=== PATIENT | male | born 1980 | race Caucasian/White ===

== ENCOUNTER → 2016-04-25 | Outpatient (CLI) | payer MEDICARE, OTHER ==
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
== END | disposition home or self-care (01) ==
LOC: RADCTMAIN 07:45
PROVIDERS: ATTEND Family Medicine
DX: M99.71 Connective tissue and disc stenosis of intervertebral foramina of cervical region (principal)
CPT/HCPCS: 72125

== ENCOUNTER 2016-06-08 19:07 | Observation (INO) | payer MEDICARE, OTHER ==
[2016-06-08] MEDS ORDERED: NITROGLYCERIN OINT 1 INCH/GM PACKET TOPICAL STA (19:38)
[2016-06-08] MEDS ORDERED: ASPIRIN 81 MG CHEW PO STA (19:38)
[2016-06-08] MEDS ORDERED: NITROGLYCERIN SL TABS 0.4 MG TAB SUBLINGUAL STA (19:38)
--- NOTE | 2016-06-08 19:40 | ED ---
General Adult HPI - General Chief complaint: Chest Pain Stated complaint: chest pain Time Seen by Provider: 06/08/16 19:35 Source: patient, RN notes reviewed Mode of arrival: EMS Limitations: no limitations - History of Present Illness Initial comments: Patient is a pleasant 35-year-old male presenting to the emergency department complaining of chest pain. Onset of symptoms was yesterday. Symptoms were intermittent however are more persistent today. Patient has associated dyspnea and diaphoresis. No nausea. No leg pain or swelling. No cough or fever. Discomfort is sharp as does radiate to the left arm. Patient had similar symptoms previously with heart problems. Discomfort is currently 8/10. Discomfort did improve with nitro and morphine by EMS. - Related Data Home Medications Medication Instructions Recorded Confirmed Aspirin EC [Ecotrin Low Dose] 81 mg PO HS 10/27/15 06/08/16 Atorvastatin [Lipitor] 20 mg PO HS 10/27/15 06/08/16 Benztropine Mesylate [Cogentin] 1 mg PO BID 10/27/15 06/08/16 Carvedilol [Coreg] 12.5 mg PO BID 10/27/15 06/08/16 DULoxetine HCL [Cymbalta] 60 mg PO DAILY 10/27/15 06/08/16 Fenofibrate,Micronized 67 mg PO HS 10/27/15 06/08/16 [Fenofibrate] Furosemide [Lasix] 20 mg PO DAILY PRN 10/27/15 06/08/16 Gemfibrozil [Lopid] 600 mg PO BID 10/27/15 06/08/16 Pantoprazole Sodium [Protonix] 40 mg PO DAILY 10/27/15 06/08/16 Ranolazine [Ranexa] 1,000 mg PO BID 10/27/15 06/08/16 Tamsulosin HCl [Flomax] 0.4 mg PO BID 10/27/15 06/08/16 Lisinopril [Prinivil] 20 mg PO DAILY 11/28/15 06/08/16 Albuterol Inhaler [Ventolin Hfa 1 puff INHALATION RT-Q6H PRN 02/22/16 06/08/16 Inhaler] Clopidogrel [Plavix] 75 mg PO DAILY 02/22/16 06/08/16 Dicyclomine [Bentyl] 10 mg PO BID 02/22/16 06/08/16 Diltiazem HCl [Diltiazem 24Hr ER] 120 mg PO DAILY 02/22/16 06/08/16 Sertraline [Zoloft] 50 mg PO DAILY 02/22/16 06/08/16 risperiDONE MICROSPHERES 12.5 mg IM Q14D 02/22/16 06/08/16 [RisperDAL CONSTA] risperiDONE MICROSPHERES 50 mg IM Q14D 02/22/16 06/08/16 [RisperDAL CONSTA] Isosorbide Mononitrate ER [Imdur] 60 mg PO QAM 06/08/16 06/08/16 carBAMazepine [Carbatrol] 300 mg PO Q12HR 06/08/16 06/08/16 Allergies Allergy/AdvReac Type Severity Reaction Status Date / Time codeine Allergy Itching Verified 06/08/16 20:19 hydrocodone bitartrate Allergy Itching Verified 06/08/16 20:19 [From Vicodin] latex Allergy Rash/Hives Verified 06/08/16 20:19 morphine Allergy Itching Verified 06/08/16 20:19 quetiapine fumarate AdvReac AGITATION Verified 06/08/16 20:19 [From Seroquel] Review of Systems ROS Statement: Those systems with pertinent positive or pertinent negative responses have been documented in the HPI. ROS Other: All systems not noted in ROS Statement are negative. Constitutional: Denies: fever Eyes: Denies: eye pain ENT: Denies: ear pain Respiratory: Reports: dyspnea. Denies: cough Cardiovascular: Reports: chest pain, palpitations Endocrine: Denies: fatigue Gastrointestinal: Denies: abdominal pain Genitourinary: Denies: dysuria Musculoskeletal: Denies: back pain Skin: Denies: rash Neurological: Denies: weakness Past Medical History Past Medical History: Heart Failure Additional Past Medical History / Comment(s): Cardiomyopathy History of Any Multi-Drug Resistant Organisms: None Reported Past Surgical History: Heart Catheterization With Stent, Pacemaker Past Anesthesia/Blood Transfusion Reactions: No Reported Reaction Date of Last Stent Placement:: Type of Cardiac Device: Permanent Pacemaker Device Placement Date:: 2011 Past Psychological History: Schizophrenia Smoking Status: Current every day smoker Past Alcohol Use History: None Reported Past Drug Use History: None Reported - Past Family History Father Family Medical History: Congestive Heart Failure (CHF) Additional Family Medical History / Comment(s): Heart Transplant Mother Additional Family Medical History / Comment(s): Triple bypass General Exam Limitations: no limitations General appearance: alert, in no apparent distress Head exam: Present: atraumatic Eye exam: Present: normal appearance, PERRL ENT exam: Present: normal oropharynx Neck exam: Present: normal inspection Respiratory exam: Present: normal lung sounds bilaterally Cardiovascular Exam: Present: regular rate, normal rhythm Expanded Peripheral pulses: 2+: Radial (R), Radial (L), Posterior Tibialis (R), Posterior Tibialis (L) GI/Abdominal exam: Present: soft. Absent: tenderness Extremities exam: Present: normal inspection. Absent: pedal edema, calf tenderness Neurological exam: Present: alert Psychiatric exam: Present: normal affect, normal mood Skin exam: Absent: rash Course Vital Signs 06/08/16 06/08/16 19:13 19:27 Temperature 97.2 F L Pulse Rate 96 Pulse Rate [ 74 Senior Research Fellow ] Respiratory 20 Rate Blood Pressure 125/68 O2 Sat by Pulse 97 Oximetry EKG Findings - EKG Comments: EKG Findings:: Normal sinus rhythm at 71. Normal intervals. Normal axis. Normal QRS. Normal ST-T. Medical Decision Making - Medical Decision Making Patient reevaluated and resting comfortably in bed. Patient and family updated on results and plan. Case was discussed in detail with Dr. Hilliard, who will admit for Dr. keller. Admission orders written. Consult placed for cardiology. IV heparin started. - Lab Data Result diagrams: 06/08/16 19:20 06/08/16 19:20 Lab Results 06/08/16 06/08/16 06/08/16 Range/Units 19:20 19:20 19:20 WBC 7.8 (3.8-10.6) k/uL RBC 4.44 (4.30-5.90) m/uL Hgb 13.8 (13.0-17.5) gm/dL Hct 40.7 (39.0-53.0) % MCV 91.7 (80.0-100.0) fL MCH 31.2 (25.0-35.0) pg MCHC 34.0 (31.0-37.0) g/dL RDW 12.7 (11.5-15.5) % Plt Count 180 (150-450) k/uL Neutrophils % 62 % Lymphocytes % 27 % Monocytes % 8 % Eosinophils % 1 % Basophils % 0 % Neutrophils # 4.8 (1.3-7.7) k/uL Lymphocytes # 2.1 (1.0-4.8) k/uL Monocytes # 0.6 (0-1.0) k/uL Eosinophils # 0.1 (0-0.7) k/uL Basophils # 0.0 (0-0.2) k/uL PT (9.0-12.0) sec INR (<1.1) APTT (22.0-30.0) sec D-Dimer (<0.60) mg/L FEU Sodium 138 (137-145) mmol/L Potassium 4.1 (3.5-5.1) mmol/L Chloride 103 (98-107) mmol/L Carbon Dioxide 24 (22-30) mmol/L Anion Gap 11 mmol/L BUN 9 (9-20) mg/dL Creatinine 0.98 (0.66-1.25) mg/dL Est GFR (MDRD) Af Amer >60 (>60 ml/min/1.73 sqM) Est GFR (MDRD) Non-Af >60 (>60 ml/min/1.73 sqM) Glucose 81 (74-99) mg/dL Calcium 8.7 (8.4-10.2) mg/dL Magnesium 1.8 (1.6-2.3) mg/dL Total Bilirubin 0.5 (0.2-1.3) mg/dL AST 62 H (17-59) U/L ALT 72 (21-72) U/L Alkaline Phosphatase 57 (38-126) U/L Total Creatine Kinase 225 H (55-170) U/L CK-MB (CK-2) 1.6 (0.0-2.4) ng/mL CK-MB (CK-2) Rel Index 0.7 Troponin I <0.012 (0.000-0.034) ng/mL NT-Pro-B Natriuret Pep pg/mL Total Protein 6.3 (6.3-8.2) g/dL Albumin 3.8 (3.5-5.0) g/dL 06/08/16 06/08/16 Range/Units 19:20 19:20 WBC (3.8-10.6) k/uL RBC (4.30-5.90) m/uL Hgb (13.0-17.5) gm/dL Hct (39.0-53.0) % MCV (80.0-100.0) fL MCH (25.0-35.0) pg MCHC (31.0-37.0) g/dL RDW (11.5-15.5) % Plt Count (150-450) k/uL Neutrophils % % Lymphocytes % % Monocytes % % Eosinophils % % Basophils % % Neutrophils # (1.3-7.7) k/uL Lymphocytes # (1.0-4.8) k/uL Monocytes # (0-1.0) k/uL Eosinophils # (0-0.7) k/uL Basophils # (0-0.2) k/uL PT 10.6 (9.0-12.0) sec INR 1.0 (<1.1) APTT 24.7 (22.0-30.0) sec D-Dimer 0.22 (<0.60) mg/L FEU Sodium (137-145) mmol/L Potassium (3.5-5.1) mmol/L Chloride (98-107) mmol/L Carbon Dioxide (22-30) mmol/L Anion Gap mmol/L BUN (9-20) mg/dL Creatinine (0.66-1.25) mg/dL Est GFR (MDRD) Af Amer (>60 ml/min/1.73 sqM) Est GFR (MDRD) Non-Af (>60 ml/min/1.73 sqM) Glucose (74-99) mg/dL Calcium (8.4-10.2) mg/dL Magnesium (1.6-2.3) mg/dL Total Bilirubin (0.2-1.3) mg/dL AST (17-59) U/L ALT (21-72) U/L Alkaline Phosphatase (38-126) U/L Total Creatine Kinase (55-170) U/L CK-MB (CK-2) (0.0-2.4) ng/mL CK-MB (CK-2) Rel Index Troponin I (0.000-0.034) ng/mL NT-Pro-B Natriuret Pep 117 pg/mL Total Protein (6.3-8.2) g/dL Albumin (3.5-5.0) g/dL - Radiology Data Radiology results: image reviewed (Chest x-ray shows no acute process) Critical Care Time Critical Care Time: Yes Total Critical Care Time: 32 Disposition Clinical Impression: Unstable angina pectoris Disposition: ADMITTED IP TO THIS HOSP Referrals: Sweta Bhardwaj MD [Primary Care Provider] - 1-2 days
[2016-06-08 19:55] LABS: Basophils % (A) 0 %; CH 32.6; CHCM 35.7; Eosinophils # (A) 0.1 k/uL (0-0.7); Eosinophils % (A) 1 %; HCT 40.7 % (39.0-53.0); HDW 2.47; HGB 13.8 gm/dL (13.0-17.5); Luc # (Auto) 0.18; Luc % (Auto) 2; Lymphocytes # (A) 2.1 k/uL (1.0-4.8); Lymphocytes % (A) 27 %; MCH 31.2 pg (25.0-35.0); MCV 91.7 fL (80.0-100.0); Monocytes # (A) 0.6 k/uL (0-1.0); Monocytes % (A) 8 %; Neutrophils # (A) 4.8 k/uL (1.3-7.7); Neutrophils % (A) 62 %; RBC 4.44 m/uL (4.30-5.90); RDW 12.7 % (11.5-15.5); WBC 7.8 k/uL (3.8-10.6); WBC (Perox) 7.63
[2016-06-08 20:08] LABS: ALT 72 U/L (21-72); AST 62 U/L (17-59); Alkaline Phosphatase 57 U/L (38-126); Anion Gap 11 mmol/L; Blood Urea Nitrogen 9 mg/dL (9-20); Calcium 8.7 mg/dL (8.4-10.2); Carbon Dioxide 24 mmol/L (22-30); Chloride 103 mmol/L (98-107); Glucose 81 mg/dL (74-99); Magnesium 1.8 mg/dL (1.6-2.3); Non-African American GFR(MDRD) >60 (>60 ml/min/1.73 sqM); Potassium 4.1 mmol/L (3.5-5.1); Sodium 138 mmol/L (137-145); Total Bilirubin 0.5 mg/dL (0.2-1.3); Total Protein 6.3 g/dL (6.3-8.2)
[2016-06-08 20:19] LABS: Partial Thromboplastin Time 24.7 sec (22.0-30.0); Prothrombin Time 10.6 sec (9.0-12.0)
[2016-06-08 20:21] LABS: Creatine Kinase 225 U/L (55-170)
[2016-06-08] MEDS ORDERED: HYDROmorphone 1 MG/ML 1 ML SYRINGE IVP STA (20:24)
[2016-06-08 20:33] LABS: Creatine Kinase MB 1.6 ng/mL (0.0-2.4); Troponin I <0.012 ng/mL (0.000-0.034)
--- NOTE | 2016-06-08 20:33 | XR ---
EXAMINATION TYPE: XR chest 2V DATE OF EXAM: 06/08/2016 7:57 PM COMPARISON: February 22, 2016 HISTORY: Sharp left-sided pain TECHNIQUE: Frontal and lateral views of the chest are obtained. FINDINGS: Cardiac pacemaker noted. Cardiac silhouette size is normal. There is no focal air space op acity, pleural effusion, or pneumothorax seen. The mediastinal silhouette is within normal limits. The osseous structures are intact. IMPRESSION: No acute cardiopulmonary process.
[2016-06-08] MEDS ORDERED: NITROGLYCERIN SL TABS 0.4 MG TAB SUBLINGUAL PRN (22:16)
[2016-06-08] MEDS ORDERED: HEPARIN SODIUM,PORCINE 5,000 UNIT/ML 1 ML VIAL IV ONE (22:16)
[2016-06-08] MEDS ORDERED: HEPARIN SODIUM,PORCINE 5,000 UNIT/ML 1 ML VIAL IV PRN (22:16)
[2016-06-08] MEDS ORDERED: HEPARIN SODIUM,PORCINE/D5W PMX 25,000 UNIT in DEXTROSE/WATER 1 500ML.BAG IV SCH (22:30)
[2016-06-08] MEDS ORDERED: FAMOTIDINE 20 MG/2 ML VIAL IV STA (23:09)
[2016-06-09] MEDS ORDERED: FUROSEMIDE 20 MG TAB PO PRN (00:07)
[2016-06-09] MEDS ORDERED: ALBUTEROL NEBULIZED 2.5 MG/3 ML INHALATION PRN (00:07)
[2016-06-09] MEDS: CARVEDILOL 12.5 MG TAB PO SCH ×2 (01:00→13:24)
[2016-06-09] MEDS: RANOLAZINE 500 MG TAB.ER.12H PO SCH ×2 (01:00→13:23)
[2016-06-09] MEDS: NITROGLYCERIN OINT 1 INCH/GM PACKET TOPICAL SCH ×2 (01:00→06:33)
[2016-06-09] MEDS: MORPHINE SULFATE 2 MG/ML SYRINGE IVP PRN ×3 (01:01→09:58)
[2016-06-09] MEDS: carBAMazepine 300 MG CPMP.12HR PO SCH ×2 (01:03→13:24)
[2016-06-09 02:14] LABS: Creatine Kinase 189 U/L (55-170)
[2016-06-09 02:15] VITALS: BMI 33.8
[2016-06-09 02:27] LABS: Creatine Kinase MB 1.5 ng/mL (0.0-2.4); Troponin I <0.012 ng/mL (0.000-0.034)
[2016-06-09 05:09] VITALS: PULSE 82
[2016-06-09 06:55] LABS: Cholesterol 183 mg/dL (<200); HDL Cholesterol 26 mg/dL (40-60); Triglycerides 281 mg/dL (<150)
[2016-06-09 07:12] LABS: Creatine Kinase 159 U/L (55-170)
[2016-06-09 07:24] LABS: Creatine Kinase MB 1.4 ng/mL (0.0-2.4); Troponin I <0.012 ng/mL (0.000-0.034)
[2016-06-09 07:49] VITALS: RESP 16
[2016-06-09] MEDS ORDERED: AMINOPHYLLINE 500 MG/20 ML VIAL IV PRN (08:03)
[2016-06-09] MEDS ORDERED: REGADENOSON 0.4 MG/5 ML SYRINGE IV ONE (08:15)
--- NOTE | 2016-06-09 08:38 | CONS ---
DATE OF CONSULTATION: CHIEF COMPLAINT: Chest pain. Jabari is a 35-year-old gentleman with history of coronary artery disease, status post angioplasty, status post permanent pacemaker, cardiomyopathy, schizophrenia who comes to the hospital complaining of chest pain. It is sharp precordial intermittent without definite radiation to neck, arm or back, unassociated with diaphoresis and unrelated to exertion. At the time of my evaluation, he is pain free and hemodynamically stable. He has had 2 sets of cardiac enzymes that are negative. EKG shows sinus rhythm without acute ST-T wave changes. Given the unexplained chest pain. I am going to schedule him for a stress test this morning. Past medical history is significant for CAD, status post angioplasty, hypertension, dyslipidemia, dsg-lyizsos-eaiuizris diabetes, sick sinus syndrome, status post permanent pacemaker placement. The patient is on: 1. Imdur. 2. Risperdal. 3. Cardizem. 4. Bentyl. 5. Plavix. 6. Albuterol. 7. Lisinopril. 8. Flomax. 9. Xanax. 10. Lopid. 11. Protonix. 12. Aspirin. 13. Lipitor. 14. Coreg. 15. Cymbalta. 16. Fenofibrate. 17. Lasix. PATIENT HAS MULTIPLE ALLERGIES INCLUDING CODEINE, VICODIN, LATEX, MORPHINE AND SEROQUEL. FAMILY HISTORY: Significant for congestive heart failure. SOCIAL HISTORY: Significant for smoking. There is no history of ETOH abuse, or drug abuse. REVIEW OF SYSTEMS: HEENT: Unremarkable. CARDIAC: As described above. RESPIRATORY: Negative. GI: Negative. GENITOURINARY: Negative. Allergy/immunology: Negative. MUSCULOSKELETAL: Negative. CONSTITUTIONAL: Negative. Oncological: Negative. The rest of the system review is not relevant. On exam, comfortable at rest. Vital signs are stable. There is no jugular venous distention. Carotid upstroke is normal. There is no bruit. Chest exam reveals good air entry bilaterally. Heart exam reveals first and second heart sounds. No gallop. Exam of the extremities did not reveal edema. Peripheral pulses are felt. ASSESSMENT: 1. Precordial chest pain, atypical. 2. History of permanent pacemaker placement with a history of stent. 3. History of coronary artery disease, status post angioplasty. PLAN: I am going to schedule him for a stress test to evaluate for ischemia and if this is abnormal he may need a cardiac cath if not we will discharge him home.
[2016-06-09] MEDS ORDERED: BENZTROPINE MESYLATE 1 MG TAB PO SCH (09:00)
[2016-06-09] MEDS ORDERED: SERTRALINE 50 MG TAB PO SCH (09:00)
[2016-06-09] MEDS ORDERED: DICYCLOMINE 10 MG CAP PO SCH (09:00)
[2016-06-09] MEDS ORDERED: GEMFIBROZIL 600 MG TAB PO SCH (09:00)
[2016-06-09] MEDS ORDERED: PANTOPRAZOLE 40 MG TABLET PO SCH (09:00)
[2016-06-09] MEDS ORDERED: ASPIRIN 325 MG TAB PO SCH (09:00)
[2016-06-09] MEDS ORDERED: DULoxetine HCL 60 MG CAPSULE.DR PO SCH (09:00)
[2016-06-09] MEDS ORDERED: CLOPIDOGREL 75 MG TAB PO SCH (09:00)
[2016-06-09] MEDS ORDERED: TAMSULOSIN 0.4 MG CAP.ER.24H PO SCH (09:00)
[2016-06-09] MEDS ORDERED: LISINOPRIL 20 MG TAB PO SCH (09:00)
[2016-06-09] MEDS ORDERED: ISOSORBIDE MONONITRATE ER 60 MG TAB.ER.24H PO SCH (09:00)
[2016-06-09] MEDS ORDERED: DILTIAZEM CD 120 MG CAP.ER.24H PO SCH (09:00)
--- NOTE | 2016-06-09 11:42 | ECHOF ---
Referral Reason:chest pain MEASUREMENTS -------- HEIGHT: 172.7 cm WEIGHT: 100.7 kg BP: 86/47 RVIDd: 3.5 cm (< 3.3) IVSd: 1.0 cm (0.6 - 1.1) LVIDd: 5.0 cm (3.9 - 5.3) LVPWd: 0.8 cm (0.6 - 1.1) IVSs: 1.3 cm LVIDs: 3.7 cm LVPWs: 1.1 cm LA Diam: 3.3 cm (2.7 - 3.8) Ao Diam: 2.6 cm (2.0 - 3.7) AV Cusp: 2.0 cm (1.5 - 2.6) LA Diam: 2.8 cm (2.7 - 3.8) MV EXCURSION: 12.842 mm (> 18.000) MV EF SLOPE: 102 mm/s (70 - 150) EPSS: 0.6 cm MV E Blayne: 0.98 m/s MV DecT: 163 ms MV A Blayne: 0.54 m/s MV E/A Ratio: 1.82 RAP: 5.00 mmHg RVSP: 30.49 mmHg FINDINGS -------- Paced rhythm. Pacerwire seen in RV and RA. This was a technically good study. Left ventricular wall thickness is normal. Overall left ventricular systolic function is normal with, an EF between 55 - 60 %. The right ventricle is mildly enlarged. The left atrial size is normal. The right atrium is normal in size. Aortic valve is trileaflet and is mildly thickened. The mitral valve leaflets are mildly thickened. Mild mitral annular calcification present. Mild mitral regurgitation is present. Mild tricuspid regurgitation present. Right ventricular systolic pressure is normal at < 35 mmHg. Trace/mild (physiologic) pulmonic regurgitation. The aortic root size is normal. Normal inferior vena cava with normal inspiratory collapse consistent with estimated right atrial pressure of 5 mmHg. There is a trivial pericardial effusion present. CONCLUSIONS -------- 1. Paced rhythm. 2. The mitral valve leaflets are mildly thickened. 3. Mild mitral annular calcification present. 4. Mild mitral regurgitation is present. 5. Mild tricuspid regurgitation present. 6. Right ventricular systolic pressure is normal at < 35 mmHg. 7. Trace/mild (physiologic) pulmonic regurgitation. 8. The aortic root size is normal. 9. There is a trivial pericardial effusion present. 10. Pacerwire seen in RV and RA. 11. This was a technically good study. 12. Left ventricular wall thickness is normal. 13. Overall left ventricular systolic function is normal with, an EF between 55 - 60 %. 14. The right ventricle is mildly enlarged. 15. The left atrial size is normal. 16. The right atrium is normal in size. 17. Aortic valve is trileaflet and is mildly thickened. OPTICIAN: Trell Giraldo RDCS
--- NOTE | 2016-06-09 12:17 | P.HPIM ---
History of Present Illness H&P Date: 06/09/16 Chief Complaint: Chest pain This is a 35-year-old male with a known history of congestive heart failure, coronary artery disease with cardiac stent, cardiomyopathy, hypertension, hyperlipidemia and nicotine dependence. Patient presents to the emergency room with complaints of chest pain. Patient reports that chest pain started yesterday. He was having pain in the center of his chest radiating into the left arm and up to his neck. Also was having shortness of breath nausea and diaphoresis. He is concerned about possible heart attack and presented to the emergency room for further evaluation and treatment. He was started on IV heparin. Cardiology was consulted. Troponins are negative 3 sets. EKG shows a normal sinus rhythm. Patient slurred last heart catheterization was February 2016 patient reported as being normal and no intervention required at that time. Patient was evaluated by cardiology and is scheduled him for a stress test today. Patient is still having episodes of chest pain requiring IV morphine. He did have a blood pressure of 86/47 this morning likely related to the morphine. Review of Systems Please refer to HPI otherwise unremarkable Past Medical History Past Medical History: Asthma, Heart Failure Additional Past Medical History / Comment(s): Cardiomyopathy History of Any Multi-Drug Resistant Organisms: None Reported Past Surgical History: Heart Catheterization With Stent, Pacemaker Additional Past Surgical History / Comment(s): surgery on elbow Past Anesthesia/Blood Transfusion Reactions: No Reported Reaction Date of Last Stent Placement:: Type of Cardiac Device: Permanent Pacemaker Device Placement Date:: 2011 Past Psychological History: Schizophrenia Smoking Status: Current every day smoker Past Alcohol Use History: None Reported Past Drug Use History: None Reported - Past Family History Father Family Medical History: Congestive Heart Failure (CHF) Additional Family Medical History / Comment(s): Father required Heart Transplant in his 40s. Mother in her 50s he required CABG Mother Additional Family Medical History / Comment(s): Triple bypass Medications and Allergies Home Medications Medication Instructions Recorded Confirmed Type Aspirin EC [Ecotrin Low Dose] 81 mg PO HS 10/27/15 06/08/16 History Atorvastatin [Lipitor] 20 mg PO HS 10/27/15 06/08/16 History Benztropine Mesylate [Cogentin] 1 mg PO BID 10/27/15 06/08/16 History Carvedilol [Coreg] 12.5 mg PO BID 10/27/15 06/08/16 History DULoxetine HCL [Cymbalta] 60 mg PO DAILY 10/27/15 06/08/16 History Fenofibrate,Micronized 67 mg PO HS 10/27/15 06/08/16 History [Fenofibrate] Furosemide [Lasix] 20 mg PO DAILY PRN 10/27/15 06/08/16 History Gemfibrozil [Lopid] 600 mg PO BID 10/27/15 06/08/16 History Pantoprazole Sodium [Protonix] 40 mg PO DAILY 10/27/15 06/08/16 History Ranolazine [Ranexa] 1,000 mg PO BID 10/27/15 06/08/16 History Tamsulosin HCl [Flomax] 0.4 mg PO BID 10/27/15 06/08/16 History Lisinopril [Prinivil] 20 mg PO DAILY 11/28/15 06/08/16 History Albuterol Inhaler [Ventolin Hfa 1 puff INHALATION RT-Q6H PRN 02/22/16 06/08/16 History Inhaler] Clopidogrel [Plavix] 75 mg PO DAILY 02/22/16 06/08/16 History Dicyclomine [Bentyl] 10 mg PO BID 02/22/16 06/08/16 History Diltiazem HCl [Diltiazem 24Hr ER] 120 mg PO DAILY 02/22/16 06/08/16 History Sertraline [Zoloft] 50 mg PO DAILY 02/22/16 06/08/16 History risperiDONE MICROSPHERES 12.5 mg IM Q14D 02/22/16 06/08/16 History [RisperDAL CONSTA] risperiDONE MICROSPHERES 50 mg IM Q14D 02/22/16 06/08/16 History [RisperDAL CONSTA] Isosorbide Mononitrate ER [Imdur] 60 mg PO QAM 06/08/16 06/08/16 History carBAMazepine [Carbatrol] 300 mg PO Q12HR 06/08/16 06/08/16 History Allergies Allergy/AdvReac Type Severity Reaction Status Date / Time codeine Allergy Itching Verified 06/08/16 20:19 hydrocodone bitartrate Allergy Itching Verified 06/08/16 20:19 [From Vicodin] latex Allergy Rash/Hives Verified 06/08/16 20:19 morphine Allergy Itching Verified 06/08/16 20:19 quetiapine fumarate AdvReac AGITATION Verified 06/08/16 20:19 [From Seroquel] Physical Exam Vitals: Vital Signs Temp Pulse Pulse Resp BP BP Pulse Ox 06/09/16 07:44 97.7 F 68 16 86/47 96 06/09/16 04:00 82 14 108/66 97 06/09/16 00:00 97.3 F L 72 14 127/71 96 06/08/16 23:07 76 18 129/88 96 06/08/16 23:06 97.8 F 82 16 128/78 96 Intake and Output 06/08/16 06/09/16 06/09/16 22:59 06:59 14:59 Intake Total 164.667 Output Total 1500 500 Balance -1500 -335.333 Intake: Intake, IV Titration 164.667 Amount Heparin Sodium,Porcine/ 164.667 D5w Pmx 25,000 unit In Dextrose/Water 1 500ml. bag @ 10.022 UNITS/KG/HR 20 mls/hr IV .Q24H TIFFANIE Rx #:[id number] Output: Urine 1500 500 Other: # Voids 2 Weight 100.9 kg Results CBC & Chem 7: 06/09/16 05:51 06/08/16 19:20 Labs: Abnormal Lab Results - Last 24 Hours (Table) 06/09/16 06/09/16 06/09/16 Range/Units 01:23 05:51 05:51 APTT 34.6 H (22.0-30.0) sec Total Creatine Kinase 189 H (55-170) U/L Triglycerides 281 H (<150) mg/dL LDL Cholesterol, Calc 101 H (0-99) mg/dL HDL Cholesterol 26 L (40-60) mg/dL Thrombosis Risk Factor Assmnt - Choose All That Apply Any of the Below Risk Factors Present?: Yes Each Factor Represents 1 point: Obesity (BMI >25) Thrombosis Risk Factor Assessment Total Risk Factor Score: 1 Thrombosis Risk Factor Assessment Level: Low Risk Assessment and Plan Plan: 1. Chest pain: Cardiac workup in progress. Troponins are negative 3 sets. EKG showing normal sinus rhythm. Chest x-rays negative. Echo shows an EF of 55 -60%. With mild mitral regurgitation and mild tricuspid regurgitation. Patient scheduled for stress test today. He's been followed by cardiology. Currently on IV heparin. 2. Coronary artery disease with previous cardiac stenting 3. History of permanent pacemaker 4. Essential hypertension: Blood pressure on the lower side this morning due to IV pain medication. Continue to monitor. 5. Hyperlipidemia and hypertriglyceridemia: Continue Lipitor and Lopid 6. History of schizophrenia 7. Nicotine dependence: Add nicotine patch. Discussed with patient smoking cessation for greater than 3 minutes GI prophylaxis Protonix and DVT prophylaxis IV heparin Time with Patient: Greater than 30 (Greater than 50% of the total time spent in counseling and coordination of care.I performed an examination of the patient and discussed their management with the physician Machine Greaser. I have reviewed the Physician Machine Greaser's notes and agree with the documented findings and plan of care)
[2016-06-09] MEDS ORDERED: NICOTINE 21MG/24HR PATCH TRANSDERM SCH (13:00)
--- NOTE | 2016-06-09 13:35 | NM ---
EXAMINATION TYPE: NM stress lexiscan cardiolite DATE OF EXAM: 06/09/2016 1:17 PM COMPARISON: Chest x-ray 08 June 2016 HISTORY: Chest pain TECHNIQUE: After the intravenous administration of 11 mCi Tc 99m Sestamibi - Cardiolite resting SPEC T images acquired 70 minutes post injection. The patient received 0.4mg Lexiscan, 27.5 mCi Tc 99m Sestamibi - Stress images obtained [address] injection FINDINGS: Review of stress and rest SPECT images demonstrates no distinct perfusion abnormality. Gated analysi s shows normal wall motion with an estimated left ventricular ejection fraction of 49 %. IMPRESSION: No scintigraphic evidence for reversible ischemia.
[2016-06-09 13:50] VITALS: BP 141/83; TEMP 97.6
--- NOTE | 2016-06-09 14:17 | EST ---
DATE OF SERVICE: 06/09/2016 AGE: 35Y SEX: M HT: 68" WT: 222 lbs. Protocol Genaro: Other: Lexiscan Cardiolite Stage: Dur. of Exercise: *Heart Rate Blood Pressure *Rest: 69 Rest: 126/77 * *Max. Achieved: 104 Maximum BP: 143/78 85% PMHR: 100% PMHR: *METS: INDICATION OF THE STUDY: Chest pain. MEDICATIONS: STRESS DATA: Heart rate is 69, pressure is 126/77 mmHg. A 0.4 mg of Lexiscan was given to the patient over 15 seconds per protocol. The max heart rate was 104 beats per minute and maximum pressure was 143/78 mmHg. Clinically, the patient did not have any symptoms and the EKG did not show any significant ST or T wave abnormalities consistent with ischemia. CONCLUSION: 1. Nondiagnostic electrocardiogram stress testing in response to Lexiscan. 2. Please follow up on the Cardiolite portion in a separate report from the radiology department.
--- NOTE | 2016-06-09 14:56 | P.DS ---
Providers Date of admission: 06/08/16 22:16 Expected date of discharge: 06/09/16 Attending physician: Clifford Moy Consults: Dr. Romero Primary care physician: Sweta Bhardwaj Hospital Course: Discharge diagnosis 1. Chest pain: GA ruled out. Cardiac workup in progress. Troponins are negative 3 sets. EKG showing normal sinus rhythm. Chest x-rays negative. Echo shows an EF of 55-60%. With mild mitral regurgitation and mild tricuspid regurgitation. Stress test results shows no evidence of reversible ischemia 2. Coronary artery disease with previous cardiac stenting 3. History of permanent pacemaker 4. Essential hypertension: Blood pressure on the lower side this morning due to IV pain medication. Blood pressures are improved. Repeat blood pressure 141 /83 5. Hyperlipidemia and hypertriglyceridemia: Continue Lipitor and Lopid 6. History of schizophrenia 7. Nicotine dependence: Discussed with patient smoking cessation for greater than 3 minutes Hospital course This is a 35-year-old male with a known history of congestive heart failure, coronary artery disease with cardiac stent, cardiomyopathy, hypertension, hyperlipidemia and nicotine dependence. Patient presents to the emergency room with complaints of chest pain. Patient reports that chest pain started yesterday. He was having pain in the center of his chest radiating into the left arm and up to his neck. Also was having shortness of breath nausea and diaphoresis. He is concerned about possible heart attack and presented to the emergency room for further evaluation and treatment. He was started on IV heparin. Cardiology was consulted. Troponins are negative 3 sets. EKG shows a normal sinus rhythm. Patient last heart catheterization was February 2016 patient reported as being normal and no intervention required at that time. Patient was evaluated by cardiology and is scheduled him for a stress test. Stress test results shows no evidence of reversible ischemia. Cardiology has cleared him for discharge. Patient's chest pain has shown improvement, but still has some mild discomfort. He is eager for discharge home. He will continue with his home medications. Patient is medically stable for discharge. We'll have him follow up with his PCP in 1 week Patient Condition at Discharge: Stable Plan - Discharge Summary Discharge Medication List Aspirin EC [Ecotrin Low Dose] 81 mg PO HS 10/27/15 [History] Atorvastatin [Lipitor] 20 mg PO HS 10/27/15 [History] Benztropine Mesylate [Cogentin] 1 mg PO BID 10/27/15 [History] Carvedilol [Coreg] 12.5 mg PO BID 10/27/15 [History] DULoxetine HCL [Cymbalta] 60 mg PO DAILY 10/27/15 [History] Fenofibrate,Micronized [Fenofibrate] 67 mg PO HS 10/27/15 [History] Furosemide [Lasix] 20 mg PO DAILY PRN 10/27/15 [History] Gemfibrozil [Lopid] 600 mg PO BID 10/27/15 [History] Pantoprazole Sodium [Protonix] 40 mg PO DAILY 10/27/15 [History] Ranolazine [Ranexa] 1,000 mg PO BID 10/27/15 [History] Tamsulosin HCl [Flomax] 0.4 mg PO BID 10/27/15 [History] Lisinopril [Prinivil] 20 mg PO DAILY 11/28/15 [History] Albuterol Inhaler [Ventolin Hfa Inhaler] 1 puff INHALATION RT-Q6H PRN 02/22/16 [ History] Clopidogrel [Plavix] 75 mg PO DAILY 02/22/16 [History] Dicyclomine [Bentyl] 10 mg PO BID 02/22/16 [History] Diltiazem HCl [Diltiazem 24Hr ER] 120 mg PO DAILY 02/22/16 [History] Sertraline [Zoloft] 50 mg PO DAILY 02/22/16 [History] risperiDONE MICROSPHERES [RisperDAL CONSTA] 12.5 mg IM Q14D 02/22/16 [History] risperiDONE MICROSPHERES [RisperDAL CONSTA] 50 mg IM Q14D 02/22/16 [History] Isosorbide Mononitrate ER [Imdur] 60 mg PO QAM 06/08/16 [History] carBAMazepine [Carbatrol] 300 mg PO Q12HR 06/08/16 [History] Follow up Appointment(s)/Referral(s): Sweta Bhardwaj MD [Primary Care Provider] - 1 Week Activity/Diet/Wound Care/Special Instructions: Diet: cardiac Activity: as tolerated Discharge Disposition: HOME SELF-CARE
[2016-06-09] MEDS ORDERED: FENOFIBRATE 54 MG TAB PO SCH (21:00)
[2016-06-09] MEDS ORDERED: ASPIRIN 81 MG CHEW PO SCH (21:00)
[2016-06-09] MEDS ORDERED: ATORVASTATIN 20 MG TAB PO SCH (21:00)
== END 2016-06-09 17:06 | disposition home or self-care (01) ==
LOC: EC 19:07 → 6SEL 22:16
PROVIDERS: ADMIT Internal Medicine; ATTEND Internal Medicine
DX: R07.2 Precordial pain (principal); R07.89 Other chest pain; I25.10 Atherosclerotic heart disease of native coronary artery without angina pectoris; E78.1 Pure hyperglyceridemia; E78.5 Hyperlipidemia, unspecified; F17.200 Nicotine dependence, unspecified, uncomplicated; F20.9 Schizophrenia, unspecified; I08.1 Rheumatic disorders of both mitral and tricuspid valves; I11.0 Hypertensive heart disease with heart failure; I50.9 Heart failure, unspecified; I42.9 Cardiomyopathy, unspecified; J45.909 Unspecified asthma, uncomplicated; Z88.5 Allergy status to narcotic agent; Z95.0 Presence of cardiac pacemaker; Z95.5 Presence of coronary angioplasty implant and graft; Z88.8 Allergy status to other drugs, medicaments and biological substances; Z79.02 Long term (current) use of antithrombotics/antiplatelets; Z79.82 Long term (current) use of aspirin; Z79.899 Other long term (current) drug therapy; R61 Generalized hyperhidrosis
CPT/HCPCS: 36415; 93017; 93306; 85379; 83880; 80061; 93005; 80053; 82550 ×2; 82553 ×2; 83735; 84484 ×2; 85025; 85049; 85610; 85730 ×2; 71020; 78452; 99291; 96365; 96375 ×2; 96376; G0378 ×2; A9500; J1644 ×3; J2270; J1170; J2785

== ENCOUNTER 2016-10-16 13:06 | Observation (INO) | payer MEDICARE, OTHER ==
[2016-10-16] MEDS ORDERED: HEPARIN SODIUM,PORCINE 5,000 UNIT/ML 1 ML VIAL IV ONE (13:29)
[2016-10-16] MEDS ORDERED: NITROGLYCERIN SL TABS 0.4 MG TAB SUBLINGUAL PRN (13:29)
[2016-10-16] MEDS ORDERED: ASPIRIN 81 MG CHEW PO STA (13:29)
[2016-10-16] MEDS ORDERED: HEPARIN SODIUM,PORCINE 5,000 UNIT/ML 1 ML VIAL IV PRN (13:29)
[2016-10-16] MEDS ORDERED: HEPARIN SODIUM,PORCINE/D5W PMX 25,000 UNIT in DEXTROSE/WATER 1 500ML.BAG IV SCH (13:30)
--- NOTE | 2016-10-16 13:31 | ED ---
General Adult HPI - General Chief complaint: Chest Pain Stated complaint: Chest Pain Time Seen by Provider: 10/16/16 13:29 Source: patient, RN notes reviewed, old records reviewed Mode of arrival: wheelchair Limitations: no limitations - History of Present Illness Initial comments: This is a 28-year-old [id number] history of heart disease, patient coming with history of stents, coronary chest pain. The chest pain woke him from sleep. Patient does take nitro for vasospasm no help with his pain at this time. Patient denies fever cough or congestion, no significant shortness of breath. Again the pain woke him from sleep has continued throughout emergency department stay. Patient still chest pain at this time. Hemiazygous chest is likely a prior stent placement - Related Data Home Medications Medication Instructions Recorded Confirmed Aspirin EC [Ecotrin Low Dose] 81 mg PO HS 10/27/15 10/16/16 Atorvastatin [Lipitor] 20 mg PO HS 10/27/15 10/16/16 Benztropine Mesylate [Cogentin] 1 mg PO BID 10/27/15 10/16/16 Carvedilol [Coreg] 12.5 mg PO BID 10/27/15 10/16/16 DULoxetine HCL [Cymbalta] 60 mg PO DAILY 10/27/15 10/16/16 Fenofibrate,Micronized 67 mg PO HS 10/27/15 10/16/16 [Fenofibrate] Furosemide [Lasix] 20 mg PO DAILY PRN 10/27/15 10/16/16 Gemfibrozil [Lopid] 600 mg PO BID 10/27/15 10/16/16 Pantoprazole Sodium [Protonix] 40 mg PO DAILY 10/27/15 10/16/16 Ranolazine [Ranexa] 1,000 mg PO BID 10/27/15 10/16/16 Tamsulosin HCl [Flomax] 0.4 mg PO BID 10/27/15 10/16/16 Lisinopril [Prinivil] 20 mg PO DAILY 11/28/15 10/16/16 Albuterol Inhaler [Ventolin Hfa 1 puff INHALATION RT-Q6H PRN 02/22/16 10/16/16 Inhaler] Clopidogrel [Plavix] 75 mg PO DAILY 02/22/16 10/16/16 Dicyclomine [Bentyl] 10 mg PO BID 02/22/16 10/16/16 Diltiazem HCl [Diltiazem 24Hr ER] 120 mg PO DAILY 02/22/16 10/16/16 Sertraline [Zoloft] 50 mg PO HS 02/22/16 10/16/16 risperiDONE MICROSPHERES 50 mg IM Q14D 02/22/16 10/16/16 [RisperDAL CONSTA] Isosorbide Mononitrate ER [Imdur] 60 mg PO QAM 06/08/16 10/16/16 carBAMazepine [Carbatrol] 300 mg PO Q12HR 06/08/16 10/16/16 Chantix Starter Pack 0.5 - 1 mg PO BID 10/16/16 10/16/16 Allergies Allergy/AdvReac Type Severity Reaction Status Date / Time codeine Allergy Itching Verified 10/16/16 14:28 hydrocodone bitartrate Allergy Itching Verified 10/16/16 14:28 [From Vicodin] latex Allergy Rash/Hives Verified 10/16/16 14:28 morphine Allergy Itching Verified 10/16/16 14:28 quetiapine fumarate AdvReac AGITATION Verified 10/16/16 14:28 [From Seroquel] Review of Systems ROS Statement: Those systems with pertinent positive or pertinent negative responses have been documented in the HPI. ROS Other: All systems not noted in ROS Statement are negative. Past Medical History Past Medical History: Asthma, Coronary Artery Disease (CAD), Heart Failure, GERD /Reflux, Hyperlipidemia, Hypertension Additional Past Medical History / Comment(s): Cardiomyopathy, IBS History of Any Multi-Drug Resistant Organisms: None Reported Past Surgical History: Heart Catheterization With Stent, Pacemaker Additional Past Surgical History / Comment(s): surgery on elbow Past Anesthesia/Blood Transfusion Reactions: No Reported Reaction Date of Last Stent Placement:: Type of Cardiac Device: Permanent Pacemaker Device Placement Date:: 2011 Past Psychological History: Depression, Schizophrenia Smoking Status: Current every day smoker Past Alcohol Use History: None Reported Past Drug Use History: None Reported - Past Family History Father Family Medical History: Congestive Heart Failure (CHF) Additional Family Medical History / Comment(s): Father required Heart Transplant in his 40s. Mother in her 50s he required CABG Mother Additional Family Medical History / Comment(s): Triple bypass General Exam Limitations: no limitations General appearance: alert, in no apparent distress Head exam: Present: atraumatic, normocephalic, normal inspection Eye exam: Present: normal appearance, PERRL, EOMI. Absent: scleral icterus, conjunctival injection, periorbital swelling ENT exam: Present: normal exam, mucous membranes moist Neck exam: Present: normal inspection. Absent: tenderness, meningismus, lymphadenopathy Respiratory exam: Present: normal lung sounds bilaterally. Absent: respiratory distress, wheezes, rales, rhonchi, stridor Cardiovascular Exam: Present: regular rate, normal rhythm, normal heart sounds. Absent: systolic murmur, diastolic murmur, rubs, gallop, clicks GI/Abdominal exam: Present: soft, normal bowel sounds. Absent: distended, tenderness, guarding, rebound, rigid Extremities exam: Present: normal inspection, full ROM, normal capillary refill. Absent: tenderness, pedal edema, joint swelling, calf tenderness Back exam: Present: normal inspection Neurological exam: Present: alert, oriented X3, CN II-XII intact Psychiatric exam: Present: normal affect, normal mood Skin exam: Present: warm, dry, intact, normal color. Absent: rash Course Vital Signs 10/16/16 10/16/16 10/16/16 13:08 13:35 13:55 Temperature 97.2 F L 98.3 F Pulse Rate 96 89 89 Respiratory 16 16 18 Rate Blood Pressure 138/96 140/93 143/81 O2 Sat by Pulse 95 96 96 Oximetry 10/16/16 14:49 Temperature Pulse Rate 96 Respiratory 18 Rate Blood Pressure 149/90 O2 Sat by Pulse 93 L Oximetry - Reevaluation(s) Reevaluation #1: 10/16/16 15:00 Patient is still of chest pain at this time EKG Findings - EKG Comments: EKG Findings:: EKG shows normal sinus rhythm rate of 89, LA 180, QRS 86, QTC 425 Medical Decision Making - Medical Decision Making 36 mallei for evaluation of chest pain, history of heart disease, history of stent, patient be admitted for cardiac observation, anticoagulation pain control , telemetry and serial troponins - Lab Data Result diagrams: 10/16/16 13:38 10/16/16 13:38 Lab Results 10/16/16 10/16/16 10/16/16 Range/Units 13:38 13:38 13:38 WBC 12.6 H (3.8-10.6) k/uL RBC 5.70 (4.30-5.90) m/uL Hgb 16.9 (13.0-17.5) gm/dL Hct 50.6 (39.0-53.0) % MCV 88.8 (80.0-100.0) fL MCH 29.6 (25.0-35.0) pg MCHC 33.4 (31.0-37.0) g/dL RDW 13.6 (11.5-15.5) % Plt Count 183 (150-450) k/uL Neutrophils % 81 % Lymphocytes % 13 % Monocytes % 3 % Eosinophils % 2 % Basophils % 0 % Neutrophils # 10.2 H (1.3-7.7) k/uL Lymphocytes # 1.7 (1.0-4.8) k/uL Monocytes # 0.4 (0-1.0) k/uL Eosinophils # 0.2 (0-0.7) k/uL Basophils # 0.0 (0-0.2) k/uL PT (9.0-12.0) sec INR (<1.1) APTT (22.0-30.0) sec Sodium 140 (137-145) mmol/L Potassium 3.5 (3.5-5.1) mmol/L Chloride 102 (98-107) mmol/L Carbon Dioxide 22 (22-30) mmol/L Anion Gap 16 mmol/L BUN 4 L (9-20) mg/dL Creatinine 0.67 (0.66-1.25) mg/dL Est GFR (MDRD) Af Amer >60 (>60 ml/min/1.73 sqM) Est GFR (MDRD) Non-Af >60 (>60 ml/min/1.73 sqM) Glucose 141 H (74-99) mg/dL Calcium 9.9 (8.4-10.2) mg/dL Magnesium 2.1 (1.6-2.3) mg/dL Total Bilirubin 1.2 (0.2-1.3) mg/dL AST 50 (17-59) U/L ALT 51 (21-72) U/L Alkaline Phosphatase 78 (38-126) U/L Total Creatine Kinase 332 H (55-170) U/L CK-MB (CK-2) 2.1 (0.0-2.4) ng/mL CK-MB (CK-2) Rel Index 0.6 Troponin I <0.012 (0.000-0.034) ng/mL Total Protein 7.2 (6.3-8.2) g/dL Albumin 4.5 (3.5-5.0) g/dL Lipase 174 (23-300) U/L 10/16/16 Range/Units 13:38 WBC (3.8-10.6) k/uL RBC (4.30-5.90) m/uL Hgb (13.0-17.5) gm/dL Hct (39.0-53.0) % MCV (80.0-100.0) fL MCH (25.0-35.0) pg MCHC (31.0-37.0) g/dL RDW (11.5-15.5) % Plt Count (150-450) k/uL Neutrophils % % Lymphocytes % % Monocytes % % Eosinophils % % Basophils % % Neutrophils # (1.3-7.7) k/uL Lymphocytes # (1.0-4.8) k/uL Monocytes # (0-1.0) k/uL Eosinophils # (0-0.7) k/uL Basophils # (0-0.2) k/uL PT 10.8 (9.0-12.0) sec INR 1.1 (<1.1) APTT 25.4 (22.0-30.0) sec Sodium (137-145) mmol/L Potassium (3.5-5.1) mmol/L Chloride (98-107) mmol/L Carbon Dioxide (22-30) mmol/L Anion Gap mmol/L BUN (9-20) mg/dL Creatinine (0.66-1.25) mg/dL Est GFR (MDRD) Af Amer (>60 ml/min/1.73 sqM) Est GFR (MDRD) Non-Af (>60 ml/min/1.73 sqM) Glucose (74-99) mg/dL Calcium (8.4-10.2) mg/dL Magnesium (1.6-2.3) mg/dL Total Bilirubin (0.2-1.3) mg/dL AST (17-59) U/L ALT (21-72) U/L Alkaline Phosphatase (38-126) U/L Total Creatine Kinase (55-170) U/L CK-MB (CK-2) (0.0-2.4) ng/mL CK-MB (CK-2) Rel Index Troponin I (0.000-0.034) ng/mL Total Protein (6.3-8.2) g/dL Albumin (3.5-5.0) g/dL Lipase (23-300) U/L - Radiology Data Radiology results: report reviewed (Chest x-ray negative for acute disease), image reviewed Critical Care Time Critical Care Time: Yes Total Critical Care Time: 31 Disposition Clinical Impression: Chest pain Disposition: ADMITTED IP TO THIS HOSP Condition: Undetermined Instructions: Chest Pain (ED) Referrals: Sweta Bhardwaj MD [Primary Care Provider] - 1-2 days
[2016-10-16 13:56] LABS: Basophils % (A) 0 %; CH 30.5; CHCM 34.5; Eosinophils # (A) 0.2 k/uL (0-0.7); Eosinophils % (A) 2 %; HCT 50.6 % (39.0-53.0); HDW 2.52; HGB 16.9 gm/dL (13.0-17.5); Luc # (Auto) 0.11; Luc % (Auto) 1; Lymphocytes # (A) 1.7 k/uL (1.0-4.8); Lymphocytes % (A) 13 %; MCH 29.6 pg (25.0-35.0); MCHC 33.4 g/dL (31.0-37.0); MCV 88.8 fL (80.0-100.0); Mean Platelet Volume 9.1; Monocytes # (A) 0.4 k/uL (0-1.0); Monocytes % (A) 3 %; Neutrophils # (A) 10.2 k/uL (1.3-7.7); Neutrophils % (A) 81 %; RDW 13.6 % (11.5-15.5); WBC 12.6 k/uL (3.8-10.6); WBC (Perox) 12.57
[2016-10-16 13:59] LABS: ALT 51 U/L (21-72); AST 50 U/L (17-59); Alkaline Phosphatase 78 U/L (38-126); Anion Gap 16 mmol/L; Blood Urea Nitrogen 4 mg/dL (9-20); Calcium 9.9 mg/dL (8.4-10.2); Carbon Dioxide 22 mmol/L (22-30); Chloride 102 mmol/L (98-107); Glucose 141 mg/dL (74-99); Magnesium 2.1 mg/dL (1.6-2.3); Non-African American GFR(MDRD) >60 (>60 ml/min/1.73 sqM); Potassium 3.5 mmol/L (3.5-5.1); Sodium 140 mmol/L (137-145); Total Bilirubin 1.2 mg/dL (0.2-1.3); Total Protein 7.2 g/dL (6.3-8.2)
[2016-10-16 14:04] LABS: INR 1.1 (<1.1); Partial Thromboplastin Time 25.4 sec (22.0-30.0); Prothrombin Time 10.8 sec (9.0-12.0)
[2016-10-16 14:14] LABS: Creatine Kinase 332 U/L (55-170)
--- NOTE | 2016-10-16 14:14 | XR ---
EXAMINATION TYPE: XR chest 2V DATE OF EXAM: 10/16/2016 HISTORY: Chest Pain. REFERENCE: Previous study dated 07/05/2016. FINDINGS: There is a bipolar pacemaker place on the left. The lungs are clear. Pleural space are clear. The heart is not enlarged. IMPRESSION: NO ACUTE INTRATHORACIC ABNORMALITY.
[2016-10-16 14:25] LABS: Creatine Kinase MB 2.1 ng/mL (0.0-2.4); Troponin I <0.012 ng/mL (0.000-0.034)
[2016-10-16] MEDS ORDERED: HYDROmorphone 1 MG/ML 1 ML SYRINGE IVP STA (15:08)
[2016-10-16] MEDS ORDERED: ALBUTEROL NEBULIZED 2.5 MG/3 ML INHALATION PRN (18:44)
[2016-10-16] MEDS ORDERED: FUROSEMIDE 20 MG TAB PO PRN (18:44)
[2016-10-16 19:58] LABS: Creatine Kinase 249 U/L (55-170)
[2016-10-16] MEDS: HYDROmorphone 1 MG/ML 1 ML SYRINGE IVP PRN (20:06)
[2016-10-16] MEDS: CARVEDILOL 12.5 MG TAB PO SCH (20:10)
[2016-10-16 20:11] LABS: Creatine Kinase MB 1.6 ng/mL (0.0-2.4); Troponin I <0.012 ng/mL (0.000-0.034)
[2016-10-16] MEDS: carBAMazepine 300 MG CPMP.12HR PO SCH (20:12)
[2016-10-16] MEDS: BENZTROPINE MESYLATE 1 MG TAB PO SCH (20:12)
[2016-10-16] MEDS: DICYCLOMINE 10 MG CAP PO SCH (20:13)
[2016-10-16] MEDS: GEMFIBROZIL 600 MG TAB PO SCH (20:13)
[2016-10-16] MEDS: RANOLAZINE 500 MG TAB.ER.12H PO SCH (20:15)
[2016-10-16] MEDS: TAMSULOSIN 0.4 MG CAP.ER.24H PO SCH (20:15)
[2016-10-16] MEDS ORDERED: ATORVASTATIN 20 MG TAB PO SCH (21:00)
[2016-10-16] MEDS ORDERED: FENOFIBRATE 54 MG TAB PO SCH (21:00)
[2016-10-16] MEDS ORDERED: SERTRALINE 50 MG TAB PO SCH (21:00)
[2016-10-16] MEDS ORDERED: ASPIRIN 81 MG CHEW PO SCH (21:00)
[2016-10-17] MEDS: HYDROmorphone 1 MG/ML 1 ML SYRINGE IVP PRN ×3 (00:32→11:40)
[2016-10-17 02:35] LABS: Creatine Kinase 197 U/L (55-170)
[2016-10-17 02:49] LABS: Creatine Kinase MB 1.5 ng/mL (0.0-2.4); Troponin I <0.012 ng/mL (0.000-0.034)
[2016-10-17 07:05] LABS: Mean Platelet Volume 8.7
[2016-10-17 07:24] LABS: Cholesterol 193 mg/dL (<200); HDL Cholesterol 23 mg/dL (40-60); Triglycerides 244 mg/dL (<150)
[2016-10-17] MEDS ORDERED: PANTOPRAZOLE 40 MG TABLET PO SCH (07:30)
[2016-10-17] MEDS ORDERED: CLOPIDOGREL 75 MG TAB PO SCH (09:00)
[2016-10-17] MEDS ORDERED: ISOSORBIDE MONONITRATE ER 60 MG TAB.ER.24H PO SCH (09:00)
[2016-10-17] MEDS ORDERED: DULoxetine HCL 60 MG CAPSULE.DR PO SCH (09:00)
[2016-10-17] MEDS ORDERED: LISINOPRIL 20 MG TAB PO SCH (09:00)
[2016-10-17] MEDS ORDERED: DILTIAZEM CD 120 MG CAP.ER.24H PO SCH (09:00)
[2016-10-17] MEDS ORDERED: ASPIRIN 325 MG TAB PO SCH (09:00)
[2016-10-17] MEDS: RANOLAZINE 500 MG TAB.ER.12H PO SCH (11:38)
[2016-10-17] MEDS: carBAMazepine 300 MG CPMP.12HR PO SCH (11:38)
[2016-10-17] MEDS: CARVEDILOL 12.5 MG TAB PO SCH ×2 (11:39→16:57)
[2016-10-17] MEDS: BENZTROPINE MESYLATE 1 MG TAB PO SCH (11:39)
[2016-10-17] MEDS: TAMSULOSIN 0.4 MG CAP.ER.24H PO SCH (11:39)
[2016-10-17] MEDS: GEMFIBROZIL 600 MG TAB PO SCH (11:39)
[2016-10-17] MEDS: DICYCLOMINE 10 MG CAP PO SCH (11:39)
[2016-10-17 15:49] VITALS: BP 100/58; PULSE 68; RESP 18; TEMP 97.5
--- NOTE | 2016-10-17 20:02 | CONS ---
Mr. Biswas is a 36-year-old gentleman who is seen for cardiac evaluation. This patient's medical records as well as the old charts are reviewed. Patient woke up from sleep with a complaint of chest pain. The pain was in the left anterior part of the chest with some radiation to the left arm. The pain lasted for about an hour and a half. It was not associated with any nausea, vomiting or sweating. The patient had another episode of chest pain during the night. At that time he took nitroglycerin, without any relief. This patient has a history of a stent to the LAD which was done at [facility] about 4 or 5 years ago. Since then the patient has been admitted to the hospital several times with chest pain. He had cardiac catheterization twice. The patient was found to have a patent stent. There was a question whether patient had a spasm. He has been treated medically. The patient has had multiple stress tests done, which were negative. The last stress test was done in May, which was normal. The pt also has a history of permanent pacemaker for possible sick sinus syndrome which was done about 5 or 6 years ago at [facility]. Home medications include: 1. Aspirin. 2. Lipitor. 3. Cogentin. 4. Coreg. 5. Cymbalta. 6. Lasix. 7. Lopid. 8. Protonix. 9. Flomax. 10. Ranexa. 11. Prinivil. 12. Plavix. 13. Diltiazem 120 mg daily. 14. Imdur 60 mg daily. Past medical history includes: 1. History of stent to the LAD. 2. History of multiple cardiac catheterizations and stents. 3. History of hyperlipidemia. 4. Hypertension. The patient also had surgery on his elbow. Physical examination at present reveals a 36-year-old gentleman who does not appear to be in any acute distress. Patient's blood pressure is 113/61 mmHg. Head and ENT examination is negative. Neck is supple. There is no increase in jugular venous pressure. Both the carotid pulses are felt. There is no bruit. Chest is symmetrical. HEART: The PMI is not felt. First and second heart sounds are normal. There is no evidence of any murmur. Lungs are clinically clear to auscultation and percussion. Abdomen is soft. Liver and spleen are not enlarged. Bowel sounds are heard. EXTREMITIES: Peripheral pulsations are 2+. EKG shows normal sinus rhythm without any acute ischemic changes. Patient's cardiac enzymes are negative. FINAL IMPRESSION: This patient's chest pains are suggestive of atypical angina. Patient is status post stent to the LAD. Patient's EKGs and cardiac enzymes are normal. Patient's last stress test was done in May, which was normal. In view of that, we would recommend symptomatic medical therapy. Patient was educated that there is no evidence of any myocardial infarction. MTDD
--- NOTE | 2016-10-25 13:15 | P.HPIM ---
History of Present Illness Patient left the hospital AGAINST MEDICAL ADVICE prior to my evaluation Past Medical History Past Medical History: Asthma, Coronary Artery Disease (CAD), Heart Failure, GERD /Reflux, Hyperlipidemia, Hypertension Additional Past Medical History / Comment(s): Cardiomyopathy, IBS History of Any Multi-Drug Resistant Organisms: None Reported Past Surgical History: Heart Catheterization With Stent, Pacemaker Additional Past Surgical History / Comment(s): surgery on elbow Past Anesthesia/Blood Transfusion Reactions: No Reported Reaction Date of Last Stent Placement:: Type of Cardiac Device: Permanent Pacemaker Device Placement Date:: 2011 Past Psychological History: Depression, Schizophrenia Smoking Status: Current every day smoker Past Alcohol Use History: None Reported Past Drug Use History: None Reported - Past Family History Father Family Medical History: Congestive Heart Failure (CHF) Additional Family Medical History / Comment(s): Father required Heart Transplant in his 40s. Mother in her 50s she required CABG Mother Additional Family Medical History / Comment(s): Triple bypass Medications and Allergies Home Medications Medication Instructions Recorded Confirmed Type Aspirin EC [Ecotrin Low Dose] 81 mg PO HS 10/27/15 10/16/16 History Atorvastatin [Lipitor] 20 mg PO HS 10/27/15 10/16/16 History Benztropine Mesylate [Cogentin] 1 mg PO BID 10/27/15 10/16/16 History Carvedilol [Coreg] 12.5 mg PO BID 10/27/15 10/16/16 History DULoxetine HCL [Cymbalta] 60 mg PO DAILY 10/27/15 10/16/16 History Fenofibrate,Micronized 67 mg PO HS 10/27/15 10/16/16 History [Fenofibrate] Furosemide [Lasix] 20 mg PO DAILY PRN 10/27/15 10/16/16 History Gemfibrozil [Lopid] 600 mg PO BID 10/27/15 10/16/16 History Pantoprazole Sodium [Protonix] 40 mg PO DAILY 10/27/15 10/16/16 History Ranolazine [Ranexa] 1,000 mg PO BID 10/27/15 10/16/16 History Tamsulosin HCl [Flomax] 0.4 mg PO BID 10/27/15 10/16/16 History Lisinopril [Prinivil] 20 mg PO DAILY 11/28/15 10/16/16 History Albuterol Inhaler [Ventolin Hfa 1 puff INHALATION RT-Q6H PRN 02/22/16 10/16/16 History Inhaler] Clopidogrel [Plavix] 75 mg PO DAILY 02/22/16 10/16/16 History Dicyclomine [Bentyl] 10 mg PO BID 02/22/16 10/16/16 History Diltiazem HCl [Diltiazem 24Hr ER] 120 mg PO DAILY 02/22/16 10/16/16 History Sertraline [Zoloft] 50 mg PO HS 02/22/16 10/16/16 History risperiDONE MICROSPHERES 50 mg IM Q14D 02/22/16 10/16/16 History [RisperDAL CONSTA] Isosorbide Mononitrate ER [Imdur] 60 mg PO QAM 06/08/16 10/16/16 History carBAMazepine [Carbatrol] 300 mg PO Q12HR 06/08/16 10/16/16 History Chantix Starter Pack 0.5 - 1 mg PO BID 10/16/16 10/16/16 History Allergies Allergy/AdvReac Type Severity Reaction Status Date / Time codeine Allergy Itching Verified 10/16/16 14:28 hydrocodone bitartrate Allergy Itching Verified 10/16/16 14:28 [From Vicodin] latex Allergy Rash/Hives Verified 10/16/16 14:28 morphine Allergy Itching Verified 10/16/16 14:28 quetiapine fumarate AdvReac AGITATION Verified 10/16/16 14:28 [From Seroquel] Results CBC & Chem 7: 10/17/16 06:26 10/16/16 13:38 Thrombosis Risk Factor Assmnt - Choose All That Apply Each Factor Represents 1 point: Obesity (BMI >25) Thrombosis Risk Factor Assessment Total Risk Factor Score: 1 Thrombosis Risk Factor Assessment Level: Low Risk Assessment and Plan Plan: Patient left the hospital AGAINST MEDICAL ADVICE prior to my evaluation. Please refer to the electronic chart for further details about this hospitalization
--- NOTE | 2016-10-25 13:16 | P.DS ---
Providers Date of admission: 10/16/16 13:31 Attending physician: Clifford Moy Consults: 10/16/16 13:29 Consult Physician Urgent Consulting Provider: Rajwinder Disla Consult Reason/Comments: cp Do you want consulting provider notified?: Yes Primary care physician: Sweta Bhardwaj Hospital Course: Patient left the hospital AGAINST MEDICAL ADVICE prior to my evaluation. Please refer to the electronic chart for further details about this hospitalization Patient Condition at Discharge: Undetermined Plan - Discharge Summary New Discharge Prescriptions: No Action Ranolazine [Ranexa] 1,000 mg PO BID Pantoprazole Sodium [Protonix] 40 mg PO DAILY Tamsulosin HCl [Flomax] 0.4 mg PO BID Gemfibrozil [Lopid] 600 mg PO BID Furosemide [Lasix] 20 mg PO DAILY PRN PRN Reason: Edema Fenofibrate,Micronized [Fenofibrate] 67 mg PO HS DULoxetine HCL [Cymbalta] 60 mg PO DAILY Carvedilol [Coreg] 12.5 mg PO BID Benztropine Mesylate [Cogentin] 1 mg PO BID Atorvastatin [Lipitor] 20 mg PO HS Aspirin EC [Ecotrin Low Dose] 81 mg PO HS Lisinopril [Prinivil] 20 mg PO DAILY Albuterol Inhaler [Ventolin Hfa Inhaler] 1 puff INHALATION RT-Q6H PRN PRN Reason: Shortness Of Breath Clopidogrel [Plavix] 75 mg PO DAILY Dicyclomine [Bentyl] 10 mg PO BID Diltiazem HCl [Diltiazem 24Hr ER] 120 mg PO DAILY risperiDONE MICROSPHERES [RisperDAL CONSTA] 50 mg IM Q14D Sertraline [Zoloft] 50 mg PO HS carBAMazepine [Carbatrol] 300 mg PO Q12HR Isosorbide Mononitrate ER [Imdur] 60 mg PO QAM Chantix Starter Pack 0.5 - 1 mg PO BID Discharge Medication List Aspirin EC [Ecotrin Low Dose] 81 mg PO HS 10/27/15 [History] Atorvastatin [Lipitor] 20 mg PO HS 10/27/15 [History] Benztropine Mesylate [Cogentin] 1 mg PO BID 10/27/15 [History] Carvedilol [Coreg] 12.5 mg PO BID 10/27/15 [History] DULoxetine HCL [Cymbalta] 60 mg PO DAILY 10/27/15 [History] Fenofibrate,Micronized [Fenofibrate] 67 mg PO HS 10/27/15 [History] Furosemide [Lasix] 20 mg PO DAILY PRN 10/27/15 [History] Gemfibrozil [Lopid] 600 mg PO BID 10/27/15 [History] Pantoprazole Sodium [Protonix] 40 mg PO DAILY 10/27/15 [History] Ranolazine [Ranexa] 1,000 mg PO BID 10/27/15 [History] Tamsulosin HCl [Flomax] 0.4 mg PO BID 10/27/15 [History] Lisinopril [Prinivil] 20 mg PO DAILY 11/28/15 [History] Albuterol Inhaler [Ventolin Hfa Inhaler] 1 puff INHALATION RT-Q6H PRN 02/22/16 [ History] Clopidogrel [Plavix] 75 mg PO DAILY 02/22/16 [History] Dicyclomine [Bentyl] 10 mg PO BID 02/22/16 [History] Diltiazem HCl [Diltiazem 24Hr ER] 120 mg PO DAILY 02/22/16 [History] Sertraline [Zoloft] 50 mg PO HS 02/22/16 [History] risperiDONE MICROSPHERES [RisperDAL CONSTA] 50 mg IM Q14D 02/22/16 [History] Isosorbide Mononitrate ER [Imdur] 60 mg PO QAM 06/08/16 [History] carBAMazepine [Carbatrol] 300 mg PO Q12HR 06/08/16 [History] Chantix Starter Pack 0.5 - 1 mg PO BID 10/16/16 [History] Follow up Appointment(s)/Referral(s): Sweta Bhardwaj MD [Primary Care Provider] - 1-2 days Patient Instructions/Handouts: Chest Pain (ED) Discharge Disposition: Left Against Medical Advice
== END 2016-10-17 18:05 | disposition left against medical advice (07) ==
LOC: EC 13:06 → 3OBS 13:31
PROVIDERS: ADMIT Internal Medicine; ATTEND Internal Medicine
DX: R07.9 Chest pain, unspecified (principal); I11.0 Hypertensive heart disease with heart failure; I25.10 Atherosclerotic heart disease of native coronary artery without angina pectoris; E78.5 Hyperlipidemia, unspecified; F20.9 Schizophrenia, unspecified; F32.9 Major depressive disorder, single episode, unspecified; I42.9 Cardiomyopathy, unspecified; I50.9 Heart failure, unspecified; I73.9 Peripheral vascular disease, unspecified; J45.909 Unspecified asthma, uncomplicated; K21.9 Gastro-esophageal reflux disease without esophagitis; Z79.82 Long term (current) use of aspirin; Z95.0 Presence of cardiac pacemaker; Z82.49 Family history of ischemic heart disease and other diseases of the circulatory system; F17.200 Nicotine dependence, unspecified, uncomplicated; Z95.5 Presence of coronary angioplasty implant and graft; Z79.899 Other long term (current) drug therapy; Z88.5 Allergy status to narcotic agent; Z91.040 Latex allergy status; K58.9 Irritable bowel syndrome, unspecified; Z79.02 Long term (current) use of antithrombotics/antiplatelets
CPT/HCPCS: 96376 ×4; 96365 ×2; 96366 ×4; 96375 ×2; 99291 ×2; 96361; 96374; 99285; 36415; 94760; 93005; 80061; 80053; 82550 ×2; 82553 ×2; 83690; 83735; 84484 ×2; 85025; 85049; 85610; 85730 ×2; 71020; G0378 ×2; J1644 ×3; J1170 ×2

== ENCOUNTER 2017-01-06 13:51 | Emergency (ER) | payer MEDICARE, OTHER ==
[2017-01-06] MEDS ORDERED: HYDROmorphone 1 MG/ML 1 ML SYRINGE IVP STA (14:29)
[2017-01-06 14:32] LABS: Basophils # (A) 0.1 k/uL (0-0.2); Basophils % (A) 1 %; CH 30.3; CHCM 35.1; Eosinophils # (A) 0.1 k/uL (0-0.7); Eosinophils % (A) 2 %; HCT 54.1 % (39.0-53.0); HDW 2.65; HGB 18.8 gm/dL (13.0-17.5); Luc # (Auto) 0.06; Luc % (Auto) 1; Lymphocytes % (A) 26 %; MCH 30.1 pg (25.0-35.0); MCHC 34.8 g/dL (31.0-37.0); MCV 86.5 fL (80.0-100.0); Mean Platelet Volume 9.2; Monocytes # (A) 0.4 k/uL (0-1.0); Monocytes % (A) 6 %; Neutrophils % (A) 65 %; RBC 6.26 m/uL (4.30-5.90); WBC 7.7 k/uL (3.8-10.6); WBC (Perox) 8.16
--- NOTE | 2017-01-06 14:32 | ED ---
Chest Pain HPI - General Chief Complaint: Chest Pain Stated Complaint: chest pain; difficulty breathing Time Seen by Provider: 01/06/17 14:00 Source: patient, RN notes reviewed Mode of arrival: wheelchair Limitations: no limitations - History of Present Illness Initial Comments: This is a 36-year-old male with a history of pacemaker and cardiac stent who states he's had the onset about 3 days ago of anterior chest pain with some difficulty breathing. He states the pain is sharp currently about 10/10 does he is somewhat worse with deep breathing. He does state it radiates to his neck on the left side. He denies any fevers chills or sweats he took 2 of his own nitro's today without relief. He did does have a history of cardiac spasm he states. He has had difficulty differentiating between spasm and other type of pain he states MD Complaint: chest pain, other - Related Data Home Medications Medication Instructions Recorded Confirmed Aspirin EC [Ecotrin Low Dose] 81 mg PO HS 10/27/15 01/06/17 Atorvastatin [Lipitor] 20 mg PO HS 10/27/15 01/06/17 Benztropine Mesylate [Cogentin] 1 mg PO BID 10/27/15 01/06/17 Carvedilol [Coreg] 12.5 mg PO BID 10/27/15 01/06/17 DULoxetine HCL [Cymbalta] 60 mg PO DAILY 10/27/15 01/06/17 Fenofibrate,Micronized 67 mg PO HS 10/27/15 01/06/17 [Fenofibrate] Furosemide [Lasix] 20 mg PO DAILY PRN 10/27/15 01/06/17 Gemfibrozil [Lopid] 600 mg PO BID 10/27/15 01/06/17 Pantoprazole Sodium [Protonix] 40 mg PO DAILY 10/27/15 01/06/17 Ranolazine [Ranexa] 1,000 mg PO BID 10/27/15 01/06/17 Tamsulosin HCl [Flomax] 0.4 mg PO BID 10/27/15 01/06/17 Lisinopril [Prinivil] 20 mg PO DAILY 11/28/15 01/06/17 Albuterol Inhaler [Ventolin Hfa 1 puff INHALATION RT-Q6H PRN 02/22/16 01/06/17 Inhaler] Clopidogrel [Plavix] 75 mg PO DAILY 02/22/16 01/06/17 Dicyclomine [Bentyl] 10 mg PO BID 02/22/16 01/06/17 Diltiazem HCl [Diltiazem 24Hr ER] 120 mg PO DAILY 02/22/16 01/06/17 Sertraline [Zoloft] 50 mg PO HS 02/22/16 01/06/17 Isosorbide Mononitrate ER [Imdur] 60 mg PO QAM 06/08/16 01/06/17 carBAMazepine [Carbatrol] 300 mg PO Q12HR 06/08/16 01/06/17 ARIPiprazole [Abilify] 10 mg PO DAILY 01/06/17 01/06/17 Ciprofloxacin-Dexameth [Ciprodex 4 drops RIGHT EAR BID 01/06/17 01/06/17 Otic Susp] Allergies Allergy/AdvReac Type Severity Reaction Status Date / Time codeine Allergy Itching Verified 01/06/17 14:46 hydrocodone bitartrate Allergy Itching Verified 01/06/17 14:46 [From Vicodin] latex Allergy Rash/Hives Verified 01/06/17 14:46 morphine Allergy Itching Verified 01/06/17 14:46 quetiapine fumarate AdvReac Agitation/Violent Verified 01/06/17 14:46 [From Seroquel] Behavior Review of Systems ROS Statement: Those systems with pertinent positive or pertinent negative responses have been documented in the HPI. ROS Other: All systems not noted in ROS Statement are negative. EKG Findings - EKG Results: EKG: interpreted by ERROL, sinus rhythm (Sinus rhythm with a rate of 106 [place] interval 156 QRS duration 74 daily since QTC of 332/[address] configuration.) Past Medical History Past Medical History: Asthma, Coronary Artery Disease (CAD), Heart Failure, GERD /Reflux, Hyperlipidemia, Hypertension Additional Past Medical History / Comment(s): Cardiomyopathy, IBS History of Any Multi-Drug Resistant Organisms: None Reported Past Surgical History: Heart Catheterization With Stent, Pacemaker Additional Past Surgical History / Comment(s): surgery on elbow Past Anesthesia/Blood Transfusion Reactions: No Reported Reaction Date of Last Stent Placement:: Type of Cardiac Device: Permanent Pacemaker Device Placement Date:: 2011 Past Psychological History: Depression, Schizophrenia Smoking Status: Current every day smoker Past Alcohol Use History: None Reported Past Drug Use History: None Reported - Past Family History Father Family Medical History: Congestive Heart Failure (CHF) Additional Family Medical History / Comment(s): Father required Heart Transplant in his 40s. Mother in her 50s she required CABG Mother Additional Family Medical History / Comment(s): Triple bypass General Exam - General Exam Comments Initial Comments: This is a well-developed well-nourished awake alert oriented 3 male Limitations: no limitations General appearance: alert, in no apparent distress Head exam: Present: atraumatic, normocephalic, normal inspection Eye exam: Present: normal appearance, PERRL, EOMI. Absent: scleral icterus, conjunctival injection, periorbital swelling ENT exam: Present: normal exam, mucous membranes moist Neck exam: Present: normal inspection. Absent: tenderness, meningismus, lymphadenopathy Respiratory exam: Present: normal lung sounds bilaterally. Absent: respiratory distress, wheezes, rales, rhonchi, stridor Cardiovascular Exam: Present: regular rate, normal rhythm, normal heart sounds. Absent: systolic murmur, diastolic murmur, rubs, gallop, clicks GI/Abdominal exam: Present: soft, normal bowel sounds. Absent: distended, tenderness, guarding, rebound, rigid Extremities exam: Present: normal inspection, full ROM, normal capillary refill. Absent: tenderness, pedal edema, joint swelling, calf tenderness Back exam: Present: normal inspection Neurological exam: Present: alert, oriented X3, CN II-XII intact Psychiatric exam: Present: normal affect, normal mood Skin exam: Present: warm, dry, intact, normal color. Absent: rash Course Vital Signs 01/06/17 01/06/17 01/06/17 13:52 15:10 16:24 Temperature 97.3 F L Pulse Rate 123 H 90 87 Respiratory 22 16 16 Rate Blood Pressure 186/90 148/102 139/88 O2 Sat by Pulse 98 97 98 Oximetry - Reevaluation(s) Reevaluation #1: 01/06/17 14:32 The patient states he gets itchy from morphine but can take Dilaudid without any difficulty. Chest Pain MDM - MDM I did review the imaging and reports no acute findings. Patient will be discharge is asymptomatic the presentation is consistent with an atypical chest pain likely chest wall Disposition Clinical Impression: Atypical chest pain, Chest wall syndrome Disposition: HOME SELF-CARE Condition: Good Instructions: Costochondritis (ED), Chest Pain (ED) Referrals: Sweta Bhardwaj MD [Primary Care Provider] - 1-2 days
--- NOTE | 2017-01-06 14:35 | XR ---
EXAMINATION TYPE: XR chest 2V DATE OF EXAM: 01/06/2017 COMPARISON: 10/16/2016 HISTORY: Chest pain TECHNIQUE: Frontal and lateral views of the chest are obtained. FINDINGS: There is no focal air space opacity, pleural effusion, or pneumothorax seen. Left-sided ca rdiac device, dual lead, is appreciated as seen on the prior exam. The cardiac silhouette size is wi thin normal limits. The osseous structures are intact. IMPRESSION: No acute cardiopulmonary process.
[2017-01-06 14:38] LABS: ALT 79 U/L (21-72); AST 54 U/L (17-59); Alkaline Phosphatase 88 U/L (38-126); Anion Gap 13 mmol/L; Blood Urea Nitrogen 4 mg/dL (9-20); Calcium 9.8 mg/dL (8.4-10.2); Carbon Dioxide 21 mmol/L (22-30); Chloride 106 mmol/L (98-107); Glucose 131 mg/dL (74-99); Non-African American GFR(MDRD) >60 (>60 ml/min/1.73 sqM); Potassium 4.1 mmol/L (3.5-5.1); Sodium 140 mmol/L (137-145); Total Bilirubin 0.6 mg/dL (0.2-1.3); Total Protein 7.3 g/dL (6.3-8.2)
[2017-01-06 14:40] LABS: Partial Thromboplastin Time 26.8 sec (22.0-30.0); Prothrombin Time 10.3 sec (9.0-12.0)
[2017-01-06 14:44] LABS: Creatine Kinase 185 U/L (55-170)
[2017-01-06 14:57] LABS: Creatine Kinase MB 1.4 ng/mL (0.0-2.4); Troponin I <0.012 ng/mL (0.000-0.034)
[2017-01-06 15:11] VITALS: RESP 16
[2017-01-06 16:24] VITALS: BP 139/88; PULSE 87
[2017-01-06 17:08] VITALS: TEMP 97.8
== END 2017-01-06 17:07 | disposition home or self-care (01) ==
LOC: EC 13:51
DX: R07.1 Chest pain on breathing (principal); M54.2 Cervicalgia; F32.9 Major depressive disorder, single episode, unspecified; F20.9 Schizophrenia, unspecified; I25.10 Atherosclerotic heart disease of native coronary artery without angina pectoris; I50.9 Heart failure, unspecified; J45.909 Unspecified asthma, uncomplicated; E78.5 Hyperlipidemia, unspecified; I10 Essential (primary) hypertension; K21.9 Gastro-esophageal reflux disease without esophagitis; F17.200 Nicotine dependence, unspecified, uncomplicated; Z79.82 Long term (current) use of aspirin; Z79.02 Long term (current) use of antithrombotics/antiplatelets; Z79.899 Other long term (current) drug therapy; Z88.5 Allergy status to narcotic agent; Z91.040 Latex allergy status; Z88.8 Allergy status to other drugs, medicaments and biological substances; Z95.5 Presence of coronary angioplasty implant and graft; Z82.49 Family history of ischemic heart disease and other diseases of the circulatory system
CPT/HCPCS: 36415; 93005; 85379; 80053; 82550; 82553; 83735; 84484; 85025; 85610; 85730; 71020; 99284; 96374; J1170

== ENCOUNTER 2017-01-12 21:54 | Emergency (ER) | payer MEDICARE, OTHER ==
[2017-01-12] MEDS ORDERED: ASPIRIN 81 MG PO STA (22:08)
[2017-01-12] MEDS ORDERED: diphenhydrAMINE 50 MG/ML 1 ML VIAL IVP STA (22:09)
--- NOTE | 2017-01-12 22:12 | ED ---
Chest Pain HPI - General Chief Complaint: Chest Pain Stated Complaint: Chest Pain Time Seen by Provider: 01/12/17 21:58 Source: EMS Mode of arrival: EMS Limitations: no limitations - History of Present Illness Initial Comments: This patient's a 36-year-old man who presents with chest pain. He does note that he had a couple of days of cough prior to the onset. The pain is constant , sharp. The patient states he is concerned because he has history of having a stent placed previously and also pacemaker. He has not had anginal type symptoms, including no dyspnea, diaphoresis, nausea or vomiting, palpitations, lightheadedness, or syncope. MD Complaint: chest pain Onset/Timin -: hour(s) Onset: during rest Pain Location: substernal Pain Radiation: none Severity: severe Quality: sharp Consistency: constant Improves With: medication-other Worsens With: palpation Other Symptoms: cough Treatments Prior to Arrival: oxygen ([place]), other - Related Data Home Medications Medication Instructions Recorded Confirmed Aspirin EC [Ecotrin Low Dose] 81 mg PO HS 10/27/15 01/12/17 Atorvastatin [Lipitor] 20 mg PO HS 10/27/15 01/12/17 Benztropine Mesylate [Cogentin] 1 mg PO BID 10/27/15 01/12/17 Carvedilol [Coreg] 12.5 mg PO BID 10/27/15 01/12/17 DULoxetine HCL [Cymbalta] 60 mg PO DAILY 10/27/15 01/12/17 Fenofibrate,Micronized 67 mg PO HS 10/27/15 01/12/17 [Fenofibrate] Furosemide [Lasix] 20 mg PO DAILY PRN 10/27/15 01/12/17 Gemfibrozil [Lopid] 600 mg PO BID 10/27/15 01/12/17 Pantoprazole Sodium [Protonix] 40 mg PO DAILY 10/27/15 01/12/17 Ranolazine [Ranexa] 1,000 mg PO BID 10/27/15 01/12/17 Tamsulosin HCl [Flomax] 0.4 mg PO BID 10/27/15 01/12/17 Lisinopril [Prinivil] 20 mg PO DAILY 11/28/15 01/12/17 Albuterol Inhaler [Ventolin Hfa 1 puff INHALATION RT-Q6H PRN 02/22/16 01/12/17 Inhaler] Clopidogrel [Plavix] 75 mg PO DAILY 02/22/16 01/12/17 Dicyclomine [Bentyl] 10 mg PO BID 02/22/16 01/12/17 Diltiazem HCl [Diltiazem 24Hr ER] 120 mg PO DAILY 02/22/16 01/12/17 Sertraline [Zoloft] 50 mg PO HS 02/22/16 01/12/17 Isosorbide Mononitrate ER [Imdur] 60 mg PO QAM 06/08/16 01/12/17 carBAMazepine [Carbatrol] 300 mg PO Q12HR 06/08/16 01/12/17 ARIPiprazole [Abilify] 10 mg PO DAILY 01/06/17 01/12/17 Previous Rx's Medication Instructions Recorded Albuterol Inhaler [Ventolin Hfa 1 - 2 puff INHALATION Q6HR PRN #1 01/13/17 Inhaler] inhaler predniSONE 60 mg PO DAILY #30 tab 01/13/17 traMADol HCl [Ultram] 50 mg PO Q6H PRN #20 tab 01/13/17 Allergies Allergy/AdvReac Type Severity Reaction Status Date / Time codeine Allergy Itching Verified 01/12/17 22:24 hydrocodone bitartrate Allergy Itching Verified 01/12/17 22:24 [From Vicodin] latex Allergy Rash/Hives Verified 01/12/17 22:24 morphine Allergy Itching Verified 01/12/17 22:24 quetiapine fumarate AdvReac Agitation/Violent Verified 01/12/17 22:24 [From Seroquel] Behavior Review of Systems ROS Statement: Those systems with pertinent positive or pertinent negative responses have been documented in the HPI. ROS Other: All systems not noted in ROS Statement are negative. Constitutional: Denies: fever, chills Respiratory: Denies: cough, dyspnea, wheezes Cardiovascular: Reports: chest pain. Denies: palpitations, dyspnea on exertion , orthopnea, edema, syncope Gastrointestinal: Denies: abdominal pain, nausea, vomiting Genitourinary: Denies: dysuria, hematuria Musculoskeletal: Denies: back pain Skin: Denies: rash Neurological: Denies: headache, weakness, numbness EKG Findings - EKG Comments: EKG Findings:: The EKG is similar to comparison from 01/06/2017 - EKG Results: EKG: interpreted by ERMD, sinus rhythm, normal axis, normal QRS EKG shows: tachycardia (Rate approximately 106 bpm) - Blocks, [place], Hypertrophy, ST Abn: Repolarization changes or abnormalities: nonspecific abnormality, ST segment, and/or T wave Past Medical History Past Medical History: Asthma, Coronary Artery Disease (CAD), Heart Failure, GERD /Reflux, Hyperlipidemia, Hypertension Additional Past Medical History / Comment(s): Cardiomyopathy, IBS History of Any Multi-Drug Resistant Organisms: None Reported Past Surgical History: Heart Catheterization With Stent, Pacemaker Additional Past Surgical History / Comment(s): surgery on elbow Past Anesthesia/Blood Transfusion Reactions: No Reported Reaction Date of Last Stent Placement:: Type of Cardiac Device: Permanent Pacemaker Device Placement Date:: 2011 Past Psychological History: Bipolar, Depression, Schizophrenia Smoking Status: Current every day smoker Past Alcohol Use History: None Reported Past Drug Use History: None Reported - Past Family History Father Family Medical History: Congestive Heart Failure (CHF) Additional Family Medical History / Comment(s): Father required Heart Transplant in his 40s. Mother in her 50s she required CABG Mother Additional Family Medical History / Comment(s): Triple bypass General Exam Limitations: no limitations General appearance: alert, in no apparent distress Head exam: Present: atraumatic, normocephalic Eye exam: Present: normal appearance. Absent: scleral icterus, conjunctival injection ENT exam: Present: normal oropharynx, mucous membranes dry Neck exam: Present: normal inspection Respiratory exam: Present: wheezes (There is a trace of expiratory wheeze), chest wall tenderness. Absent: respiratory distress, rales, rhonchi, stridor Cardiovascular Exam: Present: normal rhythm, tachycardia (Rate approximately 104 but exam), normal heart sounds. Absent: systolic murmur, diastolic murmur, rubs, gallop GI/Abdominal exam: Present: soft. Absent: distended, tenderness, guarding, rebound Extremities exam: Present: normal inspection, normal capillary refill. Absent: pedal edema, calf tenderness Back exam: Present: normal inspection. Absent: CVA tenderness (R), CVA tenderness (L) Neurological exam: Present: alert Skin exam: Present: warm, dry, intact, normal color. Absent: rash Course Vital Signs 01/12/17 01/12/17 01/12/17 21:55 22:04 22:56 Temperature 98.6 F Pulse Rate 109 H 111 H 98 Respiratory 20 16 Rate Blood Pressure 143/75 132/65 O2 Sat by Pulse 91 L 96 93 L Oximetry 01/12/17 01/13/17 01/13/17 23:32 00:21 01:22 Temperature Pulse Rate 108 H 102 H 93 Respiratory 17 17 18 Rate Blood Pressure 110/58 142/80 130/74 O2 Sat by Pulse 94 L 95 94 L Oximetry 01/13/17 02:20 Temperature 97.3 F L Pulse Rate 93 Respiratory 18 Rate Blood Pressure 156/87 O2 Sat by Pulse 94 L Oximetry Disposition Clinical Impression: Bronchitis, Chest pain Disposition: HOME SELF-CARE Condition: Good Instructions: Chest Pain (ED), Acute Bronchitis (ED) Prescriptions: Albuterol Inhaler [Ventolin Hfa Inhaler] 1 - 2 puff INHALATION Q6HR PRN #1 inhaler PRN Reason: Wheezing predniSONE 60 mg PO DAILY #30 tab traMADol HCl [Ultram] 50 mg PO Q6H PRN #20 tab PRN Reason: Pain Referrals: Sweta Bhardwaj MD [Primary Care Provider] - 1-2 days
[2017-01-12 22:19] LABS: Basophils # (A) 0.1 k/uL (0-0.2); Basophils % (A) 1 %; CH 31.2; CHCM 35.1; Eosinophils # (A) 0.2 k/uL (0-0.7); Eosinophils % (A) 2 %; HCT 52.9 % (39.0-53.0); HDW 2.52; HGB 17.7 gm/dL (13.0-17.5); Luc # (Auto) 0.11; Luc % (Auto) 1; Lymphocytes # (A) 2.2 k/uL (1.0-4.8); Lymphocytes % (A) 21 %; MCH 29.9 pg (25.0-35.0); MCHC 33.4 g/dL (31.0-37.0); MCV 89.5 fL (80.0-100.0); Mean Platelet Volume 9.7; Monocytes # (A) 0.8 k/uL (0-1.0); Monocytes % (A) 7 %; Neutrophils # (A) 7.2 k/uL (1.3-7.7); Neutrophils % (A) 68 %; RBC 5.91 m/uL (4.30-5.90); WBC 10.6 k/uL (3.8-10.6); WBC (Perox) 10.41
[2017-01-12 22:27] LABS: ALT 70 U/L (21-72); AST 43 U/L (17-59); Alkaline Phosphatase 86 U/L (38-126); Amylase 69 U/L (30-110); Anion Gap 12 mmol/L; Blood Urea Nitrogen 4 mg/dL (9-20); Calcium 9.3 mg/dL (8.4-10.2); Carbon Dioxide 19 mmol/L (22-30); Chloride 108 mmol/L (98-107); Glucose 89 mg/dL (74-99); Magnesium 1.9 mg/dL (1.6-2.3); Non-African American GFR(MDRD) >60 (>60 ml/min/1.73 sqM); Sodium 139 mmol/L (137-145); Total Bilirubin 0.5 mg/dL (0.2-1.3); Total Protein 6.7 g/dL (6.3-8.2)
--- NOTE | 2017-01-12 22:35 | XR ---
EXAM: XR Chest, 2 Views CLINICAL HISTORY: Hx. Of Asthma, CAD, Heart Failure., Htn, Cardiomyopathy, Heart Cath with stents, Pacemaker. Pt. c/o Chest pain tonight. TECHNIQUE: Frontal and lateral views of the chest. COMPARISON: 01/06/2017 FINDINGS: Lungs: Minimal predominantly central pulmonary vascular hazy prominence with minimal peribronchial cuffing, slightly more conspicuous on this study and the prior, likely representing minimal pulmonary vascular congestion/edema. Peribronchial cuffing can also suggest small airways inflammatory disease. Pleural space: Unremarkable. No pneumothorax. Heart: Unremarkable. No cardiomegaly. Mediastinum: Unremarkable. Bones/joints: Unremarkable. Tubes, lines and devices: Left-sided chest wall pacemaker and lead tips are unchanged. IMPRESSION: Minimal predominantly central pulmonary vascular hazy prominence with minimal peribronchial cuffing, slightly more conspicuous on this study and the prior, likely representing minimal pulmonary vascular congestion/edema. Peribronchial cuffing can also suggest small airways inflammatory disease.
[2017-01-12 22:37] LABS: Partial Thromboplastin Time 25.7 sec (22.0-30.0); Prothrombin Time 10.4 sec (9.0-12.0)
[2017-01-12 22:40] LABS: Creatine Kinase 155 U/L (55-170)
[2017-01-12 22:52] LABS: Creatine Kinase MB 1.2 ng/mL (0.0-2.4); Troponin I <0.012 ng/mL (0.000-0.034)
[2017-01-12] MEDS ORDERED: NITROGLYCERIN SL TABS 0.4 MG TAB SUBLINGUAL STA (23:04)
[2017-01-13] MEDS ORDERED: HYDROmorphone 1 MG/ML 1 ML SYRINGE IVP STA (00:07)
[2017-01-13 01:23] VITALS: RESP 18
[2017-01-13] MEDS ORDERED: predniSONE 20 MG TAB PO STA (02:10)
[2017-01-13 02:21] VITALS: BP 156/87
[2017-01-13 02:44] VITALS: PULSE 93; TEMP 97.3
== END 2017-01-13 02:20 | disposition home or self-care (01) ==
LOC: EC 21:54
DX: R07.2 Precordial pain (principal); J40 Bronchitis, not specified as acute or chronic; I25.10 Atherosclerotic heart disease of native coronary artery without angina pectoris; I11.0 Hypertensive heart disease with heart failure; I50.9 Heart failure, unspecified; K21.9 Gastro-esophageal reflux disease without esophagitis; E78.5 Hyperlipidemia, unspecified; Z95.0 Presence of cardiac pacemaker; F20.9 Schizophrenia, unspecified; F32.9 Major depressive disorder, single episode, unspecified; F17.200 Nicotine dependence, unspecified, uncomplicated; Z79.02 Long term (current) use of antithrombotics/antiplatelets; Z79.82 Long term (current) use of aspirin; Z79.899 Other long term (current) drug therapy; Z88.5 Allergy status to narcotic agent; Z91.040 Latex allergy status; Z88.8 Allergy status to other drugs, medicaments and biological substances
CPT/HCPCS: 36415 ×2; 93005; 85379; 83880; 80053; 82150; 82550; 82553; 83690; 83735; 84484 ×2; 85025; 85610; 85730; 71020; 99285; 96374; 96375; J1200; J1170; J7512

== ENCOUNTER 2017-06-14 20:23 | Emergency (ER) | payer MEDICARE, OTHER ==
[2017-06-14 21:04] VITALS: RESP 18
[2017-06-14 21:46] LABS: Basophils # (A) 0.1 k/uL (0-0.2); Basophils % (A) 1 %; Eosinophils # (A) 0.1 k/uL (0-0.7); Eosinophils % (A) 1 %; HCT 54.4 % (39.0-53.0); HGB 18.4 gm/dL (13.0-17.5); Lymphocytes # (A) 2.7 k/uL (1.0-4.8); Lymphocytes % (A) 28 %; MCH 28.6 pg (25.0-35.0); MCHC 33.9 g/dL (31.0-37.0); MCV 84.5 fL (80.0-100.0); Mean Platelet Volume 8.7; Monocytes # (A) 0.7 k/uL (0-1.0); Monocytes % (A) 7 %; Neutrophils # (A) 5.8 k/uL (1.3-7.7); Neutrophils % (A) 61 %; Platelet Count 187 k/uL (150-450); RBC 6.43 m/uL (4.30-5.90); RDW 12.5 % (11.5-15.5); WBC 9.5 k/uL (3.8-10.6)
[2017-06-14 21:54] LABS: Partial Thromboplastin Time 25.4 sec (22.0-30.0); Prothrombin Time 10.2 sec (9.0-12.0)
[2017-06-14 21:55] LABS: ALT 67 U/L (21-72); AST 44 U/L (17-59); Albumin 4.6 g/dL (3.5-5.0); Alkaline Phosphatase 73 U/L (38-126); Anion Gap 13 mmol/L; Blood Urea Nitrogen 7 mg/dL (9-20); Calcium 9.9 mg/dL (8.4-10.2); Carbon Dioxide 27 mmol/L (22-30); Chloride 97 mmol/L (98-107); Glucose 81 mg/dL (74-99); Lipase 250 U/L (23-300); Magnesium 2.3 mg/dL (1.6-2.3); Sodium 137 mmol/L (137-145); Total Bilirubin 0.7 mg/dL (0.2-1.3); Total Protein 7.2 g/dL (6.3-8.2)
--- NOTE | 2017-06-14 21:58 | XR ---
EXAMINATION: XR chest 2V DATE AND TIME: 06/14/2017 9:55 PM ORDERING PROVIDER: Henok Edwards DO CLINICAL INDICATION: Chest Pain dyspnea with pain radiating to left arm TECHNIQUE: PA and lateral COMPARISON: 01/12/2017 DESCRIPTION: Cardiac pacemaker and EKG leads noted. The cardiac silhouette is normal. The lungs are clear well-expanded. The pleural spaces are negative. Skeletal structures are without acute findings and soft tissues are unremarkable. IMPRESSION: NO ACUTE PROCESS.
[2017-06-14 22:08] LABS: Creatine Kinase 179 U/L (55-170)
[2017-06-14 22:20] LABS: Creatine Kinase MB 1.1 ng/mL (0.0-2.4); Troponin I <0.012 ng/mL (0.000-0.034)
--- NOTE | 2017-06-14 22:29 | ED ---
General Adult HPI - General Chief complaint: Chest Pain Stated complaint: Chest pain Time Seen by Provider: 06/14/17 21:32 Source: patient, RN notes reviewed, old records reviewed Mode of arrival: wheelchair Limitations: no limitations - History of Present Illness Initial comments: This is a 36-year-old male the ER for evaluation. History of chest pain history of heart disease. Patient coming chest pain patient has continued chest pain here in the emergency room. No recent cardiac evaluation. No change in medications. No cough congestion fevers. Pain is worse with movement. - Related Data Home Medications Medication Instructions Recorded Confirmed Aspirin EC [Ecotrin Low Dose] 81 mg PO HS 10/27/15 06/14/17 Atorvastatin [Lipitor] 20 mg PO HS 10/27/15 06/14/17 Benztropine Mesylate [Cogentin] 1 mg PO BID 10/27/15 06/14/17 Carvedilol [Coreg] 12.5 mg PO BID 10/27/15 06/14/17 DULoxetine HCL [Cymbalta] 60 mg PO DAILY 10/27/15 06/14/17 Fenofibrate,Micronized 67 mg PO HS 10/27/15 06/14/17 [Fenofibrate] Furosemide [Lasix] 20 mg PO DAILY PRN 10/27/15 06/14/17 Gemfibrozil [Lopid] 600 mg PO BID 10/27/15 06/14/17 Pantoprazole Sodium [Protonix] 40 mg PO DAILY 10/27/15 06/14/17 Ranolazine [Ranexa] 1,000 mg PO BID 10/27/15 06/14/17 Tamsulosin HCl [Flomax] 0.4 mg PO BID 10/27/15 06/14/17 Lisinopril [Prinivil] 20 mg PO DAILY 11/28/15 06/14/17 Albuterol Inhaler [Ventolin Hfa 1 puff INHALATION RT-Q6H PRN 02/22/16 06/14/17 Inhaler] Clopidogrel [Plavix] 75 mg PO DAILY 02/22/16 06/14/17 Dicyclomine [Bentyl] 10 mg PO BID 02/22/16 06/14/17 Diltiazem HCl [Diltiazem 24Hr ER] 120 mg PO DAILY 02/22/16 06/14/17 Sertraline [Zoloft] 50 mg PO HS 02/22/16 06/14/17 Isosorbide Mononitrate ER [Imdur] 60 mg PO QAM 06/08/16 06/14/17 carBAMazepine [Carbatrol] 300 mg PO Q12HR 06/08/16 06/14/17 ARIPiprazole [Abilify] 10 mg PO DAILY 01/06/17 06/14/17 Allergies Allergy/AdvReac Type Severity Reaction Status Date / Time codeine Allergy Itching Verified 06/14/17 20:36 hydrocodone bitartrate Allergy Itching Verified 06/14/17 20:36 [From Vicodin] latex Allergy Rash/Hives Verified 06/14/17 20:36 morphine Allergy Itching Verified 06/14/17 20:36 quetiapine fumarate AdvReac Agitation/Violent Verified 06/14/17 20:36 [From Seroquel] Behavior Review of Systems ROS Statement: Those systems with pertinent positive or pertinent negative responses have been documented in the HPI. ROS Other: All systems not noted in ROS Statement are negative. Past Medical History Past Medical History: Asthma, Coronary Artery Disease (CAD), Heart Failure, GERD /Reflux, Hyperlipidemia, Hypertension Additional Past Medical History / Comment(s): Cardiomyopathy, IBS History of Any Multi-Drug Resistant Organisms: None Reported Past Surgical History: Heart Catheterization With Stent, Pacemaker Additional Past Surgical History / Comment(s): surgery on elbow Past Anesthesia/Blood Transfusion Reactions: No Reported Reaction Date of Last Stent Placement:: Type of Cardiac Device: Permanent Pacemaker Device Placement Date:: 2011 Past Psychological History: Bipolar, Depression, Schizophrenia Smoking Status: Current every day smoker Past Alcohol Use History: None Reported Past Drug Use History: None Reported - Past Family History Father Family Medical History: Congestive Heart Failure (CHF) Additional Family Medical History / Comment(s): Father required Heart Transplant in his 40s. Mother in her 50s she required CABG Mother Additional Family Medical History / Comment(s): Triple bypass General Exam Limitations: no limitations General appearance: alert, in no apparent distress Head exam: Present: atraumatic, normocephalic, normal inspection Eye exam: Present: normal appearance, PERRL, EOMI. Absent: scleral icterus, conjunctival injection, periorbital swelling ENT exam: Present: normal exam, mucous membranes moist Neck exam: Present: normal inspection. Absent: tenderness, meningismus, lymphadenopathy Respiratory exam: Present: normal lung sounds bilaterally. Absent: respiratory distress, wheezes, rales, rhonchi, stridor Cardiovascular Exam: Present: regular rate, normal rhythm, normal heart sounds. Absent: systolic murmur, diastolic murmur, rubs, gallop, clicks GI/Abdominal exam: Present: soft, normal bowel sounds. Absent: distended, tenderness, guarding, rebound, rigid Extremities exam: Present: normal inspection, full ROM, normal capillary refill. Absent: tenderness, pedal edema, joint swelling, calf tenderness Back exam: Present: normal inspection Neurological exam: Present: alert, oriented X3, CN II-XII intact Psychiatric exam: Present: normal affect, normal mood Skin exam: Present: warm, dry, intact, normal color. Absent: rash Course Vital Signs 06/14/17 06/14/17 06/14/17 20:24 21:03 21:45 Temperature 97.8 F Pulse Rate 128 H 89 108 H Respiratory 22 18 18 Rate Blood Pressure 133/101 134/97 117/78 O2 Sat by Pulse 97 99 97 Oximetry 06/14/17 06/14/17 23:06 23:42 Temperature 98 F Pulse Rate 97 100 Respiratory 18 18 Rate Blood Pressure 118/82 150/79 O2 Sat by Pulse 97 97 Oximetry - Reevaluation(s) Reevaluation #1: Patient asking for specific pain medication EKG Findings - EKG Comments: EKG Findings:: EKG shows sinus tachycardia rate 114, [place] 152, QRS 84 Medical Decision Making - Medical Decision Making 36 male the ER for evasive chest pain. Patient given Dilaudid here in the emergency room. After getting medication patient states he does not want stay in the hospital he wants to be discharged home. Patient is controlled making O medical decisions and will be discharged home - Lab Data Result diagrams: 06/14/17 20:57 06/14/17 20:57 Lab Results 06/14/17 06/14/17 06/14/17 Range/Units 20:57 20:57 20:57 WBC 9.5 (3.8-10.6) k/uL RBC 6.43 H (4.30-5.90) m/uL Hgb 18.4 H (13.0-17.5) gm/dL Hct 54.4 H (39.0-53.0) % MCV 84.5 (80.0-100.0) fL MCH 28.6 (25.0-35.0) pg MCHC 33.9 (31.0-37.0) g/dL RDW 12.5 (11.5-15.5) % Plt Count 187 (150-450) k/uL Neutrophils % 61 % Lymphocytes % 28 % Monocytes % 7 % Eosinophils % 1 % Basophils % 1 % Neutrophils # 5.8 (1.3-7.7) k/uL Lymphocytes # 2.7 (1.0-4.8) k/uL Monocytes # 0.7 (0-1.0) k/uL Eosinophils # 0.1 (0-0.7) k/uL Basophils # 0.1 (0-0.2) k/uL PT (9.0-12.0) sec INR (<1.2) APTT (22.0-30.0) sec Sodium 137 (137-145) mmol/L Potassium 4.0 (3.5-5.1) mmol/L Chloride 97 L (98-107) mmol/L Carbon Dioxide 27 (22-30) mmol/L Anion Gap 13 mmol/L BUN 7 L (9-20) mg/dL Creatinine 0.90 (0.66-1.25) mg/dL Est GFR (MDRD) Af Amer >60 (>60 ml/min/1.73 sqM) Est GFR (MDRD) Non-Af >60 (>60 ml/min/1.73 sqM) Glucose 81 (74-99) mg/dL Calcium 9.9 (8.4-10.2) mg/dL Magnesium 2.3 (1.6-2.3) mg/dL Total Bilirubin 0.7 (0.2-1.3) mg/dL AST 44 (17-59) U/L ALT 67 (21-72) U/L Alkaline Phosphatase 73 (38-126) U/L Total Creatine Kinase 179 H (55-170) U/L CK-MB (CK-2) 1.1 (0.0-2.4) ng/mL CK-MB (CK-2) Rel Index 0.6 Troponin I <0.012 (0.000-0.034) ng/mL Total Protein 7.2 (6.3-8.2) g/dL Albumin 4.6 (3.5-5.0) g/dL Lipase 250 (23-300) U/L 06/14/17 Range/Units 20:57 WBC (3.8-10.6) k/uL RBC (4.30-5.90) m/uL Hgb (13.0-17.5) gm/dL Hct (39.0-53.0) % MCV (80.0-100.0) fL MCH (25.0-35.0) pg MCHC (31.0-37.0) g/dL RDW (11.5-15.5) % Plt Count (150-450) k/uL Neutrophils % % Lymphocytes % % Monocytes % % Eosinophils % % Basophils % % Neutrophils # (1.3-7.7) k/uL Lymphocytes # (1.0-4.8) k/uL Monocytes # (0-1.0) k/uL Eosinophils # (0-0.7) k/uL Basophils # (0-0.2) k/uL PT 10.2 (9.0-12.0) sec INR 1.0 (<1.2) APTT 25.4 (22.0-30.0) sec Sodium (137-145) mmol/L Potassium (3.5-5.1) mmol/L Chloride (98-107) mmol/L Carbon Dioxide (22-30) mmol/L Anion Gap mmol/L BUN (9-20) mg/dL Creatinine (0.66-1.25) mg/dL Est GFR (MDRD) Af Amer (>60 ml/min/1.73 sqM) Est GFR (MDRD) Non-Af (>60 ml/min/1.73 sqM) Glucose (74-99) mg/dL Calcium (8.4-10.2) mg/dL Magnesium (1.6-2.3) mg/dL Total Bilirubin (0.2-1.3) mg/dL AST (17-59) U/L ALT (21-72) U/L Alkaline Phosphatase (38-126) U/L Total Creatine Kinase (55-170) U/L CK-MB (CK-2) (0.0-2.4) ng/mL CK-MB (CK-2) Rel Index Troponin I (0.000-0.034) ng/mL Total Protein (6.3-8.2) g/dL Albumin (3.5-5.0) g/dL Lipase (23-300) U/L - Radiology Data Radiology results: report reviewed (Chest x-rays negative for acute disease), image reviewed Disposition Clinical Impression: Chest pain Disposition: HOME SELF-CARE Condition: Undetermined Instructions: Chest Pain (ED) Referrals: Sweta Bhardwaj MD [Primary Care Provider] - 1-2 days
[2017-06-14] MEDS ORDERED: HYDROmorphone 2 MG/ML 1 ML SYRINGE IVP STA (23:00)
[2017-06-14] MEDS ORDERED: HYDROmorphone 0.5 MG/0.5 ML SYRINGE IVP STA (23:03)
[2017-06-14 23:07] VITALS: TEMP 98
[2017-06-14] MEDS ORDERED: HEPARIN SODIUM,PORCINE 5,000 UNIT/ML 1 ML VIAL IV ONE (23:37)
[2017-06-14] MEDS ORDERED: HEPARIN SODIUM,PORCINE 5,000 UNIT/ML 1 ML VIAL IV PRN (23:37)
[2017-06-14] MEDS ORDERED: ASPIRIN 81 MG PO STA (23:37)
[2017-06-14] MEDS ORDERED: NITROGLYCERIN SL TABS 0.4 MG TAB SUBLINGUAL PRN (23:37)
[2017-06-14] MEDS ORDERED: HYDROmorphone 4 MG TABLET PO PRN (23:37)
[2017-06-14 23:43] VITALS: BP 150/79; PULSE 100
[2017-06-14] MEDS ORDERED: HEPARIN SOD,PORK IN 0.45% NACL 25,000 UNIT in 0.45% NACL 1 500ML.BAG IV SCH (23:45)
[2017-06-15] MEDS ORDERED: ATORVASTATIN 80 MG TAB PO SCH (09:00)
[2017-06-15] MEDS ORDERED: ASPIRIN 325 MG TAB PO SCH (09:00)
== END 2017-06-15 00:33 | disposition home or self-care (01) ==
LOC: EC 20:23 → UNDOADMOB 23:39 → 6SEL 23:39 → EC 06-15 00:33
DX: R07.9 Chest pain, unspecified (principal); E78.5 Hyperlipidemia, unspecified; I11.0 Hypertensive heart disease with heart failure; I50.9 Heart failure, unspecified; I25.10 Atherosclerotic heart disease of native coronary artery without angina pectoris; K21.9 Gastro-esophageal reflux disease without esophagitis; K58.9 Irritable bowel syndrome, unspecified; F31.9 Bipolar disorder, unspecified; F20.9 Schizophrenia, unspecified; F17.200 Nicotine dependence, unspecified, uncomplicated; Z79.02 Long term (current) use of antithrombotics/antiplatelets; Z79.82 Long term (current) use of aspirin; Z79.899 Other long term (current) drug therapy; Z88.5 Allergy status to narcotic agent; Z88.8 Allergy status to other drugs, medicaments and biological substances; Z91.040 Latex allergy status; Z95.0 Presence of cardiac pacemaker; Z82.49 Family history of ischemic heart disease and other diseases of the circulatory system; Z53.20 Procedure and treatment not carried out because of patient's decision for unspecified reasons; Z53.8 Procedure and treatment not carried out for other reasons
CPT/HCPCS: 36415; 93005; 80053; 82550; 82553; 83690; 83735; 84484; 85025; 85610; 85730; 71046; 99285; 96374; J1170

== ENCOUNTER 2017-06-20 20:17 | Observation (INO) | payer MEDICARE, OTHER ==
[2017-06-20 20:56] LABS: Basophils # (A) 0.1 k/uL (0-0.2); Basophils % (A) 0 %; Eosinophils # (A) 0.2 k/uL (0-0.7); Eosinophils % (A) 2 %; HCT 49.9 % (39.0-53.0); HGB 17.3 gm/dL (13.0-17.5); Lymphocytes # (A) 2.1 k/uL (1.0-4.8); Lymphocytes % (A) 20 %; MCH 28.9 pg (25.0-35.0); MCHC 34.7 g/dL (31.0-37.0); MCV 83.3 fL (80.0-100.0); Mean Platelet Volume 8.8; Monocytes # (A) 0.7 k/uL (0-1.0); Monocytes % (A) 7 %; Neutrophils # (A) 7.5 k/uL (1.3-7.7); Neutrophils % (A) 71 %; Platelet Count 193 k/uL (150-450); RBC 5.99 m/uL (4.30-5.90); RDW 12.5 % (11.5-15.5); WBC 10.7 k/uL (3.8-10.6)
--- NOTE | 2017-06-20 21:02 | ED ---
General Adult HPI - General Chief complaint: Chest Pain Stated complaint: CHEST PAIN Source: patient, RN notes reviewed, old records reviewed Mode of arrival: ambulatory Limitations: no limitations - History of Present Illness Initial comments: This is a 28-year-old male to the ER for evaluation of chest pain. Patient severe anterior chest pain. Patient has history of chest pain history of heart disease. Patient has no recent hospital admission, last patient ER visit he refused to stay in the hospital. Patient states he had recurrent chest pain today and to mild shortness of breath. No diaphoresis no fever cough or congestion - Related Data Home Medications Medication Instructions Recorded Confirmed Aspirin EC [Ecotrin Low Dose] 81 mg PO HS 10/27/15 06/20/17 Atorvastatin [Lipitor] 20 mg PO HS 10/27/15 06/20/17 Benztropine Mesylate [Cogentin] 1 mg PO BID 10/27/15 06/20/17 Carvedilol [Coreg] 12.5 mg PO BID 10/27/15 06/20/17 DULoxetine HCL [Cymbalta] 60 mg PO DAILY 10/27/15 06/20/17 Fenofibrate,Micronized 67 mg PO HS 10/27/15 06/20/17 [Fenofibrate] Furosemide [Lasix] 20 mg PO DAILY PRN 10/27/15 06/20/17 Gemfibrozil [Lopid] 600 mg PO BID 10/27/15 06/20/17 Pantoprazole Sodium [Protonix] 40 mg PO DAILY 10/27/15 06/20/17 Ranolazine [Ranexa] 1,000 mg PO BID 10/27/15 06/20/17 Tamsulosin HCl [Flomax] 0.4 mg PO BID 10/27/15 06/20/17 Lisinopril [Prinivil] 20 mg PO DAILY 11/28/15 06/20/17 Albuterol Inhaler [Ventolin Hfa 1 puff INHALATION RT-Q6H PRN 02/22/16 06/20/17 Inhaler] Clopidogrel [Plavix] 75 mg PO DAILY 02/22/16 06/20/17 Dicyclomine [Bentyl] 10 mg PO BID 02/22/16 06/20/17 Diltiazem HCl [Diltiazem 24Hr ER] 120 mg PO DAILY 02/22/16 06/20/17 Sertraline [Zoloft] 50 mg PO HS 02/22/16 06/20/17 Isosorbide Mononitrate ER [Imdur] 60 mg PO QAM 06/08/16 06/20/17 carBAMazepine [Carbatrol] 300 mg PO Q12HR 06/08/16 06/20/17 ARIPiprazole [Abilify] 10 mg PO DAILY 01/06/17 06/20/17 Allergies Allergy/AdvReac Type Severity Reaction Status Date / Time codeine Allergy Itching Verified 06/20/17 20:56 hydrocodone bitartrate Allergy Itching Verified 06/20/17 20:56 [From Vicodin] latex Allergy Rash/Hives Verified 06/20/17 20:56 morphine Allergy Itching Verified 06/20/17 20:56 quetiapine fumarate AdvReac Agitation/Violent Verified 06/20/17 20:56 [From Seroquel] Behavior Review of Systems ROS Statement: Those systems with pertinent positive or pertinent negative responses have been documented in the HPI. ROS Other: All systems not noted in ROS Statement are negative. Past Medical History Past Medical History: Asthma, Coronary Artery Disease (CAD), Heart Failure, GERD /Reflux, Hyperlipidemia, Hypertension Additional Past Medical History / Comment(s): Cardiomyopathy, IBS History of Any Multi-Drug Resistant Organisms: None Reported Past Surgical History: Heart Catheterization With Stent, Pacemaker Additional Past Surgical History / Comment(s): surgery on elbow Past Anesthesia/Blood Transfusion Reactions: No Reported Reaction Date of Last Stent Placement:: Type of Cardiac Device: Permanent Pacemaker Device Placement Date:: 2011 Past Psychological History: Bipolar, Depression, Schizophrenia Smoking Status: Current every day smoker Past Alcohol Use History: None Reported Past Drug Use History: None Reported - Past Family History Father Family Medical History: Congestive Heart Failure (CHF) Additional Family Medical History / Comment(s): Father required Heart Transplant in his 40s. Mother in her 50s she required CABG Mother Additional Family Medical History / Comment(s): Triple bypass General Exam Limitations: no limitations General appearance: alert, in no apparent distress Head exam: Present: atraumatic, normocephalic, normal inspection Eye exam: Present: normal appearance, PERRL, EOMI. Absent: scleral icterus, conjunctival injection, periorbital swelling ENT exam: Present: normal exam, mucous membranes moist Neck exam: Present: normal inspection. Absent: tenderness, meningismus, lymphadenopathy Respiratory exam: Present: normal lung sounds bilaterally. Absent: respiratory distress, wheezes, rales, rhonchi, stridor Cardiovascular Exam: Present: normal rhythm, tachycardia, normal heart sounds. Absent: systolic murmur, diastolic murmur, rubs, gallop, clicks GI/Abdominal exam: Present: soft, normal bowel sounds. Absent: distended, tenderness, guarding, rebound, rigid Extremities exam: Present: normal inspection, full ROM, normal capillary refill. Absent: tenderness, pedal edema, joint swelling, calf tenderness Back exam: Present: normal inspection Neurological exam: Present: alert, oriented X3, CN II-XII intact Psychiatric exam: Present: normal affect, normal mood Skin exam: Present: warm, dry, intact, normal color. Absent: rash Course Vital Signs 06/20/17 20:25 Temperature 98.1 F Pulse Rate 102 H Respiratory 20 Rate Blood Pressure 124/69 O2 Sat by Pulse 97 Oximetry - Reevaluation(s) Reevaluation #1: 06/20/17 21:01 Patient informed the hospital is out of Dilaudid, patient not requesting anything other else for pain Reevaluation #2: 06/20/17 22:30 Patient has recurrent chest pain EKG Findings - EKG Comments: EKG Findings:: EKG shows normal sinus rhythm rate of 90, SC 134, QRS 80, QTC 43 Medical Decision Making - Medical Decision Making 36 male the ER for evaluation of chest pain. History of heart disease. Patient is to ER visits for of recent note, chest pain is is not getting out. Patient be admitted for cardiac observation - Lab Data Result diagrams: 06/20/17 20:35 06/20/17 20:35 Lab Results 06/20/17 06/20/17 06/20/17 Range/Units 20:35 20:35 20:35 WBC 10.7 H (3.8-10.6) k/uL RBC 5.99 H (4.30-5.90) m/uL Hgb 17.3 (13.0-17.5) gm/dL Hct 49.9 (39.0-53.0) % MCV 83.3 (80.0-100.0) fL MCH 28.9 (25.0-35.0) pg MCHC 34.7 (31.0-37.0) g/dL RDW 12.5 (11.5-15.5) % Plt Count 193 (150-450) k/uL Neutrophils % 71 % Lymphocytes % 20 % Monocytes % 7 % Eosinophils % 2 % Basophils % 0 % Neutrophils # 7.5 (1.3-7.7) k/uL Lymphocytes # 2.1 (1.0-4.8) k/uL Monocytes # 0.7 (0-1.0) k/uL Eosinophils # 0.2 (0-0.7) k/uL Basophils # 0.1 (0-0.2) k/uL PT (9.0-12.0) sec INR (<1.2) APTT (22.0-30.0) sec Sodium 138 (137-145) mmol/L Potassium 3.5 (3.5-5.1) mmol/L Chloride 102 (98-107) mmol/L Carbon Dioxide 24 (22-30) mmol/L Anion Gap 12 mmol/L BUN 6 L (9-20) mg/dL Creatinine 0.84 (0.66-1.25) mg/dL Est GFR (MDRD) Af Amer >60 (>60 ml/min/1.73 sqM) Est GFR (MDRD) Non-Af >60 (>60 ml/min/1.73 sqM) Glucose 78 (74-99) mg/dL Calcium 10.3 H (8.4-10.2) mg/dL Magnesium 2.2 (1.6-2.3) mg/dL Total Bilirubin 1.0 (0.2-1.3) mg/dL AST 54 (17-59) U/L ALT 76 H (21-72) U/L Alkaline Phosphatase 76 (38-126) U/L Total Creatine Kinase 132 (55-170) U/L CK-MB (CK-2) 1.0 (0.0-2.4) ng/mL CK-MB (CK-2) Rel Index 0.8 Troponin I <0.012 (0.000-0.034) ng/mL Total Protein 7.1 (6.3-8.2) g/dL Albumin 4.5 (3.5-5.0) g/dL 02/28/18 Range/Units 20:35 WBC (3.8-10.6) k/uL RBC (4.30-5.90) m/uL Hgb (13.0-17.5) gm/dL Hct (39.0-53.0) % MCV (80.0-100.0) fL MCH (25.0-35.0) pg MCHC (31.0-37.0) g/dL RDW (11.5-15.5) % Plt Count (150-450) k/uL Neutrophils % % Lymphocytes % % Monocytes % % Eosinophils % % Basophils % % Neutrophils # (1.3-7.7) k/uL Lymphocytes # (1.0-4.8) k/uL Monocytes # (0-1.0) k/uL Eosinophils # (0-0.7) k/uL Basophils # (0-0.2) k/uL PT 10.3 (9.0-12.0) sec INR 1.1 (<1.2) APTT 24.7 (22.0-30.0) sec Sodium (137-145) mmol/L Potassium (3.5-5.1) mmol/L Chloride (98-107) mmol/L Carbon Dioxide (22-30) mmol/L Anion Gap mmol/L BUN (9-20) mg/dL Creatinine (0.66-1.25) mg/dL Est GFR (MDRD) Af Amer (>60 ml/min/1.73 sqM) Est GFR (MDRD) Non-Af (>60 ml/min/1.73 sqM) Glucose (74-99) mg/dL Calcium (8.4-10.2) mg/dL Magnesium (1.6-2.3) mg/dL Total Bilirubin (0.2-1.3) mg/dL AST (17-59) U/L ALT (21-72) U/L Alkaline Phosphatase (38-126) U/L Total Creatine Kinase (55-170) U/L CK-MB (CK-2) (0.0-2.4) ng/mL CK-MB (CK-2) Rel Index Troponin I (0.000-0.034) ng/mL Total Protein (6.3-8.2) g/dL Albumin (3.5-5.0) g/dL - Radiology Data Radiology results: report reviewed (Chest x-rays negative for acute disease), image reviewed Critical Care Time Critical Care Time: Yes Total Critical Care Time: 31 Disposition Clinical Impression: Chest pain Disposition: ADMITTED IP TO THIS HOSP Condition: Undetermined Instructions: Chest Pain (ED) Referrals: Sweta Bhardwaj MD [Primary Care Provider] - 1-2 days
[2017-06-20 21:11] LABS: INR 1.1 (<1.2); Partial Thromboplastin Time 24.7 sec (22.0-30.0); Prothrombin Time 10.3 sec (9.0-12.0)
[2017-06-20 21:13] LABS: ALT 76 U/L (21-72); AST 54 U/L (17-59); Albumin 4.5 g/dL (3.5-5.0); Alkaline Phosphatase 76 U/L (38-126); Anion Gap 12 mmol/L; Blood Urea Nitrogen 6 mg/dL (9-20); Calcium 10.3 mg/dL (8.4-10.2); Carbon Dioxide 24 mmol/L (22-30); Chloride 102 mmol/L (98-107); Glucose 78 mg/dL (74-99); Potassium 3.5 mmol/L (3.5-5.1); Sodium 138 mmol/L (137-145); Total Protein 7.1 g/dL (6.3-8.2)
--- NOTE | 2017-06-20 21:28 | XR ---
EXAMINATION TYPE: XR chest 2V DATE OF EXAM: 06/20/2017 COMPARISON: 06/14/2017 HISTORY: Chest pain TECHNIQUE: Frontal and lateral views of the chest are obtained. FINDINGS: Heart and mediastinum are normal. Lungs are clear. Diaphragm is normal. There is left axil aida pacemaker with the lead tips in the right ventricle. There are chest leads. Bony thorax is intac t. IMPRESSION: Normal chest. No change.
[2017-06-20 21:30] LABS: Creatine Kinase 132 U/L (55-170)
[2017-06-20 21:43] LABS: Troponin I <0.012 ng/mL (0.000-0.034)
[2017-06-20] MEDS ORDERED: KETOROLAC 30 MG/ML 1 ML VIAL IVP STA (21:45)
[2017-06-20] MEDS ORDERED: MORPHINE SULFATE 4 MG/ML SYRINGE IVP STA (21:53)
[2017-06-20] MEDS ORDERED: diphenhydrAMINE 50 MG/ML 1 ML VIAL IVP STA (21:53)
[2017-06-20] MEDS ORDERED: NITROGLYCERIN SL TABS 0.4 MG TAB SUBLINGUAL PRN (22:27)
[2017-06-20] MEDS ORDERED: HEPARIN SODIUM,PORCINE 5,000 UNIT/ML 1 ML VIAL IV PRN (22:27)
[2017-06-20] MEDS ORDERED: ASPIRIN 81 MG PO STA (22:27)
[2017-06-20] MEDS ORDERED: HEPARIN SODIUM,PORCINE 5,000 UNIT/ML 1 ML VIAL IV ONE (22:27)
[2017-06-20] MEDS ORDERED: HEPARIN SOD,PORK IN 0.45% NACL 25,000 UNIT in 0.45% NACL 1 500ML.BAG IV SCH (22:30)
[2017-06-21] MEDS: MORPHINE SULFATE 4 MG/ML SYRINGE IV PRN ×4 (00:44→09:40)
[2017-06-21] MEDS ORDERED: FUROSEMIDE 20 MG TAB PO PRN (01:15)
[2017-06-21] MEDS ORDERED: ALBUTEROL NEBULIZED 2.5 MG/3 ML INHALATION PRN (01:15)
[2017-06-21] MEDS ORDERED: ATORVASTATIN 20 MG TAB PO SCH (01:16)
[2017-06-21] MEDS ORDERED: NON-FORMULARY DRUG (Aspirin Ec 81 MG) PO SCH (01:16)
[2017-06-21] MEDS ORDERED: FENOFIBRATE 54 MG TAB PO SCH (01:17)
[2017-06-21] MEDS ORDERED: SERTRALINE 50 MG TAB PO SCH (01:18)
[2017-06-21] MEDS: TAMSULOSIN 0.4 MG CAP.ER.24H PO SCH ×2 (02:40→12:02)
[2017-06-21] MEDS: carBAMazepine 300 MG CPMP.12HR PO SCH ×2 (02:40→12:02)
[2017-06-21] MEDS: RANOLAZINE 500 MG TAB.ER.12H PO SCH ×2 (02:40→12:01)
[2017-06-21] MEDS: DICYCLOMINE 10 MG CAP PO SCH ×2 (02:41→12:02)
[2017-06-21] MEDS: CARVEDILOL 12.5 MG TAB PO SCH ×2 (02:41→12:02)
[2017-06-21] MEDS: GEMFIBROZIL 600 MG TAB PO SCH ×2 (02:41→12:02)
[2017-06-21] MEDS: BENZTROPINE MESYLATE 1 MG TAB PO SCH ×2 (02:41→12:02)
[2017-06-21 03:59] LABS: Mean Platelet Volume 9.1; Platelet Count 182 k/uL (150-450)
[2017-06-21 04:21] LABS: Cholesterol 170 mg/dL (<200); HDL Cholesterol 28 mg/dL (40-60); LDL Cholesterol,Calculated 113 mg/dL (0-99); Triglycerides 146 mg/dL (<150)
[2017-06-21 04:23] LABS: Creatine Kinase 114 U/L (55-170)
[2017-06-21 04:35] LABS: Creatine Kinase MB 0.8 ng/mL (0.0-2.4); Troponin I <0.012 ng/mL (0.000-0.034)
[2017-06-21 08:18] VITALS: RESP 18
[2017-06-21] MEDS ORDERED: PANTOPRAZOLE 40 MG TABLET PO SCH (09:00)
[2017-06-21] MEDS ORDERED: ASPIRIN 325 MG TAB PO SCH (09:00)
[2017-06-21] MEDS ORDERED: ISOSORBIDE MONONITRATE ER 60 MG TAB.ER.24H PO SCH (09:00)
[2017-06-21] MEDS ORDERED: DULoxetine HCL 60 MG CAPSULE.DR PO SCH (09:00)
[2017-06-21] MEDS ORDERED: METOPROLOL TARTRATE 25 MG TAB PO SCH (09:00)
[2017-06-21] MEDS ORDERED: CLOPIDOGREL 75 MG TAB PO SCH (09:00)
[2017-06-21] MEDS ORDERED: ATORVASTATIN 80 MG TAB PO SCH (09:00)
[2017-06-21] MEDS ORDERED: ARIPiprazole 10 MG TAB PO SCH (09:00)
[2017-06-21] MEDS ORDERED: DILTIAZEM CD 120 MG CAP.ER.24H PO SCH (09:00)
[2017-06-21] MEDS ORDERED: LISINOPRIL 20 MG TAB PO SCH (09:00)
[2017-06-21 09:22] LABS: Creatine Kinase 108 U/L (55-170)
[2017-06-21 09:35] LABS: Creatine Kinase MB 0.9 ng/mL (0.0-2.4); Troponin I <0.012 ng/mL (0.000-0.034)
[2017-06-21 09:55] VITALS: BMI 26.6
--- NOTE | 2017-06-21 11:51 | P.CRDCN ---
History of Present Illness Consult date: 06/21/17 Consult reason: chest pain History of present illness: Mr. Biswas is a pleasant 36-year-old male past medical history significant for coronary artery disease with a stent to this distal LAD, dyslipidemia, hypertension, pacemaker implantation, asthma and gastroesophageal reflux disease. He sees Dr. Romero in the office. We have been asked to see him in consultation for complaints of chest pain. He states yesterday he was having intermittent episodes of chest pain that radiated to the left arm, neck, back and jaw. The pain started at rest and is associated with shortness of breath, dizziness and diaphoresis. He denies palpitations, nausea or vomiting. The pain was persistent so he took nitroglycerin at home and achieved some relief but that pain came back. He cannot specify aggravating factors. At the time of my exam he continues to complain of pain in the chest with no associated shortness of breath, dizziness, palpitations, nausea, vomiting or diaphoresis. EKG reveals sinus mechanism with no acute ST or T-wave abnormalities. Chest xray is negative for an acute cardiopulmonary process. Laboratory data reviewed, WBC 10.7, hemoglobin 17.3, platelets 182, potassium 3.5, magnesium 2.2, creatinine 0.84, cardiac enzymes negative 3, LDL 113, HDL 28. Current cardiac medications include ranexa 1,000 mg BID, lisinopril 20 mg daily , imdur 60 mg daily, lopid 600 BID, lasix 20 mg daily, fenofibrate 67 mg daily, cardizem 120 mg daily, plavix 75 mg daily, atorvastatin 20 mg daily and aspirin 81 mg daily. Most recent cardiac catheterization performed 02/2106 revealed a patent stent in the distal LAD with evidence of coronary spasm just proximal to the stent. All other arteries were free of stenosis. Most recent echocardiogram performed 12/2015 revealed preserved LV function with EF 45%, mildly dilated LA, moderately dilated right ventricle with decreased function, mild MR and mild TR. Most recent stress test was performed 02/2017 reveals no evidence of reversible ischemia with EF 49%. Review of Systems At the time of my exam: CONSTITUTIONAL: Denies fever. Denies chills. EYES: Denies blurred vision. Denies vision changes. Denies eye pain. EARS, NOSE, MOUTH & THROAT: Denies headache. Denies sore throat. Denies ear pain. CARDIOVASCULAR: Complains of chest pain. Denies shortness of breath. Denies orthopnea. Denies PND. Denies palpitations. RESPIRATORY: Denies cough. GASTROINTESTINAL: Denies abdominal pain. Denies diarrhea. Denies constipation. Denies nausea. Denies vomiting. MUSCULOSKELETAL: Denies myalgias. INTEGUMENTARY: Denies pruitis. Denies rash. NEUROLOGIC: Denies numbness. Denies tingling. Denies weakness. PSYCHIATRIC: Denies anxiety. Denies depression. ENDOCRINE: Denies fatigue. Denies weight change. Denies polydipsia. Denies polyurina. GENITOURINARY: Denies burning, hematuria or urgency with micturation. HEMATOLOGIC: Denies history of anemia. Denies bleeding. Past Medical History Past Medical History: Asthma, Coronary Artery Disease (CAD), Heart Failure, GERD /Reflux, Hyperlipidemia, Hypertension Additional Past Medical History / Comment(s): Cardiomyopathy, IBS History of Any Multi-Drug Resistant Organisms: None Reported Past Surgical History: Heart Catheterization With Stent, Pacemaker Additional Past Surgical History / Comment(s): surgery on elbow Past Anesthesia/Blood Transfusion Reactions: No Reported Reaction Date of Last Stent Placement:: Type of Cardiac Device: Permanent Pacemaker Device Placement Date:: 2011 Past Psychological History: Bipolar, Depression, Schizophrenia Additional Psychological History / Comment(s): pt denies schizophrenia, however , it is part of his past medical history from previous admissions Smoking Status: Current every day smoker Past Alcohol Use History: None Reported Past Drug Use History: None Reported - Past Family History Father Family Medical History: Congestive Heart Failure (CHF) Additional Family Medical History / Comment(s): Father required Heart Transplant in his 40s. Mother in her 50s she required CABG Mother Additional Family Medical History / Comment(s): Triple bypass Medications and Allergies Home Medications Medication Instructions Recorded Confirmed Type Aspirin EC [Ecotrin Low Dose] 81 mg PO HS 10/27/15 06/21/17 History Atorvastatin [Lipitor] 20 mg PO HS 10/27/15 06/21/17 History Benztropine Mesylate [Cogentin] 1 mg PO BID 10/27/15 06/21/17 History Carvedilol [Coreg] 12.5 mg PO BID 10/27/15 06/21/17 History DULoxetine HCL [Cymbalta] 60 mg PO DAILY 10/27/15 06/21/17 History Fenofibrate,Micronized 67 mg PO HS 10/27/15 06/21/17 History [Fenofibrate] Furosemide [Lasix] 20 mg PO DAILY PRN 10/27/15 06/21/17 History Gemfibrozil [Lopid] 600 mg PO BID 10/27/15 06/21/17 History Pantoprazole Sodium [Protonix] 40 mg PO DAILY 10/27/15 06/21/17 History Ranolazine [Ranexa] 1,000 mg PO BID 10/27/15 06/21/17 History Tamsulosin HCl [Flomax] 0.4 mg PO BID 10/27/15 06/21/17 History Lisinopril [Prinivil] 20 mg PO DAILY 11/28/15 06/21/17 History Albuterol Inhaler [Ventolin Hfa 1 puff INHALATION RT-Q6H PRN 02/22/16 06/21/17 History Inhaler] Clopidogrel [Plavix] 75 mg PO DAILY 02/22/16 06/21/17 History Dicyclomine [Bentyl] 10 mg PO BID 02/22/16 06/21/17 History Diltiazem HCl [Diltiazem 24Hr ER] 120 mg PO DAILY 02/22/16 06/21/17 History Sertraline [Zoloft] 50 mg PO HS 02/22/16 06/21/17 History Isosorbide Mononitrate ER [Imdur] 60 mg PO QAM 06/08/16 06/21/17 History carBAMazepine [Carbatrol] 300 mg PO Q12HR 06/08/16 06/21/17 History ARIPiprazole [Abilify] 10 mg PO DAILY 01/06/17 06/21/17 History Allergies Allergy/AdvReac Type Severity Reaction Status Date / Time codeine Allergy Itching Verified 06/20/17 23:59 hydrocodone bitartrate Allergy Itching Verified 06/20/17 23:59 [From Vicodin] latex Allergy Rash/Hives Verified 06/20/17 23:59 morphine Allergy Itching Verified 06/20/17 23:59 quetiapine fumarate AdvReac Agitation/Violent Verified 06/20/17 23:59 [From Seroquel] Behavior Physical Exam Vitals: Vital Signs Temp Pulse Pulse Resp BP BP BP 06/21/17 08:00 98.1 F 66 18 90/56 06/21/17 04:00 98.0 F 87 16 128/80 06/21/17 03:40 18 06/21/17 00:00 18 06/20/17 23:50 98.0 F 63 18 136/89 06/20/17 22:36 95 20 147/88 06/20/17 20:25 98.1 F 102 H 20 124/69 Pulse Ox 06/21/17 08:00 97 06/21/17 04:00 93 L 06/21/17 03:40 06/21/17 00:00 06/20/17 23:50 94 L 06/20/17 22:36 96 06/20/17 20:25 97 Intake and Output 06/20/17 06/21/17 06/21/17 22:59 06:59 14:59 Intake Total 256.439 Balance 256.439 Intake: Amount of Fluid Infused ( 150 ml) Intake, IV Titration 106.439 Amount Heparin Sod,Pork in 0.45% 106.439 NaCl 25,000 unit In 0.45 % NaCl 1 500ml.bag @ 12 UNITS/KG/HR 19.59 mls/hr IV .Q24H [facility] Rx#: [id number] Other: Voiding Method Toilet Weight 81.647 kg Blood pressure 90/56 heart rate 66 afebrile GENERAL: This is a 36-year-old male in no apparent distress at the time of my examination. HEENT: Head is atraumatic, normocephalic. Pupils are equal, round. Sclerae anicteric. Conjunctivae are clear. Mucous membranes of the mouth are moist. Neck is supple. There is no jugular venous distention. No carotid bruit is heard. LUNGS: Clear to auscultation no wheezes, rales or rhonchi. No chest wall tenderness is noted on palpation or with deep breathing. HEART: Regular rate and rhythm without murmurs, rubs or gallops. S1 and S2 heard. ABDOMEN: Soft, non-tender. Bowel sounds are heard. No organomegaly noted. EXTREMITIES: No evidence of peripheral edema and no calf tenderness noted. VASCULAR: Radial and dorsalis pedis pulses palpated, no evidence of clubbing. NEUROLOGIC: Patient is awake, alert and oriented x3. Results 03/01/18 03:34 06/20/17 20:35 Cardiac Enzymes 06/20/17 06/20/17 06/21/17 Range/Units 20:35 20:35 03:34 AST 54 (17-59) U/L CK-MB (CK-2) 1.0 0.8 (0.0-2.4) ng/mL Troponin I <0.012 <0.012 (0.000-0.034) ng/mL Coagulation 06/20/17 06/21/17 Range/Units 20:35 03:34 PT 10.3 (9.0-12.0) sec APTT 24.7 37.5 H (22.0-30.0) sec Lipids 06/21/17 Range/Units 03:34 Triglycerides 146 (<150) mg/dL Cholesterol 170 (<200) mg/dL HDL Cholesterol 28 L (40-60) mg/dL CBC 06/20/17 06/21/17 Range/Units 20:35 03:34 WBC 10.7 H (3.8-10.6) k/uL RBC 5.99 H (4.30-5.90) m/uL Hgb 17.3 (13.0-17.5) gm/dL Hct 49.9 (39.0-53.0) % Plt Count 193 182 (150-450) k/uL Comprehensive Metabolic Panel 06/20/17 Range/Units 20:35 Sodium 138 (137-145) mmol/L Potassium 3.5 (3.5-5.1) mmol/L Chloride 102 (98-107) mmol/L Carbon Dioxide 24 (22-30) mmol/L BUN 6 L (9-20) mg/dL Creatinine 0.84 (0.66-1.25) mg/dL Glucose 78 (74-99) mg/dL Calcium 10.3 H (8.4-10.2) mg/dL AST 54 (17-59) U/L ALT 76 H (21-72) U/L Alkaline Phosphatase 76 (38-126) U/L Total Protein 7.1 (6.3-8.2) g/dL Albumin 4.5 (3.5-5.0) g/dL Current Medications Generic Name Dose Route Start Last Admin Trade Name Freq PRN Reason Stop Dose Admin Albuterol Sulfate 2.5 mg 06/21/17 01:15 Ventolin Nebulized INHALATION RT-Q6H PRN Shortness Of Breath Aripiprazole 10 mg 06/21/17 09:00 Abilify PO DAILY [facility] Aspirin 325 mg 06/21/17 09:00 Aspirin PO DAILY [facility] Atorvastatin Calcium 20 mg 06/21/17 01:16 06/21/17 02:40 Lipitor PO 20 mg HS [facility] Administration Benztropine Mesylate 1 mg 06/21/17 01:15 06/21/17 02:41 Cogentin PO 1 mg BID [facility] Administration Carbamazepine 300 mg 06/21/17 01:15 06/21/17 02:40 Carbatrol PO 300 mg Q12HR [facility] Administration Carvedilol 12.5 mg 06/21/17 01:15 06/21/17 02:41 Coreg PO 12.5 mg BID [facility] Administration Clopidogrel Bisulfate 75 mg 06/21/17 09:00 Plavix PO DAILY [facility] Dicyclomine HCl 10 mg 06/21/17 01:15 06/21/17 02:41 Bentyl PO 10 mg BID [facility] Administration Diltiazem HCl 120 mg 06/21/17 09:00 Cardizem Cd PO DAILY [facility] Duloxetine HCl 60 mg 06/21/17 09:00 Cymbalta PO DAILY [facility] Fenofibrate 54 mg 06/21/17 01:17 06/21/17 02:41 Lofibra PO 54 mg HS [facility] Administration Furosemide 20 mg 06/21/17 01:15 Lasix PO DAILY PRN Edema Gemfibrozil 600 mg 06/21/17 01:15 06/21/17 02:41 Lopid PO 600 mg BID [facility] Administration Heparin Sodium (Porcine) 0 unit 06/20/17 22:27 06/21/17 04:31 Heparin IV 4,000 unit Q6HR PRN Administration Low PTT Protocol Heparin Sodium/Sodium Chloride 500 mls @ 19.59 mls/hr 06/20/17 22:30 04:20 25,000 unit/ Sodium Chloride IV 15 units/kg/hr .Q24H [facility] 24.49 mls/hr Protocol Titration 12 UNITS/KG/HR Isosorbide Mononitrate 60 mg 06/21/17 09:00 Imdur PO QAM [facility] Lisinopril 20 mg 06/21/17 09:00 Zestril PO DAILY [facility] Morphine Sulfate 4 mg 06/20/17 22:27 06/21/17 06:25 Morphine Sulfate (Inj) IV 4 mg Q5M PRN Administration Chest Pain Nitroglycerin 0.4 mg 06/20/17 22:27 Nitrostat SUBLINGUAL Q5M PRN Chest Pain Pantoprazole Sodium 40 mg 06/21/17 09:00 Protonix PO DAILY [facility] Ranolazine 1,000 mg 06/21/17 01:15 06/21/17 02:40 Ranexa PO 1,000 mg BID [facility] Administration Sertraline HCl 50 mg 06/21/17 01:18 06/21/17 02:41 Zoloft PO 50 mg HS [facility] Administration Tamsulosin HCl 0.4 mg 06/21/17 01:15 06/21/17 02:40 Flomax PO 0.4 mg BID [facility] Administration Intake and Output 06/20/17 06/21/17 06/21/17 22:59 06:59 14:59 Intake Total 256.439 Balance 256.439 Intake: Amount of Fluid Infused ( 150 ml) Intake, IV Titration 106.439 Amount Heparin Sod,Pork in 0.45% 106.439 NaCl 25,000 unit In 0.45 % NaCl 1 500ml.bag @ 12 UNITS/KG/HR 19.59 mls/hr IV .Q24H [facility] Rx#: [id number] Other: Voiding Method Toilet Weight 81.647 kg 06/21/17 03:34 06/20/17 20:35 Assessment and Plan Assessment: ASSESSMENT 1. Chest pain, an acute coronary event has been ruled out. 2. History of coronary artery disease patent stent to LAD on last catheterization with recent negative stress test. 3. Hypertension 4. Dyslipidemia 5. History of pacemaker implantation 6. Chronic tobacco abuse PLAN Obtain 2D echocardiogram and doppler study to assess cardiac structure and function. Increase activity and ambulate in the halls. Increase atorvastatin to 40 mg daily for optimal LDL of less than 70 with history of coronary artery disease. Stable from a cardiac perspective with acute coronary event ruled out. Follow up with Dr. Romero in 2-3 weeks. Thank you kindly for this consultation. Nurse Practitioner note has been reviewed, I agree with a documented findings and plan of care. Patient was seen and examined.
[2017-06-21 12:08] VITALS: BP 119/67; PULSE 65; TEMP 98.3
--- NOTE | 2017-06-21 14:25 | P.HPIM ---
History of Present Illness H&P Date: 06/21/17 Chief Complaint: Chest pain This is a 36-year-old male, patient of Dr. Bhardwaj. He has a known past medical history of hypertension, hyperlipidemia, coronary artery disease with cardiac stent, pacemaker, GERD and asthma. He presented to the hospital with complaints of chest pain. The pain radiated down the left arm neck and back jaw. Patient was placed on observation and cardiology consulted. EKG had shown normal sinus rhythm with no acute changes. Chest x-ray negative for any acute pulmonary process. Patient left AGAINST MEDICAL ADVICE before he was seen and examined by Dr. Moy. He was evaluated by cardiology and they cleared him for discharge Review of Systems Unable to obtain Past Medical History Past Medical History: Asthma, Coronary Artery Disease (CAD), Heart Failure, GERD /Reflux, Hyperlipidemia, Hypertension Additional Past Medical History / Comment(s): Cardiomyopathy, IBS History of Any Multi-Drug Resistant Organisms: None Reported Past Surgical History: Heart Catheterization With Stent, Pacemaker Additional Past Surgical History / Comment(s): surgery on elbow Past Anesthesia/Blood Transfusion Reactions: No Reported Reaction Date of Last Stent Placement:: Type of Cardiac Device: Permanent Pacemaker Device Placement Date:: 2011 Past Psychological History: Bipolar, Depression, Schizophrenia Additional Psychological History / Comment(s): pt denies schizophrenia, however , it is part of his past medical history from previous admissions Smoking Status: Current every day smoker Past Alcohol Use History: None Reported Past Drug Use History: None Reported - Past Family History Father Family Medical History: Congestive Heart Failure (CHF) Additional Family Medical History / Comment(s): Father required Heart Transplant in his 40s. Mother in her 50s she required CABG Mother Additional Family Medical History / Comment(s): Triple bypass Medications and Allergies Home Medications Medication Instructions Recorded Confirmed Type Aspirin EC [Ecotrin Low Dose] 81 mg PO HS 10/27/15 06/21/17 History Atorvastatin [Lipitor] 20 mg PO HS 10/27/15 06/21/17 History Benztropine Mesylate [Cogentin] 1 mg PO BID 10/27/15 06/21/17 History Carvedilol [Coreg] 12.5 mg PO BID 10/27/15 06/21/17 History DULoxetine HCL [Cymbalta] 60 mg PO DAILY 10/27/15 06/21/17 History Fenofibrate,Micronized 67 mg PO HS 10/27/15 06/21/17 History [Fenofibrate] Furosemide [Lasix] 20 mg PO DAILY PRN 10/27/15 06/21/17 History Gemfibrozil [Lopid] 600 mg PO BID 10/27/15 06/21/17 History Pantoprazole Sodium [Protonix] 40 mg PO DAILY 10/27/15 06/21/17 History Ranolazine [Ranexa] 1,000 mg PO BID 10/27/15 06/21/17 History Tamsulosin HCl [Flomax] 0.4 mg PO BID 10/27/15 06/21/17 History Lisinopril [Prinivil] 20 mg PO DAILY 11/28/15 06/21/17 History Albuterol Inhaler [Ventolin Hfa 1 puff INHALATION RT-Q6H PRN 02/22/16 06/21/17 History Inhaler] Clopidogrel [Plavix] 75 mg PO DAILY 02/22/16 06/21/17 History Dicyclomine [Bentyl] 10 mg PO BID 02/22/16 06/21/17 History Diltiazem HCl [Diltiazem 24Hr ER] 120 mg PO DAILY 02/22/16 06/21/17 History Sertraline [Zoloft] 50 mg PO HS 02/22/16 06/21/17 History Isosorbide Mononitrate ER [Imdur] 60 mg PO QAM 06/08/16 06/21/17 History carBAMazepine [Carbatrol] 300 mg PO Q12HR 06/08/16 06/21/17 History ARIPiprazole [Abilify] 10 mg PO DAILY 01/06/17 06/21/17 History Allergies Allergy/AdvReac Type Severity Reaction Status Date / Time codeine Allergy Itching Verified 06/20/17 23:59 hydrocodone bitartrate Allergy Itching Verified 06/20/17 23:59 [From Vicodin] latex Allergy Rash/Hives Verified 06/20/17 23:59 morphine Allergy Itching Verified 06/20/17 23:59 quetiapine fumarate AdvReac Agitation/Violent Verified 06/20/17 23:59 [From Seroquel] Behavior Physical Exam Vitals: Vital Signs Temp Pulse Pulse Resp BP BP BP 06/21/17 12:00 98.3 F 65 18 119/67 06/21/17 08:00 98.1 F 66 18 90/56 06/21/17 04:00 98.0 F 87 16 128/80 06/21/17 03:40 18 06/21/17 00:00 18 06/20/17 23:50 98.0 F 63 18 136/89 06/20/17 22:36 95 20 147/88 06/20/17 20:25 98.1 F 102 H 20 124/69 Pulse Ox 06/21/17 12:00 91 L 06/21/17 08:00 97 06/21/17 04:00 93 L 06/21/17 03:40 06/21/17 00:00 06/20/17 23:50 94 L 06/20/17 22:36 96 06/20/17 20:25 97 Intake and Output 06/20/17 06/21/17 06/21/17 22:59 06:59 14:59 Intake Total 256.439 Balance 256.439 Intake: Amount of Fluid Infused ( 150 ml) Intake, IV Titration 106.439 Amount Heparin Sod,Pork in 0.45% 106.439 NaCl 25,000 unit In 0.45 % NaCl 1 500ml.bag @ 12 UNITS/KG/HR 19.59 mls/hr IV .Q24H [facility] Rx#: [id number] Other: Voiding Method Toilet Toilet Weight 81.647 kg 81.647 kg Patient Weight 06/22/17 06:59 Weight 81.647 kg Unable to obtain. Patient left AGAINST MEDICAL ADVICE before seen and examined Results CBC & Chem 7: 06/21/17 03:34 06/20/17 20:35 Labs: Abnormal Lab Results - Last 24 Hours (Table) 06/20/17 06/20/17 06/21/17 Range/Units 20:35 20:35 03:34 WBC 10.7 H (3.8-10.6) k/uL RBC 5.99 H (4.30-5.90) m/uL APTT (22.0-30.0) sec BUN 6 L (9-20) mg/dL Calcium 10.3 H (8.4-10.2) mg/dL ALT 76 H (21-72) U/L LDL Cholesterol, Calc 113 H (0-99) mg/dL HDL Cholesterol 28 L (40-60) mg/dL 06/21/17 06/21/17 Range/Units 03:34 08:26 WBC (3.8-10.6) k/uL RBC (4.30-5.90) m/uL APTT 37.5 H 72.3 H (22.0-30.0) sec BUN (9-20) mg/dL Calcium (8.4-10.2) mg/dL ALT (21-72) U/L LDL Cholesterol, Calc (0-99) mg/dL HDL Cholesterol (40-60) mg/dL Thrombosis Risk Factor Assmnt - Choose All That Apply Any of the Below Risk Factors Present?: No Each Factor Represents 1 point: Obesity (BMI >25) Other Risk Factors: No Other congenital or acquired thrombophilia - If yes, enter type in comment: No Thrombosis Risk Factor Assessment Total Risk Factor Score: 1 Thrombosis Risk Factor Assessment Level: Very Low Risk Assessment and Plan Assessment: Patient left AGAINST MEDICAL ADVICE before seen and examined 1. Chest pain: No evidence of acute coronary event. Seen by cardiology. They cleared him for discharge 2. History of Coronary artery disease with cardiac stent to the LAD 3. Hypertension 4. Hyperlipidemia 5. Nicotine dependence 6. Pacemaker implantation
--- NOTE | 2017-06-21 14:27 | P.DS ---
Providers Date of admission: 06/20/17 22:27 Expected date of discharge: 06/21/17 Attending physician: Gilma Conner Consults: 06/20/17 22:27 Consult Physician Urgent Consulting Provider: Sam Peterson Consult Reason/Comments: cp Do you want consulting provider notified?: Yes Primary care physician: Sweta Bhardwaj Hospital Course: Discharge diagnosis Patient left AGAINST MEDICAL ADVICE before seen and examined 1. Chest pain: No evidence of acute coronary event. Seen by cardiology. They cleared him for discharge 2. History of Coronary artery disease with cardiac stent to the LAD 3. Hypertension 4. Hyperlipidemia 5. Nicotine dependence 6. Pacemaker implantation Hospital course This is a 36-year-old male, patient of Dr. Bhardwaj. He has a known past medical history of hypertension, hyperlipidemia, coronary artery disease with cardiac stent, pacemaker, GERD and asthma. He presented to the hospital with complaints of chest pain. The pain radiated down the left arm neck and back jaw. Patient was placed on observation and cardiology consulted. EKG had shown normal sinus rhythm with no acute changes. Troponins negative 3 sets. Chest x-ray negative for any acute pulmonary process. Patient left AGAINST MEDICAL ADVICE before he was seen and examined by Dr. Moy. He was evaluated by cardiology and they cleared him for discharge Patient Condition at Discharge: Stable Plan - Discharge Summary New Discharge Prescriptions: No Action Ranolazine [Ranexa] 1,000 mg PO BID Pantoprazole Sodium [Protonix] 40 mg PO DAILY Tamsulosin HCl [Flomax] 0.4 mg PO BID Gemfibrozil [Lopid] 600 mg PO BID Furosemide [Lasix] 20 mg PO DAILY PRN PRN Reason: Edema Fenofibrate,Micronized [Fenofibrate] 67 mg PO HS DULoxetine HCL [Cymbalta] 60 mg PO DAILY Carvedilol [Coreg] 12.5 mg PO BID Benztropine Mesylate [Cogentin] 1 mg PO BID Atorvastatin [Lipitor] 20 mg PO HS Aspirin EC [Ecotrin Low Dose] 81 mg PO HS Lisinopril [Prinivil] 20 mg PO DAILY Albuterol Inhaler [Ventolin Hfa Inhaler] 1 puff INHALATION RT-Q6H PRN PRN Reason: Shortness Of Breath Clopidogrel [Plavix] 75 mg PO DAILY Dicyclomine [Bentyl] 10 mg PO BID Diltiazem HCl [Diltiazem 24Hr ER] 120 mg PO DAILY Sertraline [Zoloft] 50 mg PO HS carBAMazepine [Carbatrol] 300 mg PO Q12HR Isosorbide Mononitrate ER [Imdur] 60 mg PO QAM ARIPiprazole [Abilify] 10 mg PO DAILY Discharge Medication List Aspirin EC [Ecotrin Low Dose] 81 mg PO HS 10/27/15 [History] Atorvastatin [Lipitor] 20 mg PO HS 10/27/15 [History] Benztropine Mesylate [Cogentin] 1 mg PO BID 10/27/15 [History] Carvedilol [Coreg] 12.5 mg PO BID 10/27/15 [History] DULoxetine HCL [Cymbalta] 60 mg PO DAILY 10/27/15 [History] Fenofibrate,Micronized [Fenofibrate] 67 mg PO HS 10/27/15 [History] Furosemide [Lasix] 20 mg PO DAILY PRN 10/27/15 [History] Gemfibrozil [Lopid] 600 mg PO BID 10/27/15 [History] Pantoprazole Sodium [Protonix] 40 mg PO DAILY 10/27/15 [History] Ranolazine [Ranexa] 1,000 mg PO BID 10/27/15 [History] Tamsulosin HCl [Flomax] 0.4 mg PO BID 10/27/15 [History] Lisinopril [Prinivil] 20 mg PO DAILY 11/28/15 [History] Albuterol Inhaler [Ventolin Hfa Inhaler] 1 puff INHALATION RT-Q6H PRN 02/22/16 [ History] Clopidogrel [Plavix] 75 mg PO DAILY 02/22/16 [History] Dicyclomine [Bentyl] 10 mg PO BID 02/22/16 [History] Diltiazem HCl [Diltiazem 24Hr ER] 120 mg PO DAILY 02/22/16 [History] Sertraline [Zoloft] 50 mg PO HS 02/22/16 [History] Isosorbide Mononitrate ER [Imdur] 60 mg PO QAM 06/08/16 [History] carBAMazepine [Carbatrol] 300 mg PO Q12HR 06/08/16 [History] ARIPiprazole [Abilify] 10 mg PO DAILY 01/06/17 [History] Follow up Appointment(s)/Referral(s): Sweta Bhardwaj MD [Primary Care Provider] - 1-2 days Patient Instructions/Handouts: Chest Pain (ED) Discharge Disposition: Left Against Medical Advice
[2017-06-21] MEDS ORDERED: ATORVASTATIN 40 MG TAB PO SCH (21:00)
--- NOTE | 2017-06-22 11:07 | ECHOF ---
Referral Reason:chest pain MEASUREMENTS -------- HEIGHT: 175.3 cm WEIGHT: 81.6 kg BP: RVIDd: 3.2 cm (< 3.3) IVSd: 1.1 cm (0.6 - 1.1) LVIDd: 4.3 cm (3.9 - 5.3) LVPWd: 1.1 cm (0.6 - 1.1) IVSs: 1.3 cm LVIDs: 3.8 cm LVPWs: 1.3 cm LA Diam: 3.8 cm (2.7 - 3.8) LAESV Index (A-L): 23.50 ml/m Ao Diam: 3.0 cm (2.0 - 3.7) AV Cusp: 2.1 cm (1.5 - 2.6) MV E Blayne: 0.80 m/s MV DecT: 177 ms MV A Blayne: 0.61 m/s MV E/A Ratio: 1.31 RAP: 5.00 mmHg RVSP: 28.92 mmHg FINDINGS -------- Sinus rhythm. This was a technically good study. The left ventricular size is normal. There is borderline concentric left ventricular hypertrophy. Overall left ventricular systolic function is mildly impaired with, an EF between 45 - 50 %. The right ventricle is normal in size. Normal LA size by volume 22+/-6 ml/m2. The right atrium is normal in size. The aortic valve is trileaflet and appears structurally normal. Trace to mild aortic regurgitation. The mitral valve leaflets are mildly thickened. Moderate mitral regurgitation is present. [id number] tricuspid regurgitation present. Right ventricular systolic pressure is normal at < 35 mmHg. Trace/mild (physiologic) pulmonic regurgitation. The aortic root size is normal. The hepatic veins were not well visualized. There is no pericardial effusion. CONCLUSIONS -------- 1. Sinus rhythm. 2. This was a technically good study. 3. The left ventricular size is normal. 4. There is borderline concentric left ventricular hypertrophy. 5. Overall left ventricular systolic function is mildly impaired with, an EF between 45 - 50 %. 6. The right ventricle is normal in size. 7. Normal LA size by volume 22+/-6 ml/m2. 8. The right atrium is normal in size. 9. The aortic valve is trileaflet and appears structurally normal. 10. Trace to mild aortic regurgitation. 11. The mitral valve leaflets are mildly thickened. 12. Moderate mitral regurgitation is present. 13. [id number] tricuspid regurgitation present. 14. Right ventricular systolic pressure is normal at < 35 mmHg. 15. Trace/mild (physiologic) pulmonic regurgitation. 16. The aortic root size is normal. 17. The hepatic veins were not well visualized. 18. There is no pericardial effusion. TRANSPORTER RADIOLOGY: ISAAK Finn
== END 2017-06-21 12:50 | disposition left against medical advice (07) ==
LOC: EC 20:17 → 3OBS 22:27
PROVIDERS: ADMIT Internal Medicine; ATTEND Internal Medicine
DX: R07.89 Other chest pain (principal); Z53.21 Procedure and treatment not carried out due to patient leaving prior to being seen by health care provider; I25.10 Atherosclerotic heart disease of native coronary artery without angina pectoris; R06.02 Shortness of breath; R42 Dizziness and giddiness; R61 Generalized hyperhidrosis; I11.0 Hypertensive heart disease with heart failure; I50.9 Heart failure, unspecified; I42.9 Cardiomyopathy, unspecified; E78.5 Hyperlipidemia, unspecified; F31.9 Bipolar disorder, unspecified; F20.9 Schizophrenia, unspecified; K21.9 Gastro-esophageal reflux disease without esophagitis; K58.9 Irritable bowel syndrome, unspecified; J45.909 Unspecified asthma, uncomplicated; E66.9 Obesity, unspecified; Z68.26 Body mass index [BMI] 26.0-26.9, adult; F17.200 Nicotine dependence, unspecified, uncomplicated; Z95.5 Presence of coronary angioplasty implant and graft; Z95.0 Presence of cardiac pacemaker; Z79.82 Long term (current) use of aspirin; Z79.899 Other long term (current) drug therapy; Z79.02 Long term (current) use of antithrombotics/antiplatelets; Z88.5 Allergy status to narcotic agent; Z88.8 Allergy status to other drugs, medicaments and biological substances; Z91.040 Latex allergy status; Z82.49 Family history of ischemic heart disease and other diseases of the circulatory system
CPT/HCPCS: 99291; 96375 ×3; 96376 ×3; 96365 ×2; 96366 ×2; 36415; 93005; 93306; 80061; 80053; 82550 ×2; 82553 ×2; 83735; 84484 ×2; 85025; 85049; 85610; 85730 ×2; 71046; G0378 ×2; J2270 ×2; J1200; J1644 ×3

== ENCOUNTER → 2017-08-06 | Outpatient (CLI) | payer MEDICARE, OTHER ==
--- NOTE | 2017-08-06 11:25 | CT ---
EXAMINATION TYPE: CT sinus wo con DATE OF EXAM: 08/06/2017 COMPARISON: CT brain November 28, 2015. HISTORY: Chronic sinusitis per order. Facial pain and sinusitis for [address] DLP: 628.7 mGycm. Automated Exposure Control for Dose Reduction was Utilized. TECHNIQUE: CT scan of the sinuses is performed without contrast, axial images are obtained, coronal r eformatted images are also reviewed. FINDINGS: There is mild mucosal thickening involving anterior superior aspect of left maxillary sinus identified currently. There is mild mucosal thickening involving inferior left frontal and anterior left ethmoid sinuses. No suspicious opacification or air-fluid levels is identified. The ostiomeatal complex is patent bilaterally on the coronal images. There is some narrowing on the left due to antra l mucosal thickening Visualized portion of mastoid air cells show no abnormal opacification. The globes are intact bilate rally. Prominent heterogeneous mixed density right external auditory canal likely reflects cerumen a xial image 23. Consider direct visualization to confirm. This is new from prior CT. There is asymmetr ic widening of the left temporomandibular joint possible anterior inferior subluxation. Visualized po rtion of brain parenchyma is unremarkable. There is mild calcified plaque of the distal vertebral art eries bilaterally. IMPRESSION: No acute paranasal sinus disease. Mild left-sided chronic paranasal sinus disease noted. Other findings as noted above.
== END ==
LOC: RADCTMAIN 09:58
PROVIDERS: ATTEND Otolaryngology
DX: J34.89 Other specified disorders of nose and nasal sinuses (principal); J32.9 Chronic sinusitis, unspecified
CPT/HCPCS: 70486

== ENCOUNTER → 2018-01-10 | Outpatient (CLI) | payer MEDICARE, OTHER ==
--- NOTE | 2018-01-11 10:00 | NM ---
EXAMINATION TYPE: NM DatScan Brain SPECT DATE OF EXAM: 01/10/2018 COMPARISON: CT brain November 28, 2015 HISTORY: Essential tremor per order. TECHNIQUE: 10 drops of Lugol's solution was administered 1 hour prior to injection as a thyroid bloc octavio agent. After the administration of 4.28 mCi I-123 Ioflupane DaTscan. Images obtained 3 hours p ost injection. SPECT images of the brain were acquired with axial and coronal reconstructions. FINDINGS: The DaTSCAN demonstrates normal uptake of tracer throughout the striata bilaterally. Consequently there is no evidence of loss of the pre-synaptic dopaminergic terminals on this investig ation. IMPRESSION: This normal appearance is against a diagnosis of idiopathic Parkinson?s disease (PD) or a Parkinsonia n syndrome (PS) and is seen in healthy individuals and also patients with essential tremor (ET), drug induced parkinsonism, and vascular pseudo-parkinsonism.
== END | disposition home or self-care (01) ==
LOC: RADNMMAIN 11:02
PROVIDERS: ATTEND Psychiatry & Neurology Neurology
DX: G25.0 Essential tremor (principal)
CPT/HCPCS: 78607; A9584

== ENCOUNTER → 2018-02-14 | Outpatient (CLI) | payer MEDICARE, OTHER | END | disposition home or self-care (01) | LOC: LABWHC1 15:30 | PROVIDERS: ATTEND Internal Medicine Cardiovascular Disease | DX: E78.2 Mixed hyperlipidemia (principal) | CPT/HCPCS: 36415; 80061; 84450; 84460 ==

== ENCOUNTER → 2018-04-04 | Outpatient (CLI) | payer MEDICARE, OTHER ==
--- NOTE | 2018-04-05 08:26 | CT ---
EXAMINATION TYPE: CT iac wo con DATE OF EXAM: 04/04/2018 COMPARISON: 11/28/2015 CT brain HISTORY: Bilateral hearing loss. CT DLP: 247mGycm Automated exposure control for dose reduction was used. FINDINGS: There is a high riding right jugular bulb. Cerebellar pontine angles appear normal. No expansion or e rosion of the internal auditory canals is evident. Semicircular canals are normal. Cochlea are normal . Mastoid air cells are clear bilaterally. There is aeration of the petrous ridges bilaterally. Attic s are clear. Incus and malleus have normal orientation. Scutum are normal. There is left septal deviation. Paranasal sinuses are clear. Ostiomeatal units are patent. IMPRESSION: 1. Normal internal auditory canal study.
== END | disposition home or self-care (01) ==
LOC: RADCTMAIN 16:17
PROVIDERS: ATTEND Otolaryngology
DX: H90.41 Sensorineural hearing loss, unilateral, right ear, with unrestricted hearing on the contralateral side (principal); H93.3X9 Disorders of unspecified acoustic nerve; H93.19 Tinnitus, unspecified ear
CPT/HCPCS: 70480

== ENCOUNTER → 2018-04-18 | Day surgery (SDC) | payer MEDICARE, OTHER ==
[2018-04-11 12:55] VITALS: BMI 28.1
[~2018-04-18] MED LIST: ACETAMINOPHEN IV (For NPO) 1,000 MG/100 ML VIAL IVPB ONE; BACITRACIN OINT 1 EACH PACKET TOPICAL ONE; BUPIVACAIN-EPI 0.5%-1:200,000 30 ML VIAL SQ ONE; DEXAMETHASONE SOD PHOSPHATE 10 MG/ML 1 ML VIAL IV ONE; DEXAMETHASONE SOD PHOSPHATE 4 MG/ML 1 ML VIAL IV ONE; EPINEPHrine 1 MG/ML (MDV) 30 ML VIAL TOPICAL ONE; FAMOTIDINE 20 MG/2 ML VIAL IV ONE; FLUORESCEIN STRIPS 1 MG STRIP MISCELLANE ONE; HYDROmorphone 0.5 MG/0.5 ML SYRINGE IVP PRN; LACTATED RINGERS 1,000 ML IV ONE; LACTATED RINGERS 1,000 ML IV SCH; LIDOCAINE 1% 20 ML VIAL (10MG/ML) FOR IV START INTRADERMA PRN; LIDOCAINE 1% INJ 10MG/ML (20 ML MDV) ONE; LIDOCAINE 1%-EPI 1:100,000 20 ML VIAL SQ ONE; MIDAZOLAM 2 MG/2 ML VIAL ONE; ONDANSETRON 4 MG/2 ML VIAL IVP ONE; PROPOFOL 10 MG/ML 20 ML VIAL IV ONE; SCOPOLAMINE 1.5MG/72HR PATCH TRANSDERM ONE; SUCCINYLCHOLINE CHLORIDE 100 MG/5 ML SYR IV ONE; TRIMETHOBENZAMIDE 100 MG/ML 2 ML VIAL IM STA; ceFAZolin 1,000 MG in DEXTROSE/WATER 1 50ML.BAG IV ONE; fentaNYL (PF) 50 MCG/ML 2 ML AMP ONE
[2018-04-18] MEDS: OXYMETAZOLINE 0.05% NASL SPRAY 1 SPRAY BOTTLE NASAL ONE ×5 (06:56→07:21)
[2018-04-18 07:16] VITALS: TEMP 97.2
[2018-04-18] MEDS: HYDROmorphone 1 MG/ML 1 ML SYRINGE IVP ONE ×2 (08:58→09:09)
--- NOTE | 2018-04-18 09:04 | P.OP ---
Date of Procedure: 04/18/18 Preoperative Diagnosis: Deviated nasal septum Hypertrophy of bilateral nasal turbinates Chronic sinusitis Postoperative Diagnosis: Same Procedure(s) Performed: Septoplasty Bilateral submucosal resection of the inferior nasal turbinates with outfracturing compression Bilateral functional endoscopic sinus surgery, bilateral maxillary total ethmoidectomies and sphenoid sinusotomies Anesthesia: JOVI Surgeon: Reed Paz Estimated Blood Loss (ml): 20 Pathology: other (sinonasal) Condition: stable Disposition: PACU Indications for Procedure: This patient has long-standing sinonasal issues with congestion discolored drainage facial pain and anosmia. He been on multiple antibiotics in the past with no long-term improvement and has failed cortisone nasal spray. After long discussion we decided to proceed forward with functional endoscopic sinus surgery septoplasty and turbinate surgery. All risks, benefits, and alternative therapies were discussed. Consent was obtained and all questions were answered. Operative Findings: Patient had reed pus in the maxillary ethmoid and sphenoid sinuses. The nasal frontal duct region appeared to be normal. Septum was severely deviated to the left with their 100% occlusion with associated large obstructive inferior turbinates. Description of Procedure: This patient was taken to the operative room and placed in the supine position. A general inhalation anesthetic was administered to the patient by the department of anesthesia with a functioning IV line in place. The patient was monitored throughout the entire case by the department of anesthesia. The eyes were taped shut for protection. The patient was placed in a slight reverse Trendelenburg position. The patient had previously utilize Afrin nasal spray preoperatively. The nose was evaluated and the septum lateral nasal wall and inferior turbinates were injected with lidocaine 1% with epinephrine 1 100,000 bilaterally. Approximately 10 minutes were allowed wait for full vasoconstrictive effects to take place. At this point a caudal incision was made over the caudal portion of the left septum down to the mucoperichondrium. A mucoperichondrial flap was elevated on the left side and dissection was carried with use of tunnels posteriorly. We then made a crossover incision through the cartilage to the contralateral side and for the mucoperichondrial flap development was performed to the extent of visualization on the contralateral side. After the cartilage was freed with use of several crosshatching incisions and removal of some redundant strips of septal cartilage, the septum was straightened and placed back in the midline. The septum was sutured fixated to the ovarian groove. Excellent straightening occurred and the septum was visibly straight. Incision was closed with a 40 rapid Vicryl. We utilized a running nonlocking fashion for closure of the incision. A quilting stitch was used to reapproximate the septal flaps with use of a 40 rapid Vicryl. We then entered the nose with a 0 and 30 Ramírez anish endoscope. Previous to this we did inject the lateral nasal wall and middle turbinate and uncinate process with lidocaine 1% with epinephrine 1 100,000. Approximately 10 minutes were allowed wait for full vasoconstrictive effects to take place. With use of a microdebrider and a pediatric backbiter, we took down the uncinate process bilaterally. We then opened the maxillary sinuses bilaterally. We utilized a microdebrider for this and entered the maxillary sinuses and removed diseased tissue. This was done bilaterally. After the maxillary sinuses were opened and the diseased tissue was removed we entered the ethmoid bulla and with use of a microdebrider and up-biting boss and Julian, we followed the fovea frontalis through the basal lamella and into the posterior ethmoid air cells and did a total ethmoidectomy. We removed the anterior ethmoid air cells with use of a microdebrider and up-biting boss. After all the anterior ethmoid air cells were removed we did the same in the posterior ethmoid. A total ethmoidectomy was completed in that fashion with removal of all the anterior and posterior ethmoid air cells and diseased tissue. Once the ethmoids cells were all taken down we then entered the sphenoid sinus medially and inferiorly underneath the inferior attachment of the superior turbinate. The sphenoid sinus was opened entered and diseased tissue was removed bilaterally. This was done with a microdebrider and Blakesley. To summarize the maxillary ethmoid and sphenoid sinuses were open and these sinuses were explored and we remove diseased tissue from the sphenoid maxillary sinuses. Ethmoid sinuses were opened totally. Xerogel was inserted and minimal bleeding was encountered. We reinspected the skull base there is no signs of any orbital penetration or signs of any intracranial penetration. The sugical site was reinspected after the xerogel was placed and no bleeding was seen. Intranasal splints were inserted and fixated at the end of the case. We utilized Saez nasal splints. There will be removed and the patient returns to the office. Attention was then paid to the inferior turbinates. The bilateral inferior turbinates were hypertrophic and obstructive. We entered the anterior portion of the inferior turbinates with use of a microdebrider. We remove bone and submucosal elements with use of a microdebrider bilaterally. The inferior turbinates underwent a submucosal resection with removal of submucosal tissue and bone. We obtained a much better and normal in size for breathing. The inferior turbinates were then outfractured and compressed with a Boyes nasal elevator. Excellent airway was obtained and was symmetric bilaterally. No bleeding was encountered.
[2018-04-18 09:30] VITALS: RESP 18
[2018-04-18 12:39] VITALS: BP 132/80; PULSE 80
== END | disposition home or self-care (01) ==
LOC: OR 06:20
PROVIDERS: ATTEND Otolaryngology
DX: J34.2 Deviated nasal septum (principal); J32.9 Chronic sinusitis, unspecified; J34.3 Hypertrophy of nasal turbinates; J45.909 Unspecified asthma, uncomplicated; I11.9 Hypertensive heart disease without heart failure; Z95.0 Presence of cardiac pacemaker; F17.200 Nicotine dependence, unspecified, uncomplicated; E78.2 Mixed hyperlipidemia; Z82.49 Family history of ischemic heart disease and other diseases of the circulatory system; F17.210 Nicotine dependence, cigarettes, uncomplicated; I49.5 Sick sinus syndrome; Z79.82 Long term (current) use of aspirin; Z88.5 Allergy status to narcotic agent; Z79.02 Long term (current) use of antithrombotics/antiplatelets; Z79.891 Long term (current) use of opiate analgesic; Z79.899 Other long term (current) drug therapy
CPT/HCPCS: 88305; 88300; 30520; 31267; 31259; 30140; J0171; J2250; J1100; J3250; J2405; J2001; J3010; J1170; J0690; J0131; J0330; J2704

== ENCOUNTER → 2018-08-02 | Outpatient (CLI) | payer MEDICARE, OTHER ==
--- NOTE | 2018-08-02 13:47 | CT ---
EXAMINATION TYPE: CT lumbar spine wo con DATE OF EXAM: 08/02/2018 1:37 PM COMPARISON: None HISTORY: Low back pain with radiation bilaterally to the legs. Leg numbness and weakness. CT DLP: 811.9 mGycm Automated exposure control for dose reduction was used. TECHNIQUE: Unenhanced CT of the lumbar spine was performed. Bone and soft tissue window settings are submitted as well as coronal and sagittal reconstructions. FINDINGS: The lumbar spine vertebral bodies maintain normal vertebral body height and alignment. Dege nerative disc disease is seen at L3-S1. No acute fracture or malalignment. Right-sided pars interarti cularis defect is seen at L5. Some surrounding sclerosis is seen. L1-L2: Very mild disc bulge is seen without spinal canal stenosis nor neural foraminal narrowing. L2-L3: Small broad-based disc bulge and minimal facet arthropathy are seen without spinal canal steno sis nor neural foraminal narrowing. L3-L4: There is a broad-based disc bulge resulting in mild to moderate left and mild right neural for aminal narrowing. This minimally narrows the ventral subarachnoid space without spinal canal stenosis . L4-L5: There is a central disc herniation superpose upon a broad-based disc bulge with facet arthropa thy and ligamentum flavum buckling contributing to mild spinal canal stenosis and moderate right neur al foraminal narrowing as well as mild left neural foraminal narrowing. L5-S1: There is a broad-based disc bulge and facet arthropathy resulting in mild bilateral neural for aminal narrowing without spinal canal stenosis. IMPRESSION: 1. Central disc herniation at L4-L5 creating mild spinal canal stenosis and neural foraminal narrowin g. 2. Mild degenerative disc disease throughout the remainder the lumbar spine without additional area o f spinal canal stenosis. 3. 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 If there is point tenderness nuclear medicine bone scan could assess for stress reaction.
== END ==
LOC: RADCTMAIN 13:09
PROVIDERS: ATTEND Psychiatry & Neurology Neurology
DX: M48.061 Spinal stenosis, lumbar region without neurogenic claudication (principal); M51.26 Other intervertebral disc displacement, lumbar region; M51.36 Other intervertebral disc degeneration, lumbar region; G95.89 Other specified diseases of spinal cord; Z88.5 Allergy status to narcotic agent
CPT/HCPCS: 72131

== ENCOUNTER 2018-08-25 22:04 | Observation (INO) | payer MEDICARE, OTHER ==
[2018-08-25] MEDS ORDERED: MORPHINE SULFATE 4 MG/ML SYRINGE IV STA (22:16)
--- NOTE | 2018-08-25 22:22 | ED ---
Chest Pain HPI - General Chief Complaint: Chest Pain Stated Complaint: Chest Pain Time Seen by Provider: 08/25/18 22:05 Source: patient Mode of arrival: ambulatory Limitations: no limitations - History of Present Illness Initial Comments: Patient is a 38-year-old male presenting for chest pain. Patient states that it started approximately 3 hours prior to arrival. It is described as a sharp stabbing pain in the middle of his chest radiating to the left arm. It is not associated with nausea/vomiting/diarrhea or shortness of breath. He denies any fevers or chills or coughing or leg pain. 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 - Related Data Home Medications Medication Instructions Recorded Confirmed Aspirin EC [Ecotrin Low Dose] 81 mg PO HS 10/27/15 08/25/18 Atorvastatin [Lipitor] 20 mg PO HS 10/27/15 08/25/18 Carvedilol [Coreg] 25 mg PO BID 10/27/15 08/25/18 Fenofibrate,Micronized 67 mg PO HS 10/27/15 08/25/18 [Fenofibrate] Furosemide [Lasix] 20 mg PO DAILY PRN 10/27/15 08/25/18 Gemfibrozil [Lopid] 600 mg PO BID 10/27/15 08/25/18 Pantoprazole Sodium [Protonix] 40 mg PO DAILY 10/27/15 08/25/18 Ranolazine [Ranexa] 1,000 mg PO BID 10/27/15 08/25/18 Lisinopril [Prinivil] 20 mg PO DAILY 11/28/15 08/25/18 Albuterol Inhaler [Ventolin Hfa 1 puff INHALATION RT-Q6H PRN 02/22/16 08/25/18 Inhaler] Clopidogrel [Plavix] 75 mg PO DAILY 02/22/16 08/25/18 Diltiazem HCl [Diltiazem 24Hr ER] 120 mg PO DAILY 02/22/16 08/25/18 Fluticasone Nasal [place] [Flonase 2 spr EA NOSTRIL DAILY 04/11/18 08/25/18 Nasal [place]] EPINEPHrine [Auvi-Q] 0.3 mg IM DAILY PRN 08/25/18 08/25/18 Ibuprofen [Motrin] 800 mg PO DAILY PRN 08/25/18 08/25/18 Topiramate [Topamax] 50 mg PO HS 08/25/18 08/25/18 Allergies Allergy/AdvReac Type Severity Reaction Status Date / Time codeine Allergy Itching Verified 08/25/18 22:31 hydrocodone bitartrate Allergy Itching Verified 08/25/18 22:31 [From Vicodin] latex Allergy Rash/Hives Verified 08/25/18 22:31 morphine Allergy Itching Verified 08/25/18 22:31 quetiapine fumarate AdvReac Agitation/Violent Verified 08/25/18 22:31 [From Seroquel] Behavior Review of Systems ROS Statement: Those systems with pertinent positive or pertinent negative responses have been documented in the HPI. Constitutional: Negative for chills, fatigue and fever. HENT: Negative for congestion. Respiratory: Negative for chest tightness, shortness of breath and wheezing. Negative for cough Cardiovascular: Positive for chest pain and negative for palpitations. Gastrointestinal: Negative for abdominal pain. Negative for abdominal distention, diarrhea, nausea and vomiting. Genitourinary: Negative for dysuria. Musculoskeletal: Negative for back pain, neck pain and neck stiffness. Skin: Negative for color change. Neurological: Negative for dizziness, speech difficulty, weakness and light- headedness. Psychiatric/Behavioral: Negative for agitation and confusion. Negative for anxiety ROS Other: All systems not noted in ROS Statement are negative. EKG Findings - EKG Comments: EKG Findings:: EKG shows normal sinus rhythm with rate of 92 bpm, OR interval 166, QRS 74, QTC 393. There is significant artifact but no obvious ST depressions or elevations. Past Medical History Past Medical History: Asthma, Coronary Artery Disease (CAD), Heart Failure, GERD/Reflux, Hyperlipidemia, Hypertension Additional Past Medical History / Comment(s): Cardiomyopathy, IBS History of Any Multi-Drug Resistant Organisms: None Reported Past Surgical History: Heart Catheterization With Stent, Pacemaker Additional Past Surgical History / Comment(s): surgery on elbow. sinus surgery Past Anesthesia/Blood Transfusion Reactions: No Reported Reaction Date of Last Stent Placement:: Type of Cardiac Device: Permanent Pacemaker Device Placement Date:: 2011 Past Psychological History: Anxiety, Bipolar, Depression, Schizophrenia Smoking Status: Current every day smoker - Past Family History Father Family Medical History: Congestive Heart Failure (CHF) Additional Family Medical History / Comment(s): Father required Heart Transplant in his 40s. Mother in her 50s she required CABG Mother Additional Family Medical History / Comment(s): Triple bypass General Exam - General Exam Comments Initial Comments: Constitutional: Pt appears well-developed and well-nourished. No distress. Head: Normocephalic and atraumatic. Eyes: EOM are normal. Neck: Normal range of motion. Neck supple. Cardiovascular: Normal rate, regular rhythm, S1 normal, S2 normal and normal heart sounds. Exam reveals no gallop and no friction rub. No murmur heard. Pulmonary/Chest: Effort normal and breath sounds normal. No tachypnea and no bradypnea. No respiratory distress. No wheezes or rales noted. Abdominal: Soft. Bowel sounds are normal. Pt exhibits no shifting dullness, no distension, no pulsatile liver, no fluid wave, no abdominal bruit and no ascites. There is no rigidity, no rebound, no guarding, no tenderness at McBurney's point and negative Hunter's sign. There is no tenderness. Musculoskeletal: Normal range of motion. Neurological: Pt is alert and oriented to person, place, and time. No cranial nerve deficit. Skin: Skin is warm and dry. No rash noted. Pt is not diaphoretic. No erythema. No pallor. Psychiatric: Pt has a normal mood and affect. Pt behavior is normal. Thought content normal. Limitations: no limitations Course Vital Signs 08/25/18 08/25/18 08/25/18 22:05 22:14 22:15 Temperature 98.3 F Pulse Rate 91 91 Respiratory 18 18 Rate Blood Pressure 137/97 148/95 148/95 O2 Sat by Pulse 97 96 96 Oximetry 08/25/18 23:30 Temperature Pulse Rate 85 Respiratory 20 Rate Blood Pressure 134/101 O2 Sat by Pulse 98 Oximetry Chest Pain MDM - MDM Laboratory studies show that there was no significant leukocytosis, which what derangements and d-dimer was negative at 0.31. Chest x-ray was also unremarkable and showed no widened mediastinum and therefore dissection is very unlikely. Also, blood pressure on both arms were relatively the same. However, the patient does have significant risk factors of ACS in the past, hypertension, hyperlipidemia and therefore it is thought that it would be unsafe to send the patient home without further cardiac evaluation.Explained all labs and diagnostic test results and that we will admit patient to hospital. Pt is agreeable to plan and case has been discussed with Dr. Maynard and they agree to accept the pt. Disposition Clinical Impression: Unstable angina Disposition: ADMITTED IP TO THIS HOSP Condition: Fair Referrals: Alen Calvo MD [Primary Care Provider] - 1-2 days Decision to Admit Reason: Admit from EC Decision Date: 08/25/18 Decision Time: 23:42
[2018-08-25 22:36] LABS: Basophils % (A) 1 %; Eosinophils # (A) 0.2 k/uL (0-0.7); Eosinophils % (A) 3 %; HCT 42.2 % (39.0-53.0); HGB 14.6 gm/dL (13.0-17.5); Lymphocytes # (A) 2.5 k/uL (1.0-4.8); Lymphocytes % (A) 32 %; MCH 31.1 pg (25.0-35.0); MCHC 34.5 g/dL (31.0-37.0); MCV 90.1 fL (80.0-100.0); Mean Platelet Volume 7.6; Monocytes # (A) 0.4 k/uL (0-1.0); Monocytes % (A) 6 %; Neutrophils # (A) 4.4 k/uL (1.3-7.7); Neutrophils % (A) 57 %; Platelet Count 249 k/uL (150-450); RBC 4.68 m/uL (4.30-5.90); RDW 12.9 % (11.5-15.5); WBC 7.7 k/uL (3.8-10.6)
--- NOTE | 2018-08-25 22:53 | XR ---
EXAM: XR Chest, 2 Views CLINICAL HISTORY: ITS.REASON XR Reason: Chest Pain TECHNIQUE: Frontal and lateral views of the chest. COMPARISON: No relevant prior studies available. FINDINGS: Lungs: Unremarkable. No consolidation. Pleural space: Unremarkable. No pneumothorax. Heart: Unremarkable. No cardiomegaly. Mediastinum: Unremarkable. Bones/joints: Unremarkable. Left-sided cardiac device is stable. IMPRESSION: No acute findings.
[2018-08-25 23:10] LABS: ALT 31 U/L (21-72); AST 27 U/L (17-59); African American GFR (CKD) >90 (>60 ml/min/1.73 sqM); Albumin 4.1 g/dL (3.5-5.0); Alkaline Phosphatase 70 U/L (38-126); Anion Gap 11 mmol/L; Blood Urea Nitrogen 10 mg/dL (9-20); Calcium 9.4 mg/dL (8.4-10.2); Carbon Dioxide 21 mmol/L (22-30); Chloride 110 mmol/L (98-107); D-Dimer 0.31 mg/L FEU (<0.60); Glucose 100 mg/dL (74-99); INR 0.9 (<1.2); Magnesium 1.8 mg/dL (1.6-2.3); Partial Thromboplastin Time 24.8 sec (22.0-30.0); Potassium 3.6 mmol/L (3.5-5.1); Prothrombin Time 9.9 sec (9.0-12.0); Sodium 142 mmol/L (137-145); Total Bilirubin 0.3 mg/dL (0.2-1.3); Total Protein 6.4 g/dL (6.3-8.2)
[2018-08-25] MEDS ORDERED: HYDROmorphone 0.5 MG/0.5 ML SYRINGE IVP STA (23:40)
[2018-08-26] MEDS ORDERED: NITROGLYCERIN SL TABS 0.4 MG TAB SUBLINGUAL PRN (00:08)
[2018-08-26] MEDS ORDERED: ALBUTEROL NEBULIZED 2.5 MG/3 ML INHALATION PRN (00:42)
[2018-08-26] MEDS: HYDROmorphone 0.5 MG/0.5 ML SYRINGE IVP PRN ×4 (00:47→12:17)
[2018-08-26 03:44] VITALS: RESP 18
[2018-08-26 07:27] VITALS: PULSE 74
[2018-08-26] MEDS ORDERED: CARVEDILOL 12.5 MG TAB PO SCH (07:30)
[2018-08-26] MEDS ORDERED: CAFFEINE CITRATE 60 MG/3 ML VIAL IV PRN (08:20)
[2018-08-26] MEDS ORDERED: SODIUM CHLORIDE 0.9% IV ONE (08:20)
[2018-08-26] MEDS ORDERED: DIPYRIDAMOLE IV ONE (08:20)
[2018-08-26] MEDS ORDERED: AMINOPHYLLINE 500 MG/20 ML VIAL IV PRN (08:20)
[2018-08-26 08:45] LABS: Cholesterol 220 mg/dL (<200); HDL Cholesterol 29 mg/dL (40-60); Triglycerides 418 mg/dL (<150)
[2018-08-26] MEDS ORDERED: FLUTICASONE 50MCG/SPRAY NASAL 16GM EA NOSTRIL SCH (09:00)
[2018-08-26] MEDS ORDERED: CLOPIDOGREL 75 MG TAB PO SCH (09:00)
[2018-08-26] MEDS ORDERED: ISOSORBIDE MONONITRATE ER 60 MG TAB.ER.24H PO SCH (09:00)
[2018-08-26] MEDS ORDERED: LISINOPRIL 20 MG TAB PO SCH (09:00)
[2018-08-26] MEDS ORDERED: ASPIRIN 81 MG PO SCH (09:00)
[2018-08-26] MEDS ORDERED: DILTIAZEM CD 120 MG CAP.ER.24H PO SCH (09:00)
[2018-08-26] MEDS ORDERED: FUROSEMIDE 20 MG TAB PO PRN (09:00)
[2018-08-26] MEDS ORDERED: FENOFIBRATE 160 MG TAB PO SCH (09:00)
--- NOTE | 2018-08-26 09:52 | P.CRDCN ---
History of Present Illness History of present illness: This is a pleasant 38-year-old male past medical history significant for coronary artery disease status post stent placement to the distal LAD with evidence of coronary artery spasm distal to the stent, sick sinus syndrome status post permanent pacemaker implantation, ischemic cardiomyopathy, hypertension, dyslipidemia, bipolar disease, history of traumatic brain injury and chronic nicotine dependence. He follows in the office with Dr. Romero. We have been asked to see him in consultation for symptoms of chest discomfort. He states last evening around 7:30 PM while he was watching television started having a sharp pain in the left precordial region that radiated to the left shoulder and arm. There is no radiation through to the back, into the neck or jaw. He denies associated shortness of breath, dizziness, nausea, vomiting, palpitations or diaphoresis. His pain has been consistent ongoing since it initially started with no specific aggravating or alleviating factors. He states he does get some relief when receive IV Dilaudid. Currently he is seen and examined resting comfortably in bed laying flat in no acute distress. EKG reveals sinus mechanism with nonspecific T-wave flattening noted. Chest x-ray negative for an acute cardiopulmonary process. Laboratory data reviewed, WBC 7.7, hemoglobin 14.6, platelets 249, d-dimer 0.31, sodium 142, potassium 3.6, creatinine 0.8, magnesium 1.8, cardiac enzymes negative 2, NT proBNP 48, triglycerides 418. Current cardiac medications include Ranexa 1000 mg twice a day, lisinopril 20 mg daily, Lopid 600 mg twice a day, Lasix 20 mg daily as needed for lower extremity swelling, fenofibrate 67 mg daily, diltiazem 120 mg daily, Plavix 75 mg daily, carvedilol 25 mg twice a day, atorvastatin 20 mg daily and aspirin 81 mg daily. Most recent cardiac catheterization performed in 2015 revealed a patent stent in the distal LAD with evidence of spasm proximal to the stent. Otherwise normal coronary arteries. Most recent echocardiogram obtained June 2017 revealed mildly impaired LV systolic function with ejection fraction 45-50%, mild to moderate TR and moderate MR. At the time of my exam: CONSTITUTIONAL: Denies fever. Denies chills. EYES: Denies blurred vision. Denies vision changes. Denies eye pain. EARS, NOSE, MOUTH & THROAT: Denies headache. Denies sore throat. Denies ear pain. CARDIOVASCULAR: Complains of chest pain. Denies shortness of breath. Denies orthopnea. Denies PND. Denies palpitations. RESPIRATORY: Denies cough. GASTROINTESTINAL: Denies abdominal pain. Denies diarrhea. Denies constipation. Denies nausea. Denies vomiting. MUSCULOSKELETAL: Denies myalgias. INTEGUMENTARY: Denies pruitis. Denies rash. NEUROLOGIC: Denies numbness. Denies tingling. Denies weakness. PSYCHIATRIC: Denies anxiety. Denies depression. ENDOCRINE: Denies fatigue. Denies weight change. Denies polydipsia. Denies polyurina. GENITOURINARY: Denies burning, hematuria or urgency with micturation. HEMATOLOGIC: Denies history of anemia. Denies bleeding. Blood pressure 122/80 heart rate 74 afebrile maintaining oxygen saturation on room air GENERAL: This is a 38-year-old male in no apparent distress at the time of my examination. HEENT: Head is atraumatic, normocephalic. Pupils are equal, round. Sclerae anicteric. Conjunctivae are clear. Mucous membranes of the mouth are moist. Neck is supple. There is no jugular venous distention. No carotid bruit is heard. LUNGS: Clear to auscultation no wheezes, rales or rhonchi. No chest wall tenderness is noted on palpation or with deep breathing. HEART: Regular rate and rhythm with systolic ejection murmur at the left sternal border, no rubs or gallops. S1 and S2 heard. ABDOMEN: Soft, nontender. Bowel sounds are heard. No organomegaly noted. EXTREMITIES: No evidence of peripheral edema and no calf tenderness noted. VASCULAR: Radial and dorsalis pedis pulses palpated, no evidence of clubbing. NEUROLOGIC: Patient is awake, alert and oriented x3. Generalized tremor noted. ASSESSMENT Chest pain, atypical for angina. History of coronary artery disease status post stent placement with evidence of coronary artery spasm Ischemic cardiomyopathy, EF 45-50% Hypertension Dyslipidemia Sick sinus syndrome status post permanent pacemaker implantation Chronic nicotine dependence PLAN An acute coronary event has been ruled out. Symptoms are atypical for angina. Office noted reviewed and reveal he should also be on imdur 60 mg daily, however he is unsure if he has been taking this or not. Resume imdur. Obtain 2D echocardiogram and doppler study to assess cardiac structure and function. Perform Persantine stress test to assess for reversible cardiac ischemia. If abnormal we will consider coronary angiography. If diagnostic testing is normal he is stable from a cardiac perspective. Follow up with Dr. Romero upon discharge. Thank you kindly for this consultation. Nurse Practitioner note has been reviewed, I agree with a documented findings and plan of care. Patient was seen and examined. Past Medical History Past Medical History: Asthma, Coronary Artery Disease (CAD), Heart Failure, GERD/Reflux, Hyperlipidemia, Hypertension Additional Past Medical History / Comment(s): Cardiomyopathy, IBS History of Any Multi-Drug Resistant Organisms: None Reported Past Surgical History: Heart Catheterization With Stent, Pacemaker Additional Past Surgical History / Comment(s): surgery on elbow. sinus surgery Past Anesthesia/Blood Transfusion Reactions: No Reported Reaction Date of Last Stent Placement:: 09/2014 Type of Cardiac Device: Permanent Pacemaker Device Placement Date:: 2011 Past Psychological History: Anxiety, Bipolar, Depression, Schizophrenia Additional Psychological History / Comment(s): pt denies schizophrenia, however, it is part of his past medical history from previous admissions. Smoking Status: Current every day smoker Past Alcohol Use History: None Reported Past Drug Use History: None Reported - Past Family History Father Family Medical History: Congestive Heart Failure (CHF) Additional Family Medical History / Comment(s): Father required Heart Transplant in his 40s. Mother in her 50s she required CABG Mother Additional Family Medical History / Comment(s): Triple bypass Medications and Allergies Home Medications Medication Instructions Recorded Confirmed Type Aspirin EC [Ecotrin Low Dose] 81 mg PO HS 10/27/15 08/25/18 History Atorvastatin [Lipitor] 20 mg PO HS 10/27/15 08/25/18 History Carvedilol [Coreg] 25 mg PO BID 10/27/15 08/25/18 History Fenofibrate,Micronized 67 mg PO HS 10/27/15 08/25/18 History [Fenofibrate] Furosemide [Lasix] 20 mg PO DAILY PRN 10/27/15 08/25/18 History Gemfibrozil [Lopid] 600 mg PO BID 10/27/15 08/25/18 History Pantoprazole Sodium [Protonix] 40 mg PO DAILY 10/27/15 08/25/18 History Ranolazine [Ranexa] 1,000 mg PO BID 10/27/15 08/25/18 History Lisinopril [Prinivil] 20 mg PO DAILY 11/28/15 08/25/18 History Albuterol Inhaler [Ventolin Hfa 1 puff INHALATION RT-Q6H PRN 02/22/16 08/25/18 History Inhaler] Clopidogrel [Plavix] 75 mg PO DAILY 02/22/16 08/25/18 History Diltiazem HCl [Diltiazem 24Hr ER] 120 mg PO DAILY 02/22/16 08/25/18 History Fluticasone Nasal [place] [Flonase 2 spr EA NOSTRIL DAILY 04/11/18 08/25/18 History Nasal [place]] EPINEPHrine [Auvi-Q] 0.3 mg IM DAILY PRN 08/25/18 08/25/18 History Ibuprofen [Motrin] 800 mg PO DAILY PRN 08/25/18 08/25/18 History Topiramate [Topamax] 50 mg PO HS 08/25/18 08/25/18 History Allergies Allergy/AdvReac Type Severity Reaction Status Date / Time codeine Allergy Itching Verified 08/25/18 22:31 hydrocodone bitartrate Allergy Itching Verified 08/25/18 22:31 [From Vicodin] latex Allergy Rash/Hives Verified 08/25/18 22:31 morphine Allergy Itching Verified 08/25/18 22:31 quetiapine fumarate AdvReac Agitation/Violent Verified 08/25/18 22:31 [From Seroquel] Behavior Physical Exam Vitals: Vital Signs Temp Pulse Pulse Resp BP BP Pulse Ox 08/26/18 07:05 97.7 F 74 18 122/80 97 08/26/18 03:43 97.6 F 84 18 161/80 95 08/26/18 03:02 79 17 08/26/18 01:36 17 08/26/18 01:21 98.2 F 82 18 129/86 93 L 08/26/18 00:43 98 F 08/26/18 00:30 79 18 132/95 98 08/26/18 00:00 80 14 138/87 99 08/25/18 23:30 85 20 134/101 98 08/25/18 22:15 148/95 96 08/25/18 22:14 91 18 148/95 96 08/25/18 22:05 98.3 F 91 18 137/97 97 Intake and Output 08/25/18 08/26/18 08/26/18 22:59 06:59 14:59 Other: Voiding Method Toilet # Voids 1 Weight 79.379 kg Results 08/25/18 22:20 08/25/18 22:20 Cardiac Enzymes 08/25/18 08/25/18 08/26/18 Range/Units 22:20 22:20 03:58 AST 27 (17-59) U/L Troponin I <0.012 <0.012 (0.000-0.034) ng/mL Coagulation 08/25/18 Range/Units 22:20 PT 9.9 (9.0-12.0) sec APTT 24.8 (22.0-30.0) sec CBC 08/25/18 Range/Units 22:20 WBC 7.7 (3.8-10.6) k/uL RBC 4.68 (4.30-5.90) m/uL Hgb 14.6 (13.0-17.5) gm/dL Hct 42.2 (39.0-53.0) % Plt Count 249 (150-450) k/uL Comprehensive Metabolic Panel 08/25/18 Range/Units 22:20 Sodium 142 (137-145) mmol/L Potassium 3.6 (3.5-5.1) mmol/L Chloride 110 H (98-107) mmol/L Carbon Dioxide 21 L (22-30) mmol/L BUN 10 (9-20) mg/dL Creatinine 0.80 (0.66-1.25) mg/dL Glucose 100 H (74-99) mg/dL Calcium 9.4 (8.4-10.2) mg/dL AST 27 (17-59) U/L ALT 31 (21-72) U/L Alkaline Phosphatase 70 (38-126) U/L Total Protein 6.4 (6.3-8.2) g/dL Albumin 4.1 (3.5-5.0) g/dL Current Medications Generic Name Dose Route Start Last Admin Trade Name Freq PRN Reason Stop Dose Admin Albuterol Sulfate 2.5 mg 08/26/18 00:42 Ventolin Nebulized INHALATION RT-Q6H PRN Shortness Of Breath Aspirin 325 mg 08/27/18 09:00 Aspirin PO DAILY TIFFANIE Atorvastatin Calcium 20 mg 08/26/18 21:00 Lipitor PO HS [facility] Carvedilol 25 mg 08/26/18 07:30 Coreg PO BID-W/MEALS [facility] Clopidogrel Bisulfate 75 mg 08/26/18 09:00 Plavix PO DAILY [facility] Diltiazem HCl 120 mg 08/26/18 09:00 Cardizem Cd PO DAILY [facility] Fenofibrate 160 mg 08/26/18 09:00 Lofibra PO DAILY [facility] Fluticasone Propionate 2 spray 08/26/18 09:00 Flonase Nasal [place] EA NOSTRIL DAILY [facility] Furosemide 20 mg 08/26/18 09:00 Lasix PO DAILY PRN Edema Hydromorphone HCl 0.5 mg 08/26/18 00:11 08/26/18 03:52 Dilaudid IVP 0.5 mg Q4HR PRN Administration Pain Lisinopril 20 mg 08/26/18 09:00 Zestril PO DAILY [facility] Nitroglycerin 0.4 mg 08/26/18 00:08 Nitrostat SUBLINGUAL Q5M PRN Chest Pain Topiramate 50 mg 08/26/18 21:00 Topamax PO [facility] Intake and Output 08/25/18 08/26/18 08/26/18 22:59 06:59 14:59 Other: Voiding Method Toilet # Voids 1 Weight 79.379 kg 08/25/18 22:20 08/25/18 22:20
--- NOTE | 2018-08-26 11:29 | NM ---
EXAMINATION TYPE: NM stress persantine cardiolit DATE OF EXAM: 08/26/2018 COMPARISON: Prior stress test June 09, 2016 HISTORY: History of prior catheterization with angioplasty and CABG, asthma, tobacco use, hypertensio n, hypercholesterolemia, and family history of heart disease presents with chest pain and palpitation s. TECHNIQUE: After the intravenous administration of 9.8 mCi Tc 99m Sestamibi - Cardiolite resting SPE CT images acquired 45 minutes post injection. The patient received 45.2 mg Persantine, 25.0 mCi Tc 99m Sestamibi - Stress images obtained 30 minute s post injection FINDINGS: Review of stress and rest SPECT images demonstrates no distinct perfusion abnormality. Gated analysi s shows normal wall motion with an estimated left ventricular ejection fraction of 64 %. IMPRESSION: No scintigraphic evidence for reversible ischemia.
[2018-08-26 12:05] VITALS: BP 121/84; TEMP 97.6
--- NOTE | 2018-08-26 12:53 | P.HPIM ---
History of Present Illness H&P Date: 08/26/18 Chief Complaint: Chest pain HISTORY AND PHYSICAL AND DISCHARGE SUMMARY: This is a 46-year-old male patient of Dr. Alen Calvo and Dr. Romero with past medical history of coronary artery disease with previous stent to the distal LAD with evidence of coronary artery spasm distal to the stent, sick sinus syndrome status post permanent pacemaker implantation, ischemic cardiomyopathy, hypertension, hyperlipidemia, bipolar disorder, history of traumatic brain injury, chronic tobacco use and dependence. Patient has a known ejection fraction of 45-50%, mild to moderate tricuspid regurgitation and moderate mitral regurgitation. Patient gives history that at around 8 PM yesterday started having chest pain in the midsternal area along with shortness of breath while he was watching TV. He states he had not eaten dinner prior to this. He also has a headache this morning after having a stress test. He denies having any palpitations. He states he has been taking his medications as directed. His last heart catheterization was in 2016. He states this pain is more severe than when he had stent placement. He also gives history of peptic ulcer disease and had EGD done 10 years ago. He is currently on Protonix once daily. He denies having any black stools. He does state he vomits frequently on some days but he did not vomit yesterday. He denies any diarrhea. He also denies having any blood in his vomit. Patient came into [facility] emergency center for evaluation. He has been afebrile, heart rate initially 91 and blood pressure 137/97, pulse ox 97% on room air. CBC was within normal limits, d-dimer 0.31, creatinine 0.8, blood sugar 100, chloride 110 and CO2 21. Troponin negative on 2 draws. Triglycerides 418, cholesterol 220, HDL 29. EKG was a sinus rhythm with nonspecific T-wave flattening. Chest x-ray showed no acute cardiopulmonary process. Patient was placed in the observation unit and cardiology consult requested. Persantine stress test ordered and found to be negative for ischemia. Echocardiogram reveals EF 60-65%, mild tricuspid regurgitation, moderate mitral regurgitation. Patient will be discharged home in stable condition. Review of Systems All systems: negative Constitutional: Denies chills, Denies fever Eyes: denies blurred vision, denies pain Ears, nose, mouth and throat: Denies headache, Denies sore throat Cardiovascular: Denies chest pain, Denies shortness of breath Respiratory: Denies cough Gastrointestinal: Denies abdominal pain, Denies diarrhea, Denies nausea, Denies vomiting Musculoskeletal: Denies myalgias Integumentary: Denies pruritus, Denies rash Neurological: Denies numbness, Denies weakness Psychiatric: Denies anxiety, Denies depression Endocrine: Denies fatigue, Denies weight change Past Medical History Past Medical History: Asthma, Coronary Artery Disease (CAD), Heart Failure, GERD/Reflux, Hyperlipidemia, Hypertension Additional Past Medical History / Comment(s): Ischemic Cardiomyopathy, sick sinus syndrome status post permanent pacemaker implantation, IBS History of Any Multi-Drug Resistant Organisms: None Reported Past Surgical History: Heart Catheterization With Stent, Pacemaker Additional Past Surgical History / Comment(s): surgery on elbow. sinus surgery Past Anesthesia/Blood Transfusion Reactions: No Reported Reaction Date of Last Stent Placement:: 09/2014 Type of Cardiac Device: Permanent Pacemaker Device Placement Date:: 2011 Past Psychological History: Anxiety, Bipolar, Depression Smoking Status: Current every day smoker Past Alcohol Use History: None Reported Additional Past Alcohol Use History / Comment(s): Patient is a smoker of Past Drug Use History: None Reported - Past Family History Father Family Medical History: Congestive Heart Failure (CHF) Additional Family Medical History / Comment(s): Father required Heart Transplant in his 40s. Mother in her 50s she required CABG Mother Additional Family Medical History / Comment(s): Triple bypass Medications and Allergies Home Medications Medication Instructions Recorded Confirmed Type Aspirin EC [Ecotrin Low Dose] 81 mg PO HS 10/27/15 08/25/18 History Atorvastatin [Lipitor] 20 mg PO HS 10/27/15 08/25/18 History Carvedilol [Coreg] 25 mg PO BID 10/27/15 08/25/18 History Fenofibrate,Micronized 67 mg PO HS 10/27/15 08/25/18 History [Fenofibrate] Furosemide [Lasix] 20 mg PO DAILY PRN 10/27/15 08/25/18 History Gemfibrozil [Lopid] 600 mg PO BID 10/27/15 08/25/18 History Ranolazine [Ranexa] 1,000 mg PO BID 10/27/15 08/25/18 History Lisinopril [Prinivil] 20 mg PO DAILY 11/28/15 08/25/18 History Albuterol Inhaler [Ventolin Hfa 1 puff INHALATION RT-Q6H PRN 02/22/16 08/25/18 History Inhaler] Clopidogrel [Plavix] 75 mg PO DAILY 02/22/16 08/25/18 History Diltiazem HCl [Diltiazem 24Hr ER] 120 mg PO DAILY 02/22/16 08/25/18 History Fluticasone Nasal [place] [Flonase 2 spr EA NOSTRIL DAILY 04/11/18 08/25/18 History Nasal [place]] EPINEPHrine [Auvi-Q] 0.3 mg IM DAILY PRN 08/25/18 08/25/18 History Ibuprofen [Motrin] 800 mg PO DAILY PRN 08/25/18 08/25/18 History Topiramate [Topamax] 50 mg PO HS 08/25/18 08/25/18 History Azithromycin [Zithromax Z-pack] 250 mg PO DIRECTED #6 tab 08/26/18 Rx Isosorbide Mononitrate ER [Imdur] 60 mg PO DAILY #90 tab.er.24h 08/26/18 Rx Pantoprazole Sodium [Protonix] 40 mg PO BID #60 tablet. 08/26/18 Rx Allergies Allergy/AdvReac Type Severity Reaction Status Date / Time codeine Allergy Itching Verified 08/25/18 22:31 hydrocodone bitartrate Allergy Itching Verified 08/25/18 22:31 [From Vicodin] latex Allergy Rash/Hives Verified 08/25/18 22:31 morphine Allergy Itching Verified 08/25/18 22:31 quetiapine fumarate AdvReac Agitation/Violent Verified 08/25/18 22:31 [From Seroquel] Behavior Physical Exam Vitals: Vital Signs Temp Pulse Pulse Resp BP BP Pulse Ox 08/26/18 07:05 97.7 F 74 18 122/80 97 08/26/18 03:43 97.6 F 84 18 161/80 95 08/26/18 03:02 79 17 08/26/18 01:36 17 08/26/18 01:21 98.2 F 82 18 129/86 93 L 08/26/18 00:43 98 F 08/26/18 00:30 79 18 132/95 98 08/26/18 00:00 80 14 138/87 99 08/25/18 23:30 85 20 134/101 98 08/25/18 22:15 148/95 96 08/25/18 22:14 91 18 148/95 96 08/25/18 22:05 98.3 F 91 18 137/97 97 Intake and Output 08/25/18 08/26/18 08/26/18 22:59 06:59 14:59 Other: Voiding Method Toilet Toilet # Voids 1 Weight 79.379 kg 79.379 kg Gen: This is a 38-year-old male. He is resting in bed and appears to be comfortable and in no acute distress. HEENT: Head is atraumatic, normocephalic. Pupils equal, round. Sclerae is anicteric. NECK: Supple. No JVD. No lymphadenopathy. No thyromegaly. LUNGS: Crackles in the bases. No intercostal retractions. HEART: Regular rate and rhythm. No murmur. ABDOMEN: Soft. Bowel sounds are present. No masses. No tenderness. EXTREMITIES: No pedal edema. No calf tenderness. NEUROLOGICAL: Patient is awake, alert and oriented x3. Cranial nerves 2 through 12 are grossly intact. Results CBC & Chem 7: 08/25/18 22:20 08/25/18 22:20 Labs: Abnormal Lab Results - Last 24 Hours (Table) 08/25/18 08/26/18 Range/Units 22:20 03:58 Chloride 110 H (98-107) mmol/L Carbon Dioxide 21 L (22-30) mmol/L Glucose 100 H (74-99) mg/dL Triglycerides 418 H (<150) mg/dL Cholesterol 220 H (<200) mg/dL HDL Cholesterol 29 L (40-60) mg/dL Thrombosis Risk Factor Assmnt - Choose All That Apply Other Risk Factors: No Other congenital or acquired thrombophilia - If yes, enter type in comment: No Assessment and Plan Plan: 1. Chest pain. Acute coronary syndrome ruled out. Cardiology has added in Imdur 60 mg daily. Chest pain may also be related to gastritis with history of peptic ulcer disease and Protonix will be increased to twice daily for 1 month. Cardiology consult appreciated. Echocardiogram and Persantine stress test ordered. 2. History of coronary artery disease status post stent and evidence of coronary artery spasm. 3. Ischemic cardiomyopathy with EF 45-50%. 4. Hypertension. 5. Hyperlipidemia. 6. Sick sinus syndrome status post prior to pacemaker implantation. 7. Tobacco use and dependence. 8. Possible bronchitis. A Z-Jonatan ordered. Patient placed as an observation status. Discharge plan: Return home Discharge Medication List Aspirin EC [Ecotrin Low Dose] 81 mg PO HS 10/27/15 [History] Atorvastatin [Lipitor] 20 mg PO HS 10/27/15 [History] Carvedilol [Coreg] 25 mg PO BID 10/27/15 [History] Fenofibrate,Micronized [Fenofibrate] 67 mg PO HS 10/27/15 [History] Furosemide [Lasix] 20 mg PO DAILY PRN 10/27/15 [History] Gemfibrozil [Lopid] 600 mg PO BID 10/27/15 [History] Ranolazine [Ranexa] 1,000 mg PO BID 10/27/15 [History] Lisinopril [Prinivil] 20 mg PO DAILY 11/28/15 [History] Albuterol Inhaler [Ventolin Hfa Inhaler] 1 puff INHALATION RT-Q6H PRN 02/22/16 [History] Clopidogrel [Plavix] 75 mg PO DAILY 02/22/16 [History] Diltiazem HCl [Diltiazem 24Hr ER] 120 mg PO DAILY 02/22/16 [History] Fluticasone Nasal [place] [Flonase Nasal [place]] 2 spr EA NOSTRIL DAILY 04/11/18 [History] EPINEPHrine [Auvi-Q] 0.3 mg IM DAILY PRN 08/25/18 [History] Ibuprofen [Motrin] 800 mg PO DAILY PRN 08/25/18 [History] Topiramate [Topamax] 50 mg PO HS 08/25/18 [History] Azithromycin [Zithromax Z-pack] 250 mg PO DIRECTED #6 tab 08/26/18 [Rx] Isosorbide Mononitrate ER [Imdur] 60 mg PO DAILY #90 tab.er.24h 08/26/18 [Rx] Pantoprazole Sodium [Protonix] 40 mg PO BID #60 tablet. 08/26/18 [Rx] Impression and plan of care have been directed as dictated by the signing physician. Doris Mejia nurse practitioner acting as scribe for signing physician.
--- NOTE | 2018-08-26 19:48 | P.STRESS ---
- Stress Test Note Stress Test Results/Findings: Exam Performed: NM stress persantine cardiolite Exam Date: 08/26/18 Reason for Exam: CHEST PAIN Height: 5 ft 8 in Weight: 79.379 kg Protocol: PERSANTINE CARDIOLITE Stage: Duration of Exercise: 11:00 Resting Heart Rate: 80 Resting Blood Pressure: 143/91 Maximum Achieved Heart Rate: 107 Maximum Achieved Blood Pressure: 143/91 85% PMHR: 153 100% PMHR: 180 METS: Technologist Comment: Stress Test Results/Findings: Baseline heart rate 80 beats a minute Baseline blood pressure 143/91 mmHg Patient received Persantine infusion per protocol No significant change in heart rate of blood pressure Giulia showed a 0.[address] depression inferolaterally No new changes on ECG Patient complained of left jaw pain No arrhythmias Nuclear portion of the stresses reported separately
[2018-08-26] MEDS ORDERED: ATORVASTATIN 20 MG TAB PO SCH (21:00)
[2018-08-26] MEDS ORDERED: TOPIRAMATE 25 MG TAB PO SCH (21:00)
[2018-08-27] MEDS ORDERED: ASPIRIN 325 MG TAB PO SCH (09:00)
--- NOTE | 2018-09-11 10:55 | ECHOF ---
Referral Reason:cp MEASUREMENTS -------- HEIGHT: 172.7 cm WEIGHT: 79.4 kg BP: 122/80 IVSd: 1.2 cm (0.6 - 1.1) LVIDd: 4.8 cm (3.9 - 5.3) LVPWd: 1.1 cm (0.6 - 1.1) IVSs: 1.5 cm LVIDs: 3.6 cm LVPWs: 1.7 cm LA Diam: 4.1 cm (2.7 - 3.8) RVIDd: 3.1 cm (< 3.3) LAESV Index (A-L): 32.97 ml/m Ao Diam: 3.1 cm (2.0 - 3.7) AV Cusp: 2.2 cm (1.5 - 2.6) EPSS: 0.7 cm MV E Blayne: 0.97 m/s MV DecT: 271 ms MV A Blayne: 0.81 m/s MV E/A Ratio: 1.20 RAP: 5.00 mmHg RVSP: 30.18 mmHg MV EF SLOPE: 89.76 mm/s (70 - 150) MV EXCURSION: 19.20 mm (> 18.000) FINDINGS -------- A-V paced rhythm. This was a technically good study. The left ventricular size is normal. There is borderline concentric left ventricular hypertrophy. Overall left ventricular systolic function is normal with, an EF between 60 - 65 %. The right ventricle is normal in size. LA is midly dilated 29-33ml/m2. The right atrium is normal in size. Aortic valve is trileaflet and is mildly thickened. Moderate mitral regurgitation is present. Mild tricuspid regurgitation present. Right ventricular systolic pressure is normal at < 35 mmHg. Trace/mild (physiologic) pulmonic regurgitation. The aortic root size is normal. There is no pericardial effusion. CONCLUSIONS -------- 1. A-V paced rhythm. 2. This was a technically good study. 3. The left ventricular size is normal. 4. There is borderline concentric left ventricular hypertrophy. 5. Overall left ventricular systolic function is normal with, an EF between 60 - 65 %. 6. The right ventricle is normal in size. 7. LA is midly dilated 29-33ml/m2. 8. The right atrium is normal in size. 9. Aortic valve is trileaflet and is mildly thickened. 10. Moderate mitral regurgitation is present. 11. Mild tricuspid regurgitation present. 12. Right ventricular systolic pressure is normal at < 35 mmHg. 13. Trace/mild (physiologic) pulmonic regurgitation. 14. The aortic root size is normal. 15. There is no pericardial effusion. BASEBALL SCOUT: Lynnette Vick RDCS
== END 2018-08-26 13:50 | disposition home or self-care (01) ==
LOC: EC 22:04 → 1SOBS 08-26 00:08
PROVIDERS: ADMIT Internal Medicine; ATTEND Internal Medicine
DX: I25.110 Atherosclerotic heart disease of native coronary artery with unstable angina pectoris (principal); I25.5 Ischemic cardiomyopathy; E78.5 Hyperlipidemia, unspecified; I11.0 Hypertensive heart disease with heart failure; F17.200 Nicotine dependence, unspecified, uncomplicated; F20.9 Schizophrenia, unspecified; K58.9 Irritable bowel syndrome, unspecified; F41.9 Anxiety disorder, unspecified; F31.30 Bipolar disorder, current episode depressed, mild or moderate severity, unspecified; I50.9 Heart failure, unspecified; J45.909 Unspecified asthma, uncomplicated; I08.1 Rheumatic disorders of both mitral and tricuspid valves; R51 Headache; K21.9 Gastro-esophageal reflux disease without esophagitis; Z95.0 Presence of cardiac pacemaker; Z95.5 Presence of coronary angioplasty implant and graft; Z87.820 Personal history of traumatic brain injury; Z87.11 Personal history of peptic ulcer disease; Z79.82 Long term (current) use of aspirin; Z79.899 Other long term (current) drug therapy; Z79.02 Long term (current) use of antithrombotics/antiplatelets; Z88.5 Allergy status to narcotic agent; Z88.8 Allergy status to other drugs, medicaments and biological substances; Z91.040 Latex allergy status; Z82.49 Family history of ischemic heart disease and other diseases of the circulatory system
CPT/HCPCS: 93005 ×2; 96376; 96374; 99285; 36415; 93017; 93306; 85379; 83880; 80061; 80053; 83735; 84484 ×2; 85025; 85610; 85730; 71046; 78452; G0378; A9500; J1170 ×2

== ENCOUNTER 2018-09-22 21:23 | Emergency (ER) | payer MEDICARE, OTHER ==
[2018-09-22 21:33] VITALS: RESP 18
--- NOTE | 2018-09-22 22:01 | XR ---
EXAMINATION TYPE: XR chest 2V DATE OF EXAM: 09/22/2018 COMPARISON: 06/20/2017 HISTORY: Chest pain TECHNIQUE: Frontal and lateral views of the chest are obtained. FINDINGS: Nerve stimulator is seen as well as a dual-lead left-sided cardiac device. No focal consol idation, pleural effusion or pneumothorax. Cardia mediastinal silhouette is stable and nonenlarged. N o gross osseous acute pathology is seen. Mild degenerative changes of the right acromioclavicular kiara nt and thoracic spine. IMPRESSION: No acute cardiopulmonary process.
[2018-09-22 22:06] LABS: Basophils % (A) 0 %; Eosinophils # (A) 0.3 k/uL (0-0.7); Eosinophils % (A) 3 %; HCT 45.9 % (39.0-53.0); HGB 15.2 gm/dL (13.0-17.5); Lymphocytes # (A) 2.7 k/uL (1.0-4.8); Lymphocytes % (A) 29 %; MCH 29.5 pg (25.0-35.0); MCHC 33.1 g/dL (31.0-37.0); Monocytes # (A) 0.8 k/uL (0-1.0); Monocytes % (A) 9 %; Neutrophils # (A) 5.2 k/uL (1.3-7.7); Neutrophils % (A) 57 %; Platelet Count 221 k/uL (150-450); RBC 5.15 m/uL (4.30-5.90); RDW 12.8 % (11.5-15.5); WBC 9.2 k/uL (3.8-10.6)
[2018-09-22 22:16] LABS: ALT 30 U/L (21-72); AST 33 U/L (17-59); Albumin 4.3 g/dL (3.5-5.0); Alkaline Phosphatase 56 U/L (38-126); Amylase 67 U/L (30-110); Anion Gap 8 mmol/L; Blood Urea Nitrogen 8 mg/dL (9-20); Calcium 9.4 mg/dL (8.4-10.2); Carbon Dioxide 22 mmol/L (22-30); Chloride 111 mmol/L (98-107); Glucose 83 mg/dL (74-99); Lipase 171 U/L (23-300); Magnesium 1.9 mg/dL (1.6-2.3); Potassium 3.9 mmol/L (3.5-5.1); Sodium 141 mmol/L (137-145); Total Bilirubin 0.4 mg/dL (0.2-1.3); Total Protein 6.7 g/dL (6.3-8.2)
[2018-09-22 22:20] LABS: D-Dimer 0.19 mg/L FEU (<0.60); Partial Thromboplastin Time 26.5 sec (22.0-30.0); Prothrombin Time 10.3 sec (9.0-12.0)
--- NOTE | 2018-09-22 22:24 | ED ---
Chest Pain HPI - General Chief Complaint: Chest Pain Stated Complaint: Chest Pain Time Seen by Provider: 09/22/18 21:26 Source: patient, EMS Mode of arrival: EMS Limitations: no limitations - History of Present Illness Initial Comments: This patient is a 38-year-old man who presents to be evaluated for chest pain is been going on for just under 24 hours now. He states it started last night while he was at rest. I indicates just the left the sternum and states that it is a constant, dull aching. It has become more severe tonight and he therefore called the ambulance. He also noticed that it's seeming to be going to his left arm. He tried taking nitroglycerin but did not really affect the pain. Patient denies anginal type symptoms including no dyspnea, diaphoresis, nausea or vomiting, palpitations, lightheadedness or syncope. MD Complaint: chest pain -: hour(s) Onset: during rest Pain Location: substernal Pain Radiation: LUE Severity: moderate Quality: aching Consistency: constant Improves With: nothing Worsens With: nothing Treatments Prior to Arrival: nitroglycerin - Related Data Home Medications Medication Instructions Recorded Confirmed Aspirin EC [Ecotrin Low Dose] 81 mg PO HS 10/27/15 09/22/18 Atorvastatin [Lipitor] 20 mg PO HS 10/27/15 09/22/18 Carvedilol [Coreg] 25 mg PO BID 10/27/15 09/22/18 Fenofibrate,Micronized 67 mg PO HS 10/27/15 09/22/18 [Fenofibrate] Furosemide [Lasix] 20 mg PO DAILY PRN 10/27/15 09/22/18 Gemfibrozil [Lopid] 600 mg PO BID 10/27/15 09/22/18 Ranolazine [Ranexa] 1,000 mg PO BID 10/27/15 09/22/18 Lisinopril [Prinivil] 20 mg PO DAILY 11/28/15 09/22/18 Albuterol Inhaler [Ventolin Hfa 1 - 2 puff INHALATION RT-Q6H PRN 02/22/16 09/22/18 Inhaler] Clopidogrel [Plavix] 75 mg PO DAILY 02/22/16 09/22/18 Diltiazem HCl [Diltiazem 24Hr ER] 120 mg PO DAILY 02/22/16 09/22/18 Fluticasone Nasal [place] [Flonase 2 spr EA NOSTRIL DAILY 04/11/18 09/22/18 Nasal [place]] EPINEPHrine [Auvi-Q] 0.3 mg IM ONCE PRN 08/25/18 09/22/18 Ibuprofen [Motrin] 800 mg PO DAILY PRN 08/25/18 09/22/18 Topiramate [Topamax] 50 mg PO HS 08/25/18 09/22/18 Previous Rx's Medication Instructions Recorded Isosorbide Mononitrate ER [Imdur] 60 mg PO DAILY #90 tab.er.24h 08/26/18 Pantoprazole Sodium [Protonix] 40 mg PO BID #60 tablet.dr 08/26/18 Allergies Allergy/AdvReac Type Severity Reaction Status Date / Time codeine Allergy Itching Verified 09/22/18 22:33 hydrocodone bitartrate Allergy Itching Verified 09/22/18 22:33 [From Vicodin] latex Allergy Rash/Hives Verified 09/22/18 22:33 morphine Allergy Itching Verified 09/22/18 22:33 quetiapine fumarate AdvReac Agitation/Violent Verified 09/22/18 22:33 [From Seroquel] Behavior Review of Systems ROS Statement: Those systems with pertinent positive or pertinent negative responses have been documented in the HPI. ROS Other: All systems not noted in ROS Statement are negative. Constitutional: Denies: fever, chills Respiratory: Denies: cough, dyspnea Cardiovascular: Reports: chest pain. Denies: palpitations, orthopnea, edema, syncope Gastrointestinal: Denies: abdominal pain, nausea, vomiting Genitourinary: Denies: dysuria, hematuria Musculoskeletal: Denies: back pain Skin: Denies: rash Neurological: Denies: headache, weakness, numbness EKG Findings - EKG Results: EKG: interpreted by ERMD, sinus rhythm (Rate 98 bpm), normal axis, normal QRS - Blocks, [place], Hypertrophy, ST Abn: Repolarization changes or abnormalities: nonspecific abnormality, ST segment, and/or T wave Past Medical History Past Medical History: Asthma, Coronary Artery Disease (CAD), Heart Failure, GERD/Reflux, Hyperlipidemia, Hypertension Additional Past Medical History / Comment(s): Ischemic Cardiomyopathy, sick s inus syndrome status post permanent pacemaker implantation, IBS History of Any Multi-Drug Resistant Organisms: None Reported Past Surgical History: Heart Catheterization With Stent, Pacemaker Additional Past Surgical History / Comment(s): surgery on elbow. sinus surgery Past Anesthesia/Blood Transfusion Reactions: No Reported Reaction Date of Last Stent Placement:: 09/2014 Type of Cardiac Device: Permanent Pacemaker Device Placement Date:: 2011 Past Psychological History: Anxiety, Bipolar, Depression Smoking Status: Current every day smoker Past Alcohol Use History: None Reported Past Drug Use History: None Reported - Past Family History Father Family Medical History: Congestive Heart Failure (CHF) Additional Family Medical History / Comment(s): Father required Heart Transplant in his 40s. Mother in her 50s she required CABG Mother Additional Family Medical History / Comment(s): Triple bypass General Exam Limitations: no limitations General appearance: alert, in no apparent distress Head exam: Present: atraumatic, normocephalic Eye exam: Present: normal appearance. Absent: scleral icterus, conjunctival injection ENT exam: Present: normal oropharynx Neck exam: Present: normal inspection Respiratory exam: Present: normal lung sounds bilaterally. Absent: respiratory distress, wheezes, rales, rhonchi, stridor Cardiovascular Exam: Present: regular rate, normal rhythm, normal heart sounds. Absent: systolic murmur, diastolic murmur, rubs, gallop GI/Abdominal exam: Present: soft. Absent: distended, tenderness, guarding, rebound, rigid, mass Extremities exam: Present: normal inspection, normal capillary refill. Absent: pedal edema, calf tenderness Back exam: Present: normal inspection. Absent: CVA tenderness (R), CVA tenderness (L) Neurological exam: Present: alert Skin exam: Present: warm, dry, intact, normal color. Absent: rash Course Vital Signs 09/22/18 09/22/18 09/23/18 21:31 22:35 00:02 Temperature 100.2 F H Pulse Rate 88 99 87 Respiratory 18 18 18 Rate Blood Pressure 133/90 123/99 136/100 O2 Sat by Pulse 97 98 98 Oximetry 09/23/18 00:32 Temperature 98.9 F Pulse Rate Respiratory Rate Blood Pressure O2 Sat by Pulse Oximetry Disposition Clinical Impression: Chest pain Disposition: HOME SELF-CARE Condition: Good Instructions (If sedation given, give patient instructions): Chest Pain (ED) Is patient prescribed a controlled substance at d/c from ED?: No Referrals: Alen Calvo MD [Primary Care Provider] - 1-2 days
[2018-09-22] MEDS ORDERED: traMADol 50 MG STARTER PACK 3 TAB BTL PO STA (22:28)
[2018-09-22] MEDS ORDERED: traMADol 50 MG TAB PO STA (22:47)
[2018-09-23] MEDS ORDERED: HYDROmorphone 0.5 MG/0.5 ML SYRINGE IVP STA (01:28)
[2018-09-23 02:09] VITALS: BP 125/96; PULSE 80; TEMP 98.3
== END 2018-09-23 02:07 | disposition home or self-care (01) ==
LOC: EC 21:23
DX: R07.89 Other chest pain (principal); J45.909 Unspecified asthma, uncomplicated; I25.10 Atherosclerotic heart disease of native coronary artery without angina pectoris; I11.0 Hypertensive heart disease with heart failure; I50.9 Heart failure, unspecified; E78.5 Hyperlipidemia, unspecified; F17.200 Nicotine dependence, unspecified, uncomplicated; Z79.82 Long term (current) use of aspirin; Z79.02 Long term (current) use of antithrombotics/antiplatelets; Z79.51 Long term (current) use of inhaled steroids; Z79.899 Other long term (current) drug therapy; Z88.5 Allergy status to narcotic agent; Z88.6 Allergy status to analgesic agent; Z91.040 Latex allergy status; Z88.8 Allergy status to other drugs, medicaments and biological substances; Z95.0 Presence of cardiac pacemaker; Z95.5 Presence of coronary angioplasty implant and graft
CPT/HCPCS: 36415 ×2; 93005; 85379; 80053; 82150; 83690; 83735; 84484 ×2; 85025; 85610; 85730; 71046; 99285; 96374; J1170

== ENCOUNTER 2019-04-04 19:09 | Observation (INO) | payer MEDICARE, OTHER ==
[2019-04-04] MEDS ORDERED: NITROGLYCERIN-D5W PMX 50 MG in DEXTROSE/WATER 1 250ML.BAG IV ONE (19:22)
[2019-04-04] MEDS ORDERED: HEPARIN SODIUM,PORCINE 5,000 UNIT/ML 1 ML VIAL IV ONE (19:23)
--- NOTE | 2019-04-04 19:39 | ED ---
General Adult HPI - General Chief complaint: Chest Pain Stated complaint: chest pain Time Seen by Provider: 04/04/19 19:11 Source: patient, RN notes reviewed, old records reviewed Mode of arrival: EMS Limitations: no limitations - History of Present Illness Initial comments: This is a 38-year-old male who presents emergency Department from [facility] with chest pain. Patient has a past medical history significant for cardiomyopathy as well as cardiac stent. Patient also has history of DVTs and PEs. Patient had a computed tomography scan to rule out PE at while at Hospital and it was negative for PEs. Patient was given aspirin and fentanyl and he states he still has some pain. Patient states that in the past nitroglycerin drip has helped him. Patient states the pain still is on the left side of his chest radiating to his left shoulder. Patient denies any fever chills or cough per patient denies shortness of breath or difficulty breathing patient denies any diaphoretic episodes. Patient denies any nausea per patient denies abdominal. - Related Data Home Medications Medication Instructions Recorded Confirmed Aspirin EC [Ecotrin Low Dose] 81 mg PO HS 10/27/15 09/22/18 Atorvastatin [Lipitor] 20 mg PO HS 10/27/15 09/22/18 Carvedilol [Coreg] 25 mg PO BID 10/27/15 09/22/18 Fenofibrate,Micronized 67 mg PO HS 10/27/15 09/22/18 [Fenofibrate] Furosemide [Lasix] 20 mg PO DAILY PRN 10/27/15 09/22/18 Gemfibrozil [Lopid] 600 mg PO BID 10/27/15 09/22/18 Ranolazine [Ranexa] 1,000 mg PO BID 10/27/15 09/22/18 Lisinopril [Prinivil] 20 mg PO DAILY 11/28/15 09/22/18 Albuterol Inhaler [Ventolin Hfa 1 - 2 puff INHALATION RT-Q6H PRN 02/22/16 09/22/18 Inhaler] Clopidogrel [Plavix] 75 mg PO DAILY 02/22/16 09/22/18 Diltiazem HCl [Diltiazem 24Hr ER] 120 mg PO DAILY 02/22/16 09/22/18 Fluticasone Nasal [place] [Flonase 2 spr EA NOSTRIL DAILY 04/11/18 09/22/18 Nasal [place]] EPINEPHrine [Auvi-Q] 0.3 mg IM ONCE PRN 08/25/18 09/22/18 Ibuprofen [Motrin] 800 mg PO DAILY PRN 08/25/18 09/22/18 Topiramate [Topamax] 50 mg PO HS 08/25/18 09/22/18 Previous Rx's Medication Instructions Recorded Isosorbide Mononitrate ER [Imdur] 60 mg PO DAILY #90 tab.er.24h 08/26/18 Pantoprazole Sodium [Protonix] 40 mg PO BID #60 tablet. 08/26/18 Allergies Allergy/AdvReac Type Severity Reaction Status Date / Time codeine Allergy Itching Verified 04/04/19 19:15 hydrocodone bitartrate Allergy Itching Verified 04/04/19 19:15 [From Vicodin] latex Allergy Rash/Hives Verified 04/04/19 19:15 morphine Allergy Itching Verified 04/04/19 19:15 quetiapine fumarate AdvReac Agitation/Violent Verified 04/04/19 19:15 [From Seroquel] Behavior Review of Systems ROS Statement: Those systems with pertinent positive or pertinent negative responses have been documented in the HPI. ROS Other: All systems not noted in ROS Statement are negative. Past Medical History Past Medical History: Asthma, Coronary Artery Disease (CAD), Heart Failure, GERD/Reflux, Hyperlipidemia, Hypertension Additional Past Medical History / Comment(s): Ischemic Cardiomyopathy, sick sinus syndrome status post permanent pacemaker implantation, IBS History of Any Multi-Drug Resistant Organisms: None Reported Past Surgical History: Heart Catheterization With Stent, Pacemaker Additional Past Surgical History / Comment(s): surgery on elbow. sinus surgery Past Anesthesia/Blood Transfusion Reactions: No Reported Reaction Date of Last Stent Placement:: 09/2014 Type of Cardiac Device: Permanent Pacemaker Device Placement Date:: 2011 Past Psychological History: Anxiety, Bipolar, Depression Smoking Status: Current every day smoker Past Alcohol Use History: None Reported Past Drug Use History: None Reported - Past Family History Father Family Medical History: Congestive Heart Failure (CHF) Additional Family Medical History / Comment(s): Father required Heart Transplant in his 40s. Mother in her 50s she required CABG Mother Additional Family Medical History / Comment(s): Triple bypass General Exam - General Exam Comments Initial Comments: GENERAL: Patient is well-developed and well-nourished. Patient is nontoxic and well- hydrated and is in mild distress. ENT: Neck is soft and supple. No significant lymphadenopathy is noted. Oropharynx is clear. Moist mucous membranes. Neck has full range of motion without eliciting any pain. EYES: The sclera were anicteric and conjunctiva were pink and moist. Extraocular movements were intact and pupils were equal round and reactive to light. Eyelids were unremarkable. PULMONARY: Unlabored respirations. Good breath sounds bilaterally. No audible rales rhonchi or wheezing was noted. CARDIOVASCULAR: There is a regular rate and rhythm without any murmurs gallops or rubs. ABDOMEN: Soft and nontender with normal bowel sounds. SKIN: Skin is clear with no lesions or rashes and otherwise unremarkable. NEUROLOGIC: Patient is alert and oriented x3. Cranial nerves II through XII are grossly intact. Motor and sensory are also intact. Normal speech, volume and content. Symmetrical smile. MUSCULOSKELETAL: Normal extremities with adequate strength and full range of motion. LYMPHATICS: No significant lymphadenopathy is noted PSYCHIATRIC: Normal psychiatric evaluation. Limitations: no limitations Course Vital Signs 04/04/19 19:11 Temperature 97.9 F Pulse Rate 72 Respiratory 16 Rate Blood Pressure 127/71 O2 Sat by Pulse 95 Oximetry Medical Decision Making - Medical Decision Making I reviewed all the paperwork from [facility]. He says initial troponin was negative per patient's computed tomography scan of the chest rule out PE was negative. EKG was done here which shows normal sinus rhythm at 77 bpm KS interval 180 QRS is 90 QT interval 352 QTC is 398 per patient's EKG shows no ST segment elevation or depression. Dr. Metzger agreed to admit the patient admitted the patient wrote admitting ord ers I consulted cardiology. I started the patient on heparin for unstable angina and continued on the floor as long as a nitroglycerin drip. Critical Care Time Critical Care Time: Yes Total Critical Care Time: 35 Disposition Clinical Impression: Unstable angina pectoris Disposition: ADMITTED IP TO THIS HOSP Referrals: Alen Calvo MD [Primary Care Provider] - 1-2 days Time of Disposition: 20:00
[2019-04-04] MEDS: HEPARIN SOD,PORK IN 0.45% NACL 25,000 UNIT in 0.45% NACL 1 250ML.BAG IV SCH (20:01)
[2019-04-04] MEDS ORDERED: NITROGLYCERIN SL TABS 0.4 MG TAB SUBLINGUAL PRN (20:01)
[2019-04-04] MEDS: LORazepam 2 MG/ML INJ IV STA ×2 (20:03→20:05)
[2019-04-04 21:11] LABS: Cocaine Screen,Urine Not Detected (NotDetected); Phencyclidine Screen,Urine Not Detected (NotDetected); Urn Cannabinoid Scrn Not Detected (NotDetected)
[2019-04-04 21:12] LABS: Amphetamine Screen,Urine Not Detected (NotDetected); Barbiturate Screen,Urine Not Detected (NotDetected); Benzodiazepines Screen,Urine Not Detected (NotDetected); Methadone Screen, Urine Not Detected (NotDetected); Opiate Screen,Urine Not Detected (NotDetected); Oxycodone Screen, Urine Not Detected (NotDetected); Tricyclic Antidepressant,Urine Not Detected (NotDetected)
[2019-04-04] MEDS: HYDROmorphone 0.5 MG/0.5 ML SYRINGE IVP PRN (21:29)
[2019-04-04] MEDS: ATORVASTATIN 20 MG TAB PO SCH (22:48)
[2019-04-04] MEDS: CARVEDILOL 12.5 MG TAB PO SCH (22:48)
[2019-04-04] MEDS: TOPIRAMATE 25 MG TAB PO SCH (22:48)
[2019-04-04] MEDS: RANOLAZINE 500 MG TAB.ER.12H PO SCH (22:48)
[2019-04-04] MEDS: FENOFIBRATE 54 MG TAB PO SCH (22:58)
[2019-04-05] MEDS: HYDROmorphone 0.5 MG/0.5 ML SYRINGE IVP PRN ×2 (00:48→05:10)
[2019-04-05] MEDS: NITROGLYCERIN OINT 1 INCH/GM PACKET TOPICAL SCH ×2 (00:52→06:05)
[2019-04-05] MEDS ORDERED: HYDROmorphone 1 MG/ML 1 ML SYRINGE IM PRN (06:11)
[2019-04-05] MEDS ORDERED: HYDROcodone/APAP 5-325MG 1 EACH TAB PO PRN (06:12)
[2019-04-05] MEDS: HYDROmorphone 1 MG/ML 1 ML SYRINGE IVP PRN ×5 (06:23→22:54)
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
[2019-04-05] MEDS ORDERED: ACETAMINOPHEN TAB 325 MG TAB PO PRN (08:58)
[2019-04-05] MEDS ORDERED: CLOPIDOGREL 75 MG TAB PO SCH (09:00)
[2019-04-05] MEDS ORDERED: DILTIAZEM CD 120 MG CAP.ER.24H PO SCH (09:00)
[2019-04-05] MEDS ORDERED: FENOFIBRATE 160 MG TAB PO SCH (09:00)
[2019-04-05] MEDS ORDERED: PANTOPRAZOLE 40 MG/10 ML VIAL IVP SCH (09:00)
[2019-04-05] MEDS ORDERED: PANTOPRAZOLE 40 MG TABLET PO SCH (09:00)
[2019-04-05] MEDS ORDERED: traMADol 50 MG TAB PO SCH (09:00)
[2019-04-05] MEDS ORDERED: ASPIRIN 325 MG TAB PO SCH (09:00)
[2019-04-05] MEDS ORDERED: LISINOPRIL 20 MG TAB PO SCH (09:00)
[2019-04-05] MEDS ORDERED: ISOSORBIDE MONONITRATE ER 60 MG TAB.ER.24H PO SCH (09:00)
[2019-04-05] MEDS: CARVEDILOL 12.5 MG TAB PO SCH ×2 (09:02→17:43)
[2019-04-05] MEDS: RANOLAZINE 500 MG TAB.ER.12H PO SCH ×2 (09:03→20:47)
--- NOTE | 2019-04-05 09:04 | P.CRDCN ---
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 Patient was most recently in the hospital in August of this year, his echo performed at that time revealed a normal left ventricular systolic function with moderate mitral regurgitation. He also underwent a Persantine stress test on that admission which was negative for any reversible ischemia. According to the patient, he was at work, sitting in his hand taking a break when he developed severe left-sided chest pain, that radiated into his left arm, he described it as a sharp heavy pain, he states that he did become short of breath and diaphoretic with it. Patient also states that it was some most severe pain he has ever had. He walked into the building after taking a nitro with some relief and again developed symptoms, took a second nitro again with relief. He states that he required to take a third nitro and he did not get any relief therefore EMS was called and the patient was brought to [facility]. Laboratory data have [facility] was reviewed, his BNP was less than 10, white blood cell count 8.2, hemoglobin 14.6, platelet count 258, sodium 136, potassium 3.9, chloride 107, CO2 18, BUN 12, creatinine 1.0. A CT of the chest was performed which was unremarkable according to the documentation at [facility] his EKG on presentation to [facility] showed a normal sinus rhythm with some mild ST depression noted in the anterior lateral leads. Initial troponin 0.05 blood pressure 136/80 heart rate in the 80s 99% on room air. Subsequently the patient was transferred here to [facility] for further cardiac workup. His EKG on presentation here showed normal sinus rhythm with no acute changes, mild ST depression noted in the lateral leads. Blood pressure this morning 120/60 with a heart rate in the 70s, 98% on room air. Troponins negative 2, drug screen negative. At the time of my examination this morning, patient states he is starting to develop chest pain back again, he is requesting Dilaudid. Past Medical History Past Medical History: Asthma, Coronary Artery Disease (CAD), Heart Failure, GERD/Reflux, Hyperlipidemia, Hypertension Additional Past Medical History / Comment(s): Ischemic Cardiomyopathy, sick sinus syndrome status post permanent pacemaker implantation, IBS History of Any Multi-Drug Resistant Organisms: None Reported Past Surgical History: Heart Catheterization With Stent, Pacemaker Additional Past Surgical History / Comment(s): surgery on elbow. sinus surgery Past Anesthesia/Blood Transfusion Reactions: No Reported Reaction Date of Last Stent Placement:: 09/2014 Type of Cardiac Device: Permanent Pacemaker Device Placement Date:: 2011 Past Psychological History: Anxiety, Bipolar, Depression Additional Psychological History / Comment(s): pt denies schizophrenia, however, it is part of his past medical history from previous admissions. Smoking Status: Current every day smoker Past Alcohol Use History: None Reported Additional Past Alcohol Use History / Comment(s): Patient is a smoker of 25 plus years Past Drug Use History: None Reported - Past Family History Father Family Medical History: Congestive Heart Failure (CHF) Additional Family Medical History / Comment(s): Father required Heart Transplant in his 40s. Mother in her 50s she required CABG Mother Additional Family Medical History / Comment(s): Triple bypass Medications and Allergies Home Medications Medication Instructions Recorded Confirmed Type Aspirin EC [Ecotrin Low Dose] 81 mg PO HS 10/27/15 04/04/19 History Atorvastatin [Lipitor] 20 mg PO HS 10/27/15 04/04/19 History Carvedilol [Coreg] 25 mg PO BID 10/27/15 04/04/19 History Fenofibrate,Micronized 67 mg PO HS 10/27/15 04/04/19 History [Fenofibrate] Furosemide [Lasix] 20 mg PO DAILY PRN 10/27/15 04/04/19 History Gemfibrozil [Lopid] 600 mg PO BID 10/27/15 04/04/19 History Ranolazine [Ranexa] 1,000 mg PO BID 10/27/15 04/04/19 History Lisinopril [Prinivil] 20 mg PO DAILY 11/28/15 04/04/19 History Albuterol Inhaler [Ventolin Hfa 1 - 2 puff INHALATION RT-Q6H PRN 02/22/16 04/04/19 History Inhaler] Clopidogrel [Plavix] 75 mg PO DAILY 02/22/16 04/04/19 History Diltiazem HCl [Diltiazem 24Hr ER] 120 mg PO DAILY 02/22/16 04/04/19 History Fluticasone Nasal [place] [Flonase 2 spr EA NOSTRIL DAILY 04/11/18 04/04/19 History Nasal [place]] EPINEPHrine [Auvi-Q] 0.3 mg IM ONCE PRN 08/25/18 04/04/19 History Ibuprofen [Motrin] 800 mg PO DAILY PRN 08/25/18 04/04/19 History Topiramate [Topamax] 50 mg PO HS 08/25/18 04/04/19 History Isosorbide Mononitrate ER [Imdur] 60 mg PO DAILY #90 tab.er.24h 08/26/18 04/04/19 Rx Pantoprazole Sodium [Protonix] 40 mg PO BID #60 tablet. 08/26/18 04/04/19 Rx Allergies Allergy/AdvReac Type Severity Reaction Status Date / Time codeine Allergy Itching Verified 04/04/19 21:32 hydrocodone bitartrate Allergy Itching Verified 04/04/19 21:32 [From Vicodin] latex Allergy Rash/Hives Verified 04/04/19 21:32 morphine Allergy Itching Verified 04/04/19 21:32 quetiapine fumarate AdvReac Agitation/Violent Verified 04/04/19 21:32 [From Seroquel] Behavior Physical Exam Vitals: Vital Signs Temp Pulse Pulse Resp BP BP Pulse Ox 04/05/19 06:16 97.6 F 70 18 119/65 98 04/05/19 00:00 67 18 04/04/19 23:52 67 18 118/62 96 04/04/19 20:40 98.2 F 82 16 128/72 97 04/04/19 20:08 91 18 117/85 98 04/04/19 19:11 97.9 F 72 16 127/71 95 Intake and Output 04/04/19 04/05/19 04/05/19 22:59 06:59 14:59 Intake Total 66.667 Balance 66.667 Intake: Intake, IV Titration 66.667 Amount Heparin Sod,Pork in 0.45% 66.667 NaCl 25,000 unit In 0.45 % NaCl 1 250ml.bag @ 11. 917 UNITS/KG/HR 10 mls/hr IV .Q24H TIFFANIE Rx#: [id number] Other: # Voids 0 Weight 77.7 kg 77.7 kg PHYSICAL EXAMINATION: GENERAL: 38-year-old gentleman in no acute distress at the time of my examination HEENT: Head is atraumatic, normocephalic. Pupils equal, round. Sclera anicteric. Conjunctiva are clear. Mucous membranes of the mouth are moist. Neck is supple. There is no elevated jugular venous pressure. No carotid bruit is heard. HEART EXAMINATION: Heart S1 and S2 systolic ejection murmur is heard CHEST EXAMINATION: Lungs are clear to auscultation and precussion. No chest wall tenderness is noted on palpation or with deep breathing. ABDOMEN: Soft, nontender. Bowel sounds are heard. No organomegaly noted. EXTREMITIES: 2+ peripheral pulses with no evidence of peripheral edema and no calf tenderness noted. NEUROLOGIC patient is awake, alert and oriented 3 . . Results Cardiac Enzymes 04/04/19 04/05/19 Range/Units 19:30 01:34 Troponin I <0.012 <0.012 (0.000-0.034) ng/mL Coagulation 04/05/19 Range/Units 01:34 APTT 46.2 H (22.0-30.0) sec Current Medications Generic Name Dose Route Start Last Admin Trade Name Freq PRN Reason Stop Dose Admin Aspirin 81 mg 04/05/19 21:00 Aspirin PO HS TIFFANIE Atorvastatin Calcium 20 mg 04/04/19 21:45 04/04/19 22:48 Lipitor PO 20 mg HS TIFFANIE Administration Carvedilol 25 mg 04/04/19 21:45 04/04/19 22:48 Coreg PO 25 mg BID-W/MEALS TIFFANIE Administration Clopidogrel Bisulfate 75 mg 04/05/19 09:00 Plavix PO DAILY [facility] Diltiazem HCl 120 mg 04/05/19 09:00 Cardizem Cd PO DAILY TIFFANIE Fenofibrate 54 mg 04/04/19 21:45 04/04/19 22:58 Lofibra PO 54 mg HS TIFFANIE Administration Fenofibrate 160 mg 04/05/19 09:00 Lofibra PO DAILY [facility] Hydromorphone HCl 1 mg 04/05/19 06:20 04/05/19 06:23 Dilaudid IVP 1 mg Q4HR PRN Administration Pain Heparin Sodium/Sodium Chloride 250 mls @ 10 mls/hr 04/04/19 19:30 04/05/19 02:41 25,000 unit/ Sodium Chloride IV 13.91 units/kg/hr .Q24H TIFFANIE 11.673 mls/hr Titration Protocol 11.917 UNITS/KG/HR Nitroglycerin/Dextrose 50 mg/ 250 mls @ 1.5 mls/hr 04/04/19 19:22 04/04/19 20:02 IV Solution IV 04/05/19 19:21 5 mcg/min .Q24H ONE 1.5 mls/hr Administration Protocol 5 MCG/MIN Isosorbide Mononitrate 60 mg 04/05/19 09:00 Imdur PO DAILY [facility] Lisinopril 20 mg 04/05/19 09:00 Zestril PO DAILY TIFFANIE Nitroglycerin 0.4 mg 04/04/19 20:01 Nitrostat SUBLINGUAL Q5M PRN Chest Pain Nitroglycerin 1 inch 04/05/19 00:00 04/05/19 06:05 Nitro-Bid Oint TOPICAL 1 inch Q6HR TIFFANIE Administration Pantoprazole Sodium 40 mg 04/05/19 09:00 Protonix PO BID TIFFANIE Ranolazine 1,000 mg 04/04/19 21:45 04/04/19 22:48 Ranexa PO 1,000 mg BID TIFFANIE Administration Topiramate 50 mg 04/04/19 21:45 04/04/19 22:48 Topamax PO 50 mg HS TIFFANIE Administration Tramadol HCl 50 mg 04/05/19 09:00 Ultram PO QID TIFFANIE Intake and Output 04/04/19 04/05/19 04/05/19 22:59 06:59 14:59 Intake Total 66.667 Balance 66.667 Intake: Intake, IV Titration 66.667 Amount Heparin Sod,Pork in 0.45% 66.667 NaCl 25,000 unit In 0.45 % NaCl 1 250ml.bag @ 11. 917 UNITS/KG/HR 10 mls/hr IV .Q24H TIFFANIE Rx#: [id number] Other: # Voids 0 Weight 77.7 kg 77.7 kg EKG Interpretations (text) EKG shows normal sinus rhythm with mild ST depression noted in the anterior lateral leads Assessment and Plan Plan: Assessment and plan #1 chest pain, atypical features for acute coronary syndrome. Troponins are negative 3. EKG shows normal sinus rhythm with mild ST depression noted in the initial EKG anterior lateral leads #2 hypertension #3 hyperlipidemia #4 coronary artery disease with prior stenting of the LAD #5 sinus syndrome with prior pacemaker #6 nicotine dependence #7 traumatic brain injury history #8 history of drug abuse per the patient #9 history of PE and DVT, patient is not on anticoagulation at home Plan Patient did have an echocardiogram with Doppler study performed in August which revealed a normal left ventricular systolic function with moderate mitral regurgitation, we will repeat an echo this admission as well. He also had a Persantine stress test performed on that admission which was negative for any reversible ischemia. We will discontinue his IV nitroglycerin drip, discontinue the Nitropaste and continue with the Imdur, continue baby aspirin, Lipitor, Coreg, Plavix, Cardizem, lisinopril 20 mg daily, Ranexa. Further recommendations to follow. DNP note has been reviewed, I agree with a documented findings and plan of care. Patient was seen and examined.
[2019-04-05 09:08] LABS: Basophils % (A) 0 %; Eosinophils # (A) 0.1 k/uL (0-0.7); Eosinophils % (A) 2 %; HCT 41.5 % (39.0-53.0); HGB 14.3 gm/dL (13.0-17.5); Lymphocytes # (A) 3.2 k/uL (1.0-4.8); Lymphocytes % (A) 44 %; MCH 31.9 pg (25.0-35.0); MCHC 34.4 g/dL (31.0-37.0); MCV 92.6 fL (80.0-100.0); Monocytes # (A) 0.5 k/uL (0-1.0); Monocytes % (A) 7 %; Neutrophils # (A) 3.2 k/uL (1.3-7.7); Neutrophils % (A) 44 %; Platelet Count 249 k/uL (150-450); RBC 4.48 m/uL (4.30-5.90); RDW 12.1 % (11.5-15.5); WBC 7.3 k/uL (3.8-10.6)
[2019-04-05 09:20] LABS: Calcium 9.7 mg/dL (8.4-10.2); Potassium 3.9 mmol/L (3.5-5.1)
[2019-04-05 09:22] LABS: Cholesterol 194 mg/dL (<200); HDL Cholesterol 31 mg/dL (40-60); LDL Cholesterol,Calculated 128 mg/dL (0-99); Triglycerides 176 mg/dL (<150)
--- NOTE | 2019-04-05 11:01 | ECHOF ---
Referral Reason:chest pain MEASUREMENTS -------- HEIGHT: 170.2 cm WEIGHT: 68.0 kg BP: 127/66 RVIDd: 4.3 cm (< 3.3) IVSd: 1.4 cm (0.6 - 1.1) LVIDd: 4.2 cm (3.9 - 5.3) LVPWd: 1.5 cm (0.6 - 1.1) IVSs: 1.4 cm LVIDs: 3.3 cm LVPWs: 1.9 cm LAESV Index (A-L): 30.98 ml/m Ao Diam: 3.3 cm (2.0 - 3.7) AV Cusp: 2.1 cm (1.5 - 2.6) LA Diam: 4.0 cm (2.7 - 3.8) MV EXCURSION: 16.144 mm (> 18.000) MV EF SLOPE: 93 mm/s (70 - 150) EPSS: 1.1 cm MV E Blayne: 0.69 m/s MV DecT: 248 ms MV A Blayne: 0.90 m/s MV E/A Ratio: 0.77 RAP: 5.00 mmHg RVSP: 30.72 mmHg FINDINGS -------- Sinus rhythm. This was a technically adequate study. The left ventricular size is normal. There is moderate concentric left ventricular hypertrophy. O verall left ventricular systolic function is mildly impaired with, an EF between 45 - 50 %. Increas ed Lap Grade II Diastolic Dysfunction. Septal wall motion is delayed, and consistent with ventricul ar pacing. The right ventricle is mild to moderately enlarged. LA is midly dilated 29-33ml/m2. The right atrial size is normal. Interatrial and interventricular septum intact. The aortic valve is trileaflet and appears structurally normal. There is no evidence of aortic regu rgitation. There is no evidence of aortic stenosis. Moderate mitral regurgitation is present. Mild tricuspid regurgitation present. There is no evidence of pulmonary hypertension. The right v entricular systolic pressure, as measured by Doppler, is 30.72mmHg. There is no pulmonic regurgitation present. The aortic root size is normal. IVC Not well visulized. There is no pericardial effusion. CONCLUSIONS -------- 1. Sinus rhythm. 2. This was a technically adequate study. 3. The left ventricular size is normal. 4. There is moderate concentric left ventricular hypertrophy. 5. Overall left ventricular systolic function is mildly impaired with, an EF between 45 - 50 %. 6. Increased Lap Grade II Diastolic Dysfunction. 7. Septal wall motion is delayed, and consistent with ventricular pacing. 8. The right ventricle is mild to moderately enlarged. 9. LA is midly dilated 29-33ml/m2. 10. The right atrial size is normal. 11. Interatrial and interventricular septum intact. 12. The aortic valve is trileaflet and appears structurally normal. 13. There is no evidence of aortic regurgitation. 14. There is no evidence of aortic stenosis. 15. Moderate mitral regurgitation is present. 16. Mild tricuspid regurgitation present. 17. There is no evidence of pulmonary hypertension. 18. The right ventricular systolic pressure, as measured by Doppler, is 30.72mmHg. 19. There is no pulmonic regurgitation present. 20. The aortic root size is normal. 21. IVC Not well visulized. 22. There is no pericardial effusion. CASTING SORTER: Trinity Lo RDCS
--- NOTE | 2019-04-05 11:30 | CONS ---
CONSULTATION DATE OF DICTATION: April 05, 2019. REQUESTING PHYSICIAN: Dr. Metzger. REASON FOR CONSULTATION: Atypical chest pain. HISTORY OF PRESENT ILLNESS: The patient is a 38-year-old pleasant white male admitted to the hospital with atypical chest pain since yesterday. He describes the pain mostly in the left upper side of the chest radiating to the left arm associated with some diaphoresis. He was evaluated by Cardiology. Initially was started on IV heparin. Had EKG done which was negative. IV heparin was discontinued. He is undergoing echocardiogram today. The patient states that he has been having this chest pain on and off since yesterday. Not associated with any eating. He denies any heartburn. Reports no dysphagia or odynophagia. He states that he does have a longstanding history of GERD and has been on Protonix 40 mg daily on an outpatient basis and doing well. He denies any rectal bleeding or melena. He reports no abdominal pain. No nausea, vomiting. PAST MEDICAL HISTORY: Significant for coronary artery disease status post stent placement in the past, history of posttraumatic stress syndrome, hypertension, hyperlipidemia, gastroesophageal reflux disease. MEDICATIONS: At home include nicotine, Lipitor, Coreg, fenofibrate, Lasix, Lopid, Ranexa, Plavix, aspirin, diltiazem, Flonase. ALLERGIES: TO VICODIN, CODEINE, SEROQUEL, MORPHINE. family. HISTORY: Father had congestive heart failure. Mother had coronary artery disease. SOCIAL HISTORY: Chronic smoker. Alcohol use on a daily basis. PAST SURGICAL HISTORY: Cardiac cath and stent placement, pacemaker implantation, sinus surgery, and elbow surgery. REVIEW OF SYSTEMS: CARDIOPULMONARY: No chest pain, shortness of breath. GENITOURINARY: No dysuria or hematuria. MUSCULOSKELETAL unremarkable. SKIN unremarkable. ENDOCRINE unremarkable. PSYCHIATRIC unremarkable. NEUROLOGY unremarkable. ENT/vision unremarkable. GI as mentioned above. CONSTITUTIONAL: No recent weight loss. No fever, chills, night sweats. PHYSICAL EXAMINATION: Blood pressure is 127/65, pulse 84, temperature 97.8. HEENT examination unremarkable. Conjunctivae pink. Sclerae anicteric. Oral cavity no lesions. NECK: No JVD or lymph node enlargement. CHEST: Clear to auscultation. HEART: Regular rate and rhythm. ABDOMEN: Soft, it was nontender, nondistended. Bowel sounds are positive. No organomegaly. EXTREMITIES: No pedal edema. SKIN no rashes. NEUROLOGIC: Alert and oriented x3. No focal deficits. LABS: Done labs done today WBC 7.3, hemoglobin 14.5, platelets are normal. Troponin less than 0.02. AST, ALT, T-bilirubin and alkaline phosphatase are within normal limits. IMPRESSION: 1. Atypical chest pain for which cardiology evaluating the patient. He is undergoing 2D echogram today. Troponins were negative. No EKG changes. 2. History of gastroesophageal reflux disease, on Protonix 40 mg daily, doing well. No reflux symptoms. 3. History of coronary artery disease status post stent placement in the past. 4. Hypercholesteremia and hypertension. RECOMMENDATIONS: 1. Continue with Protonix 40 mg twice daily. 2. He does not have any significant GI symptoms and hence no need for any endoscopy intervention at the present time. 3. Await rest of the cardiac workup. 4. We will follow with you closely. Thank you for this consultation. XIMENA / MALISSA: [id number] /
[2019-04-05] MEDS: HEPARIN SOD,PORK IN 0.45% NACL 25,000 UNIT in 0.45% NACL 1 250ML.BAG IV SCH (17:43)
[2019-04-05] MEDS ORDERED: ALBUTEROL INHALER 60 PUFF/8 GM INHALER INHALATION PRN (19:49)
[2019-04-05] MEDS ORDERED: ALBUTEROL NEBULIZED 2.5 MG/3 ML INHALATION PRN (19:51)
[2019-04-05] MEDS: TOPIRAMATE 25 MG TAB PO SCH (20:47)
[2019-04-05] MEDS: ATORVASTATIN 20 MG TAB PO SCH (20:48)
[2019-04-05] MEDS: FENOFIBRATE 54 MG TAB PO SCH (20:48)
[2019-04-05] MEDS ORDERED: ASPIRIN 81 MG PO SCH (21:00)
[2019-04-06 00:43] VITALS: RESP 18
[2019-04-06] MEDS: HYDROmorphone 1 MG/ML 1 ML SYRINGE IVP PRN ×2 (02:52→06:23)
[2019-04-06 04:08] VITALS: BP 118/72; PULSE 65; TEMP 97.6
[2019-04-06 05:13] LABS: Basophils % (A) 0 %; Eosinophils # (A) 0.2 k/uL (0-0.7); Eosinophils % (A) 2 %; HCT 43.1 % (39.0-53.0); HGB 14.4 gm/dL (13.0-17.5); Lymphocytes # (A) 3.5 k/uL (1.0-4.8); Lymphocytes % (A) 47 %; MCH 31.1 pg (25.0-35.0); MCHC 33.5 g/dL (31.0-37.0); MCV 92.8 fL (80.0-100.0); Mean Platelet Volume 9.4; Monocytes # (A) 0.5 k/uL (0-1.0); Monocytes % (A) 7 %; Neutrophils # (A) 3.1 k/uL (1.3-7.7); Neutrophils % (A) 41 %; Platelet Count 261 k/uL (150-450); RBC 4.65 m/uL (4.30-5.90); RDW 12.1 % (11.5-15.5); WBC 7.5 k/uL (3.8-10.6)
[2019-04-06 05:24] LABS: African American GFR (CKD) >90 (>60 ml/min/1.73 sqM); Anion Gap 10 mmol/L; Blood Urea Nitrogen 11 mg/dL (9-20); Calcium 9.6 mg/dL (8.4-10.2); Carbon Dioxide 24 mmol/L (22-30); Chloride 107 mmol/L (98-107); Glucose 102 mg/dL (74-99); Non-African American GFR(CKD) 83 (>60 ml/min/1.73 sqM); Potassium 3.4 mmol/L (3.5-5.1); Sodium 141 mmol/L (137-145)
[2019-04-06] MEDS: CARVEDILOL 12.5 MG TAB PO SCH (06:23)
[2019-04-06] MEDS ORDERED: PANTOPRAZOLE 40 MG TABLET PO SCH (07:30)
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
== END 2019-04-06 07:30 | disposition left against medical advice (07) ==
LOC: EC 19:09 → 3SCARD 20:01
PROVIDERS: ADMIT Internal Medicine; ATTEND Internal Medicine
DX: R07.89 Other chest pain (principal); Z53.29 Procedure and treatment not carried out because of patient's decision for other reasons; F95.9 Tic disorder, unspecified; I11.0 Hypertensive heart disease with heart failure; I25.10 Atherosclerotic heart disease of native coronary artery without angina pectoris; E78.5 Hyperlipidemia, unspecified; I49.5 Sick sinus syndrome; I25.5 Ischemic cardiomyopathy; K21.9 Gastro-esophageal reflux disease without esophagitis; F17.210 Nicotine dependence, cigarettes, uncomplicated; R06.02 Shortness of breath; J45.909 Unspecified asthma, uncomplicated; I50.9 Heart failure, unspecified; K58.9 Irritable bowel syndrome, unspecified; F41.9 Anxiety disorder, unspecified; F31.9 Bipolar disorder, unspecified; E78.00 Pure hypercholesterolemia, unspecified; E66.9 Obesity, unspecified; Z68.27 Body mass index [BMI] 27.0-27.9, adult; Z95.5 Presence of coronary angioplasty implant and graft; Z86.718 Personal history of other venous thrombosis and embolism; Z86.711 Personal history of pulmonary embolism; Z79.82 Long term (current) use of aspirin; Z79.899 Other long term (current) drug therapy; Z79.02 Long term (current) use of antithrombotics/antiplatelets; Z88.5 Allergy status to narcotic agent; Z91.040 Latex allergy status; Z88.8 Allergy status to other drugs, medicaments and biological substances; Z95.0 Presence of cardiac pacemaker; Z98.890 Other specified postprocedural states; Z82.49 Family history of ischemic heart disease and other diseases of the circulatory system; Z87.820 Personal history of traumatic brain injury; Z86.59 Personal history of other mental and behavioral disorders
CPT/HCPCS: 96376 ×3; 96366 ×4; 96375 ×2; 93005 ×2; 96365 ×2; 99291; 36415; 94640; 93306; 80061; 80048 ×2; 84484 ×2; 85025 ×2; 85730 ×2; 80306; G0378 ×3; J2060; J1644 ×3; J1170 ×4

== ENCOUNTER 2020-02-12 00:12 | Observation (INO) | payer MEDICARE, OTHER ==
[2020-02-12 00:21] VITALS: RESP 18
[2020-02-12] MEDS ORDERED: ASPIRIN 81 MG PO STA (00:46)
[2020-02-12] MEDS ORDERED: HYDROmorphone 0.5 MG/0.5 ML SYRINGE IVP STA ×3 (00:46→08:30)
[2020-02-12] MEDS ORDERED: SODIUM CHLORIDE 0.9% 500 ML 500 ML IV STA (00:51)
--- NOTE | 2020-02-12 00:52 | ED ---
Chest Pain HPI - General Chief Complaint: Chest Pain Stated Complaint: chest pain Time Seen by Provider: 02/12/20 00:13 Source: patient Mode of arrival: ambulatory Limitations: no limitations - History of Present Illness MD Complaint: chest pain Onset/Timin -: hour(s) Onset: during rest Pain Location: substernal Pain Radiation: none Severity: moderate Quality: aching Consistency: constant Improves With: nothing Worsens With: nothing Treatments Prior to Arrival: aspirin, nitroglycerin - Related Data Home Medications Medication Instructions Recorded Confirmed Aspirin EC [Ecotrin Low Dose] 81 mg PO HS 10/27/15 04/04/19 Atorvastatin [Lipitor] 20 mg PO HS 10/27/15 04/04/19 Carvedilol [Coreg] 25 mg PO BID 10/27/15 04/04/19 Fenofibrate,Micronized 67 mg PO HS 10/27/15 04/04/19 [Fenofibrate] Furosemide [Lasix] 20 mg PO DAILY PRN 10/27/15 04/04/19 Ranolazine [Ranexa] 1,000 mg PO BID 10/27/15 04/04/19 gemfibroziL [Lopid] 600 mg PO BID 10/27/15 04/04/19 lisinopriL [Prinivil] 20 mg PO DAILY 11/28/15 04/04/19 Albuterol Inhaler (Mhu) [Ventolin 1 - 2 puff INHALATION RT-Q6H PRN 02/22/16 04/04/19 Hfa Inhaler (Mhu)] Clopidogrel [Plavix] 75 mg PO DAILY 02/22/16 04/04/19 Diltiazem HCl [Diltiazem 24Hr ER] 120 mg PO DAILY 02/22/16 04/04/19 Fluticasone Nasal [place] [Flonase 2 spr EA NOSTRIL DAILY 04/11/18 04/04/19 Nasal [place]] EPINEPHrine [Auvi-Q] 0.3 mg IM ONCE PRN 08/25/18 04/04/19 Ibuprofen [Motrin] 800 mg PO DAILY PRN 08/25/18 04/04/19 Topiramate [Topamax] 50 mg PO HS 08/25/18 04/04/19 Previous Rx's Medication Instructions Recorded Isosorbide Mononitrate ER [Imdur] 60 mg PO DAILY #90 tab.er.24h 08/26/18 Pantoprazole Sodium [Protonix] 40 mg PO BID #60 tablet. 08/26/18 Allergies Allergy/AdvReac Type Severity Reaction Status Date / Time codeine Allergy Itching Verified 04/04/19 21:32 hydrocodone bitartrate Allergy Itching Verified 04/04/19 21:32 [From Vicodin] latex Allergy Rash/Hives Verified 04/04/19 21:32 morphine Allergy Itching Verified 04/04/19 21:32 quetiapine fumarate AdvReac Agitation/Violent Verified 04/04/19 21:32 [From Seroquel] Behavior Review of Systems ROS Statement: Those systems with pertinent positive or pertinent negative responses have been documented in the HPI. ROS Other: All systems not noted in ROS Statement are negative. Constitutional: Denies: fever, chills ENT: Denies: throat pain Respiratory: Denies: cough, dyspnea Cardiovascular: Reports: chest pain. Denies: palpitations, orthopnea, edema, syncope Gastrointestinal: Denies: abdominal pain, nausea, vomiting Genitourinary: Denies: dysuria, hematuria Musculoskeletal: Denies: back pain Skin: Denies: rash Neurological: Denies: headache, weakness, numbness Past Medical History Past Medical History: Asthma, Coronary Artery Disease (CAD), Heart Failure, GERD/Reflux, Hyperlipidemia, Hypertension Additional Past Medical History / Comment(s): Ischemic Cardiomyopathy, sick sinus syndrome status post permanent pacemaker implantation, IBS History of Any Multi-Drug Resistant Organisms: None Reported Past Surgical History: Heart Catheterization With Stent, Pacemaker Additional Past Surgical History / Comment(s): surgery on elbow. sinus surgery Past Anesthesia/Blood Transfusion Reactions: No Reported Reaction Date of Last Stent Placement:: 09/2014 Type of Cardiac Device: Permanent Pacemaker Device Placement Date:: 2011 Past Psychological History: Anxiety, Bipolar, Depression Smoking Status: Current every day smoker Past Alcohol Use History: None Reported Past Drug Use History: None Reported - Past Family History Father Family Medical History: Congestive Heart Failure (CHF) Additional Family Medical History / Comment(s): Father required Heart Transplant in his 40s. Mother in her 50s she required CABG Mother Additional Family Medical History / Comment(s): Triple bypass General Exam Limitations: no limitations General appearance: alert, in no apparent distress Head exam: Present: atraumatic, normocephalic Eye exam: Present: normal appearance. Absent: scleral icterus, conjunctival injection ENT exam: Present: normal oropharynx Neck exam: Present: normal inspection, full ROM Respiratory exam: Present: normal lung sounds bilaterally. Absent: respiratory distress, wheezes, rales, rhonchi, stridor, chest wall tenderness Cardiovascular Exam: Present: regular rate, normal rhythm, normal heart sounds. Absent: systolic murmur, diastolic murmur, rubs, gallop GI/Abdominal exam: Present: soft. Absent: distended, tenderness, guarding, rebound, rigid, mass Extremities exam: Present: normal inspection, normal capillary refill. Absent: pedal edema, calf tenderness Back exam: Present: normal inspection. Absent: CVA tenderness (R), CVA tenderness (L) Neurological exam: Present: alert Skin exam: Present: warm, dry, intact, normal color. Absent: rash Course Vital Signs 02/12/20 02/12/20 02/12/20 00:13 00:21 02:25 Temperature 97.6 F Pulse Rate 78 82 Pulse Rate [ 80 Clinical Psychologist Licensed ] Respiratory 18 18 Rate Blood Pressure 116/73 108/65 O2 Sat by Pulse 100 99 Oximetry Disposition Clinical Impression: Chest pain Disposition: ADMITTED IP TO THIS HOSP Condition: Fair Referrals: Felipe Calvo MD [Primary Care Provider] - 1-2 days
[2020-02-12 01:04] LABS: Basophils % (A) 0 %; Eosinophils # (A) 0.2 k/uL (0-0.7); Eosinophils % (A) 2 %; HCT 37.8 % (39.0-53.0); HGB 12.4 gm/dL (13.0-17.5); Lymphocytes # (A) 3.3 k/uL (1.0-4.8); Lymphocytes % (A) 37 %; MCH 31.7 pg (25.0-35.0); MCHC 32.8 g/dL (31.0-37.0); MCV 96.4 fL (80.0-100.0); Mean Platelet Volume 9.4; Monocytes # (A) 0.8 k/uL (0-1.0); Monocytes % (A) 9 %; Neutrophils # (A) 4.4 k/uL (1.3-7.7); Neutrophils % (A) 50 %; Platelet Count 260 k/uL (150-450); RBC 3.92 m/uL (4.30-5.90); RDW 12.7 % (11.5-15.5); WBC 8.8 k/uL (3.8-10.6)
[2020-02-12 01:12] LABS: ALT 16 U/L (4-49); AST 27 U/L (17-59); African American GFR (CKD) >90 (>60 ml/min/1.73 sqM); Albumin 4.5 g/dL (3.5-5.0); Alkaline Phosphatase 38 U/L (38-126); Amylase 85 U/L (30-110); Anion Gap 9 mmol/L; Blood Urea Nitrogen 11 mg/dL (9-20); Calcium 9.6 mg/dL (8.4-10.2); Carbon Dioxide 19 mmol/L (22-30); Chloride 110 mmol/L (98-107); Glucose 92 mg/dL (74-99); Magnesium 1.9 mg/dL (1.6-2.3); Non-African American GFR(CKD) 80 (>60 ml/min/1.73 sqM); Sodium 138 mmol/L (137-145); Total Bilirubin 0.5 mg/dL (0.2-1.3); Total Protein 6.9 g/dL (6.3-8.2)
[2020-02-12 01:19] LABS: D-Dimer <0.17 mg/L FEU (<0.60); Partial Thromboplastin Time 24.7 sec (22.0-30.0); Prothrombin Time 10.3 sec (9.0-12.0)
--- NOTE | 2020-02-12 01:26 | XR ---
EXAM: XR Chest, 1 View CLINICAL HISTORY: ITS.REASON XR Reason: chest pain TECHNIQUE: Frontal view of the chest. COMPARISON: 09/22/18. FINDINGS: Lungs: Prominent lung markings. No consolidation. Pleural space: No significant pleural effusion or pneumothorax. Heart: Stable cardiomediastinal silhouette. Devices overlying the chest/upper abdomen again noted. Mediastinum: See above. Bones/joints: No acute fracture. IMPRESSION: No consolidation.
[2020-02-12] MEDS ORDERED: NITROGLYCERIN SL TABS 0.4 MG TAB SUBLINGUAL PRN ×2 (02:29→11:06)
[2020-02-12] MEDS: HYDROmorphone 0.5 MG/0.5 ML SYRINGE IVP PRN ×2 (05:26→12:37)
[2020-02-12] MEDS ORDERED: AMINOPHYLLINE 500 MG/20 ML VIAL IV PRN (09:41)
[2020-02-12] MEDS ORDERED: REGADENOSON 0.4 MG/5 ML SYRINGE IV ONE (09:41)
[2020-02-12] MEDS ORDERED: CAFFEINE CITRATE 60 MG/3 ML VIAL IV PRN (09:41)
[2020-02-12 09:43] VITALS: BP 112/68; PULSE 77; TEMP 97.5
--- NOTE | 2020-02-12 10:08 | P.CRDCN ---
History of Present Illness Consult date: 02/12/20 History of present illness: HISTORY OF PRESENTING ILLNESS This is a 39-year-old male past medical history significant for hypertension, sick sinus syndrome status post prior pacemaker, hypertension, hyperlipidemia, bipolar disorder, apparent traumatic brain injury, tobacco abuse, history of drug abuse. He previously followed with Dr. Wyman however switched to a doctor out of [place]. Patient difficult to obtain a history from him. Patient jerking around in bed, constantly moving and stating he is in too much pain. He has been receiving Dilaudid and is asking for more pain medication. He presented with chest pain which started yesterday which feels sharp like a stabbing of his left chest. He denies any improvement with any positioning, denies any change with activity. The pain has been constant and therefore presented to emergency department. He does have a history of prior stenting to the LAD and admits he has had workup for possible PAD, possible carotid stenosis by his new sales force developer. He denies any associated shortness breath, numbness, tingling. He believes he had a recent stress test around 45 months ago by his primary sales force developer which was normal. DIAGNOSTICS EKG reveals normal sinus rhythm, normal axis, no significant ST or T wave abnormalities. Chest xray no acute process Laboratory reviewed, white blood cell 8.8, hemoglobin 12.4, creatinine 1.14, d- dimer less than 0.17, troponin negative 3 Home medications include nitroglycerin when necessary, Lasix when necessary, Cardizem 120 mg daily, Plavix 75 mg daily, Coreg 25 mg twice a day, Lipitor 40 mg daily, aspirin 81 mg daily, Imdur 120 mg daily, Ranexa 1 g twice a day, lis inopril 20 mg daily REVIEW OF SYSTEMS At the time of my exam: CONSTITUTIONAL: Denies fever or chills. CARDIOVASCULAR: +chest pain, no shortness of breath, orthopnea, PND or palpitations. RESPIRATORY: Denies cough. GASTROINTESTINAL: Denies abdominal pain, diarrhea, constipation, nausea or vomiting. MUSCULOSKELETAL: Denies myalgias. NEUROLOGIC: Denies numbness, tingling or weakness. ENDOCRINE: Denies fatigue, weight change, polydipsia or polyurina. GENITOURINARY: Denies burning, hematuria or urgency with micturation. HEMATOLOGIC: Denies history of anemia or bleeding. PHYSICAL EXAMINATION Blood pressure 112/68 heart rate 77 afebrile and maintaining oxygen saturation on room air. CONSTITUTIONAL: Moving around in the bed, unable to focus and supply full history, somewhat tangential HEENT: Head is normocephalic. Pupils are equal, round. Sclerae anicteric. Mucous membranes of the mouth are moist. No JVD. No carotid bruit. CHEST EXAMINATION: Lungs are clear to auscultation. No chest wall tenderness is noted on palpation or with deep breathing. HEART EXAMINATION: Regular rate and rhythm. S1, S2 heard. No murmurs, gallops or rub. ABDOMEN: Soft, nontender. Positive bowel sounds. EXTREMITIES: 2+ peripheral pulses, no lower extremity edema and no calf tenderness. NEUROLOGIC EXAMINATION: Patient is awake, alert and oriented x3. ASSESSMENT 1. Atypical chest pain, troponins negative 3. Apparent recent stress test which was normal. Recommended outpatient follow-up with primary sales force developer however patient states he is not getting answers and wants to have a stress test. We will check a Lexiscan to rule out inducible ischemia. 2. History of coronary artery disease status post PCI. 3. Sick sinus syndrome status post permanent pacemaker. 4. Tobacco abuse 5. Questionable PAD, being worked up by primary sales force developer for PAD and carotid disease 6. Hypertension 7. Hyperlipidemia PLAN Patient is somewhat of a poor historian, unfocused during exam and desiring pain medication, narcotics. Chest pain appears atypical and troponins have been negative 3. Apparent recent stress test by his primary sales force developer. Offered patient outpatient follow-up however he is requesting inpatient workup. We'll check a echo and nuclear stress test. If both normal, patient may be discharged with outpatient follow-up with his primary sales force developer. Past Medical History Past Medical History: Asthma, Coronary Artery Disease (CAD), Heart Failure, GERD/Reflux, Hyperlipidemia, Hypertension Additional Past Medical History / Comment(s): Ischemic Cardiomyopathy, sick sinus syndrome status post permanent pacemaker implantation, IBS History of Any Multi-Drug Resistant Organisms: None Reported Past Surgical History: Heart Catheterization With Stent, Pacemaker Additional Past Surgical History / Comment(s): surgery on elbow. sinus surgery Past Anesthesia/Blood Transfusion Reactions: No Reported Reaction Date of Last Stent Placement:: 09/2014 Type of Cardiac Device: Permanent Pacemaker Device Placement Date:: 2011 Past Psychological History: Anxiety, Bipolar, Depression Additional Psychological History / Comment(s): pt denies schizophrenia, however, it is part of his past medical history from previous admissions. Smoking Status: Current every day smoker Past Alcohol Use History: None Reported Additional Past Alcohol Use History / Comment(s): Patient is a smoker of 25 plus years Past Drug Use History: None Reported - Past Family History Father Family Medical History: Congestive Heart Failure (CHF) Additional Family Medical History / Comment(s): Father required Heart Transplant in his 40s. Mother in her 50s she required CABG Mother Additional Family Medical History / Comment(s): Triple bypass Medications and Allergies Home Medications Medication Instructions Recorded Confirmed Type Aspirin EC [Ecotrin Low Dose] 81 mg PO HS 10/27/15 02/12/20 History Atorvastatin [Lipitor] 40 mg PO HS 10/27/15 02/12/20 History Carvedilol [Coreg] 25 mg PO BID 10/27/15 02/12/20 History Fenofibrate,Micronized 67 mg PO HS 10/27/15 02/12/20 History [Fenofibrate] Furosemide [Lasix] 20 mg PO DAILY PRN 10/27/15 02/12/20 History Ranolazine [Ranexa] 1,000 mg PO BID 10/27/15 02/12/20 History gemfibroziL [Lopid] 600 mg PO BID 10/27/15 02/12/20 History lisinopriL [Prinivil] 20 mg PO DAILY 11/28/15 02/12/20 History Clopidogrel [Plavix] 75 mg PO DAILY 02/22/16 02/12/20 History Diltiazem HCl [Diltiazem 24Hr ER] 120 mg PO DAILY 02/22/16 02/12/20 History Fluticasone Nasal [place] [Flonase 2 spr EA NOSTRIL DAILY 04/11/18 02/12/20 History Nasal [place]] Ibuprofen [Motrin] 800 mg PO DAILY PRN 08/25/18 02/12/20 History Topiramate [Topamax] 50 mg PO HS 08/25/18 02/12/20 History Albuterol Sulfate [Ventolin HFA] 1 - 2 puff INHALATION RT-Q6H PRN 02/12/20 02/12/20 History EPINEPHrine (Auto Inject) [Epipen] 0.3 mg IM ONCE PRN 02/12/20 02/12/20 History Isosorbide Mononitrate ER [Imdur] 120 mg PO DAILY 02/12/20 02/12/20 History Montelukast [Singulair] 10 mg PO HS 02/12/20 02/12/20 History Nitroglycerin Sl Tabs [Nitrostat] 0.4 mg SUBLINGUAL Q5M PRN 02/12/20 02/12/20 History Pantoprazole Sodium [Protonix] 40 mg PO DAILY 02/12/20 02/12/20 History Allergies Allergy/AdvReac Type Severity Reaction Status Date / Time codeine Allergy Itching Verified 02/12/20 08:48 hydrocodone bitartrate Allergy Itching Verified 02/12/20 08:48 [From Vicodin] latex Allergy Rash/Hives Verified 02/12/20 08:48 morphine Allergy Itching Verified 02/12/20 08:48 quetiapine fumarate AdvReac Agitation/Violent Verified 02/12/20 08:48 [From Seroquel] Behavior Physical Exam Vitals: Vital Signs Temp Pulse Pulse Resp BP BP Pulse Ox 02/12/20 03:02 98 02/12/20 02:55 98 F 78 18 113/71 98 02/12/20 02:25 82 18 108/65 99 02/12/20 00:21 80 02/12/20 00:13 97.6 F 78 18 116/73 100 Intake and Output 02/11/20 02/12/20 02/12/20 22:59 06:59 14:59 Other: Voiding Method Toilet # Voids 1 Weight 86.183 kg Results 02/12/20 00:48 02/12/20 00:48 Cardiac Enzymes 02/12/20 02/12/20 02/12/20 Range/Units 00:48 00:48 03:20 AST 27 (17-59) U/L Troponin I <0.012 <0.012 (0.000-0.034) ng/mL 02/12/20 Range/Units 06:17 AST (17-59) U/L Troponin I <0.012 (0.000-0.034) ng/mL Coagulation 02/12/20 Range/Units 00:48 PT 10.3 (9.0-12.0) sec APTT 24.7 (22.0-30.0) sec CBC 02/12/20 Range/Units 00:48 WBC 8.8 (3.8-10.6) k/uL RBC 3.92 L (4.30-5.90) m/uL Hgb 12.4 L (13.0-17.5) gm/dL Hct 37.8 L (39.0-53.0) % Plt Count 260 (150-450) k/uL Comprehensive Metabolic Panel 02/12/20 Range/Units 00:48 Sodium 138 (137-145) mmol/L Potassium 4.0 (3.5-5.1) mmol/L Chloride 110 H (98-107) mmol/L Carbon Dioxide 19 L (22-30) mmol/L BUN 11 (9-20) mg/dL Creatinine 1.14 (0.66-1.25) mg/dL Glucose 92 (74-99) mg/dL Calcium 9.6 (8.4-10.2) mg/dL AST 27 (17-59) U/L ALT 16 (4-49) U/L Alkaline Phosphatase 38 (38-126) U/L Total Protein 6.9 (6.3-8.2) g/dL Albumin 4.5 (3.5-5.0) g/dL Current Medications Generic Name Dose Route Start Last Admin Trade Name Moiseq PRN Reason Stop Dose Admin Hydromorphone HCl 0.5 mg 02/12/20 02:46 02/12/20 05:26 Hydromorphone 0.5 Mg/0.5 Ml Syringe IVP 0.5 mg Q4H PRN Administration Pain Nitroglycerin 0.4 mg 02/12/20 02:29 Nitroglycerin Sl Tabs 0.4 Mg Tab SUBLINGUAL Q5M PRN Chest Pain Intake and Output 02/11/20 02/12/20 02/12/20 22:59 06:59 14:59 Other: Voiding Method Toilet # Voids 1 Weight 86.183 kg 02/12/20 00:48 02/12/20 00:48
[2020-02-12] MEDS ORDERED: ALBUTEROL NEBULIZED 2.5 MG/3 ML INHALATION PRN (11:06)
[2020-02-12] MEDS ORDERED: CLOPIDOGREL 75 MG TAB PO SCH (11:15)
[2020-02-12] MEDS ORDERED: PANTOPRAZOLE 40 MG TABLET PO SCH (11:15)
[2020-02-12] MEDS ORDERED: ISOSORBIDE MONONITRATE ER 60 MG TAB.ER.24H PO SCH (11:15)
[2020-02-12] MEDS ORDERED: RANOLAZINE 500 MG TAB.ER.12H PO SCH (11:15)
[2020-02-12] MEDS ORDERED: FLUTICASONE 50MCG/SPRAY NASAL 16GM EA NOSTRIL SCH (11:15)
[2020-02-12] MEDS ORDERED: carvediloL 12.5 MG TAB PO SCH (11:30)
--- NOTE | 2020-02-12 12:56 | NM ---
EXAMINATION TYPE: NM stress lexiscan cardiolite DATE OF EXAM: 02/12/2020 COMPARISON: NONE HISTORY: 08/26/2018 TECHNIQUE: After the intravenous administration of 10.3 mCi Tc 99m Sestamibi - Cardiolite resting SP ECT images acquired 45 minutes post injection. The patient received 0.4mg Lexiscan, 26.3 mCi Tc 99m Sestamibi - Stress images obtained [address] injection FINDINGS: Review of stress and rest SPECT images demonstrates slight decrease in perfusion along the inferior w all felt to relate to adjacent GI activity. Otherwise, no distinct perfusion abnormality. Also, this decreased activity is not corroborated on the polar maps. Gated analysis shows normal wall motion wit h an estimated left ventricular ejection fraction of 63 %. TID is calculated at 1.1. IMPRESSION: No scintigraphic evidence for reversible ischemia.
--- NOTE | 2020-02-12 17:33 | ECHOF ---
Referral Reason:chest pain MEASUREMENTS -------- HEIGHT: 170.2 cm WEIGHT: 86.2 kg BP: 112/68 RVIDd: 3.5 cm (< 3.3) IVSd: 1.0 cm (0.6 - 1.1) LVIDd: 4.6 cm (3.9 - 5.3) LVPWd: 1.1 cm (0.6 - 1.1) IVSs: 1.4 cm LVIDs: 3.3 cm LVPWs: 1.5 cm LA Diam: 3.9 cm (2.7 - 3.8) LAESV Index (A-L): 25.36 ml/m Ao Diam: 2.9 cm (2.0 - 3.7) AV Cusp: 2.2 cm (1.5 - 2.6) MV EXCURSION: 15.892 mm (> 18.000) MV EF SLOPE: 70 mm/s (70 - 150) EPSS: 0.8 cm MV E Blayne: 0.73 m/s MV DecT: 314 ms MV A Blayne: 0.89 m/s MV E/A Ratio: 0.82 AR PHT: 960 ms RAP: 5.00 mmHg RVSP: 34.28 mmHg FINDINGS -------- Paced rhythm. This was a technically good study. The left ventricular size is normal. Left ventricular wall thickness is normal. Overall left vent ricular systolic function is normal with, an EF between 60 - 65 %. The right ventricle is mildly enlarged. Normal LA size by volume 22+/-6 ml/m2. The right atrium is normal in size. Interatrial and interventricular septum intact. The aortic valve is trileaflet and appears structurally normal. Moderate mitral regurgitation is present. Mild tricuspid regurgitation present. There is borderline pulmonary artery hypertension. The righ t ventricular systolic pressure, as measured by Doppler, is 34.28mmHg. Trace/mild (physiologic) pulmonic regurgitation. The aortic root size is normal. Normal inferior vena cava with normal inspiratory collapse consistent with estimated right atrial pre ssure of 5 mmHg. There is no pericardial effusion. CONCLUSIONS -------- 1. The left ventricular size is normal. 2. Left ventricular wall thickness is normal. 3. Overall left ventricular systolic function is normal with, an EF between 60 - 65 %. 4. The right ventricle is mildly enlarged. 5. Moderate mitral regurgitation is present. 6. Mild tricuspid regurgitation present. 7. There is borderline pulmonary artery hypertension. 8. Trace/mild (physiologic) pulmonic regurgitation. 9. There is no pericardial effusion. [employer]: ISAAK Finn
[2020-02-12] MEDS ORDERED: FENOFIBRATE 160 MG TAB PO SCH (21:00)
[2020-02-12] MEDS ORDERED: FENOFIBRATE 54 MG TAB PO SCH (21:00)
[2020-02-12] MEDS ORDERED: MONTELUKAST 10 MG TAB PO SCH (21:00)
[2020-02-12] MEDS ORDERED: TOPIRAMATE 25 MG TAB PO SCH (21:00)
[2020-02-12] MEDS ORDERED: ASPIRIN 81 MG PO SCH (21:00)
[2020-02-12] MEDS ORDERED: ATORVASTATIN 40 MG TAB PO SCH (21:00)
[2020-02-13] MEDS ORDERED: DILTIAZEM CD 120 MG CAP.ER.24H PO SCH (09:00)
--- NOTE | 2020-02-13 16:59 | P.STRESS ---
- Stress Test Note Stress Test Results/Findings: Exam Performed: NM stress persantine cardiolite Exam Date: 02/12/20 Reason for Exam: CHEST PAIN Height: 5 ft 7 in Weight: 86.18 kg Protocol: LEXISCAN Stage: NA Duration of Exercise: NA Resting Heart Rate: 79 Resting Blood Pressure: 108/68 Maximum Achieved Heart Rate: 98 Maximum Achieved Blood Pressure: 134/68 85% PMHR: NA 100% PMHR: NA METS: NA Technologist Comment: Stress Test Results/Findings: At baseline EKG showed sinus rhythm with nonspecific minimal ST depressions in aVF. There was a significant amount of baseline wander secondary to noncompliance with exam. Patient recieved IV infusion of Lexiscan 0.4mg and at peak infusion EKG showed no significant change from baseline. Conclusions: 1. Normal EKG response to Lexiscan infusion 2. Nuclear imaging to be reported separately.
== END 2020-02-12 14:23 | disposition left against medical advice (07) ==
LOC: EC 00:12 → 3NCARDOBS 02:29
PROVIDERS: ADMIT Family Medicine; ATTEND Family Medicine
DX: R07.89 Other chest pain (principal); E78.5 Hyperlipidemia, unspecified; F17.200 Nicotine dependence, unspecified, uncomplicated; F31.9 Bipolar disorder, unspecified; I11.0 Hypertensive heart disease with heart failure; I25.10 Atherosclerotic heart disease of native coronary artery without angina pectoris; I25.5 Ischemic cardiomyopathy; I49.5 Sick sinus syndrome; I50.9 Heart failure, unspecified; J45.909 Unspecified asthma, uncomplicated; Z79.02 Long term (current) use of antithrombotics/antiplatelets; Z79.82 Long term (current) use of aspirin; Z79.899 Other long term (current) drug therapy; Z82.49 Family history of ischemic heart disease and other diseases of the circulatory system; Z95.0 Presence of cardiac pacemaker; Z98.61 Coronary angioplasty status
CPT/HCPCS: 96376 ×2; 96361; 96374; 99285; 36415; 93005; 93017; 93306; 85379; 80053; 82150; 83690; 83735; 84484; 85025; 85610; 85730; 71045; 78452; G0378; A9500; J2785; J1170; 96375

== ENCOUNTER 2020-05-02 00:09 | Observation (INO) | payer MEDICARE, OTHER ==
--- NOTE | 2020-05-02 00:24 | ED ---
Recheck HPI - General Chief Complaint: Chest Pain Stated Complaint: Chest Pain Time Seen by Provider: 05/02/20 00:23 Source: patient, EMS, RN notes reviewed, old records reviewed Mode of arrival: EMS Limitations: no limitations - History of Present Illness Initial Comments: This is a 39-year-old male DF patient Dese for evaluation regards to chest pain patient is a known cardiac patient with complex cardiac history stents at early age. Patient was accepted transfer from outside facility for persistent chest pain. Unstable angina MD Complaint: abnormal lab (Abnormal chest pain) -: hour(s) Returns Today for: Called Because of Abnormal Lab/Test, persistent/worsening pain related to initial visit, other (Patient sent to ER as a transfer for persistent cardiac pain) Symptoms Since Prior Visit: worsening pain Associated Symptoms: chest pain Treatments Prior to Arrival: Given Pain Meds on - Related Data Home Medications Medication Instructions Recorded Confirmed Aspirin EC [Ecotrin Low Dose] 81 mg PO HS 10/27/15 02/12/20 Atorvastatin [Lipitor] 40 mg PO HS 10/27/15 02/12/20 Carvedilol [Coreg] 25 mg PO BID 10/27/15 02/12/20 Fenofibrate,Micronized 67 mg PO HS 10/27/15 02/12/20 [Fenofibrate] Furosemide [Lasix] 20 mg PO DAILY PRN 10/27/15 02/12/20 Ranolazine [Ranexa] 1,000 mg PO BID 10/27/15 02/12/20 gemfibroziL [Lopid] 600 mg PO BID 10/27/15 02/12/20 lisinopriL [Prinivil] 20 mg PO DAILY 11/28/15 02/12/20 Clopidogrel [Plavix] 75 mg PO DAILY 02/22/16 02/12/20 Diltiazem HCl [Diltiazem 24Hr ER] 120 mg PO DAILY 02/22/16 02/12/20 Fluticasone Nasal [place] [Flonase 2 spr EA NOSTRIL DAILY 04/11/18 02/12/20 Nasal [place]] Ibuprofen [Motrin] 800 mg PO DAILY PRN 08/25/18 02/12/20 Topiramate [Topamax] 50 mg PO HS 08/25/18 02/12/20 Albuterol Sulfate [Ventolin HFA] 1 - 2 puff INHALATION RT-Q6H PRN 02/12/20 02/12/20 EPINEPHrine (Auto Inject) [Epipen] 0.3 mg IM ONCE PRN 02/12/20 02/12/20 Isosorbide Mononitrate ER [Imdur] 120 mg PO DAILY 02/12/20 02/12/20 Montelukast [Singulair] 10 mg PO HS 02/12/20 02/12/20 Nitroglycerin Sl Tabs [Nitrostat] 0.4 mg SUBLINGUAL Q5M PRN 02/12/20 02/12/20 Pantoprazole Sodium [Protonix] 40 mg PO DAILY 02/12/20 02/12/20 Allergies Allergy/AdvReac Type Severity Reaction Status Date / Time codeine Allergy Itching Verified 02/12/20 08:48 hydrocodone bitartrate Allergy Itching Verified 02/12/20 08:48 [From Vicodin] latex Allergy Rash/Hives Verified 02/12/20 08:48 morphine Allergy Itching Verified 02/12/20 08:48 quetiapine fumarate AdvReac Agitation/Violent Verified 02/12/20 08:48 [From Seroquel] Behavior Review of Systems ROS Statement: Those systems with pertinent positive or pertinent negative responses have been documented in the HPI. ROS Other: All systems not noted in ROS Statement are negative. Past Medical History Past Medical History: Asthma, Coronary Artery Disease (CAD), Heart Failure, GERD/Reflux, Hyperlipidemia, Hypertension Additional Past Medical History / Comment(s): Ischemic Cardiomyopathy, sick sinus syndrome status post permanent pacemaker implantation, IBS History of Any Multi-Drug Resistant Organisms: None Reported Past Surgical History: Heart Catheterization With Stent, Pacemaker Additional Past Surgical History / Comment(s): surgery on elbow. sinus surgery Past Anesthesia/Blood Transfusion Reactions: No Reported Reaction Date of Last Stent Placement:: 09/2014 Type of Cardiac Device: Permanent Pacemaker Device Placement Date:: 2011 Past Psychological History: Anxiety, Bipolar, Depression Smoking Status: Current every day smoker Past Alcohol Use History: None Reported Past Drug Use History: None Reported - Past Family History Father Family Medical History: Congestive Heart Failure (CHF) Additional Family Medical History / Comment(s): Father required Heart Transplant in his 40s. Mother in her 50s she required CABG Mother Additional Family Medical History / Comment(s): Triple bypass General Exam Limitations: no limitations General appearance: alert, in no apparent distress Head exam: Present: atraumatic, normocephalic, normal inspection Eye exam: Present: normal appearance, PERRL, EOMI. Absent: scleral icterus, conjunctival injection, periorbital swelling ENT exam: Present: normal exam, mucous membranes moist Neck exam: Present: normal inspection. Absent: tenderness, meningismus, lymphadenopathy Respiratory exam: Present: normal lung sounds bilaterally. Absent: respiratory distress, wheezes, rales, rhonchi, stridor Cardiovascular Exam: Present: regular rate, normal rhythm, normal heart sounds. Absent: systolic murmur, diastolic murmur, rubs, gallop, clicks GI/Abdominal exam: Present: soft, normal bowel sounds. Absent: distended, tenderness, guarding, rebound, rigid Extremities exam: Present: normal inspection, full ROM, normal capillary refill. Absent: tenderness, pedal edema, joint swelling, calf tenderness Back exam: Present: normal inspection Neurological exam: Present: alert, oriented X3, CN II-XII intact Psychiatric exam: Present: normal affect, normal mood Skin exam: Present: warm, dry, intact, normal color. Absent: rash Course Vital Signs 05/02/20 00:12 Temperature 98.4 F Pulse Rate 71 Respiratory 18 Rate Blood Pressure 112/75 O2 Sat by Pulse 99 Oximetry - Reevaluation(s) Reevaluation #1: 05/02/20 01:36 Medical records reviewed 05/02/20 01:36 Transferring paperwork has been reviewed Reevaluation #2: 05/02/20 01:36 Spoke with patient who has now adequate pain control - Consultations Consultation #1: Spoke with Dr. Calvo who agrees to admit this patient Medical Decision Making - Medical Decision Making 39 male to the ER for chest pain unstable angina except in transfer for chest pain observation - EKG Data -: EKG Interpreted by Me (EKG is sinus rhythm 72 NE 194 QRS 84 QTc 429) Disposition Clinical Impression: Chest pain, Unstable angina pectoris Disposition: ADMITTED IP TO THIS HOSP Condition: Undetermined Is patient prescribed a controlled substance at d/c from ED?: No
[2020-05-02] MEDS ORDERED: NITROGLYCERIN SL TABS 0.4 MG TAB SUBLINGUAL PRN ×3 (00:32→11:07)
[2020-05-02] MEDS ORDERED: HEPARIN SOD,PORK IN 0.45% NACL 25,000 UNIT in 0.45% NACL 1 250ML.BAG IV SCH (00:45)
[2020-05-02] MEDS: MORPHINE SULFATE 4 MG/ML SYRINGE IV PRN ×3 (01:17→09:16)
[2020-05-02] MEDS ORDERED: diphenhydrAMINE 50 MG/ML 1 ML VIAL IVP PRN (01:31)
[2020-05-02 05:00] LABS: Mean Platelet Volume 8.6; Platelet Count 227 k/uL (150-450)
[2020-05-02] MEDS ORDERED: FUROSEMIDE 20 MG TAB PO PRN (08:18)
[2020-05-02] MEDS: RANOLAZINE 500 MG TAB.ER.12H PO SCH ×2 (08:45→20:19)
[2020-05-02] MEDS: DILTIAZEM CD 120 MG CAP.ER.24H PO SCH (08:45)
[2020-05-02] MEDS: ISOSORBIDE MONONITRATE ER 60 MG TAB.ER.24H PO SCH (08:45)
--- NOTE | 2020-05-02 09:41 | P.CRDCN ---
History of Present Illness Consult date: 05/02/20 Requesting physician: Felipe Calvo Reason for Consult (text): chest pain Chief complaint: lower extremity edema, chest pain History of present illness: This is a 39-year-old gentleman who previously followed in the office with Dr. Romero and subsequently switched to a different group out of [place]. He is apparently no longer following with has an appointment coming up with a new drawbridge operator. He has a history of hypertension, hyperlipidemia, sick sinus syndrome status post permanent pacemaker implantation about 10 years ago, CAD status post stenting of the LAD most recent available cardiac catheterization from 2015 shows patent LAD stent with spasms noted proximal to the stent, jaspreet arently currently being worked up for thyroid disorder. Also has a history of bipolar disorder, apparent traumatic brain injury, and history of drug abuse. He has a current every day smoker of about a half pack a day. He was hospitalized in January 2020 with similar complaints and at that time underwent echocardiogram with Doppler study that showed normal LV systolic function with no evidence of segmental wall motion abnormalities and Lexiscan MPI which showed no evidence of reversibility. Has recently been noticing edema in his lower extremities and having more frequent complaints of chest discomfort that is at times relieved with nitroglycerin. The discomfort is not activity related and occurs randomly. He apparently presented initially to [facility] in [place] and was subsequently transferred here. The records from [facility] are not available to me at this time. Upon arrival here EKG showed sinus mechanism with no evidence of acute ischemia. Troponins are negative 2. Upon examination patient is resting in bed and was awoken upon my entry into the room. During my examination patient is moving around quite a bit in bed and grabbing at his chest. He continues to have intermittent chest discomfort. Past Medical History Past Medical History: Asthma, Coronary Artery Disease (CAD), Heart Failure, GERD/Reflux, Hyperlipidemia, Hypertension Additional Past Medical History / Comment(s): Ischemic Cardiomyopathy, sick sinus syndrome status post permanent pacemaker implantation, IBS History of Any Multi-Drug Resistant Organisms: None Reported Past Surgical History: Heart Catheterization With Stent, Pacemaker Additional Past Surgical History / Comment(s): surgery on elbow. sinus surgery Past Anesthesia/Blood Transfusion Reactions: No Reported Reaction Date of Last Stent Placement:: 09/2014 Type of Cardiac Device: Permanent Pacemaker Device Placement Date:: 2011 Past Psychological History: Anxiety, Bipolar, Depression Additional Psychological History / Comment(s): pt denies schizophrenia, however, it is part of his past medical history from previous admissions. Smoking Status: Current every day smoker Past Alcohol Use History: None Reported Additional Past Alcohol Use History / Comment(s): Patient is a smoker of 25 plus years Past Drug Use History: None Reported - Past Family History Father Family Medical History: Congestive Heart Failure (CHF) Additional Family Medical History / Comment(s): Father required Heart Transplant in his 40s. Mother in her 50s she required CABG Mother Additional Family Medical History / Comment(s): Triple bypass Medications and Allergies Home Medications Medication Instructions Recorded Confirmed Type Aspirin EC [Ecotrin Low Dose] 81 mg PO HS 10/27/15 05/02/20 History Atorvastatin [Lipitor] 40 mg PO HS 10/27/15 05/02/20 History Carvedilol [Coreg] 25 mg PO BID 10/27/15 05/02/20 History Fenofibrate,Micronized 67 mg PO HS 10/27/15 05/02/20 History [Fenofibrate] Furosemide [Lasix] 20 mg PO DAILY PRN 10/27/15 05/02/20 History Ranolazine [Ranexa] 1,000 mg PO BID 10/27/15 05/02/20 History gemfibroziL [Lopid] 600 mg PO BID 10/27/15 05/02/20 History lisinopriL [Prinivil] 20 mg PO DAILY 11/28/15 05/02/20 History Clopidogrel [Plavix] 75 mg PO DAILY 02/22/16 05/02/20 History Diltiazem HCl [Diltiazem 24Hr ER] 120 mg PO DAILY 02/22/16 05/02/20 History Fluticasone Nasal [place] [Flonase 2 spr EA NOSTRIL DAILY 04/11/18 05/02/20 Histo ry Nasal [place]] Topiramate [Topamax] 50 mg PO HS 08/25/18 05/02/20 History Albuterol Sulfate [Ventolin HFA] 2 puff INHALATION RT-Q6H PRN 02/12/20 05/02/20 History Isosorbide Mononitrate ER [Imdur] 120 mg PO DAILY 02/12/20 05/02/20 History Montelukast [Singulair] 10 mg PO HS 02/12/20 05/02/20 History Nitroglycerin Sl Tabs [Nitrostat] 0.4 mg SUBLINGUAL Q5M PRN 02/12/20 05/02/20 History Pantoprazole Sodium [Protonix] 40 mg PO DAILY 02/12/20 05/02/20 History Allergies Allergy/AdvReac Type Severity Reaction Status Date / Time codeine Allergy Itching Verified 05/02/20 08:12 hydrocodone bitartrate Allergy Itching Verified 05/02/20 08:12 [From Vicodin] latex Allergy Rash/Hives Verified 05/02/20 08:12 morphine Allergy Itching Verified 05/02/20 08:12 quetiapine fumarate AdvReac Agitation/Violent Verified 05/02/20 08:12 [From Seroquel] Behavior Physical Exam Vitals: Vital Signs Temp Pulse Pulse Resp BP BP Pulse Ox 05/02/20 01:42 97.8 F 71 20 107/56 96 05/02/20 00:12 98.4 F 71 18 112/75 99 Intake and Output 05/01/20 05/02/20 05/02/20 22:59 06:59 14:59 Intake Total 491.034 Balance 491.034 Intake: Intake, IV Titration 16.034 Amount Heparin Sod,Pork in 0.45% 16.034 NaCl 25,000 unit In 0.45 % NaCl 1 250ml.bag @ 12 UNITS/KG/HR 9.525 mls/hr IV .Q24H [facility] Rx#: [id number] Oral 475 Other: Voiding Method Toilet # Voids 1 Weight 77.4 kg PHYSICAL EXAMINATION: This is a 39-year-old gentleman in no apparent distress at the time of my examination. VITAL SIGNS: Blood pressure 107/56, heart rate 71, respirations 20, temp 97.8F. Patient is 96 % on room air. HEENT: Head is atraumatic, normocephalic. Pupils are equal, round. Sclerae anicteric. Conjunctivae are clear. Mucous membranes of the mouth are moist. Neck is supple. There is no elevated jugular venous pressure. No carotid bruit is heard. CHEST EXAMINATION: Clear reveal expiratory wheezing throughout. No rales or rhonchi. Respirations even and nonlabored. HEART EXAMINATION: Heart regular, positive S1 and S2. No S3. No S4. No clicks, rubs or murmurs. ABDOMEN: Soft, nontender. Bowel sounds are heard. No organomegaly noted. EXTREMITIES: 2+ peripheral pulses with no evidence of peripheral edema and no calf tenderness noted. NEUROLOGIC EXAMINATION: Patient is awake, alert and oriented x3. Results 05/02/20 04:27 Cardiac Enzymes 05/02/20 05/02/20 Range/Units 01:20 04:27 Troponin I <0.012 <0.012 (0.000-0.034) ng/mL Coagulation 05/02/20 Range/Units 01:20 APTT 42.8 H (22.0-30.0) sec CBC 05/02/20 Range/Units 04:27 Plt Count 227 (150-450) k/uL Current Medications Generic Name Dose Route Start Last Admin Trade Name Freq PRN Reason Stop Dose Admin Aspirin 325 mg 05/03/20 09:00 Aspirin 325 Mg Tab PO DAILY TIFFANIE Diphenhydramine HCl 25 mg 05/02/20 01:31 Diphenhydramine 50 Mg/Ml 1 Ml Vial IVP Q6HR PRN Allergy Symptoms Heparin Sodium/Sodium Chloride 250 mls @ 9.525 mls/hr 05/02/20 00:45 05/02/20 02:49 25,000 unit/ Sodium Chloride IV 14 units/kg/hr .Q24H TIFFANIE 11.113 mls/hr Titration Protocol 12 UNITS/KG/HR Morphine Sulfate 4 mg 05/02/20 00:32 05/02/20 05:18 Morphine Sulfate 4 Mg/Ml Syringe IV 4 mg Q4HR PRN Administration Chest Pain Nitroglycerin 0.4 mg 05/02/20 00:32 Nitroglycerin Sl Tabs 0.4 Mg Tab SUBLINGUAL Q5M PRN Chest Pain Intake and Output 05/01/20 05/02/20 05/02/20 22:59 06:59 14:59 Intake Total 491.034 Balance 491.034 Intake: Intake, IV Titration 16.034 Amount Heparin Sod,Pork in 0.45% 16.034 NaCl 25,000 unit In 0.45 % NaCl 1 250ml.bag @ 12 UNITS/KG/HR 9.525 mls/hr IV .Q24H TIFFANIE Rx#: [id number] Oral 475 Other: Voiding Method Toilet # Voids 1 Weight 77.4 kg 05/02/20 04:27 Assessment and Plan Assessment: #1 symptoms of chest discomfort, an acute coronary event has been ruled out, EKG shows no evidence of ischemia, troponins have been negative 2, Lexiscan MPI in January 2020 showed no evidence of stress-induced ischemia #2 history of CAD with prior stent placement to the LAD #3 hypertension #4 hyperlipidemia #5 nicotine dependence #66 sinus syndrome status post pacemaker implantation Plan: From drawbridge operator perspective, and acute coronary event has been ruled out. At this time there is no need for further cardiac workup. He will follow-up as an outpatient with his drawbridge operator. STAFF MIDWIFE note has been reviewed, I agree with a documented findings and plan of care. Patient was seen and examined.
[2020-05-02] MEDS ORDERED: SODIUM CHLORIDE 0.9% 1,000 ML in EMPTY BAG 1 BAG IV ONE (09:54)
[2020-05-02] MEDS ORDERED: ALPRAZolam 0.25 MG TAB PO PRN (09:54)
[2020-05-02] MEDS ORDERED: ALPRAZolam 0.5 MG TAB PO PRN (09:54)
[2020-05-02] MEDS ORDERED: ASPIRIN 325 MG TAB PO STA (09:54)
[2020-05-02] MEDS ORDERED: ATORVASTATIN 80 MG TAB PO STA (09:54)
[2020-05-02] MEDS ORDERED: HYDROmorphone 1 MG/ML 1 ML SYRINGE IM PRN (11:06)
[2020-05-02] MEDS ORDERED: ALBUTEROL NEBULIZED 2.5 MG/3 ML INHALATION PRN (11:07)
[2020-05-02 11:24] LABS: Basophils # (A) 0.1 k/uL (0-0.2); Basophils % (A) 1 %; Eosinophils # (A) 0.2 k/uL (0-0.7); Eosinophils % (A) 2 %; HCT 43.8 % (39.0-53.0); HGB 14.4 gm/dL (13.0-17.5); Lymphocytes # (A) 4.1 k/uL (1.0-4.8); Lymphocytes % (A) 37 %; MCH 31.2 pg (25.0-35.0); MCHC 32.9 g/dL (31.0-37.0); MCV 94.8 fL (80.0-100.0); Mean Platelet Volume 9.6; Monocytes # (A) 0.9 k/uL (0-1.0); Monocytes % (A) 8 %; Neutrophils # (A) 5.7 k/uL (1.3-7.7); Neutrophils % (A) 51 %; Platelet Count 273 k/uL (150-450); RBC 4.62 m/uL (4.30-5.90); RDW 12.8 % (11.5-15.5); WBC 11.3 k/uL (3.8-10.6)
[2020-05-02 11:25] LABS: Albumin 4.6 g/dL (3.5-5.0); Calcium 9.9 mg/dL (8.4-10.2); Potassium 3.8 mmol/L (3.5-5.1); Total Bilirubin 0.6 mg/dL (0.2-1.3); Total Protein 7.2 g/dL (6.3-8.2)
--- NOTE | 2020-05-02 12:13 | CT ---
EXAMINATION TYPE: CT chest wo con DATE OF EXAM: 05/02/2020 COMPARISON: Chest x-ray 02/12/2020 HISTORY: chest pain CT DLP: 470.9 mGycm. Automated Exposure Control for Dose Reduction was Utilized. TECHNIQUE: CT scan of the thorax is performed without IV contrast. FINDINGS: LUNGS: The lungs are grossly clear, there is no concerning parenchymal mass or nodule identified. T here is no pleural effusion or pneumothorax seen. The tracheobronchial tree is patent. Mild emphysem atous change with apical subpleural emphysema noted on the right. There is a vague 4 mm nodule right middle lobe axial image 29 MEDIASTINUM: Lack of IV contrast is noted to limit evaluation for mediastinal and especially hilar ad enopathy. There are no definitive greater than 1 cm hilar or mediastinal lymph nodes. Cardiac device is seen with cardiac leads. OTHER: Stimulator device in the posterior soft tissues of the right flank.. Nonspecific sclerosis of the left second rib may represent a bone. A similar finding seen involving the left first rib. Puncta te 2 mm nonobstructing left renal calculus. IMPRESSION: 1. No acute intrathoracic process. 2. There is a 4 mm nodule right middle lobe axial image 29 could be followed on short-term basis with 12 month follow-up CT scan. There are 3 nonobstructing punctate left renal calculus.
--- NOTE | 2020-05-02 12:28 | HP ---
HISTORY AND PHYSICAL A 39-year-old with lower extremity edema, chest pain, history of hypertension, dyslipidemia, sick sinus syndrome. Permanent pacemaker placement, coronary artery disease status post stenting of the LAD in 2016, hypothyroidism, traumatic brain injury, history of drug abuse, history of current everyday smoker, half pack a day. Discomfort is activity related and occurs randomly. He was admitted to [facility] and transferred here. He has been admitted with chest discomfort at this time. PAST MEDICAL HISTORY: Asthma, coronary artery disease, heart failure, GERD, dyslipidemia, hypertension, sick sinus syndrome, ischemic cardiomyopathy, history of anxiety, bipolar, depression. SOCIAL HISTORY: Current everyday smoker. No drugs. FAMILY HISTORY: Father congestive heart failure and heart transplant. Mother triple bypass. MEDICATIONS: Home medicines: Aspirin 81 mg daily, Lipitor 40 daily, Coreg 25 b.i.d., fenofibrate 67 mg daily, Lasix 20 mg daily. Ranexa 1000 b.i.d., Lopid 600 b.i.d. Prinivil 20 daily, Plavix 75 daily, diltiazem XR 120 daily, fluticasone nasal spray daily, Topamax 50 daily, Imdur 120 ER daily, Singulair 10 daily, nitro sublingual p.r.n., Protonix 40 mg daily. ALLERGIES: To CODEINE, VICODIN, LATEX, MORPHINE, SEROQUEL. PHYSICAL EXAMINATION: Temp 94, pulse 70s, respiratory 18-20, blood pressure 107 to 112 over to 60s to 70s, O2 96-99. No acute distress. Head normocephalic, atraumatic. Chest is clear. CARDIOVASCULAR: S1, S2. Abdomen is soft, nontender. Normal bowel sounds. EXTREMITIES: No peripheral edema. Neurologic: Alert and oriented x3. Troponins negative. EKG shows no ischemia. Negative troponin and no ischemia on stress test on January 2020. IMPRESSION: 1. History of prior LAD stent. 2. Hypertension. 3. Dyslipidemia. 4. Nicotine addiction. 5. Sick sinus syndrome. 6. Status post pacemaker. Possibly discharge home today. Cardiology cleared him. MMODL / IJN: [id number] /
[2020-05-02 12:44] LABS: T4, Free (Free Thyroxine) 1.03 ng/dL (0.78-2.19)
[2020-05-02] MEDS: HYDROmorphone 1 MG/ML 1 ML SYRINGE IVP PRN ×3 (14:41→23:51)
[2020-05-02] MEDS: carvediloL 12.5 MG TAB PO SCH (17:28)
[2020-05-02 20:59] LABS: Hemoglobin A1C 4.6 % (4.0-6.0)
[2020-05-02] MEDS ORDERED: FENOFIBRATE 54 MG TAB PO SCH (21:00)
[2020-05-02] MEDS ORDERED: NON FORMULARY DRUG (Aspirin Ec 81 MG Tablet.Dr) PO SCH (21:00)
[2020-05-02] MEDS ORDERED: TOPIRAMATE 25 MG TAB PO SCH (21:00)
[2020-05-02] MEDS ORDERED: ATORVASTATIN 40 MG TAB PO SCH (21:00)
[2020-05-02] MEDS ORDERED: MONTELUKAST 10 MG TAB PO SCH (21:00)
[2020-05-03] MEDS: HYDROmorphone 1 MG/ML 1 ML SYRINGE IVP PRN ×3 (02:58→09:39)
[2020-05-03] MEDS: carvediloL 12.5 MG TAB PO SCH (06:18)
[2020-05-03] MEDS ORDERED: HEPARIN SODIUM,PORCINE 10,000 UNIT in SODIUM CHLORIDE 0.9% 1,000 ML IRRIGATION PRN (07:00)
[2020-05-03] MEDS ORDERED: HEPARIN SODIUM,PORCINE 2,500 UNIT in SODIUM CHLORIDE 0.9% 250 ML IRRIGATION PRN (07:00)
[2020-05-03] MEDS ORDERED: PANTOPRAZOLE 40 MG TABLET PO SCH (07:30)
[2020-05-03 07:44] LABS: Basophils # (A) 0.1 k/uL (0-0.2); Basophils % (A) 1 %; Eosinophils # (A) 0.2 k/uL (0-0.7); Eosinophils % (A) 3 %; HCT 42.7 % (39.0-53.0); HGB 14.6 gm/dL (13.0-17.5); Lymphocytes # (A) 2.4 k/uL (1.0-4.8); Lymphocytes % (A) 30 %; MCH 31.6 pg (25.0-35.0); MCHC 34.2 g/dL (31.0-37.0); MCV 92.5 fL (80.0-100.0); Mean Platelet Volume 8.4; Monocytes # (A) 0.8 k/uL (0-1.0); Monocytes % (A) 10 %; Neutrophils # (A) 4.4 k/uL (1.3-7.7); Neutrophils % (A) 56 %; Platelet Count 264 k/uL (150-450); RBC 4.61 m/uL (4.30-5.90); RDW 12.2 % (11.5-15.5); WBC 7.9 k/uL (3.8-10.6)
[2020-05-03 08:07] LABS: ALT 37 U/L (4-49); AST 37 U/L (17-59); African American GFR (CKD) >90 (>60 ml/min/1.73 sqM); Albumin 4.8 g/dL (3.5-5.0); Alkaline Phosphatase 48 U/L (38-126); Anion Gap 8 mmol/L; Blood Urea Nitrogen 10 mg/dL (9-20); Calcium 10.1 mg/dL (8.4-10.2); Carbon Dioxide 24 mmol/L (22-30); Chloride 104 mmol/L (98-107); Cholesterol 214 mg/dL (<200); Glucose 98 mg/dL (74-99); HDL Cholesterol 40 mg/dL (40-60); LDL Cholesterol,Calculated 124 mg/dL (0-99); Non-African American GFR(CKD) 83 (>60 ml/min/1.73 sqM); Potassium 3.9 mmol/L (3.5-5.1); Sodium 136 mmol/L (137-145); Total Bilirubin 0.7 mg/dL (0.2-1.3); Total Protein 7.5 g/dL (6.3-8.2); Triglycerides 252 mg/dL (<150)
[2020-05-03 08:18] VITALS: BP 137/76; PULSE 75; RESP 18; TEMP 98.3
[2020-05-03] MEDS: DILTIAZEM CD 120 MG CAP.ER.24H PO SCH (08:38)
[2020-05-03] MEDS: ISOSORBIDE MONONITRATE ER 60 MG TAB.ER.24H PO SCH (08:39)
[2020-05-03] MEDS: RANOLAZINE 500 MG TAB.ER.12H PO SCH (08:39)
[2020-05-03] MEDS ORDERED: ASPIRIN 325 MG TAB PO SCH (09:00)
[2020-05-03] MEDS ORDERED: lisinopriL 20 MG TAB PO SCH (09:00)
[2020-05-03] MEDS ORDERED: ASPIRIN 81 MG PO SCH (09:00)
[2020-05-03] MEDS ORDERED: FENOFIBRATE 160 MG TAB PO SCH (09:00)
[2020-05-03] MEDS ORDERED: CLOPIDOGREL 75 MG TAB PO SCH (09:00)
[2020-05-03] MEDS ORDERED: FLUTICASONE 50MCG/SPRAY NASAL 16GM EA NOSTRIL SCH (09:00)
--- NOTE | 2020-05-05 10:26 | P.EN ---
Pt left AMA before seen
== END 2020-05-03 10:08 | disposition left against medical advice (07) ==
LOC: EC 00:09 → 3SCARD 00:32
PROVIDERS: ADMIT Family Medicine; ATTEND Family Medicine
DX: R07.89 Other chest pain (principal); I25.10 Atherosclerotic heart disease of native coronary artery without angina pectoris; I11.0 Hypertensive heart disease with heart failure; I25.5 Ischemic cardiomyopathy; I49.5 Sick sinus syndrome; E78.5 Hyperlipidemia, unspecified; I50.9 Heart failure, unspecified; F31.9 Bipolar disorder, unspecified; F41.9 Anxiety disorder, unspecified; K58.9 Irritable bowel syndrome, unspecified; J45.909 Unspecified asthma, uncomplicated; K21.9 Gastro-esophageal reflux disease without esophagitis; F17.210 Nicotine dependence, cigarettes, uncomplicated; Z79.02 Long term (current) use of antithrombotics/antiplatelets; Z79.1 Long term (current) use of non-steroidal anti-inflammatories (NSAID); Z79.82 Long term (current) use of aspirin; Z79.899 Other long term (current) drug therapy; Z91.040 Latex allergy status; Z88.5 Allergy status to narcotic agent; Z88.8 Allergy status to other drugs, medicaments and biological substances; Z95.5 Presence of coronary angioplasty implant and graft; Z53.29 Procedure and treatment not carried out because of patient's decision for other reasons; Z95.0 Presence of cardiac pacemaker; Z87.820 Personal history of traumatic brain injury; Z87.898 Personal history of other specified conditions; Z82.49 Family history of ischemic heart disease and other diseases of the circulatory system
CPT/HCPCS: 96376 ×2; 96366; 96372; 96375 ×2; 96365; 99285; 93005; 84439; 84481; 80061; 80053 ×2; 84443; 83690; 84484; 85025 ×2; 85049; 85730; 83036; 71250; G0378 ×2; J2270; J1170 ×2; J1644

== ENCOUNTER 2020-09-16 19:54 | Observation (INO) | payer MEDICARE, OTHER ==
[2020-09-16] MEDS ORDERED: NITROGLYCERIN SL TABS 0.4 MG TAB SUBLINGUAL STA (20:17)
[2020-09-16] MEDS ORDERED: ASPIRIN 81 MG PO STA (20:17)
--- NOTE | 2020-09-16 20:32 | ED ---
Chest Pain HPI - General Chief Complaint: Chest Pain Stated Complaint: Chest pain Time Seen by Provider: 09/16/20 20:04 Source: patient Mode of arrival: wheelchair Limitations: no limitations - History of Present Illness Initial Comments: Is a 40-year-old male with a history of CAD status post stent placement, pacemaker placement, heart failure who presents emergent department for chest pain. The patient states it started about one hour ago. He describes as a sharp sensation that radiates to his left shoulder and left neck. He states he has a little bit of discomfort in his back as well. He has a little bit of associated lightheadedness with this however no diaphoresis, nausea, or vomiting. Denies any shortness of breath and no lower [place] swelling. Patient states he did not take anything at home including aspirin or nitro. He states typically he would take nitroglycerin. The patient does get chest pain occasionally however states that usually does not radiate. He was denies any other acute complaints. He typically follows with a finisher screw[facility] out of [place]. - Related Data Home Medications Medication Instructions Recorded Confirmed Aspirin EC [Ecotrin Low Dose] 81 mg PO HS 10/27/15 09/16/20 Furosemide [Lasix] 20 mg PO DAILY 10/27/15 09/16/20 lisinopriL [Prinivil] 20 mg PO DAILY 11/28/15 09/16/20 Clopidogrel [Plavix] 75 mg PO DAILY 02/22/16 09/16/20 Diltiazem HCl [Diltiazem 24Hr ER] 120 mg PO DAILY 02/22/16 09/16/20 Fluticasone Nasal [place] [Flonase 2 spr EA NOSTRIL DAILY 04/11/18 09/16/20 Nasal [place]] Albuterol Sulfate [Ventolin HFA] 2 puff INHALATION RT-Q6H PRN 02/12/20 09/16/20 Isosorbide Mononitrate ER [Imdur] 120 mg PO DAILY 02/12/20 09/16/20 Montelukast [Singulair] 10 mg PO HS 02/12/20 09/16/20 Nitroglycerin Sl Tabs [Nitrostat] 0.4 mg SL Q5M PRN 02/12/20 09/16/20 Pantoprazole Sodium [Protonix] 40 mg PO DAILY 02/12/20 09/16/20 Atorvastatin [Lipitor] 80 mg PO HS 09/16/20 09/16/20 Budesonide/Formoterol Fumarate 2 puff INHALATION RT-BID 09/16/20 09/16/20 [Symbicort 160-4.5 Mcg Inhaler] Carvedilol [Coreg] 25 mg PO BID 09/16/20 09/16/20 lamoTRIgine [LaMICtal] 50 mg PO HS 09/16/20 09/16/20 Allergies Allergy/AdvReac Type Severity Reaction Status Date / Time codeine Allergy Itching Verified 09/16/20 21:49 hydrocodone bitartrate Allergy Itching Verified 09/16/20 21:49 [From Vicodin] latex Allergy Rash/Hives Verified 09/16/20 21:49 morphine Allergy Anaphylaxis Verified 09/16/20 21:58 quetiapine fumarate AdvReac Agitation/Violent Verified 09/16/20 21:49 [From Seroquel] Behavior Review of Systems ROS Statement: Those systems with pertinent positive or pertinent negative responses have been documented in the HPI. ROS Other: All systems not noted in ROS Statement are negative. EKG Findings - EKG Comments: EKG Findings:: EKG showing normal sinus rhythm with a rate of 81. There is no abnormal ST 7 changes or T wave keith. QTC is 376. Other intervals normal. No ectopy. Past Medical History Past Medical History: Asthma, Coronary Artery Disease (CAD), Heart Failure, GERD/Reflux, Hyperlipidemia, Hypertension Additional Past Medical History / Comment(s): Ischemic Cardiomyopathy, sick sinus syndrome status post permanent pacemaker implantation, IBS History of Any Multi-Drug Resistant Organisms: None Reported Past Surgical History: Heart Catheterization With Stent, Pacemaker Additional Past Surgical History / Comment(s): surgery on elbow. sinus surgery Past Anesthesia/Blood Transfusion Reactions: No Reported Reaction Date of Last Stent Placement:: 09/2014 Type of Cardiac Device: Permanent Pacemaker Device Placement Date:: 2011 Past Psychological History: Anxiety, Bipolar, Depression Smoking Status: Current every day smoker Past Alcohol Use History: None Reported Past Drug Use History: None Reported - Past Family History Father Family Medical History: Congestive Heart Failure (CHF) Additional Family Medical History / Comment(s): Father required Heart Transplant in his 40s. Mother in her 50s she required CABG Mother Additional Family Medical History / Comment(s): Triple bypass General Exam - General Exam Comments Initial Comments: Constitutional: Awake alert Appears comfortable Head: Normocephalic atraumatic Eyes: no conjunctival injection No scleral icterus EOMI Neck: No JVD Supple Heart: Regular rate rhythm normal S1-S2 no murmurs Lungs: Clear to auscultation bilaterally No wheezing No rales Abdomen: Soft nondistended nontender Extremities: Non edematous DP pulses intact Radial pulses intact Neuro: A&Ox3 No focal neurologic deficits Psych: Appropriate mood and affect Limitations: no limitations Course Vital Signs 09/16/20 19:59 Temperature 98.8 F Pulse Rate 90 Respiratory 18 Rate Blood Pressure 143/71 O2 Sat by Pulse 97 Oximetry Chest Pain MDM - MDM Is a 40-year-old male who presents emergency department for chest pain. The patient does have significant cardiac disease. He is given aspirin and nitroglycerin up front however he stated that he was continuing to have pain. Morphine was written for however the patient states he goes into anaphylaxis with morphine so Dilaudid was ordered. The patient has been here multiple times for chest pain in the past and last time was in April. However due to his significant risk factors the patient would benefit from observation the hospital. I spoke with Dr. Do who agrees with plan of care at this time. Disposition Clinical Impression: Chest pain Disposition: ADMITTED IP TO THIS HOSP Condition: Stable
[2020-09-16 20:40] LABS: Basophils % (A) 0 %; Eosinophils # (A) 0.2 k/uL (0-0.7); Eosinophils % (A) 2 %; HCT 50.3 % (39.0-53.0); HGB 16.4 gm/dL (13.0-17.5); Lymphocytes # (A) 2.8 k/uL (1.0-4.8); Lymphocytes % (A) 24 %; MCH 29.7 pg (25.0-35.0); MCHC 32.5 g/dL (31.0-37.0); MCV 91.1 fL (80.0-100.0); Mean Platelet Volume 9.6; Monocytes # (A) 0.7 k/uL (0-1.0); Monocytes % (A) 6 %; Neutrophils # (A) 7.9 k/uL (1.3-7.7); Neutrophils % (A) 67 %; Platelet Count 228 k/uL (150-450); RBC 5.53 m/uL (4.30-5.90); RDW 12.7 % (11.5-15.5); WBC 11.8 k/uL (3.8-10.6)
--- NOTE | 2020-09-16 20:46 | XR ---
EXAMINATION: XR chest 2V DATE AND TIME: 09/16/2020 8:41 PM CLINICAL INDICATION: PHH; Chest Pain TECHNIQUE: Departmental protocol COMPARISON: 02/12/2020 FINDINGS: The lungs are clear. The pleural spaces are negative. AV pacemaker appears intact. The cardiac silhouette is not enlarged. The remainder of the mediastinal silhouette is unremarkable. The skeletal structures and soft tissues are negative for acute findings. IMPRESSION: No acute radiographic process.
[2020-09-16 20:50] LABS: ALT 16 U/L (4-49); AST 31 U/L (17-59); African American GFR (CKD) >90 (>60 ml/min/1.73 sqM); Albumin 4.6 g/dL (3.5-5.0); Alkaline Phosphatase 92 U/L (38-126); Anion Gap 14 mmol/L; Blood Urea Nitrogen 5 mg/dL (9-20); Calcium 9.7 mg/dL (8.4-10.2); Carbon Dioxide 18 mmol/L (22-30); Chloride 108 mmol/L (98-107); Glucose 119 mg/dL (74-99); INR 0.9 (<1.2); Non-African American GFR(CKD) >90 (>60 ml/min/1.73 sqM); Prothrombin Time 9.7 sec (9.0-12.0); Sodium 140 mmol/L (137-145); Total Bilirubin 0.4 mg/dL (0.2-1.3)
[2020-09-16 21:10] LABS: Potassium 3.8 mmol/L (3.5-5.1)
[2020-09-16] MEDS ORDERED: MORPHINE SULFATE 4 MG/ML SYRINGE IVP STA (21:41)
[2020-09-16] MEDS ORDERED: NITROGLYCERIN SL TABS 0.4 MG TAB SUBLINGUAL PRN (22:01)
[2020-09-16] MEDS ORDERED: HYDROmorphone 0.5 MG/0.5 ML SYRINGE IVP STA (22:01)
[2020-09-17] MEDS ORDERED: ALBUTEROL NEBULIZED 2.5 MG/3 ML INHALATION PRN (00:49)
--- NOTE | 2020-09-17 01:04 | P.HPIM ---
History of Present Illness H&P Date: 09/16/20 Chief Complaint: Chest pain 40-year-old male with coronary artery history disease, status post stent, sick sinus syndrome status post pacemaker Patient comes in after experiencing chest pain for one hour described it as left-sided chest pain radiating to the neck 9 out of 10 in severity feels like dull heavy pain denies any associated shortness of breath nausea or vomiting denies any associated profuse sweating however he was feeling lightheaded took some nitro as a home and did not help and decided come to the hospital. He claims that he occasionally gets random chest pains not specifically precipitated by any recognizable factors however these pains usually respond to nitro and goes away this time pain persisted and was radiating to the neck for which he got him concerned and decided come for evaluation. 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 In the ED initial workup showed EKG normal sinus rhythm, chest x-ray unremarkable no acute pathology, troponin was negative Echocardiogram from January 2020 reported normal left ventricular ejection fraction Review of Systems Pertinent positives as noted in HPI. All other systems were reviewed and are negative Past Medical History Past Medical History: Asthma, Coronary Artery Disease (CAD), Heart Failure, GE RD/Reflux, Hyperlipidemia, Hypertension Additional Past Medical History / Comment(s): Ischemic Cardiomyopathy, sick sinus syndrome status post permanent pacemaker implantation, IBS History of Any Multi-Drug Resistant Organisms: None Reported Past Surgical History: Heart Catheterization With Stent, Pacemaker Additional Past Surgical History / Comment(s): surgery on elbow. sinus surgery Past Anesthesia/Blood Transfusion Reactions: No Reported Reaction Date of Last Stent Placement:: 09/2014 Type of Cardiac Device: Permanent Pacemaker Device Placement Date:: 2011 Past Psychological History: Anxiety, Bipolar, Depression Smoking Status: Current every day smoker Past Alcohol Use History: None Reported Past Drug Use History: None Reported - Past Family History Father Family Medical History: Congestive Heart Failure (CHF) Additional Family Medical History / Comment(s): Father required Heart Transplant in his 40s. Mother in her 50s she required CABG Mother Additional Family Medical History / Comment(s): Triple bypass Medications and Allergies Home Medications Medication Instructions Recorded Confirmed Type Aspirin EC [Ecotrin Low Dose] 81 mg PO HS 10/27/15 09/16/20 History Furosemide [Lasix] 20 mg PO DAILY 10/27/15 09/16/20 History lisinopriL [Prinivil] 20 mg PO DAILY 11/28/15 09/16/20 History Clopidogrel [Plavix] 75 mg PO DAILY 02/22/16 09/16/20 History Diltiazem HCl [Diltiazem 24Hr ER] 120 mg PO DAILY 02/22/16 09/16/20 History Fluticasone Nasal [place] [Flonase 2 spr EA NOSTRIL DAILY 04/11/18 09/16/20 History Nasal [place]] Albuterol Sulfate [Ventolin HFA] 2 puff INHALATION RT-Q6H PRN 02/12/20 09/16/20 History Isosorbide Mononitrate ER [Imdur] 120 mg PO DAILY 02/12/20 09/16/20 History Montelukast [Singulair] 10 mg PO HS 02/12/20 09/16/20 History Nitroglycerin Sl Tabs [Nitrostat] 0.4 mg SL Q5M PRN 02/12/20 09/16/20 History Pantoprazole Sodium [Protonix] 40 mg PO DAILY 02/12/20 09/16/20 History Atorvastatin [Lipitor] 80 mg PO HS 09/16/20 09/16/20 History Budesonide/Formoterol Fumarate 2 puff INHALATION RT-BID 09/16/20 09/16/20 History [Symbicort 160-4.5 Mcg Inhaler] Carvedilol [Coreg] 25 mg PO BID 09/16/20 09/16/20 History lamoTRIgine [LaMICtal] 50 mg PO HS 09/16/20 09/16/20 History Allergies Allergy/AdvReac Type Severity Reaction Status Date / Time codeine Allergy Itching Verified 05/27/21 21:49 hydrocodone bitartrate Allergy Itching Verified 09/16/20 21:49 [From Vicodin] latex Allergy Rash/Hives Verified 09/16/20 21:49 morphine Allergy Anaphylaxis Verified 09/16/20 21:58 quetiapine fumarate AdvReac Agitation/Violent Verified 09/16/20 21:49 [From Seroquel] Behavior Physical Exam Vitals: Vital Signs Temp Pulse Resp BP Pulse Ox 09/16/20 19:59 98.8 F 90 18 143/71 97 Intake and Output 09/16/20 09/16/20 09/16/20 06:59 14:59 22:59 Other: Weight 79.379 kg Constitutional: No acute distress, conversant, pleasant Eyes: Anicteric sclerae, moist conjunctiva, Pupils equal round reactive to light ENMT: NC/AT Oropharynx clear, no erythema, or exudates Neck: Supple, FROM, no masses, or JVD No carotid bruits No thyromegaly Lungs: Clear to auscultation Clear to percussion Normal respiratory effort, no accessory muscle use Cardiovascular: Heart regular in rate and rhythm, No murmurs, gallops, or rubs No peripheral edema Abdominal: Soft Nontender, no guarding, rebound or rigidity Abdomen moving with respiration Normoactive bowel sounds No hepatomegaly, No splenomegaly No palpable mass No abdominal wall hernia noted Skin: Normal temperature, tone, texture, turgor No induration No subcutaneous nodules No rash, lesions No ulcers Extremities: No digital cyanosis No clubbing Pedal pulses intact and symmetrical Radial pulses intact and symmetrical No calf tenderness Psychiatric: Alert and oriented to person, place and time Appropriate affect fair judgement Neuro Muscles Strength 5/5 in all 4 extremities Sensation to light touch grossly present throughout Cranial nerves II-XII grossly intact No focal sensory deficits Lymphatics: no palpable cervical or supraclavicular , or inguinal lymph nodes Results CBC & Chem 7: 09/16/20 20:29 09/16/20 20:29 Labs: Abnormal Lab Results - Last 24 Hours (Table) 09/16/20 09/16/20 Range/Units 20:29 20:29 WBC 11.8 H (3.8-10.6) k/uL Neutrophils # 7.9 H (1.3-7.7) k/uL Chloride 108 H (98-107) mmol/L Carbon Dioxide 18 L (22-30) mmol/L BUN 5 L (9-20) mg/dL Creatinine 0.62 L (0.66-1.25) mg/dL Glucose 119 H (74-99) mg/dL Assessment and Plan Assessment: Atypical chest pain rule out acute coronary syndrome 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 Trend troponins Cardiology evaluation Nitro and aspirin and statin Pain control with opiates Resume cardiac meds Chronic conditions History of traumatic brain injury Bipolar Sick sinus syndrome status post pacemaker History of coronary artery disease status post stents Hypertension hyperlipidemia Resume home medication Patient reports having an appointment in the morning to read his thyroid uptake study which is scheduled at 8:45 in the morning CODE STATUS: Full code DVT prophylaxis: Heparin subcu 3 times a day Discussed with: Patient, ER, RN Anticipated length of stay less than [address]: Home A total of 65 minutes was spent on the care of this complex patient more than 50% of the time was spent in counseling and care coordination.
[2020-09-17] MEDS ORDERED: HYDROmorphone 1 MG/ML 1 ML SYRINGE IVP ONE (01:05)
[2020-09-17 02:49] VITALS: TEMP 97.7
[2020-09-17] MEDS ORDERED: carvediloL 12.5 MG TAB PO SCH (07:30)
[2020-09-17 07:52] VITALS: BP 138/88; PULSE 78; RESP 18
[2020-09-17] MEDS ORDERED: SYMBICORT 160-4.5 MCG INHALER INHALATION SCH (08:00)
[2020-09-17] MEDS ORDERED: HEPARIN SODIUM,PORCINE/PF 5,000 UNIT/0.5 ML SYRINGE SQ SCH (08:00)
[2020-09-17] MEDS ORDERED: PANTOPRAZOLE 40 MG TABLET PO SCH (09:00)
[2020-09-17] MEDS ORDERED: DILTIAZEM CD 120 MG CAP.ER.24H PO SCH (09:00)
[2020-09-17] MEDS ORDERED: FUROSEMIDE 20 MG TAB PO SCH (09:00)
[2020-09-17] MEDS ORDERED: lisinopriL 20 MG TAB PO SCH (09:00)
[2020-09-17] MEDS ORDERED: ASPIRIN 325 MG TAB PO SCH (09:00)
[2020-09-17] MEDS ORDERED: CLOPIDOGREL 75 MG TAB PO SCH (09:00)
[2020-09-17] MEDS ORDERED: ISOSORBIDE MONONITRATE ER 60 MG TAB.ER.24H PO SCH (09:00)
[2020-09-17 09:57] LABS: Basophils # (A) 0.02 X 10*3/uL (0.00-0.10); Basophils % (A) 0.2 %; Eosinophils # (A) 0.09 X 10*3/uL (0.04-0.35); HGB 15.7 g/dL (13.0-17.0); Lymphocytes # (A) 3.27 X 10*3/uL (0.90-5.00); Lymphocytes % (A) 35.3 %; MCH 30.2 pg (27.0-32.0); MCHC 32.7 g/dL (32.0-37.0); MCV 92.3 fL (80.0-97.0); Mean Platelet Volume 11.9 fL (9.5-12.2); Monocytes # (A) 0.72 X 10*3/uL (0.20-1.00); Monocytes % (A) 7.8 %; Neutrophils # (A) 5.11 X 10*3/uL (1.80-7.70); Neutrophils % (A) 55.2 %; Platelet Count 201 X 10*3/uL (140-440); RDW 12.3 % (11.5-14.5); WBC 9.26 X 10*3/uL (4.50-10.00)
--- NOTE | 2020-09-17 11:35 | P.CRDCN ---
History of Present Illness History of present illness: This is Dr. Nobles dictating a consult on this patient The patient was interviewed and examined IMPRESSION / ASSESSMENT: Noncardiac chest pain Known coronary artery disease status post stenting 10 years back, [facility] Permanent pacemaker implanted [facility] PLAN: 2-D echo and Doppler study There is no evidence for acute myocardial infarction The pain is musculoskeletal. This is not angina Known coronary artery disease status post coronary stenting 10 years back and status post bone pacemaker From a cardiac standpoint I will sign off at this point and refer him back to his primary marketing compliance manager at [place] I see any convincing evidence for a further cardiac workup as an inpatient. Further cardiac workup per his outpatient marketing compliance manager HPI Chest discomfort upper thoracic back and in the left pectoral area/neck and deltoid area Constant discomfort since yesterday Chest discomfort ongoing at this time Denies any fever chills sinusitis UTI skin infection ROS: No fever chills or rigors, no cough, phlegm or expectoration, no nausea, vomiting or diarrhea, no hematuria, dysuria, no musculoskeletal complaints, no strokes or seizures, no skin lesions. EXAMINATION: Afebrile 98.4F, pulse rate in the 60s and 70s, normal respirations Blood pressure 138/88 mmHg Heart sounds S1 and S2 are normal Breath sounds are clear no rhonchi no crackles Abdomen soft nontender Next images are warm no edema REVIEW OF LABS, ECG & MEDICAL DATA White count 11.8 yesterday, repeat white count is normal Sodium 140 potassium 3.8 BUN 5 creatinine 0.62 3 troponins are normal AST and ALT are normal NT proBNP 85 Twelve-lead EKG shows sinus rhythm narrow QRS normal WA interval and normal ST segments Past Medical History Past Medical History: Asthma, Coronary Artery Disease (CAD), Heart Failure, GERD/Reflux, Hyperlipidemia, Hypertension Additional Past Medical History / Comment(s): Ischemic Cardiomyopathy, sick sinus syndrome status post permanent pacemaker implantation, IBS History of Any Multi-Drug Resistant Organisms: None Reported Past Surgical History: Heart Catheterization With Stent, Pacemaker Additional Past Surgical History / Comment(s): surgery on elbow. sinus surgery Past Anesthesia/Blood Transfusion Reactions: No Reported Reaction Date of Last Stent Placement:: 09/2014 Type of Cardiac Device: Permanent Pacemaker Device Placement Date:: 2011 Past Psychological History: Anxiety, Bipolar, Depression Smoking Status: Current every day smoker Past Alcohol Use History: None Reported Past Drug Use History: None Reported - Past Family History Father Family Medical History: Congestive Heart Failure (CHF) Additional Family Medical History / Comment(s): Father required Heart Transplant in his 40s. Mother in her 50s she required CABG Mother Family Medical History: Coronary Artery Disease (CAD) Additional Family Medical History / Comment(s): Triple bypass Medications and Allergies Home Medications Medication Instructions Recorded Confirmed Type Aspirin EC [Ecotrin Low Dose] 81 mg PO HS 10/27/15 09/16/20 History Furosemide [Lasix] 20 mg PO DAILY 10/27/15 09/16/20 History lisinopriL [Prinivil] 20 mg PO DAILY 11/28/15 09/16/20 History Clopidogrel [Plavix] 75 mg PO DAILY 02/22/16 09/16/20 History Diltiazem HCl [Diltiazem 24Hr ER] 120 mg PO DAILY 02/22/16 09/16/20 History Fluticasone Nasal [place] [Flonase 2 spr EA NOSTRIL DAILY 04/11/18 09/16/20 History Nasal [place]] Albuterol Sulfate [Ventolin HFA] 2 puff INHALATION RT-Q6H PRN 02/12/20 09/16/20 History Isosorbide Mononitrate ER [Imdur] 120 mg PO DAILY 02/12/20 09/16/20 History Montelukast [Singulair] 10 mg PO HS 02/12/20 09/16/20 History Nitroglycerin Sl Tabs [Nitrostat] 0.4 mg SL Q5M PRN 02/12/20 09/16/20 History Pantoprazole Sodium [Protonix] 40 mg PO DAILY 02/12/20 09/16/20 History Atorvastatin [Lipitor] 80 mg PO HS 09/16/20 09/16/20 History Budesonide/Formoterol Fumarate 2 puff INHALATION RT-BID 09/16/20 09/16/20 History [Symbicort 160-4.5 Mcg Inhaler] Carvedilol [Coreg] 25 mg PO BID 09/16/20 09/16/20 History lamoTRIgine [LaMICtal] 50 mg PO HS 09/16/20 09/16/20 History Allergies Allergy/AdvReac Type Severity Reaction Status Date / Time codeine Allergy Itching Verified 09/16/20 21:49 hydrocodone bitartrate Allergy Itching Verified 09/16/20 21:49 [From Vicodin] latex Allergy Rash/Hives Verified 09/16/20 21:49 morphine Allergy Anaphylaxis Verified 09/16/20 21:58 quetiapine fumarate AdvReac Agitation/Violent Verified 09/16/20 21:49 [From Seroquel] Behavior Physical Exam Vitals: Vital Signs Temp Pulse Pulse Resp BP BP Pulse Ox 09/17/20 07:00 97.7 F 78 18 138/88 97 09/17/20 01:40 97.7 F 64 22 137/82 96 09/17/20 01:17 60 18 09/16/20 23:25 98.4 F 60 18 146/84 96 09/16/20 22:01 96 09/16/20 19:59 98.8 F 90 18 143/71 97 Intake and Output 09/16/20 09/17/20 09/17/20 22:59 06:59 14:59 Other: Voiding Method Toilet # Voids 2 Weight 79.379 kg 79.379 kg Results 09/17/20 04:38 09/16/20 20:29 Cardiac Enzymes 09/16/20 09/16/20 09/16/20 Range/Units 20:29 20:29 22:07 AST 31 (17-59) U/L Troponin I <0.012 <0.012 (0.000-0.034) ng/mL 09/17/20 Range/Units 01:17 AST (17-59) U/L Troponin I <0.012 (0.000-0.034) ng/mL Coagulation 09/16/20 Range/Units 20:29 PT 9.7 (9.0-12.0) sec APTT 25.0 (22.0-30.0) sec CBC 09/16/20 09/17/20 Range/Units 20:29 04:38 WBC 11.8 H 9.26 (3.8-10.6) k/uL RBC 5.53 5.20 (4.30-5.90) m/uL Hgb 16.4 15.7 (13.0-17.5) gm/dL Hct 50.3 48.0 (39.0-53.0) % Plt Count 228 201 (150-450) k/uL Comprehensive Metabolic Panel 09/16/20 Range/Units 20:29 Sodium 140 (137-145) mmol/L Potassium 3.8 (3.5-5.1) mmol/L Chloride 108 H (98-107) mmol/L Carbon Dioxide 18 L (22-30) mmol/L BUN 5 L (9-20) mg/dL Creatinine 0.62 L (0.66-1.25) mg/dL Glucose 119 H (74-99) mg/dL Calcium 9.7 (8.4-10.2) mg/dL AST 31 (17-59) U/L ALT 16 (4-49) U/L Alkaline Phosphatase 92 (38-126) U/L Total Protein 7.0 (6.3-8.2) g/dL Albumin 4.6 (3.5-5.0) g/dL Intake and Output 09/16/20 09/17/20 09/17/20 22:59 06:59 14:59 Other: Voiding Method Toilet # Voids 2 Weight 79.379 kg 79.379 kg 09/17/20 04:38 09/16/20 20:29
[2020-09-17 11:57] LABS: African American GFR (CKD) 127.7 (60.0-200.0); Anion Gap 8.2 mmol/L (4.00-12.00); BUN/Creat Ratio 8.75 Ratio (12.00-20.00); Calcium 9.1 mg/dL (8.7-10.3); Carbon Dioxide 23.8 mmol/L (21.6-31.8); Chol/HDL Ratio 4.76; Non-African American GFR(CKD) 110.2 (60.0-200.0); Potassium 3.5 mmol/L (3.5-5.5)
--- NOTE | 2020-09-17 11:57 | P.DS ---
Providers Date of admission: 09/16/20 22:03 Expected date of discharge: 09/17/20 Attending physician: Migdalia King MD Consults: 09/16/20 22:01 Consult Physician Urgent Consulting Provider: [facility] Consult Reason/Comments: chest pain Do you want consulting provider notified?: Yes, Notify in am Primary care physician: Stated None Hospital Course: Patient left the hospital AGAINST MEDICAL ADVICE prior to my evaluation Patient Condition at Discharge: Poor Plan - Discharge Summary Discharge Rx Participant: No New Discharge Prescriptions: No Action Furosemide [Lasix] 20 mg PO DAILY Aspirin EC [Ecotrin Low Dose] 81 mg PO HS lisinopriL [Prinivil] 20 mg PO DAILY Clopidogrel [Plavix] 75 mg PO DAILY Diltiazem HCl [Diltiazem 24Hr ER] 120 mg PO DAILY Fluticasone Nasal [place] [Flonase Nasal [place]] 2 spr EA NOSTRIL DAILY Isosorbide Mononitrate ER [Imdur] 120 mg PO DAILY Nitroglycerin Sl Tabs [Nitrostat] 0.4 mg SL Q5M PRN PRN Reason: Chest Pain Montelukast [Singulair] 10 mg PO HS Albuterol Sulfate [Ventolin HFA] 2 puff INHALATION RT-Q6H PRN PRN Reason: Shortness Of Breath Pantoprazole Sodium [Protonix] 40 mg PO DAILY Atorvastatin [Lipitor] 80 mg PO HS Carvedilol [Coreg] 25 mg PO BID Budesonide/Formoterol Fumarate [Symbicort 160-4.5 Mcg Inhaler] 2 puff INHALATION RT-BID lamoTRIgine [LaMICtal] 50 mg PO HS Discharge Medication List Aspirin EC [Ecotrin Low Dose] 81 mg PO HS 10/27/15 [History] Furosemide [Lasix] 20 mg PO DAILY 10/27/15 [History] lisinopriL [Prinivil] 20 mg PO DAILY 11/28/15 [History] Clopidogrel [Plavix] 75 mg PO DAILY 02/22/16 [History] Diltiazem HCl [Diltiazem 24Hr ER] 120 mg PO DAILY 02/22/16 [History] Fluticasone Nasal [place] [Flonase Nasal [place]] 2 spr EA NOSTRIL DAILY 04/11/18 [History] Albuterol Sulfate [Ventolin HFA] 2 puff INHALATION RT-Q6H PRN 10/22/20 [History] Isosorbide Mononitrate ER [Imdur] 120 mg PO DAILY 02/12/20 [History] Montelukast [Singulair] 10 mg PO HS 02/12/20 [History] Nitroglycerin Sl Tabs [Nitrostat] 0.4 mg SL Q5M PRN 02/12/20 [History] Pantoprazole Sodium [Protonix] 40 mg PO DAILY 02/12/20 [History] Atorvastatin [Lipitor] 80 mg PO HS 09/16/20 [History] Budesonide/Formoterol Fumarate [Symbicort 160-4.5 Mcg Inhaler] 2 puff INHALATION RT-BID 09/16/20 [History] Carvedilol [Coreg] 25 mg PO BID 09/16/20 [History] lamoTRIgine [LaMICtal] 50 mg PO HS 09/16/20 [History] Follow up Appointment(s)/Referral(s): None,Stated [Primary Care Provider] - 1-2 days Discharge Disposition: Left Against Medical Advice
[2020-09-17] MEDS ORDERED: ASPIRIN 81 MG PO SCH (21:00)
[2020-09-17] MEDS ORDERED: ATORVASTATIN 80 MG TAB PO SCH (21:00)
[2020-09-17] MEDS ORDERED: MONTELUKAST 10 MG TAB PO SCH (21:00)
[2020-09-17] MEDS ORDERED: lamoTRIgine 25 MG TAB PO SCH (21:00)
== END 2020-09-17 10:25 | disposition left against medical advice (07) ==
LOC: EC 19:54 → 6NMEDSUR 22:03
PROVIDERS: ADMIT Internal Medicine; ATTEND Internal Medicine
DX: R07.89 Other chest pain (principal); R42 Dizziness and giddiness; M54.6 Pain in thoracic spine; M54.2 Cervicalgia; Z53.29 Procedure and treatment not carried out because of patient's decision for other reasons; I25.10 Atherosclerotic heart disease of native coronary artery without angina pectoris; Z95.5 Presence of coronary angioplasty implant and graft; I49.5 Sick sinus syndrome; Z95.0 Presence of cardiac pacemaker; J45.909 Unspecified asthma, uncomplicated; I11.0 Hypertensive heart disease with heart failure; I50.9 Heart failure, unspecified; K21.9 Gastro-esophageal reflux disease without esophagitis; E78.5 Hyperlipidemia, unspecified; I25.5 Ischemic cardiomyopathy; K58.9 Irritable bowel syndrome, unspecified; F31.9 Bipolar disorder, unspecified; F41.9 Anxiety disorder, unspecified; F17.200 Nicotine dependence, unspecified, uncomplicated; Z20.822 Contact with and (suspected) exposure to COVID-19; Z79.899 Other long term (current) drug therapy; Z79.02 Long term (current) use of antithrombotics/antiplatelets; Z79.51 Long term (current) use of inhaled steroids; Z79.82 Long term (current) use of aspirin; Z88.5 Allergy status to narcotic agent; Z88.8 Allergy status to other drugs, medicaments and biological substances; Z91.040 Latex allergy status; Z87.820 Personal history of traumatic brain injury; Z82.49 Family history of ischemic heart disease and other diseases of the circulatory system
CPT/HCPCS: 96376; 96372; 96374; 99285; 36415; 94640; 93005; 83880; 80061; 80053; 80048; 83735; 84484 ×2; 85025 ×2; 85610; 85730; 87635; 71046; G0378 ×2; J1170 ×2; J1644

== ENCOUNTER → 2020-09-16 | Outpatient (CLI) | payer MEDICARE, OTHER ==
--- NOTE | 2020-09-17 13:24 | NM ---
EXAMINATION TYPE: NM thyroid image w uptake DATE OF EXAM: 09/17/2020 COMPARISON: NONE HISTORY: Hyperthyroidism E05.90 TECHNIQUE: Thyroid iodine uptake is calculated and images performed after the oral administration of 315 uCi 1-123 Capsule. Pt failed to return for 24 hour uptake; 4 hour uptake only. FINDINGS: There is normal distribution of activity throughout the gland. The 4 hour iodine uptake is calculated at 5.7% (normal range 8-14%). The 24-hour iodine uptake is calculated at not applicable% (normal range 15-35%). All no hot or cold nodules seen. IMPRESSION: Diminished 4 hour uptake. Patient did not return for the 24-hour uptake therefore examina tion is limited.
== END | disposition home or self-care (01) ==
LOC: RADNMMAIN 08:44
PROVIDERS: ATTEND Pediatrics
DX: E05.90 Thyrotoxicosis, unspecified without thyrotoxic crisis or storm (principal)
CPT/HCPCS: 78014; A9516

== ENCOUNTER → 2020-10-18 | Outpatient (CLI) | payer MEDICARE, OTHER ==
--- NOTE | 2020-10-18 12:04 | CT ---
EXAMINATION TYPE: CT cervical spine wo con DATE OF EXAM: 10/18/2020 COMPARISON: 04/25/2016 HISTORY: 40-year-old male M79.601, with right arm pain and numbness TECHNIQUE: Contiguous axial scanning of the cervical spine without IV contrast. Coronal and sagittal reconstructions performed. CT DLP: 631.4 mGycm Automated exposure control for dose reduction was used. FINDINGS: Asymmetric soft tissue participation in the left vallecular space axial image 43 could be due to posi tioning. No cranial cervical junction abnormality, predental space widening, or prevertebral soft tissue swell ing. Mild degenerative change at the C1 dens articulation. There are mild degenerative disc disease. Degenerative trace grade 1 anterolisthesis C4-C5 appears new from prior. Hypertrophic facet arthropathy towards the right. Spinal stimulator array center along the posterior cervical spinal canal from C3 through C5 levels. T he stimulator lead enters the T1-T2 interlaminar space. At C3-C4, mild right neuroforaminal stenosis. At C4-C5, mild right neural foraminal stenosis. At C5-C6, mild to moderate right and mild left neural foraminal stenosis. At C6-C7, mild bilateral neural foraminal stenosis. IMPRESSION: 1. MILD MULTILEVEL DEGENERATIVE DISC DISEASE. FACET ARTHROPATHY, RIGHT GREATER THAN LEFT. 2. 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 3. VARIABLE MILD NEURAL FORAMINAL STENOSES OUTLINED ABOVE, GREATER TOWARDS THE RIGHT AND MORE MILD TO MODERATE ON THE RIGHT AT C5-C6. 4. PARTIAL EFFACEMENT OF THE LEFT VALLECULAR SPACE, AXIAL IMAGE 43, SUSPECTED TO BE DUE TO POSITIONIN G. CORRELATE WITH DIRECT INSPECTION TO EXCLUDE A MUCOSAL LESION HERE. 5. SPINAL STIMULATOR ARRAY CENTERED ALONG THE SPINAL CANAL.
== END | disposition home or self-care (01) ==
LOC: RADCTMAIN 07:38
PROVIDERS: ATTEND Psychiatry & Neurology Neurology
DX: M50.30 Other cervical disc degeneration, unspecified cervical region (principal); M47.812 Spondylosis without myelopathy or radiculopathy, cervical region; M43.12 Spondylolisthesis, cervical region; M48.02 Spinal stenosis, cervical region
CPT/HCPCS: 72125

== ENCOUNTER 2021-06-27 04:42 | Emergency (ER) | payer MEDICARE, OTHER ==
[2021-06-27] MEDS ORDERED: SODIUM CHLORIDE 0.9% 1,000 ML IV STA (04:46)
[2021-06-27] MEDS ORDERED: DIPH,PERTUS(ACELL)TETVAC-LF 0.5 ML VIAL IM ONE (04:48)
[2021-06-27] MEDS ORDERED: LORazepam 2 MG/ML INJ IV STA (04:48)
[2021-06-27] MEDS ORDERED: HYDROmorphone 1 MG/ML 1 ML SYRINGE IVP STA ×2 (04:48→06:26)
[2021-06-27 04:51] VITALS: RESP 18; TEMP 98.8
[2021-06-27] MEDS ORDERED: RX INFO: IV CONTRAST WAS GIVEN 1 EACH MISC MISCELLANE PRN (04:55)
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
[2021-06-27 05:10] LABS: HCT 44.1 % (39.0-53.0); RBC 4.85 m/uL (4.30-5.90); WBC 10.5 k/uL (3.8-10.6)
[2021-06-27 05:11] LABS: Basophils % (A) 0 %; Eosinophils # (A) 0.2 k/uL (0-0.7); Eosinophils % (A) 2 %; Lymphocytes # (A) 3.1 k/uL (1.0-4.8); Lymphocytes % (A) 29 %; MCHC 34.1 g/dL (31.0-37.0); MCV 90.9 fL (80.0-100.0); Mean Platelet Volume 9.7; Monocytes # (A) 0.8 k/uL (0-1.0); Monocytes % (A) 7 %; Neutrophils # (A) 6.2 k/uL (1.3-7.7); Neutrophils % (A) 60 %; Platelet Count 179 k/uL (150-450); RDW 13.4 % (11.5-15.5)
[2021-06-27 05:16] LABS: Partial Thromboplastin Time 22.7 sec (22.0-30.0); Prothrombin Time 10.5 sec (9.0-12.0)
[2021-06-27 05:23] LABS: ALT 15 U/L (4-49); AST 23 U/L (17-59); African American GFR (CKD) >90 (>60 ml/min/1.73 sqM); Albumin 3.5 g/dL (3.5-5.0); Alkaline Phosphatase 77 U/L (38-126); Anion Gap 7 mmol/L; Blood Urea Nitrogen 5 mg/dL (9-20); Calcium 7.9 mg/dL (8.4-10.2); Carbon Dioxide 23 mmol/L (22-30); Chloride 107 mmol/L (98-107); Glucose 82 mg/dL (74-99); Magnesium 1.7 mg/dL (1.6-2.3); Non-African American GFR(CKD) >90 (>60 ml/min/1.73 sqM); Phosphorus 2.4 mg/dL (2.5-4.5); Potassium 3.1 mmol/L (3.5-5.1); Sodium 137 mmol/L (137-145); Total Bilirubin 0.4 mg/dL (0.2-1.3); Total Protein 5.7 g/dL (6.3-8.2)
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
[2021-06-27 07:42] LABS: Appearance,Urine Clear (Clear); Bilirubin,Urine Negative (Negative); Blood,Urine Negative (Negative); Color,Urine Light Yellow; Glucose,Urine (UA) Negative (Negative); Ketones,Urine Negative (Negative); Leukocyte Esterase,Urine Negative (Negative); Nitrite,Urine Negative (Negative); PH, Urine 6.5 (5.0-8.0); Protein,Urine Negative (Negative); Specific Gravity,Urine 1.025 (1.001-1.035); Urobilinogen,Urine <2.0 mg/dL (<2.0)
[2021-06-27 07:54] LABS: Amphetamine Screen,Urine Not Detected (NotDetected); Barbiturate Screen,Urine Not Detected (NotDetected); Benzodiazepines Screen,Urine Detected (NotDetected); Cocaine Screen,Urine Not Detected (NotDetected); Methadone Screen, Urine Not Detected (NotDetected); Opiate Screen,Urine Detected (NotDetected); Phencyclidine Screen,Urine Not Detected (NotDetected); Tricyclic Antidepressant,Urine Not Detected (NotDetected)
[2021-06-27 07:55] LABS: Oxycodone Screen, Urine Detected (NotDetected); Urn Cannabinoid Scrn Detected (NotDetected)
[2021-06-27 09:00] VITALS: BP 123/64; PULSE 98
== END 2021-06-27 09:08 | disposition home or self-care (01) ==
LOC: EC 04:42
DX: S81.832A Puncture wound without foreign body, left lower leg, initial encounter (principal); Z23 Encounter for immunization; J45.909 Unspecified asthma, uncomplicated; I25.10 Atherosclerotic heart disease of native coronary artery without angina pectoris; I11.0 Hypertensive heart disease with heart failure; I50.9 Heart failure, unspecified; K21.9 Gastro-esophageal reflux disease without esophagitis; E78.5 Hyperlipidemia, unspecified; F41.9 Anxiety disorder, unspecified; F31.9 Bipolar disorder, unspecified; F17.200 Nicotine dependence, unspecified, uncomplicated; Z79.02 Long term (current) use of antithrombotics/antiplatelets; Z79.82 Long term (current) use of aspirin; Z88.5 Allergy status to narcotic agent; Z91.040 Latex allergy status; Z95.0 Presence of cardiac pacemaker
CPT/HCPCS: 99285; 96365; 96375 ×2; 96376; 90471; 36415; 93005; 80053; 83605; 83735; 84100; 84484; 85025; 85610; 85730; 81003; 80306; 71260; 74177; 73706; 90715; J2060; J0690; J1170; Q9967 ×2

== ENCOUNTER 2021-07-01 08:48 | Inpatient (IN) | payer MEDICARE, OTHER ==
[2021-07-01] MEDS ORDERED: SODIUM CHLORIDE 0.9% 1,000 ML IV STA (09:34)
[2021-07-01] MEDS ORDERED: MORPHINE SULFATE 4 MG/ML SYRINGE IVP STA (09:34)
[2021-07-01 10:19] LABS: Basophils # (A) 0.1 k/uL (0-0.2); Basophils % (A) 1 %; Eosinophils # (A) 0.2 k/uL (0-0.7); Eosinophils % (A) 2 %; HCT 49.3 % (39.0-53.0); HGB 16.5 gm/dL (13.0-17.5); Lymphocytes # (A) 2.3 k/uL (1.0-4.8); Lymphocytes % (A) 26 %; MCH 30.1 pg (25.0-35.0); MCHC 33.4 g/dL (31.0-37.0); Mean Platelet Volume 10.1; Monocytes # (A) 0.6 k/uL (0-1.0); Monocytes % (A) 7 %; Neutrophils # (A) 5.6 k/uL (1.3-7.7); Neutrophils % (A) 63 %; Platelet Count 215 k/uL (150-450); RBC 5.48 m/uL (4.30-5.90); RDW 13.4 % (11.5-15.5); WBC 8.9 k/uL (3.8-10.6)
[2021-07-01] MEDS ORDERED: HYDROmorphone 0.5 MG/0.5 ML SYRINGE IVP STA (10:23)
[2021-07-01 10:26] LABS: ALT 16 U/L (4-49); AST 24 U/L (17-59); African American GFR (CKD) >90 (>60 ml/min/1.73 sqM); Albumin 4.4 g/dL (3.5-5.0); Alkaline Phosphatase 74 U/L (38-126); Anion Gap 10 mmol/L; Blood Urea Nitrogen 4 mg/dL (9-20); Calcium 9.4 mg/dL (8.4-10.2); Carbon Dioxide 25 mmol/L (22-30); Chloride 107 mmol/L (98-107); Glucose 91 mg/dL (74-99); Non-African American GFR(CKD) >90 (>60 ml/min/1.73 sqM); Potassium 3.6 mmol/L (3.5-5.1); Sodium 142 mmol/L (137-145); Total Bilirubin 0.5 mg/dL (0.2-1.3)
[2021-07-01] MEDS ORDERED: NALOXONE 0.4 MG/ML 1 ML VIAL IV PRN (10:55)
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
[2021-07-01] MEDS ORDERED: ONDANSETRON 4 MG/2 ML VIAL IVP STA (12:09)
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
[2021-07-01] MEDS: HYDROmorphone 0.5 MG/0.5 ML SYRINGE IVP PRN ×4 (12:23→22:33)
[2021-07-01] MEDS ORDERED: ALBUTEROL NEBULIZED 2.5 MG/3 ML INHALATION PRN (12:34)
[2021-07-01] MEDS ORDERED: ACETAMINOPHEN TAB 500 MG TAB PO PRN (12:34)
[2021-07-01] MEDS ORDERED: NITROGLYCERIN SL TABS 0.4 MG TAB SUBLINGUAL PRN (12:34)
[2021-07-01] MEDS ORDERED: LACTULOSE 20 GM/30 ML CUP PO PRN (12:36)
[2021-07-01] MEDS ORDERED: TEMAZEPAM 15 MG CAP PO PRN (12:36)
[2021-07-01] MEDS ORDERED: LORazepam 0.5 MG TAB PO PRN (12:36)
[2021-07-01] MEDS ORDERED: CALCIUM CARBONATE 500 MG CHEWABLE PO PRN (12:36)
[2021-07-01] MEDS ORDERED: VANCOMYCIN IV PER PHARMACY 1 EACH MISC MISCELLANE PRN (12:42)
[2021-07-01] MEDS: SODIUM CHLORIDE 0.9% 1,000 ML IV SCH ×2 (13:15→23:11)
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
[2021-07-01] MEDS ORDERED: VANCOMYCIN 1,500 MG in SODIUM CHLORIDE 0.9% 250 ML IVPB ONE (13:30)
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
[2021-07-01] MEDS: NICOTINE 21MG/24HR PATCH TRANSDERM SCH (15:14)
[2021-07-01] MEDS: ENOXAPARIN 40 MG/0.4 ML SYRINGE SQ SCH (15:15)
[2021-07-01] MEDS ORDERED: HEPARIN SODIUM,PORCINE/PF 5,000 UNIT/0.5 ML SYRINGE SQ SCH (16:00)
[2021-07-01] MEDS: carvediloL 12.5 MG TAB PO SCH (16:44)
[2021-07-01] MEDS: ATORVASTATIN 80 MG TAB PO SCH (19:20)
[2021-07-01] MEDS: MONTELUKAST 10 MG TAB PO SCH (19:20)
[2021-07-01] MEDS: SYMBICORT 160-4.5 MCG INHALER INHALATION SCH (19:47)
[2021-07-01] MEDS: DICYCLOMINE 20 MG TAB PO SCH (20:01)
[2021-07-01] MEDS: VANCOMYCIN 1,500 MG in SODIUM CHLORIDE 0.9% 250 ML IVPB SCH (22:32)
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
[2021-07-02] MEDS: HYDROmorphone 0.5 MG/0.5 ML SYRINGE IVP PRN ×7 (01:32→22:24)
[2021-07-02] MEDS: VANCOMYCIN 1,500 MG in SODIUM CHLORIDE 0.9% 250 ML IVPB SCH ×3 (06:09→21:20)
[2021-07-02 06:41] LABS: Basophils % (A) 1 %; Eosinophils # (A) 0.3 k/uL (0-0.7); Eosinophils % (A) 3 %; HCT 42.2 % (39.0-53.0); Lymphocytes # (A) 2.2 k/uL (1.0-4.8); Lymphocytes % (A) 25 %; MCH 29.9 pg (25.0-35.0); MCHC 33.2 g/dL (31.0-37.0); Monocytes # (A) 0.5 k/uL (0-1.0); Monocytes % (A) 6 %; Neutrophils # (A) 5.5 k/uL (1.3-7.7); Neutrophils % (A) 64 %; Platelet Count 167 k/uL (150-450); RBC 4.69 m/uL (4.30-5.90); RDW 12.8 % (11.5-15.5); WBC 8.6 k/uL (3.8-10.6)
[2021-07-02] MEDS: SYMBICORT 160-4.5 MCG INHALER INHALATION SCH ×2 (07:06→20:30)
[2021-07-02 07:29] LABS: African American GFR (CKD) >90 (>60 ml/min/1.73 sqM); Anion Gap 3 mmol/L; Blood Urea Nitrogen 3 mg/dL (9-20); Calcium 8.6 mg/dL (8.4-10.2); Carbon Dioxide 26 mmol/L (22-30); Chloride 107 mmol/L (98-107); Glucose 99 mg/dL (74-99); Non-African American GFR(CKD) >90 (>60 ml/min/1.73 sqM); Potassium 3.2 mmol/L (3.5-5.1); Sodium 136 mmol/L (137-145)
[2021-07-02] MEDS: PANTOPRAZOLE 40 MG TABLET PO SCH (07:33)
[2021-07-02] MEDS: ISOSORBIDE MONONITRATE ER 60 MG TAB.ER.24H PO SCH (07:33)
[2021-07-02] MEDS: lamoTRIgine 100 MG TAB PO SCH (07:34)
[2021-07-02] MEDS: DICYCLOMINE 20 MG TAB PO SCH ×2 (07:34→19:51)
[2021-07-02] MEDS: carvediloL 12.5 MG TAB PO SCH ×2 (07:34→17:08)
[2021-07-02] MEDS: CLOPIDOGREL 75 MG TAB PO SCH (07:34)
[2021-07-02] MEDS: lisinopriL 20 MG TAB PO SCH (07:34)
[2021-07-02] MEDS: ENOXAPARIN 40 MG/0.4 ML SYRINGE SQ SCH (07:34)
[2021-07-02] MEDS: NICOTINE 21MG/24HR PATCH TRANSDERM SCH (07:35)
[2021-07-02] MEDS ORDERED: HYDROmorphone 0.5 MG/0.5 ML SYRINGE IVP STA (09:19)
[2021-07-02 10:19] VITALS: BMI 26.6
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
[2021-07-02] MEDS ORDERED: ONDANSETRON 4 MG/2 ML VIAL IVP PRN (13:51)
[2021-07-02] MEDS: SODIUM CHLORIDE 0.9% 1,000 ML IV SCH (16:31)
[2021-07-02] MEDS: MONTELUKAST 10 MG TAB PO SCH (19:50)
[2021-07-02] MEDS: ATORVASTATIN 80 MG TAB PO SCH (19:51)
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
[2021-07-03] MEDS: HYDROmorphone 0.5 MG/0.5 ML SYRINGE IVP PRN ×7 (01:35→23:08)
[2021-07-03] MEDS: SODIUM CHLORIDE 0.9% 1,000 ML IV SCH ×2 (03:19→13:19)
[2021-07-03] MEDS ORDERED: VANCOMYCIN TROUGH DUE 1 EACH MISC MISCELLANE ONE ×2 (05:00→13:00)
[2021-07-03] MEDS: VANCOMYCIN 1,500 MG in SODIUM CHLORIDE 0.9% 250 ML IVPB SCH ×2 (05:34→13:19)
[2021-07-03] MEDS: SYMBICORT 160-4.5 MCG INHALER INHALATION SCH ×2 (07:06→19:30)
[2021-07-03] MEDS: PANTOPRAZOLE 40 MG TABLET PO SCH (08:35)
[2021-07-03] MEDS: ENOXAPARIN 40 MG/0.4 ML SYRINGE SQ SCH (08:35)
[2021-07-03] MEDS: carvediloL 12.5 MG TAB PO SCH ×2 (08:35→17:06)
[2021-07-03] MEDS: lamoTRIgine 100 MG TAB PO SCH (08:35)
[2021-07-03] MEDS: lisinopriL 20 MG TAB PO SCH (08:36)
[2021-07-03] MEDS: CLOPIDOGREL 75 MG TAB PO SCH (08:36)
[2021-07-03] MEDS: NICOTINE 21MG/24HR PATCH TRANSDERM SCH (08:36)
[2021-07-03] MEDS: ISOSORBIDE MONONITRATE ER 60 MG TAB.ER.24H PO SCH (10:33)
[2021-07-03] MEDS: DICYCLOMINE 20 MG TAB PO SCH ×2 (10:34→20:18)
[2021-07-03] MEDS ORDERED: HYDROmorphone 0.5 MG/0.5 ML SYRINGE IVP STA (13:36)
[2021-07-03] MEDS: FLUoxetine HCL 20 MG CAP PO SCH (13:49)
[2021-07-03] MEDS: ATORVASTATIN 80 MG TAB PO SCH (20:18)
[2021-07-03] MEDS: VANCOMYCIN 1,750 MG in SODIUM CHLORIDE 0.9% 500 ML 500 ML IVPB SCH (20:18)
[2021-07-03] MEDS: MONTELUKAST 10 MG TAB PO SCH (20:18)
[2021-07-04] MEDS: HYDROmorphone 0.5 MG/0.5 ML SYRINGE IVP PRN ×5 (02:08→14:41)
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
[2021-07-04] MEDS ORDERED: VANCOMYCIN TROUGH DUE 1 EACH MISC MISCELLANE ONE (05:00)
[2021-07-04] MEDS: SODIUM CHLORIDE 0.9% 1,000 ML IV SCH (06:11)
[2021-07-04 06:54] LABS: African American GFR (CKD) >90 (>60 ml/min/1.73 sqM); Anion Gap 6 mmol/L; Blood Urea Nitrogen 7 mg/dL (9-20); Calcium 8.3 mg/dL (8.4-10.2); Carbon Dioxide 25 mmol/L (22-30); Chloride 108 mmol/L (98-107); Glucose 90 mg/dL (74-99); Non-African American GFR(CKD) >90 (>60 ml/min/1.73 sqM); Potassium 3.7 mmol/L (3.5-5.1); Sodium 139 mmol/L (137-145)
[2021-07-04] MEDS: VANCOMYCIN 1,750 MG in SODIUM CHLORIDE 0.9% 500 ML 500 ML IVPB SCH ×2 (07:42→13:26)
[2021-07-04] MEDS: ISOSORBIDE MONONITRATE ER 60 MG TAB.ER.24H PO SCH (08:22)
[2021-07-04] MEDS: CLOPIDOGREL 75 MG TAB PO SCH (08:22)
[2021-07-04] MEDS: ENOXAPARIN 40 MG/0.4 ML SYRINGE SQ SCH (08:22)
[2021-07-04] MEDS: DICYCLOMINE 20 MG TAB PO SCH (08:22)
[2021-07-04] MEDS: lisinopriL 20 MG TAB PO SCH (08:22)
[2021-07-04] MEDS: carvediloL 12.5 MG TAB PO SCH (08:22)
[2021-07-04] MEDS: FLUoxetine HCL 20 MG CAP PO SCH (08:22)
[2021-07-04] MEDS: lamoTRIgine 100 MG TAB PO SCH (08:22)
[2021-07-04] MEDS: PANTOPRAZOLE 40 MG TABLET PO SCH (08:23)
[2021-07-04] MEDS: NICOTINE 21MG/24HR PATCH TRANSDERM SCH (08:26)
[2021-07-04] MEDS: SYMBICORT 160-4.5 MCG INHALER INHALATION SCH (09:00)
[2021-07-04 15:31] VITALS: BP 139/81; PULSE 66; RESP 18; TEMP 97.4
== END 2021-07-04 16:27 | disposition home or self-care (01) | DRG 603 ==
LOC: EC 08:48 → 6NMEDSUR 10:58 → UNDODISOB 07-02 17:25 → OBSVTOIN 07-04 07:59
PROVIDERS: ADMIT Hospitalist; ATTEND Hospitalist
PROC: 0J9M0ZX Drainage of Left Upper Leg Subcutaneous Tissue and Fascia, Open Approach, Diagnostic (ICD-10-PCS; principal; 2021-07-02)
DX: L02.416 Cutaneous abscess of left lower limb (principal); E78.5 Hyperlipidemia, unspecified; L03.116 Cellulitis of left lower limb; F17.210 Nicotine dependence, cigarettes, uncomplicated; B96.89 Other specified bacterial agents as the cause of diseases classified elsewhere; F31.9 Bipolar disorder, unspecified; I25.5 Ischemic cardiomyopathy; I50.9 Heart failure, unspecified; I11.0 Hypertensive heart disease with heart failure; J45.909 Unspecified asthma, uncomplicated; I25.10 Atherosclerotic heart disease of native coronary artery without angina pectoris; K58.9 Irritable bowel syndrome, unspecified; I49.5 Sick sinus syndrome; J44.9 Chronic obstructive pulmonary disease, unspecified; K21.9 Gastro-esophageal reflux disease without esophagitis; Z79.02 Long term (current) use of antithrombotics/antiplatelets; Z79.51 Long term (current) use of inhaled steroids; Z79.899 Other long term (current) drug therapy; Z82.49 Family history of ischemic heart disease and other diseases of the circulatory system; Z95.0 Presence of cardiac pacemaker; Z95.5 Presence of coronary angioplasty implant and graft; Z88.5 Allergy status to narcotic agent; Z91.040 Latex allergy status; Z88.8 Allergy status to other drugs, medicaments and biological substances
CPT/HCPCS: 36415; 71046; 80048; 80053; 80202; 83605; 85025; 87040; 87070; 87075; 87205; 94640; 96361; 96365; 96375; 99285

== ENCOUNTER 2021-07-06 03:21 | Emergency (ER) | payer MEDICARE, OTHER ==
[2021-07-06 04:04] VITALS: RESP 18; TEMP 98
[2021-07-06 06:27] LABS: Basophils # (A) 0.1 k/uL (0-0.2); Basophils % (A) 1 %; Eosinophils # (A) 0.2 k/uL (0-0.7); Eosinophils % (A) 2 %; HCT 45.2 % (39.0-53.0); HGB 15.3 gm/dL (13.0-17.5); Lymphocytes # (A) 2.3 k/uL (1.0-4.8); Lymphocytes % (A) 23 %; MCH 30.3 pg (25.0-35.0); MCHC 33.9 g/dL (31.0-37.0); MCV 89.2 fL (80.0-100.0); Mean Platelet Volume 9.7; Monocytes # (A) 0.8 k/uL (0-1.0); Monocytes % (A) 8 %; Neutrophils # (A) 6.4 k/uL (1.3-7.7); Neutrophils % (A) 65 %; Platelet Count 194 k/uL (150-450); RBC 5.07 m/uL (4.30-5.90); RDW 12.8 % (11.5-15.5); WBC 9.9 k/uL (3.8-10.6)
[2021-07-06 06:38] LABS: ALT 19 U/L (4-49); AST 25 U/L (17-59); African American GFR (CKD) >90 (>60 ml/min/1.73 sqM); Albumin 4.1 g/dL (3.5-5.0); Alkaline Phosphatase 75 U/L (38-126); Anion Gap 7 mmol/L; Blood Urea Nitrogen 6 mg/dL (9-20); Calcium 9.1 mg/dL (8.4-10.2); Carbon Dioxide 24 mmol/L (22-30); Chloride 109 mmol/L (98-107); Glucose 98 mg/dL (74-99); Non-African American GFR(CKD) >90 (>60 ml/min/1.73 sqM); Potassium 3.8 mmol/L (3.5-5.1); Sodium 140 mmol/L (137-145); Total Bilirubin 0.5 mg/dL (0.2-1.3); Total Protein 6.6 g/dL (6.3-8.2)
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
--- NOTE | 2021-07-06 09:25 | US ---
EXAMINATION TYPE: US venous doppler duplex UE RT DATE OF EXAM: 07/06/2021 COMPARISON: NONE CLINICAL HISTORY: pain, swelling recent IV. Pain and swelling, recent IV. Hx of DVT. Patient takes Pl avix. SIDE PERFORMED: Right Visualized portions of the right internal jugular vein, right subclavian vein, right axillary vein, b rachial veins show normal compressibility, no abnormal luminal echoes or abnormality venous waveforms . Central portion of the right cephalic and basilic vein show compressibility. Right Arm: There are abnormal internal echoes within the cephalic vein at the elbow. Internal echoes also seen within the basilic vein at the forearm. These vessels do not compress at this level. Ulnar veins too small to show color flow with patient's movement. Ulnar veins do appear to compress. IMPRESSION: Superficial venous thrombosis right cephalic and right basilic vein
[2021-07-06 09:45] VITALS: BP 145/91; PULSE 71
== END 2021-07-06 09:45 | disposition home or self-care (01) ==
LOC: EC 03:21
DX: S71.132A Puncture wound without foreign body, left thigh, initial encounter (principal); L03.116 Cellulitis of left lower limb; I80.8 Phlebitis and thrombophlebitis of other sites; I11.0 Hypertensive heart disease with heart failure; I50.9 Heart failure, unspecified; I25.10 Atherosclerotic heart disease of native coronary artery without angina pectoris; J45.909 Unspecified asthma, uncomplicated; K21.9 Gastro-esophageal reflux disease without esophagitis; E78.5 Hyperlipidemia, unspecified; F31.9 Bipolar disorder, unspecified; F41.9 Anxiety disorder, unspecified; F17.200 Nicotine dependence, unspecified, uncomplicated; F12.90 Cannabis use, unspecified, uncomplicated; Z95.0 Presence of cardiac pacemaker; Z79.02 Long term (current) use of antithrombotics/antiplatelets; Z79.51 Long term (current) use of inhaled steroids; Z79.899 Other long term (current) drug therapy; W34.00XA Accidental discharge from unspecified firearms or gun, initial encounter
CPT/HCPCS: 36415; 80053; 85025; 99285

== ENCOUNTER 2021-12-28 22:27 | Emergency (ER) | payer MEDICARE, OTHER ==
[2021-12-28 22:30] VITALS: BP 130/94; PULSE 90; RESP 16; TEMP 97.9
[2021-12-28] MEDS ORDERED: HYDROmorphone 0.5 MG/0.5 ML SYRINGE IVP STA (23:30)
[2021-12-28] MEDS ORDERED: SODIUM CHLORIDE 0.9% 1,000 ML IV STA (23:30)
[2021-12-28] MEDS ORDERED: PANTOPRAZOLE 40 MG/10 ML VIAL IVP STA (23:30)
[2021-12-28] MEDS ORDERED: ONDANSETRON 4 MG/2 ML VIAL IVP STA (23:30)
[2021-12-29 00:43] LABS: Basophils # (A) 0.1 k/uL (0-0.2); Basophils % (A) 1 %; Eosinophils # (A) 0.2 k/uL (0-0.7); Eosinophils % (A) 2 %; HCT 50.2 % (39.0-53.0); HGB 16.7 gm/dL (13.0-17.5); Lymphocytes # (A) 2.5 k/uL (1.0-4.8); Lymphocytes % (A) 27 %; MCH 30.1 pg (25.0-35.0); MCHC 33.3 g/dL (31.0-37.0); MCV 90.3 fL (80.0-100.0); Mean Platelet Volume 10.1; Monocytes # (A) 0.7 k/uL (0-1.0); Monocytes % (A) 8 %; Neutrophils # (A) 5.8 k/uL (1.3-7.7); Neutrophils % (A) 62 %; Platelet Count 175 k/uL (150-450); RBC 5.56 m/uL (4.30-5.90); RDW 12.9 % (11.5-15.5); WBC 9.4 k/uL (3.8-10.6)
[2021-12-29 00:55] LABS: ALT 61 U/L (4-49); AST 60 U/L (17-59); African American GFR (CKD) >90 (>60 ml/min/1.73 sqM); Albumin 4.4 g/dL (3.5-5.0); Alkaline Phosphatase 78 U/L (38-126); Anion Gap 15 mmol/L; Blood Urea Nitrogen 7 mg/dL (9-20); Calcium 9.2 mg/dL (8.4-10.2); Carbon Dioxide 24 mmol/L (22-30); Chloride 100 mmol/L (98-107); Glucose 65 mg/dL (74-99); Lipase 148 U/L (23-300); Magnesium 1.8 mg/dL (1.6-2.3); Non-African American GFR(CKD) >90 (>60 ml/min/1.73 sqM); Potassium 3.6 mmol/L (3.5-5.1); Sodium 139 mmol/L (137-145); Total Bilirubin 0.6 mg/dL (0.2-1.3); Total Protein 6.6 g/dL (6.3-8.2)
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
[2021-12-29 01:48] LABS: Prothrombin Time 10.6 sec (9.0-12.0)
--- NOTE | 2021-12-29 12:55 | US ---
EXAMINATION TYPE: US abdomen limited DATE OF EXAM: 12/29/2021 COMPARISON: CT 06/27/2021 CLINICAL HISTORY: RUQ pain. TECHNIQUE: Multiple sonographic images of the right upper quadrant are obtained. FINDINGS: EXAM MEASUREMENTS: Liver Length: 17.5cm cm Gallbladder Wall: 0.3 cm CBD: 0.4 cm Right Kidney: 10.2 x 5.1 x 5.7 cm COMMISSIONS MANAGER NOTES:some exam limitations due to overlying bowel gas Pancreas: obscured by overlying bowel gas Liver: somewhat heterogenous, upper limits in size Gallbladder: thickened wall with some possible pericholecystic fluid sitting anteriorly, echogenic f oci within the gb with ringdown artifact CBD: wnl Right Kidney: wnl IMPRESSION: Correlate for hepatic steatosis. Findings suggest cholesterolosis within the gallbladder
== END 2021-12-29 11:29 | disposition left against medical advice (07) ==
LOC: EC 22:27
DX: R10.9 Unspecified abdominal pain (principal); R11.2 Nausea with vomiting, unspecified; K62.5 Hemorrhage of anus and rectum; J45.909 Unspecified asthma, uncomplicated; I25.10 Atherosclerotic heart disease of native coronary artery without angina pectoris; I11.0 Hypertensive heart disease with heart failure; I50.9 Heart failure, unspecified; K21.9 Gastro-esophageal reflux disease without esophagitis; E78.5 Hyperlipidemia, unspecified; F17.200 Nicotine dependence, unspecified, uncomplicated; Z53.29 Procedure and treatment not carried out because of patient's decision for other reasons; Z79.51 Long term (current) use of inhaled steroids; Z79.899 Other long term (current) drug therapy; Z88.5 Allergy status to narcotic agent; Z91.040 Latex allergy status; Z88.6 Allergy status to analgesic agent; Z88.8 Allergy status to other drugs, medicaments and biological substances
CPT/HCPCS: 36415; 80053; 83605; 83690; 83735; 84484; 85025; 85610; 85730; 76705; 99284; 96374; 96375; 96361; J2405; C9113; J1170

== ENCOUNTER 2022-03-05 00:03 | Emergency (ER) | payer MEDICARE, OTHER ==
[2022-03-05 00:13] VITALS: RESP 18; TEMP 98.2
[2022-03-05 00:44] LABS: Basophils # (A) 0.1 k/uL (0-0.2); Basophils % (A) 0 %; Eosinophils # (A) 0.3 k/uL (0-0.7); Eosinophils % (A) 3 %; HGB 16.1 gm/dL (13.0-17.5); Lymphocytes # (A) 1.6 k/uL (1.0-4.8); Lymphocytes % (A) 13 %; MCH 30.8 pg (25.0-35.0); MCV 88.1 fL (80.0-100.0); Mean Platelet Volume 9.7; Monocytes # (A) 1.1 k/uL (0-1.0); Monocytes % (A) 9 %; Neutrophils # (A) 9.1 k/uL (1.3-7.7); Neutrophils % (A) 74 %; Platelet Count 160 k/uL (150-450); RBC 5.21 m/uL (4.30-5.90); RDW 12.6 % (11.5-15.5); WBC 12.2 k/uL (3.8-10.6)
[2022-03-05 00:53] LABS: ALT 55 U/L (4-49); AST 45 U/L (17-59); African American GFR (CKD) >90 (>60 ml/min/1.73 sqM); Albumin 4.6 g/dL (3.5-5.0); Alkaline Phosphatase 97 U/L (38-126); Amylase 103 U/L (30-110); Anion Gap 9 mmol/L; Blood Urea Nitrogen 14 mg/dL (9-20); Calcium 9.4 mg/dL (8.4-10.2); Carbon Dioxide 24 mmol/L (22-30); Chloride 108 mmol/L (98-107); Glucose 104 mg/dL (74-99); Lipase 258 U/L (23-300); Non-African American GFR(CKD) >90 (>60 ml/min/1.73 sqM); Potassium 3.4 mmol/L (3.5-5.1); Sodium 141 mmol/L (137-145); Total Bilirubin 0.6 mg/dL (0.2-1.3); Total Protein 6.9 g/dL (6.3-8.2)
[2022-03-05 01:28] VITALS: BP 132/96; PULSE 100
[2022-03-05] MEDS ORDERED: SODIUM CHLORIDE 0.9% 1,000 ML IV STA (01:48)
[2022-03-05] MEDS ORDERED: ONDANSETRON 4 MG/2 ML VIAL IVP STA (01:48)
[2022-03-05] MEDS ORDERED: HYDROmorphone 1 MG/ML 1 ML SYRINGE IVP STA (01:49)
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
== END 2022-03-05 02:25 | disposition left against medical advice (07) ==
LOC: EC 00:03
DX: R10.9 Unspecified abdominal pain (principal); J45.909 Unspecified asthma, uncomplicated; I11.0 Hypertensive heart disease with heart failure; I50.9 Heart failure, unspecified; I25.10 Atherosclerotic heart disease of native coronary artery without angina pectoris; K21.9 Gastro-esophageal reflux disease without esophagitis; E78.5 Hyperlipidemia, unspecified; F41.9 Anxiety disorder, unspecified; F31.9 Bipolar disorder, unspecified; F17.200 Nicotine dependence, unspecified, uncomplicated; F12.90 Cannabis use, unspecified, uncomplicated; Z79.01 Long term (current) use of anticoagulants; Z79.02 Long term (current) use of antithrombotics/antiplatelets; Z79.51 Long term (current) use of inhaled steroids; Z79.83 Long term (current) use of bisphosphonates; Z79.52 Long term (current) use of systemic steroids; Z79.899 Other long term (current) drug therapy; Z88.5 Allergy status to narcotic agent; Z91.040 Latex allergy status; Z88.8 Allergy status to other drugs, medicaments and biological substances
CPT/HCPCS: 36415; 80053; 82150; 83690; 85025; 99284

== ENCOUNTER 2022-03-06 10:36 | Inpatient (IN) | payer MEDICARE, OTHER ==
[2022-03-06] MEDS ORDERED: SODIUM CHLORIDE 0.9% 1,000 ML IV STA (10:53)
[2022-03-06] MEDS ORDERED: AMPICILLIN-SULBACTAM 3 GM in SODIUM CHLORIDE 0.9% 100 ML IVPB STA (10:53)
[2022-03-06] MEDS ORDERED: MORPHINE SULFATE 4 MG/ML SYRINGE IV STA (10:53)
[2022-03-06] MEDS ORDERED: ACETAMINOPHEN TAB 500 MG TAB PO STA (10:56)
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
[2022-03-06 11:19] LABS: Basophils % (A) 0 %; Eosinophils # (A) 0.2 k/uL (0-0.7); Eosinophils % (A) 1 %; HCT 42.9 % (39.0-53.0); HGB 14.7 gm/dL (13.0-17.5); Lymphocytes # (A) 2.1 k/uL (1.0-4.8); Lymphocytes % (A) 14 %; MCH 30.5 pg (25.0-35.0); MCHC 34.3 g/dL (31.0-37.0); Mean Platelet Volume 9.8; Monocytes # (A) 1.4 k/uL (0-1.0); Monocytes % (A) 9 %; Neutrophils # (A) 11.6 k/uL (1.3-7.7); Neutrophils % (A) 75 %; Platelet Count 164 k/uL (150-450); RBC 4.82 m/uL (4.30-5.90); RDW 12.6 % (11.5-15.5); WBC 15.5 k/uL (3.8-10.6)
[2022-03-06 11:29] LABS: ALT 43 U/L (4-49); AST 38 U/L (17-59); African American GFR (CKD) >90 (>60 ml/min/1.73 sqM); Albumin 4.4 g/dL (3.5-5.0); Alkaline Phosphatase 69 U/L (38-126); Amylase 51 U/L (30-110); Anion Gap 8 mmol/L; Blood Urea Nitrogen 11 mg/dL (9-20); Calcium 8.8 mg/dL (8.4-10.2); Carbon Dioxide 24 mmol/L (22-30); Chloride 105 mmol/L (98-107); Glucose 97 mg/dL (74-99); Lipase 101 U/L (23-300); Non-African American GFR(CKD) >90 (>60 ml/min/1.73 sqM); Potassium 3.4 mmol/L (3.5-5.1); Sodium 137 mmol/L (137-145); Total Bilirubin 1.6 mg/dL (0.2-1.3); Total Protein 6.6 g/dL (6.3-8.2)
[2022-03-06 11:43] LABS: INR 0.9 (<1.2)
--- NOTE | 2022-03-06 12:02 | CT ---
EXAMINATION TYPE: CT abdomen pelvis wo con DATE OF EXAM: 03/06/2022 COMPARISON: 06/27/2021 HISTORY: right flank pain CT DLP: 792 mGycm Automated exposure control for dose reduction was used. TECHNIQUE: Helical acquisition of images was performed from the lung bases through the pelvis. FINDINGS: LUNG BASES: Subsegmental changes involving both lung bases suggestive of atelectasis correlate clinic ally to exclude pneumonia. Cardiac lead is seen. LIVER/GB: Liver is enlarged and hypoattenuating correlate for hepatic steatosis. Areas of focal fatty sparing near the gallbladder fossa may be present. Cannot exclude a degree of gallbladder wall thick ening. PANCREAS: No significant abnormality is seen. SPLEEN: No significant abnormality is seen. ADRENALS: No significant abnormality is seen. KIDNEYS: There is no hydronephrosis. There are punctate 2 mm nonobstructing left renal calculi. FREE AIR: No free air is visualized URINARY BLADDER: No significant abnormality is seen. ADENOPATHY: None visualized. OSSEOUS STRUCTURES: No significant abnormality is seen. BOWEL: No significant abnormality is seen. OTHER: Stimulator device is seen. Bilateral fat-containing inguinal hernia. IMPRESSION: 1. Hepatomegaly correlate for hepatocellular disease or hepatic steatosis. 2. Bilateral lower lobe infiltrate. Underlying pneumonia in the differential diagnosis. 3. Gallbladder wall thickening with no definite gallstones correlate with ultrasound to assess for ac alculous cholecystitis. 4. Nonobstructing left renal calculi.
--- NOTE | 2022-03-06 12:52 | US ---
EXAMINATION TYPE: US abdomen limited DATE OF EXAM: 03/06/2022 COMPARISON: Same day CT CLINICAL HISTORY: 41-year-old male gallbladder. ABD pain, abnormal CT TECHNIQUE: Multiple sonographic images of the right upper quadrant are obtained. FINDINGS: EXAM MEASUREMENTS: Liver Length: 19.4 cm Gallbladder Wall: 0.4 cm CBD: 0.5 cm Right Kidney: 10.9 x 5.6 x 5.1 cm BOOKING MANAGER NOTES: Pancreas: Obscured by bowel gas Liver: Enlarged, echogenic, difficult to penetrate Gallbladder: Thickened wall with cholesterolosis given ring down artifact from the anterior wall. No shadowing stone is seen. No surrounding fluid. Evidence for sonographic Hunter's sign: Yes CBD: wnl Right Kidney: wnl IMPRESSION: 1. Severe hepatic steatosis. Correlate with LFTs, lipid profile, and patient risk factors. 2. Extensive ringdown artifact along the gallbladder wall suggests adenomyomatosis/cholesterolosis. N o shadowing calculus or ancillary finding of acute cholecystitis. Positive sonographic Hunter sign ma y reflect referred pain or chronic cholecystitis. 3. No biliary ductal dilatation.
[2022-03-06] MEDS ORDERED: IBUPROFEN 400 MG TAB PO PRN (13:28)
[2022-03-06] MEDS ORDERED: MORPHINE SULFATE 4 MG/ML SYRINGE IV PRN (13:28)
[2022-03-06] MEDS ORDERED: NALOXONE 0.4 MG/ML 1 ML VIAL IV PRN (13:28)
[2022-03-06] MEDS ORDERED: POTASSIUM CHLORIDE ER 20 MEQ TAB.ER PO STA (14:37)
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
[2022-03-06] MEDS: NICOTINE 21MG/24HR PATCH TRANSDERM SCH (15:54)
[2022-03-06] MEDS: PIPERACILLIN-TAZOBACTAM 3.375 GM in SODIUM CHLORIDE 0.9% 100 ML IVPB SCH (16:25)
[2022-03-06] MEDS ORDERED: ALBUTEROL NEBULIZED 2.5 MG/3 ML INHALATION PRN (17:29)
[2022-03-06] MEDS ORDERED: oxyCODONE-APAP 5-325MG 1 EACH TAB PO PRN (17:29)
[2022-03-06] MEDS ORDERED: NITROGLYCERIN SL TABS 0.4 MG TAB SUBLINGUAL PRN (17:29)
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
[2022-03-06] MEDS: HYDROmorphone 1 MG/ML 1 ML SYRINGE IVP PRN ×2 (18:37→21:23)
[2022-03-06] MEDS: carvediloL 12.5 MG TAB PO SCH (18:45)
[2022-03-06] MEDS: ENOXAPARIN 40 MG/0.4 ML SYRINGE SQ SCH (18:46)
--- NOTE | 2022-03-06 18:55 | XR ---
EXAMINATION TYPE: XR chest 1V DATE OF EXAM: 03/06/2022 6:05 PM COMPARISON: Chest radiographs from 07/01/2021, CT 06/27/2021 TECHNIQUE: XR chest 1V Portable AP radiograph of the chest. CLINICAL INDICATION:Male, 41 years old with history of Smoker; FINDINGS: Lungs/Pleura: Right perihilar opacities which are new which is felt to be due to low lung volumes. Pr ominent vessels are seen on prior CT.. There is no evidence of pleural effusion, focal consolidation, or pneumothorax. Pulmonary vascularity: Unremarkable. Heart/mediastinum: Cardiomediastinal silhouette is enlarged and stable. Musculoskeletal: No acute osseous pathology. Leads terminating over the spine in the neck. IMPRESSION: Low lung volumes with streaky atelectasis. No definitive focal consolidation to suggest airspace dise ase.
[2022-03-06] MEDS: MONTELUKAST 10 MG TAB PO SCH (20:25)
[2022-03-06] MEDS: clonazePAM 0.5 MG TAB PO SCH (20:25)
[2022-03-06] MEDS: SYMBICORT 160-4.5 MCG INHALER INHALATION SCH (20:44)
[2022-03-06] MEDS: ACETAMINOPHEN TAB 325 MG TAB PO PRN (21:46)
[2022-03-06] MEDS: HYOSCYAMINE SULFATE 0.375 MG TAB.ER.12H PO SCH (21:46)
[2022-03-06] MEDS: PRIMIDONE 50 MG TAB PO SCH (21:46)
[2022-03-07] MEDS: HYDROmorphone 1 MG/ML 1 ML SYRINGE IVP PRN ×7 (00:34→21:25)
[2022-03-07] MEDS: PIPERACILLIN-TAZOBACTAM 3.375 GM in SODIUM CHLORIDE 0.9% 100 ML IVPB SCH ×4 (00:38→23:49)
[2022-03-07 04:18] LABS: Basophils % (A) 1 %; Eosinophils # (A) 0.2 k/uL (0-0.7); Eosinophils % (A) 2 %; HCT 39.4 % (39.0-53.0); HGB 13.2 gm/dL (13.0-17.5); Lymphocytes % (A) 21 %; MCH 30.6 pg (25.0-35.0); MCHC 33.4 g/dL (31.0-37.0); MCV 91.5 fL (80.0-100.0); Mean Platelet Volume 9.9; Monocytes # (A) 1.1 k/uL (0-1.0); Monocytes % (A) 11 %; Neutrophils # (A) 6.4 k/uL (1.3-7.7); Neutrophils % (A) 64 %; Platelet Count 142 k/uL (150-450); RDW 12.7 % (11.5-15.5)
[2022-03-07 04:32] LABS: ALT 64 U/L (4-49); AST 70 U/L (17-59); African American GFR (CKD) >90 (>60 ml/min/1.73 sqM); Albumin 3.6 g/dL (3.5-5.0); Albumin/Globulin Ratio 1.7; Alkaline Phosphatase 63 U/L (38-126); Anion Gap 3 mmol/L; Blood Urea Nitrogen 12 mg/dL (9-20); Calcium 8.1 mg/dL (8.4-10.2); Carbon Dioxide 28 mmol/L (22-30); Chloride 106 mmol/L (98-107); Globulin 2.1 g/dL; Glucose 92 mg/dL (74-99); Non-African American GFR(CKD) >90 (>60 ml/min/1.73 sqM); Potassium 4.2 mmol/L (3.5-5.1); Sodium 137 mmol/L (137-145); Total Bilirubin 1.4 mg/dL (0.2-1.3); Total Protein 5.7 g/dL (6.3-8.2)
[2022-03-07] MEDS: SYMBICORT 160-4.5 MCG INHALER INHALATION SCH ×2 (07:32→19:29)
[2022-03-07] MEDS: clonazePAM 0.5 MG TAB PO SCH ×2 (08:34→21:25)
[2022-03-07] MEDS: carvediloL 12.5 MG TAB PO SCH ×2 (08:34→17:16)
[2022-03-07] MEDS: ATORVASTATIN 80 MG TAB PO SCH (08:34)
[2022-03-07] MEDS: ENOXAPARIN 40 MG/0.4 ML SYRINGE SQ SCH (08:34)
[2022-03-07] MEDS: FLUoxetine HCL 20 MG CAP PO SCH (08:34)
[2022-03-07] MEDS: ISOSORBIDE MONONITRATE ER 60 MG TAB.ER.24H PO SCH (08:35)
[2022-03-07] MEDS: HYOSCYAMINE SULFATE 0.375 MG TAB.ER.12H PO SCH ×2 (08:35→21:25)
[2022-03-07] MEDS: PRIMIDONE 50 MG TAB PO SCH ×2 (08:36→21:25)
[2022-03-07] MEDS: NICOTINE 21MG/24HR PATCH TRANSDERM SCH (08:36)
[2022-03-07] MEDS: PANTOPRAZOLE 40 MG TABLET PO SCH (08:36)
[2022-03-07] MEDS: ONDANSETRON 4 MG/2 ML VIAL IVP PRN (09:55)
[2022-03-07] MEDS: lamoTRIgine 100 MG TAB PO SCH (12:26)
[2022-03-07] MEDS: ACETAMINOPHEN TAB 325 MG TAB PO PRN (12:30)
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
--- NOTE | 2022-03-07 13:03 | P.PN ---
Subjective Progress Note Date: 03/07/22 CHIEF COMPLAINT: Acute on chronic cholecystitis HISTORY OF PRESENT ILLNESS: Patient continues to have right upper quadrant abdominal pain with nausea. He did have a low-grade temp of 100.6 last night and mild tachycardia. White count has decreased from 15.5-10. Hemoglobin 13.2 platelets 142 potassium has improved from 3.4-4.2 creatinine 0.94 total bilirubin 1.6-1.4 AST 70 ALT 64 PHYSICAL EXAM: VITAL SIGNS: Reviewed. GENERAL: Well-developed in no acute distress. HEENT: No sclera icterus. Extraocular movements grossly intact. Moist buccal mucosa. Head is atraumatic, normocephalic. ABDOMEN: Soft. Nondistended. Nontender. NEUROLOGIC: Alert and oriented. Cranial nerves II through XII grossly intact. ASSESSMENT: 1. Right upper quadrant abdominal pain with gallbladder wall thickening and positive Hunter sign noted on imaging 2. Acute on chronic cholecystitis 3. Nicotine dependence 4. Hypokalemia 5. History of pacemaker PLAN: -Patient scheduled for laparoscopic cholecystectomy on 03/08/[address] moe -Nothing by mouth after midnight -Continue IV antibiotics -Continue pain medication and antiemetics as needed -Continue IV fluids -Medicine service has consulted cardiology for cardiac clearance Physician Bacteriologist Soil note has been reviewed by physician. Signing provider agrees with the documented findings, assessment, and plan of care. Objective - Vital Signs Vital signs: Vital Signs Temp 100.6 F H 03/07/22 11:34 Pulse 100 03/07/22 11:34 Resp 20 03/07/22 11:34 BP 100/59 03/07/22 11:34 Pulse Ox 93 L 03/07/22 11:34 FiO2 Intake & Output 03/06/22 03/07/22 03/07/22 18:59 06:59 18:59 Intake Total 1060 Balance 1060 Weight 88.451 kg 88.451 kg Intake: Intake, IV Titration 100 Amount Piperacillin-Tazobactam 3 100 .375 gm In Sodium Chloride 0.9% 100 ml @ 25 mls/hr IVPB Q8HR [facility] Rx# :[id number] Oral 960 Other: Voiding Method Toilet Urinal # Voids 2 2 - Labs CBC & Chem 7: 03/07/22 04:04 03/07/22 04:04 Labs: Abnormal Lab Results - Last 24 Hours (Table) 03/07/22 03/07/22 Range/Units 04:04 04:04 Plt Count 142 L (150-450) k/uL Monocytes # 1.1 H (0-1.0) k/uL Calcium 8.1 L (8.4-10.2) mg/dL Total Bilirubin 1.4 H (0.2-1.3) mg/dL AST 70 H (17-59) U/L ALT 64 H (4-49) U/L Total Protein 5.7 L (6.3-8.2) g/dL
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
[2022-03-07] MEDS: ASPIRIN 81 MG PO SCH (14:02)
[2022-03-07] MEDS: MONTELUKAST 10 MG TAB PO SCH (21:25)
[2022-03-08] MEDS: HYDROmorphone 1 MG/ML 1 ML SYRINGE IVP PRN ×6 (00:23→20:25)
--- NOTE | 2022-03-08 05:06 | P.PN ---
Subjective Progress Note Date: 03/07/22 Chief Complaint: Abdominal pain This is a pleasant 41-year-old patient of Dr. Andrey Collado. Chronic stable medical conditions include CAD with a stent in 2014, permanent pacemaker in 2011 for sick sinus syndrome, COPD, CHF, GERD, hypertension, hyperlipidemia, irritable bowel syndrome, bipolar disorder. At her baseline patient does have involuntary movements he describes secondary to his psychiatry medications the past. Patient presents with right upper quadrant pain. States he's had the pain for close to 3 months. Outpatient workup has been done. Up in [facility] had EGD and a pelviscopy also. Does not remember the name of the physician. He was told he has hiatal hernia. He also worked up for gallbladder disease. He describes the pain and being constant and worse with eating. Also notes having fever and chills. Some nausea vomiting. Also on and off has had diarrhea for 3 months. Patient's pain as well as significant in the right upper quadrant. 03/07/2022 Patient is seen and evaluated in follow-up this morning currently on clear liquids per surgery recommendations as patient is tentatively scheduled for laparoscopic cholecystectomy on Sunday. Patient is currently maintained on IV Zosyn and home medications have been resumed. Patient with a extensive cardiac history including pacemaker with heart failure history and COPD recommend cardiology consultation for medical clearance for cholecystectomy. Patient reports his bush hog operator was out of the [place] area and has a follow- up appointment with a new bush hog operator although could not give the name and time of when his follow-up is. Patient is maintained on IV pain medications and rec ommend to limit the use as patient is also becoming hypoxic at times post IV narcotic administration currently on 3 L. Patient does not wear oxygen in the outpatient setting. Patient denies chest pain or shortness of breath. Patient is continuing to have low-grade temps with responding to Tylenol and will continue. W BC is improved today at 10.0 from 15.5 yesterday, hemoglobin is stable, electrolytes within normal limits and total bilirubin trending down. Given patient's cardiac history patient is moderate risk and risks versus benefits were explained and patient willing to proceed with cholecystectomy. Await cardiology evaluation. Review of systems: Constitutional: No reports of fatigue, fever, or chills Cardiovascular: No reports of chest pain or palpitations Respiratory: No reports of shortness of breath or cough GI: No reports of nausea, vomiting, or diarrhea : No reports of dysuria or retention Neurovascular: No reports of weakness or numbness All medications have been reviewed Physical examination: GENERAL: 41-year-old male awake, alert and oriented 3, well-developed, well- nourished, obese EYES: Pupils equal. Conjunctiva normal. HEENT: External appearance of nose and ears normal, oral cavity grossly normal. NECK: JVD not raised; masses not palpable. HEART: First and second heart sounds are normal; no edema. LUNGS: Respiratory rate normal; decreased breath sounds. ABDOMEN: Soft, right upper quadrant tenderness, with some guarding, no masses palpable. PSYCH: Alert and oriented x3; mood and affect anxious. NEUROLOGICAL: Cranial nerves grossly intact; no facial asymmetry, power and sensation grossly intact. LYMPHATICS: No lymph nodes palpable in the axilla and neck Assessment: -right upper quadrant pain. Febrile septic picture. Enlarged gallbladder. Suspect acalculous cholecystitis., Causing sepsis, present on admission -Severe sepsis secondary to acute cholecystitis -CAD with stent in 2014 -Chronic congestive heart failure from ischemic cardiomyopathy. 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 Patient is able to walk unassisted -Bipolar disorder -Chronic nicotine dependence, cigarette smoker -GERD -Permanent pacemaker for sick sinus syndrome Plan: Recommend continue with current medications and IV antibiotics per surgery recommendations. Patient is continued on clear liquids and will be nothing by mouth at midnight and tentatively scheduled for laparoscopic cholecystectomy in the a.m. Given patient's cardiac history recommend cardiology clearance for surgery Home medications have been reviewed and resumed Recommend monitor vital signs closely and limit the use of IV Dilaudid as patient is becoming hypoxic at times requiring 3 L of oxygen and does not n ormally wear oxygen in the outpatient setting. Discussed smoking cessation and will continue with inhalers Recommend repeat labs in a.m. and patient will be nothing by mouth at midnight Will await surgical report. The impression and plan of care has been dictated by Ines Cavazos, Nurse Practitioner as directed. Dr. Darvin MD I have performed a history and examination and MDM of this patient, discussed the same with the dictator, and agree with the dictator's assessment and plan as written ,documented as a scribe. Based on total visit time, I have performed more than 50% of the visit. Objective - Vital Signs Vital signs: Vital Signs Temp 99.2 F 03/07/22 08:13 Pulse 110 H 03/07/22 08:13 Resp 22 03/07/22 08:13 BP 117/77 03/07/22 08:13 Pulse Ox 93 L 03/07/22 08:13 FiO2 Intake & Output 03/06/22 03/07/22 03/07/22 18:59 06:59 18:59 Intake Total 1060 Balance 1060 Weight 88.451 kg 88.451 kg Intake: Intake, IV Titration 100 Amount Piperacillin-Tazobactam 3 100 .375 gm In Sodium Chloride 0.9% 100 ml @ 25 mls/hr IVPB Q8HR [facility] Rx# :[id number] Oral 960 Other: Voiding Method Toilet Urinal # Voids 2 - Labs CBC & Chem 7: 03/07/22 04:04 03/07/22 04:04 Labs: Abnormal Lab Results - Last 24 Hours (Table) 03/06/22 03/06/22 03/07/22 Range/Units 10:45 10:45 04:04 WBC 15.5 H (3.8-10.6) k/uL Plt Count 142 L (150-450) k/uL Neutrophils # 11.6 H (1.3-7.7) k/uL Monocytes # 1.4 H 1.1 H (0-1.0) k/uL Potassium 3.4 L (3.5-5.1) mmol/L Calcium (8.4-10.2) mg/dL Total Bilirubin 1.6 H (0.2-1.3) mg/dL AST (17-59) U/L ALT (4-49) U/L Total Protein (6.3-8.2) g/dL 03/07/22 Range/Units 04:04 WBC (3.8-10.6) k/uL Plt Count (150-450) k/uL Neutrophils # (1.3-7.7) k/uL Monocytes # (0-1.0) k/uL Potassium (3.5-5.1) mmol/L Calcium 8.1 L (8.4-10.2) mg/dL Total Bilirubin 1.4 H (0.2-1.3) mg/dL AST 70 H (17-59) U/L ALT 64 H (4-49) U/L Total Protein 5.7 L (6.3-8.2) g/dL
[2022-03-08] MEDS: SYMBICORT 160-4.5 MCG INHALER INHALATION SCH ×2 (07:55→19:29)
[2022-03-08 09:19] LABS: HCT 36.7 % (39.6-50.0); HGB 12.3 g/dL (13.0-17.0); MCH 30.3 pg (27.0-32.0); MCHC 33.5 g/dL (32.0-37.0); MCV 90.4 fL (80.0-97.0); Mean Platelet Volume 11.9 fL (9.5-12.2); NRBC Per 100 WBC 0 /100 WBCS (0.0-0.0); Platelet Count 196 X 10*3/uL (140-440); RBC 4.06 X 10*6/uL (4.40-5.60); RDW 12.8 % (11.5-14.5); WBC 11.13 X 10*3/uL (4.50-10.00)
[2022-03-08 09:45] LABS: African American GFR (CKD) 106.4 (60.0-200.0); Albumin 3.6 g/dL (3.8-4.9); Albumin/Globulin Ratio 1.64 (1.60-3.17); Anion Gap 9.5 mmol/L (10.00-18.00); BUN/Creat Ratio 8.6 Ratio (12.00-20.00); Blood Urea Nitrogen 8.6 mg/dL (9.0-27.0); Calcium 8.6 mg/dL (8.7-10.3); Carbon Dioxide 24.5 mmol/L (20.0-27.5); Globulin 2.2 g/dL (1.6-3.3); Non-African American GFR(CKD) 91.8 (60.0-200.0); Potassium 3.9 mmol/L (3.5-5.5); Total Bilirubin 0.9 mg/dL (0.30-1.20); Total Protein 5.8 g/dL (6.2-8.2)
[2022-03-08 09:49] LABS: Hepatitis A Antibody IgM Nonreactive (Nonreactive); Hepatitis B Core IgM Nonreactive (Nonreactive); Hepatitis B Surface Antigen Nonreactive (Nonreactive); Hepatitis C IgG Antibody Reactive (Nonreactive)
[2022-03-08] MEDS: FLUoxetine HCL 20 MG CAP PO SCH (10:06)
[2022-03-08] MEDS: ATORVASTATIN 80 MG TAB PO SCH (10:06)
[2022-03-08] MEDS: carvediloL 12.5 MG TAB PO SCH ×2 (10:06→17:47)
[2022-03-08] MEDS: PANTOPRAZOLE 40 MG TABLET PO SCH (10:06)
[2022-03-08] MEDS: clonazePAM 0.5 MG TAB PO SCH ×2 (10:07→20:24)
[2022-03-08] MEDS: HYOSCYAMINE SULFATE 0.375 MG TAB.ER.12H PO SCH ×2 (10:07→20:25)
[2022-03-08] MEDS: PRIMIDONE 50 MG TAB PO SCH ×2 (10:07→20:25)
[2022-03-08] MEDS: ISOSORBIDE MONONITRATE ER 60 MG TAB.ER.24H PO SCH (10:07)
[2022-03-08] MEDS: NICOTINE 21MG/24HR PATCH TRANSDERM SCH (10:07)
[2022-03-08] MEDS: lamoTRIgine 100 MG TAB PO SCH (10:07)
[2022-03-08] MEDS: ENOXAPARIN 40 MG/0.4 ML SYRINGE SQ SCH (10:08)
[2022-03-08] MEDS: ASPIRIN 81 MG PO SCH (10:08)
[2022-03-08] MEDS: PIPERACILLIN-TAZOBACTAM 3.375 GM in SODIUM CHLORIDE 0.9% 100 ML IVPB SCH ×2 (10:08→17:29)
--- NOTE | 2022-03-08 11:13 | P.PN ---
Subjective Progress Note Date: 03/08/22 The patient is a 41-year-old male with known history of CAD, status post stenting over 10 years ago of his LAD, history of permanent pacemaker implantation, chronic tobacco use who presents with symptoms of abdominal discomfort, nausea and vomiting. He is scheduled to undergo cholecystectomy. According to the patient who is followed by his emergency response technician in [place] he had recent cardiac workup including stress testing and cardiac catheterization within the last year and no significant abnormality was noted. He denies any chest discomfort or change in his breathing. He denies any PND, orthopnea or p eripheral edema. He has no documented malignant arrhythmia. He continues to smoke and he has dyspnea on exertion and occasional cough. He has a history of hyperlipidemia and hypertension. 03/08/2022 She was seen and examined resting in bed. Continues to have complaints of abdominal pain. Records were obtained from his emergency response technician and he underwent cardiac catheterization in October 2019 that revealed patent stent in the LAD, mild disease in the circumflex and RCA and moderate disease in the PDA with negative FFR. He also had workup as part of a preoperative clearance in which he had an MPI in August of this year that showed no evidence of ischemia and an echocardiogram that showed an ejection fraction of 40-45% with mild MR. Objective - Vital Signs Vital signs: Vital Signs Temp 99 F 03/08/22 08:23 Pulse 106 H 03/08/22 08:23 Resp 23 03/08/22 08:23 BP 129/85 03/08/22 08:23 Pulse Ox 94 L 03/08/22 08:23 FiO2 Intake & Output 03/07/22 03/08/22 03/08/22 18:59 06:59 18:59 Intake Total 100 Output Total 1000 Balance -1000 100 Weight 90 kg Intake: Intake, IV Titration 100 Amount Piperacillin-Tazobactam 3 100 .375 gm In Sodium Chloride 0.9% 100 ml @ 25 mls/hr IVPB Q8HR [facility] Rx# :[id number] Output: Urine 1000 Other: Voiding Method Toilet Toilet Urinal # Voids 2 - Exam PHYSICAL EXAMINATION: HEENT: Head is atraumatic, normocephalic. Pupils equal, round. Neck is supple. There is no elevated jugular venous pressure. HEART EXAMINATION: Heart sounds regular, S1 and S2 normal. No murmur or gallop heard. CHEST EXAMINATION: Lungs are clear to auscultation. No chest wall tenderness is noted on palpation or with deep breathing. ABDOMEN: Tenderness to palpation. Bowel sounds are heard. No organomegaly noted. EXTREMITIES: 2+ peripheral pulses with no evidence of peripheral edema and no calf tenderness noted. NEUROLOGIC patient is awake, alert and oriented x3. . - Labs CBC & Chem 7: 03/08/22 04:26 03/08/22 04:26 Labs: Abnormal Lab Results - Last 24 Hours (Table) 03/08/22 03/08/22 03/08/22 Range/Units 04:26 04:26 04:26 WBC 11.13 H (4.50-10.00) X 10*3/uL RBC 4.06 L (4.40-5.60) X 10*6/uL Hgb 12.3 L (13.0-17.0) g/dL Hct 36.7 L (39.6-50.0) % Anion Gap 9.50 L (10.00-18.00) mmol/L BUN 8.6 L (9.0-27.0) mg/dL BUN/Creatinine Ratio 8.60 L (12.00-20.00) Ratio Calcium 8.6 L (8.7-10.3) mg/dL AST 36 H (14-35) U/L Total Protein 5.8 L (6.2-8.2) g/dL Albumin 3.6 L (3.8-4.9) g/dL Hep C IgG Ab Reactive A (Nonreactive) Microbiology - Last 24 Hours (Table) 03/06/22 10:57 Blood Culture - Preliminary Blood No Growth after 24 hours 03/06/22 10:45 Blood Culture - Preliminary Blood No Growth after 24 hours Assessment and Plan Assessment: 1. Abdominal discomfort with abnormal liver function test and abnormal gallbladder imaging, scheduled for cholecystectomy 2. History of CAD status post stenting, no evidence to suggest acute coronary syndrome 3. Post pacemaker implantation 4. Chronic tobacco use 5. History of hyperlipidemia Plan: 1. The patient is an acceptable risk for surgical intervention, he has no recent episodes of CHF or angina. Recent myocardial perfusion imaging study showed no evidence of ischemia 2. Continue present therapy 3. Depending on his progress further recommendations will be made RESOURCING CONSULTANT note has been reviewed, I agree with a documented findings and plan of care. Patient was seen and examined.
--- NOTE | 2022-03-08 13:22 | P.PN ---
Subjective Progress Note Date: 03/08/22 Principal diagnosis: Abdominal pain This 41-year-old male who presented to the emergency department yesterday with complaints of abdominal pain in the right upper quadrant, epigastric and left lower quadrant region. Apparently patient has been following with his primary care physician multiple times regarding his complaints and was referred to a surgeon for cholecystectomy had not seen the surgeon at the time and came in further evaluation. Patient states he continues to have right upper quadrant and epigastric pain rates it 8-01/30. Patient does have a past medical history of coronary artery disease status post stent, permanent pacemaker, COPD, CHF, GERD hypertension hyperlipidemia IBS, and bipolar disorder. He is on multiple psychiatric medications which causes involuntary movements as well as fatigue. Patient had leukocytosis on admitting labs WBC 15, patient had outpatient total bilirubin 1.6, amylase lipase as well as AST ALT all within normal limits with an increased today. Gastroenterology Consulted for abdominal pain. Patient had CT of the abdomen without gallbladder wall thickening of possible cholecystitis. Also had evidence of hepatomegaly and hepatic steatosis. Gen. surgery was consulted as well and patient is scheduled for cholecystectomy tomorrow. WBC 10 hemoglobin 13 hematocrit 39 platelet count 142,000 INR 0.9 sodium 137 potassium 4.2 BUN 12 creatinine 0.9 total bilirubin 1.4 AST 70 ALT 64 alkaline phosphatase [address] abdomen and pelvis without contrast reports hepatomegaly correlate for hepatocellular disease or hepatic steatosis. Bilateral lower lobe infiltrate. Underlying pneumonia in the differential diagnosis. Gallbladder wall thickening with no definite gallstones correlate with ultrasound to assess for acalculous cholecystitis. Nonobstructing left renal calculi. Abdominal ultrasound severe hepatic steatosis. Correlate with LFTs, lipid profile and patient risk factors. Extensive ring down artifact along the gallbladder wall suggesting adenomyomatosis/Cholesterolosis. No shadowing calculus or ancillary finding of acute cholecystitis. Positive sonographic Hunter's sign may reflect referred pain or chronic cholecystitis. No biliary ductal dilation. 03/08/2022. Patient seen and examined is a follow-up for abdominal pain. He is scheduled to undergo cholecystectomy today with Dr. Gee. Patient continues to have abdominal pain. He is grabbing his stomach. He states he has had pain for the last 3 months duration. Denies any nausea or vomiting. He has been afebrile. WBC 11 hemoglobin 12, platelet count 196,000 total bilirubin 0.9 AST 36 ALT 44 alkaline phosphatase 65. Hepatitis panel was ran on patient, hepatitis C IgG antibody reactive. Objective - Vital Signs Vital signs: Vital Signs Temp 100.2 F H 03/08/22 11:37 Pulse 106 H 03/08/22 11:37 Resp 22 03/08/22 11:37 BP 131/67 03/08/22 11:37 Pulse Ox 94 L 03/08/22 11:37 FiO2 Intake & Output 03/07/22 03/08/22 03/08/22 18:59 06:59 18:59 Intake Total 100 Output Total 1000 300 Balance -1000 100 -300 Weight 90 kg Intake: Intake, IV Titration 100 Amount Piperacillin-Tazobactam 3 100 .375 gm In Sodium Chloride 0.9% 100 ml @ 25 mls/hr IVPB Q8HR [facility] Rx# :[id number] Output: Urine 1000 300 Other: Voiding Method Toilet Toilet Urinal # Voids 2 1 - Exam General appearance: The patient is alert, oriented, appears in no acute distress. HET: Head is normocephalic and atraumatic. Conjunctiva pink. Sclera anicteric. Neck: Supple without lymphadenopathy. Abdomen: Soft, diffuse tenderness, nondistended with bowel sounds. No guarding or rigidity. Extremities: Normal skin color and turgor. No pedal edema Skin: No rashes, no jaundice Neurological: No focal deficits. Alert and oriented. - Labs CBC & Chem 7: 03/08/22 04:26 03/08/22 04:26 Labs: Abnormal Lab Results - Last 24 Hours (Table) 03/08/22 03/08/22 03/08/22 Range/Units 04:26 04:26 04:26 WBC 11.13 H (4.50-10.00) X 10*3/uL RBC 4.06 L (4.40-5.60) X 10*6/uL Hgb 12.3 L (13.0-17.0) g/dL Hct 36.7 L (39.6-50.0) % Anion Gap 9.50 L (10.00-18.00) mmol/L BUN 8.6 L (9.0-27.0) mg/dL BUN/Creatinine Ratio 8.60 L (12.00-20.00) Ratio Calcium 8.6 L (8.7-10.3) mg/dL AST 36 H (14-35) U/L Total Protein 5.8 L (6.2-8.2) g/dL Albumin 3.6 L (3.8-4.9) g/dL Hep C IgG Ab Reactive A (Nonreactive) Microbiology - Last 24 Hours (Table) 03/06/22 10:57 Blood Culture - Preliminary Blood No Growth after 24 hours 03/06/22 10:45 Blood Culture - Preliminary Blood No Growth after 24 hours Assessment and Plan (1) Abdominal pain Narrative/Plan: 41-year-old male who presented with complaints of increased right upper quadrant, epigastric and left admitted abdominal pain who has been followed in the outpatient setting with similar complaints for the last 3 months duration. Patient was scheduled to see general surgery and early March however pain seemed to be getting worse. Patient had a CT of the abdomen and pelvis that showed possible acute versus chronic cholecystitis. Patient is seen by general surgery and scheduled to undergo cholecystitis tomorrow for acute on chronic cholecystitis. Gastroenterology will continue to follow. Continue to monitor LFTs. Current Visit: Yes Status: Acute Code(s): R10.9 - UNSPECIFIED ABDOMINAL PAIN SNOMED Code(s): 79499993 (2) Hepatic steatosis Narrative/Plan: Patient with findings of hepatic steatosis on CT abdomen and pelvis as well as gallbladder ultrasound. Patient denies any previous known history of fatty liver or underlying liver disease. Denies any previous history of current history of alcohol abuse. Has mild elevation of LFTs today, could be secondary to cholecystitis. However will also get hepatitis panel and recommend outpatient surveillance for hepatic steatosis. Acute hepatitis panel ran due to severe hepatic steatosis as seen on CT abdomen and ultrasound. Patient to come back reactive for hepatitis C antibody. Will do further hepatitis C RNA studies. Current Visit: Yes Status: Acute Code(s): K76.0 - FATTY (CHANGE OF) LIVER, NOT ELSEWHERE CLASSIFIED SNOMED Code(s): 779742968 (3) Positive hepatitis C antibody test Current Visit: Yes Status: Acute Code(s): R76.8 - OTHER SPECIFIED ABNORMAL IMMUNOLOGICAL FINDINGS IN SERUM SNOMED Code(s): 357281401 Plan: 1. Continue symptomatic supportive care 2. Diet per recommendations from general surgery 4. Daily CMP 5. Acute hepatitis panel ordered and reviewed 6. Hepatitis CLOUD SERVICES ARCHITECT and genotype ordered 7. Patient scheduled for cholecystectomy today 7. Recommend patient follow-up with gastroenterology on outpatient basis, continued surveillance of hepatic steatosis/hepatitis C Thank you for this consultation, we will continue to follow Dr. Willis Romero I agree with the dictator's note, documented as a scribe by Sadie Bingham.
[2022-03-08] MEDS ORDERED: IV FLUID CONTINUATION 100 ML IV ONE (13:48)
[2022-03-08] MEDS: ONDANSETRON 4 MG/2 ML VIAL IVP PRN (13:48)
[2022-03-08] MEDS ORDERED: GLYCOPYRROLATE 0.2 MG/ML 2 ML VIAL ONE (14:38)
[2022-03-08] MEDS ORDERED: PHENYLEPHRINE-0.9% NACL SYG 1,000 MCG/10 ML SYRINGE ONE (14:38)
[2022-03-08] MEDS ORDERED: MIDAZOLAM 2 MG/2 ML VIAL ONE (14:38)
[2022-03-08] MEDS ORDERED: ETOMIDATE 2 MG/ML 10 ML VIAL ONE (14:38)
[2022-03-08] MEDS ORDERED: fentaNYL (PF) 50 MCG/ML 2 ML AMP ONE (14:38)
[2022-03-08] MEDS ORDERED: HEPARIN SODIUM,PORCINE 5,000 UNIT/ML 1 ML VIAL ONE (14:38)
[2022-03-08] MEDS ORDERED: NEOSTIGMINE 1 MG/ML 10 ML VIAL ONE (14:38)
[2022-03-08] MEDS ORDERED: SUCCINYLCHOLINE CHLORIDE 200 MG/10 ML VIAL IV ONE (14:38)
[2022-03-08] MEDS ORDERED: LIDOCAINE 2% INJ 20 MG/ML (2 ML VIAL) ONE (14:38)
[2022-03-08] MEDS ORDERED: ROCURONIUM 10 MG/ML (5 ML VIAL) IV ONE (14:38)
[2022-03-08] MEDS ORDERED: KETOROLAC 15 MG/ML 1 ML VIAL ONE (14:38)
[2022-03-08] MEDS: LACTATED RINGERS 1,000 ML IV ONE ×2 (14:42→18:02)
[2022-03-08] MEDS ORDERED: BUPIVACAIN-EPI 0.25%-1:200,000 30 ML VIAL SQ ONE (14:43)
[2022-03-08] MEDS ORDERED: LACTATED RINGERS 1,000 ML IV ONE ×2 (14:43→16:43)
--- NOTE | 2022-03-08 15:21 | P.OP ---
Date of Procedure: 03/08/22 Preoperative Diagnosis: Cholecystitis Postoperative Diagnosis: Cholecystitis Cholelithiasis Procedure(s) Performed: Laparoscopic cholecystectomy Anesthesia: JOVI Surgeon: Eric Gee Estimated Blood Loss (ml): 5 Pathology: other (Gallbladder) Condition: stable Disposition: PACU Operative Findings: Inflamed gallbladder with thickened gallbladder wall. 2 cm gallstone Description of Procedure: The patient was placed on the operating table. The patient received a general endotracheal tube anesthesia. The patients abdomen was prepped and draped in the usual sterile fashion. Through an infraumbilical stab incision, the fascia of the anterior abdominal wall was grasped with a pair of Kochers and then the Veress needle was placed in the peritoneal cavity. Position of the Veress needle was confirmed with positive drop test. The abdomen was then insufflated. After adequate insufflation, the 10 mm trocar was placed in the peritoneal cavity. Following this the laparoscope was placed in the peritoneal cavity. The patient was placed in the head-up, right side up position and then a 5 mm trocar was placed in the right lateral and right subcostal position under direct visualization. A 8 mm trocar was placed in the epiga stric position. The gallbladder was grasped in the fundus and infundibulum. Traction on the gallbladder was placed in the lateral and the cephalad positions. The triangle of Calot was visualized.. The cystic duct was bluntly dissected until the union of the cystic duct and common bile duct was seen. A critical view of safety was achieved. The cystic duct was then divided and sealed with the Harmonic scissors. A PDS Endoloop was then placed throughout the cystic duct stump. The cystic artery divided and sealed with the Harmonic scissors. The gallbladder was then removed from the liver bed using Harmonic scissors. The gallbladder was then extracted through the epigastric port site. Operative field was checked for any bleeding spots and Harmonic scissors was used to coagulate the liver bed. The abdomen was irrigated. The trocars were removed. The skin was closed using interrupted 3-0 Vicryl suture. Dermabond dressing were applied. The patient tolerated the procedure well.
[2022-03-08] MEDS ORDERED: HYDROmorphone 0.5 MG/0.5 ML SYRINGE IVP ONE ×2 (15:35→15:43)
[2022-03-08] MEDS ORDERED: diphenhydrAMINE 50 MG/ML 1 ML VIAL IVP ONE (15:39)
--- NOTE | 2022-03-08 15:46 | CDI ---
Documentation Clarification Form Date: 03/08/2022 02:59:22 PM From: Fely Rey RN, CCDS Admit Date: 03/06/2022 01:15:00 PM Patient Name: Jabari Biswas Visit Number: [id number] Discharge Date: ATTENTION: The Clinical Documentation Specialists (CDI) and [facility] Coding Staff appreciate your assistance in clarifying documentation. Please respond to the clarification below the line at the bottom and electronically sign. The CDI & [facility] Coding staff will review the response and follow-up if needed. Please note: Queries are made part of the Legal Health Record. If you have any questions, please contact the author of this message via ITS. Dr. Marisela Agustin Your patient has the documented diagnosis of unspecified CHF in the cardiology consult and subsequent progress note. Additional information regarding the type, acuity of CHF is requested. History/Risk Factors: Coronary Artery Disease, Heart Failure, hypertension, Ischemic cardiomyopathy, sick sinus syndrome status post permanent implantation, chronic tobacco use Clinical Indicators: 41-year-old male present with abdominal discomfort, nausea and vomiting. He has history of heart failure with ongoing treatment. He has chronic dyspnea on exertion with cough. No extremity edema. 03/06 @ 10:40 Vital signs: 143/95 123 20 101.4 95 % RA 08/2021: Per cardiology progress note: Echocardiogram Results: ejection fraction of 40-45% with mild MR 03/06 Chest X Ray: Low lung volumes with streaky atelectasis. No definitive focal consolidation to suggest airspace disease. Treatment: Crestor 40 mg po daily, Coreg 25 mg po daily, Isosorbide mononitrate 120 mg po daily, Lasix 20 mg po daily In your professional opinion, can you please clarify the acuity and type of CHF if known? [ xx] Chronic Systolic Heart Failure (reduced EF) [ ] Chronic Systolic & Diastolic Heart Failure [ ] Other, please specify [ ] Unable to determine (Template Last Revised: May 2020) MTDD
[2022-03-08] MEDS: MONTELUKAST 10 MG TAB PO SCH (20:25)
[2022-03-09] MEDS: HYDROmorphone 1 MG/ML 1 ML SYRINGE IVP PRN ×3 (00:21→06:25)
[2022-03-09] MEDS: PIPERACILLIN-TAZOBACTAM 3.375 GM in SODIUM CHLORIDE 0.9% 100 ML IVPB SCH ×2 (01:32→09:56)
[2022-03-09] MEDS: ACETAMINOPHEN TAB 325 MG TAB PO PRN (04:33)
[2022-03-09 05:05] VITALS: BP 126/80; PULSE 95; RESP 16; TEMP 102.9
--- NOTE | 2022-03-09 05:14 | P.PN ---
Subjective Progress Note Date: 03/08/22 Chief Complaint: Abdominal pain This is a pleasant 41-year-old patient of Dr. Andrey Collado. Chronic stable medical conditions include CAD with a stent in 2014, permanent pacemaker in 2011 for sick sinus syndrome, COPD, CHF, GERD, hypertension, hyperlipidemia, irritable bowel syndrome, bipolar disorder. At her baseline patient does have involuntary movements he describes secondary to his psychiatry medications the past. Patient presents with right upper quadrant pain. States he's had the pain for close to 3 months. Outpatient workup has been done. Up in [facility] had EGD and a pelviscopy also. Does not remember the name of the physician. He was told he has hiatal hernia. He also worked up for gallbladder disease. He describes the pain and being constant and worse with eating. Also notes having fever and chills. Some nausea vomiting. Also on and off has had diarrhea for 3 months. Patient's pain as well as significant in the right upper quadrant. 03/07/2022 Patient is seen and evaluated in follow-up this morning currently on clear liquids per surgery recommendations as patient is tentatively scheduled for laparoscopic cholecystectomy on Sunday. Patient is currently maintained on IV Zosyn and home medications have been resumed. Patient with a extensive cardiac history including pacemaker with heart failure history and COPD recommend cardiology consultation for medical clearance for cholecystectomy. Patient reports his violin restorer was out of the [place] area and has a follow- up appointment with a new violin restorer although could not give the name and time of when his follow-up is. Patient is maintained on IV pain medications and rec ommend to limit the use as patient is also becoming hypoxic at times post IV narcotic administration currently on 3 L. Patient does not wear oxygen in the outpatient setting. Patient denies chest pain or shortness of breath. Patient is continuing to have low-grade temps with responding to Tylenol and will continue. W BC is improved today at 10.0 from 15.5 yesterday, hemoglobin is stable, electrolytes within normal limits and total bilirubin trending down. Given patient's cardiac history patient is moderate risk and risks versus benefits were explained and patient willing to proceed with cholecystectomy. Await cardiology evaluation. 03/08/2022 Patient is seen in follow-up today and currently NPO waiting for laparascopic cholecystectomy with surgery today. Patient has been seen and evaluated by cardiology for surgical clearance given his cardiac history. Patient continues to have low grade temps and is continued on IV zosyn and will continue. Patient denies chest pain or shortness of breath and is currently on room air. Patient is anxious and restless and asking when he is going for surgery. staff respiratory therapist reported was approx around 2-230 this afternoon. Will await surgical report. Review of systems: Constitutional: No reports of fatigue, fever, or chills, reports anxiety Cardiovascular: No reports of chest pain or palpitations Respiratory: No reports of shortness of breath or cough GI: No reports of nausea, vomiting, or diarrhea, reports abdominal pain : No reports of dysuria or retention Neurovascular: No reports of weakness or numbness All medications have been reviewed Physical examination: GENERAL: 41-year-old male asleep but arousable, alert and oriented 3, well- developed, well-nourished, obese, anxious EYES: Pupils equal. Conjunctiva normal. HEENT: External appearance of nose and ears normal, oral cavity grossly normal. NECK: JVD not raised; masses not palpable. HEART: First and second heart sounds are normal; no edema. LUNGS: Respiratory rate normal; decreased breath sounds. ABDOMEN: Soft, right upper quadrant tenderness, with some guarding, no masses palpable. PSYCH: Alert and oriented x3; mood and affect anxious. NEUROLOGICAL: Cranial nerves grossly intact; no facial asymmetry, power and sensation grossly intact. LYMPHATICS: No lymph nodes palpable in the axilla and neck Assessment: -right upper quadrant pain. Febrile septic picture. Enlarged gallbladder. Suspect acalculous cholecystitis., Causing sepsis, present on admission -Severe sepsis secondary to acute cholecystitis -CAD with stent in 2014 -Chronic congestive heart failure from ischemic cardiomyopathy. 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 Patient is able to walk unassisted -Bipolar disorder -Chronic nicotine dependence, cigarette smoker -GERD -Permanent pacemaker for sick sinus syndrome Plan: Recommend continue with current medications and IV antibiotics per surgery recommendations. Patient is continued on clear liquids and will be nothing by mouth at midnight and tentatively scheduled for laparoscopic cholecystectomy on 03/08 Given patient's cardiac history recommend cardiology clearance for surgery and has been evaluated by cardiology with risks discussed and patient wants to p roceed Home medications have been reviewed and resumed Recommend monitor vital signs closely and limit the use of IV Dilaudid as patient is becoming hypoxic at times requiring 3 L of oxygen and does not normally wear oxygen in the outpatient setting. Discussed smoking cessation and will continue with inhalers Recommend repeat labs in a.m. Will await surgical report. The impression and plan of care has been dictated by Ines Cavazos, Nurse Practitioner as directed. Dr. Darvin MD I have performed a history and examination and MDM of this patient, discussed the same with the dictator, and agree with the dictator's assessment and plan as written ,documented as a scribe. Based on total visit time, I have performed more than 50% of the visit. Objective - Vital Signs Vital signs: Vital Signs Temp 99 F 03/08/22 08:23 Pulse 106 H 03/08/22 08:23 Resp 23 03/08/22 08:23 BP 129/85 03/08/22 08:23 Pulse Ox 94 L 03/08/22 08:23 FiO2 Intake & Output 03/07/22 03/08/22 03/08/22 18:59 06:59 18:59 Intake Total 100 Output Total 1000 Balance -1000 100 Weight 90 kg Intake: Intake, IV Titration 100 Amount Piperacillin-Tazobactam 3 100 .375 gm In Sodium Chloride 0.9% 100 ml @ 25 mls/hr IVPB Q8HR [facility] Rx# :[id number] Output: Urine 1000 Other: Voiding Method Toilet Toilet Urinal # Voids 2 - Labs CBC & Chem 7: 03/08/22 04:26 03/08/22 04:26 Labs: Abnormal Lab Results - Last 24 Hours (Table) 03/08/22 03/08/22 03/08/22 Range/Units 04:26 04:26 04:26 WBC 11.13 H (4.50-10.00) X 10*3/uL RBC 4.06 L (4.40-5.60) X 10*6/uL Hgb 12.3 L (13.0-17.0) g/dL Hct 36.7 L (39.6-50.0) % Anion Gap 9.50 L (10.00-18.00) mmol/L BUN 8.6 L (9.0-27.0) mg/dL BUN/Creatinine Ratio 8.60 L (12.00-20.00) Ratio Calcium 8.6 L (8.7-10.3) mg/dL AST 36 H (14-35) U/L Total Protein 5.8 L (6.2-8.2) g/dL Albumin 3.6 L (3.8-4.9) g/dL Hep C IgG Ab Reactive A (Nonreactive) Microbiology - Last 24 Hours (Table) 03/06/22 10:57 Blood Culture - Preliminary Blood No Growth after 24 hours 03/06/22 10:45 Blood Culture - Preliminary Blood No Growth after 24 hours
--- NOTE | 2022-03-09 09:08 | P.PN ---
Subjective Progress Note Date: 03/09/22 The patient is a 41-year-old male with known history of CAD, status post stenting over 10 years ago of his LAD, ischemic cardiomyopathy, chronic systolic heart failure, history of permanent pacemaker implantation, chronic tobacco use who presents with symptoms of abdominal discomfort, nausea and vomiting. He is scheduled to undergo cholecystectomy. According to the patient who is followed by his scientist engineer in [place] he had recent cardiac workup including stress testing and cardiac catheterization within the last year and no significant abnormality was noted. He denies any chest discomfort or change in his breathing. He denies any PND, orthopnea or peripheral edema. He has no documented malignant arrhythmia. He continues to smoke and he has dyspnea on exertion and occasional cough. He has a history of hyperlipidemia and hypertension. 03/08/2022 He was seen and examined resting in bed. Continues to have complaints of abdominal pain. Records were obtained from his scientist engineer and he underwent cardiac catheterization in October 2019 that revealed patent stent in the LAD, mild disease in the circumflex and RCA and moderate disease in the PDA with negative FFR. He also had workup as part of a preoperative clearance in which he had an MPI in August of this year that showed no evidence of ischemia and an echocardiogram that showed an ejection fraction of 40-45% with mild MR. 03/09/2022 The patient was seen and examined resting comfortably in bed. He underwent laparoscopic cholecystectomy yesterday with Dr. Gee. Overall he is feeling quite a bit better. His abdomen feels better with some mild incisional tenderness. His breathing is stable. He has had no complaints of chest discomfort. He did have a fever this morning at 102.9 but at this time is afebrile. Blood pressure and heart rate are stable. Objective - Vital Signs Vital signs: Vital Signs Temp 102.9 F H 03/09/22 05:00 Pulse 95 03/09/22 05:00 Resp 16 03/09/22 05:00 BP 126/80 03/09/22 05:00 Pulse Ox 91 L 03/09/22 05:00 FiO2 Intake & Output 03/08/22 03/09/22 03/09/22 18:59 06:59 18:59 Intake Total 1440 590 Output Total 310 Balance 1130 590 Weight 93.5 kg Intake: IV 850 Oral 590 590 Output: Urine 300 Estimated Blood Loss 10 Other: Voiding Method Toilet # Voids 1 3 - Exam PHYSICAL EXAMINATION: HEENT: Head is atraumatic, normocephalic. Pupils equal, round. Neck is supple. There is no elevated jugular venous pressure. HEART EXAMINATION: Heart sounds regular, S1 and S2 normal. No murmur or gallop heard. CHEST EXAMINATION: Lungs are clear to auscultation. No chest wall tenderness is noted on palpation or with deep breathing. ABDOMEN: Tenderness to palpation. Bowel sounds are heard. No organomegaly noted. EXTREMITIES: 2+ peripheral pulses with no evidence of peripheral edema and no ca lf tenderness noted. NEUROLOGIC patient is awake, alert and oriented x3. . - Labs CBC & Chem 7: 03/08/22 04:26 03/08/22 04:26 Labs: Abnormal Lab Results - Last 24 Hours (Table) 03/08/22 03/08/22 03/08/22 Range/Units 04:26 04:26 04:26 WBC 11.13 H (4.50-10.00) X 10*3/uL RBC 4.06 L (4.40-5.60) X 10*6/uL Hgb 12.3 L (13.0-17.0) g/dL Hct 36.7 L (39.6-50.0) % Anion Gap 9.50 L (10.00-18.00) mmol/L BUN 8.6 L (9.0-27.0) mg/dL BUN/Creatinine Ratio 8.60 L (12.00-20.00) Ratio Calcium 8.6 L (8.7-10.3) mg/dL AST 36 H (14-35) U/L Total Protein 5.8 L (6.2-8.2) g/dL Albumin 3.6 L (3.8-4.9) g/dL Hep C IgG Ab Reactive A (Nonreactive) Microbiology - Last 24 Hours (Table) 03/06/22 10:57 Blood Culture - Preliminary Blood No Growth after 48 hours 03/06/22 10:45 Blood Culture - Preliminary Blood No Growth after 48 hours Assessment and Plan Assessment: 1. Abdominal discomfort with abnormal liver function test and abnormal gallbladder imaging, status post cholecystectomy 2. History of CAD status post stenting, no evidence to suggest acute coronary s yndrome 3. Post pacemaker implantation 4. Chronic tobacco use 5. History of hyperlipidemia Plan: From cardiology's perspective medications were reviewed and we will continue the same. From our standpoint when cleared by primary and surgical patient may be discharged home. He will follow-up with his primary scientist engineer as an outpatient. VOCATIONAL TECHNICAL EDUCATION TEACHER note has been reviewed, I agree with a documented findings and plan of care. Patient was seen and examined.
[2022-03-09] MEDS ORDERED: HYDROmorphone 1 MG/ML 1 ML SYRINGE IVP PRN (09:31)
[2022-03-09] MEDS ORDERED: oxyCODONE-APAP 5-325MG 1 EACH TAB PO PRN (09:31)
[2022-03-09] MEDS: SYMBICORT 160-4.5 MCG INHALER INHALATION SCH (09:50)
[2022-03-09] MEDS: ATORVASTATIN 80 MG TAB PO SCH (09:54)
[2022-03-09] MEDS: ENOXAPARIN 40 MG/0.4 ML SYRINGE SQ SCH (09:54)
[2022-03-09] MEDS: clonazePAM 0.5 MG TAB PO SCH (09:54)
[2022-03-09] MEDS: ASPIRIN 81 MG PO SCH (09:54)
[2022-03-09] MEDS: PANTOPRAZOLE 40 MG TABLET PO SCH (09:54)
[2022-03-09] MEDS: PRIMIDONE 50 MG TAB PO SCH (09:55)
[2022-03-09] MEDS: NICOTINE 21MG/24HR PATCH TRANSDERM SCH (09:55)
[2022-03-09] MEDS: carvediloL 12.5 MG TAB PO SCH (09:55)
[2022-03-09] MEDS: ISOSORBIDE MONONITRATE ER 60 MG TAB.ER.24H PO SCH (09:55)
[2022-03-09] MEDS: FLUoxetine HCL 20 MG CAP PO SCH (09:55)
[2022-03-09] MEDS: HYOSCYAMINE SULFATE 0.375 MG TAB.ER.12H PO SCH (09:55)
[2022-03-09] MEDS: lamoTRIgine 100 MG TAB PO SCH (09:55)
[2022-03-09 10:39] LABS: Basophils # (A) 0.03 X 10*3/uL (0.00-0.10); Basophils % (A) 0.3 %; Eosinophils # (A) 0.29 X 10*3/uL (0.04-0.35); Eosinophils % (A) 2.9 %; HCT 37.1 % (39.6-50.0); HGB 12.4 g/dL (13.0-17.0); Immature Grans, Automated 0.7 %; Lymphocytes # (A) 1.65 X 10*3/uL (0.90-5.00); Lymphocytes % (A) 16.6 %; MCH 30.5 pg (27.0-32.0); MCHC 33.4 g/dL (32.0-37.0); MCV 91.4 fL (80.0-97.0); Monocytes # (A) 1.23 X 10*3/uL (0.20-1.00); Monocytes % (A) 12.4 %; NRBC Per 100 WBC 0 /100 WBCS (0.0-0.0); Neutrophils # (A) 6.66 X 10*3/uL (1.80-7.70); Neutrophils % (A) 67.1 %; Platelet Count 230 X 10*3/uL (140-440); RBC 4.06 X 10*6/uL (4.40-5.60); RDW 12.7 % (11.5-14.5); WBC 9.93 X 10*3/uL (4.50-10.00)
[2022-03-09 11:13] LABS: African American GFR (CKD) 101.4 (60.0-200.0); Albumin 3.6 g/dL (3.8-4.9); Albumin/Globulin Ratio 1.77 (1.60-3.17); Anion Gap 9.3 mmol/L (10.00-18.00); BUN/Creat Ratio 10.67 Ratio (12.00-20.00); Blood Urea Nitrogen 11.1 mg/dL (9.0-27.0); Calcium 8.6 mg/dL (8.7-10.3); Carbon Dioxide 27.5 mmol/L (20.0-27.5); Non-African American GFR(CKD) 87.5 (60.0-200.0); Potassium 3.8 mmol/L (3.5-5.5); Total Bilirubin 0.6 mg/dL (0.30-1.20); Total Protein 5.6 g/dL (6.2-8.2)
--- NOTE | 2022-03-09 15:35 | P.PN ---
Subjective Progress Note Date: 03/09/22 Principal diagnosis: Abdominal pain This 41-year-old male who presented to the emergency department yesterday with complaints of abdominal pain in the right upper quadrant, epigastric and left lower quadrant region. Apparently patient has been following with his primary care physician multiple times regarding his complaints and was referred to a surgeon for cholecystectomy had not seen the surgeon at the time and came in further evaluation. Patient states he continues to have right upper quadrant and epigastric pain rates it 8-01/30. Patient does have a past medical history of coronary artery disease status post stent, permanent pacemaker, COPD, CHF, GERD hypertension hyperlipidemia IBS, and bipolar disorder. He is on multiple psychiatric medications which causes involuntary movements as well as fatigue. Patient had leukocytosis on admitting labs WBC 15, patient had outpatient total bilirubin 1.6, amylase lipase as well as AST ALT all within normal limits with an increased today. Gastroenterology Consulted for abdominal pain. Patient had CT of the abdomen without gallbladder wall thickening of possible cholecystitis. Also had evidence of hepatomegaly and hepatic steatosis. Gen. surgery was consulted as well and patient is scheduled for cholecystectomy tomorrow. WBC 10 hemoglobin 13 hematocrit 39 platelet count 142,000 INR 0.9 sodium 137 potassium 4.2 BUN 12 creatinine 0.9 total bilirubin 1.4 AST 70 ALT 64 alkaline phosphatase [address] abdomen and pelvis without contrast reports hepatomegaly correlate for hepatocellular disease or hepatic steatosis. Bilateral lower lobe infiltrate. Underlying pneumonia in the differential diagnosis. Gallbladder wall thickening with no definite gallstones correlate with ultrasound to assess for acalculous cholecystitis. Nonobstructing left renal calculi. Abdominal ultrasound severe hepatic steatosis. Correlate with LFTs, lipid profile and patient risk factors. Extensive ring down artifact along the gallbladder wall suggesting adenomyomatosis/Cholesterolosis. No shadowing calculus or ancillary finding of acute cholecystitis. Positive sonographic Hunter's sign may reflect referred pain or chronic cholecystitis. No biliary ductal dilation. 03/08/2022. Patient seen and examined is a follow-up for abdominal pain. He is scheduled to undergo cholecystectomy today with Dr. Gee. Patient continues to have abdominal pain. He is grabbing his stomach. He states he has had pain for the last 3 months duration. Denies any nausea or vomiting. He has been afebrile. WBC 11 hemoglobin 12, platelet count 196,000 total bilirubin 0.9 AST 36 ALT 44 alkaline phosphatase 65. Hepatitis panel was ran on patient, hepatitis C IgG antibody reactive. 03/09/2022. Patient seen and examined today for follow-up. He underwent cholecystectomy yesterday with Dr. Powers. This morning had a temperature of 102.9. States abdominal pain has improved significantly. He is tolerating his diet. No flatus or bowel movement at this time. Patient was notified he had a positive hepatitis C antibody. He denies any history of known knowledge of hepatitis C. He states that he has used IV drug in the past when he was younger. Denies any current IV drug use. Objective - Vital Signs Vital signs: Vital Signs Temp 102.9 F H 03/09/22 05:00 Pulse 95 03/09/22 05:00 Resp 16 03/09/22 05:00 BP 126/80 03/09/22 05:00 Pulse Ox 91 L 03/09/22 05:00 FiO2 Intake & Output 03/08/22 03/09/22 03/09/22 18:59 06:59 18:59 Intake Total 1440 590 Output Total 310 Balance 1130 590 Weight 93.5 kg Intake: IV 850 Oral 590 590 Output: Urine 300 Estimated Blood Loss 10 Other: Voiding Method Toilet # Voids 1 3 - Exam General appearance: The patient is alert, oriented, appears in no acute distress. HET: Head is normocephalic and atraumatic. Conjunctiva pink. Sclera anicteric. Neck: Supple without lymphadenopathy. Abdomen: Soft, surgical incisions with Steri-Strips, nondistended. No guarding or rigidity. Extremities: Normal skin color and turgor. No pedal edema Skin: No rashes, no jaundice Neurological: No focal deficits. Alert and oriented. - Labs CBC & Chem 7: 03/09/22 07:27 03/09/22 07:27 Labs: Abnormal Lab Results - Last 24 Hours (Table) 03/08/22 03/08/22 03/08/22 Range/Units 04:26 04:26 04:26 WBC 11.13 H (4.50-10.00) X 10*3/uL RBC 4.06 L (4.40-5.60) X 10*6/uL Hgb 12.3 L (13.0-17.0) g/dL Hct 36.7 L (39.6-50.0) % Anion Gap 9.50 L (10.00-18.00) mmol/L BUN 8.6 L (9.0-27.0) mg/dL BUN/Creatinine Ratio 8.60 L (12.00-20.00) Ratio Calcium 8.6 L (8.7-10.3) mg/dL AST 36 H (14-35) U/L Total Protein 5.8 L (6.2-8.2) g/dL Albumin 3.6 L (3.8-4.9) g/dL Hep C IgG Ab Reactive A (Nonreactive) Microbiology - Last 24 Hours (Table) 03/06/22 10:57 Blood Culture - Preliminary Blood No Growth after 48 hours 03/06/22 10:45 Blood Culture - Preliminary Blood No Growth after 48 hours Assessment and Plan (1) Abdominal pain Narrative/Plan: 41-year-old male who presented with complaints of increased right upper quadrant, epigastric and left admitted abdominal pain who has been followed in the outpatient setting with similar complaints for the last 3 months duration. Patient was scheduled to see general surgery and early March however pain seemed to be getting worse. Patient had a CT of the abdomen and pelvis that showed possible acute versus chronic cholecystitis. Patient is seen by general surgery and scheduled to undergo cholecystitis tomorrow for acute on chronic cholecystitis. Gastroenterology will continue to follow. Continue to monitor LFTs. LFTs continued to be stable. Patient is status post cholecystectomy for cholecy stitis, cholelithiasis patient found to have a 2 cm gallstone. Status: Acute Code(s): R10.9 - UNSPECIFIED ABDOMINAL PAIN SNOMED Code(s): 99324604 (2) Hepatic steatosis Narrative/Plan: Patient with findings of hepatic steatosis on CT abdomen and pelvis as well as gallbladder ultrasound. Patient denies any previous known history of fatty liver or underlying liver disease. Denies any previous history of current history of alcohol abuse. Has mild elevation of LFTs today, could be secondary to cholecystitis. However will also get hepatitis panel and recommend outpatient surveillance for hepatic steatosis. Acute hepatitis panel ran due to severe hepatic steatosis as seen on CT abdomen and ultrasound. Patient to come back reactive for hepatitis C antibody. Will do further hepatitis C RNA studies. Status: Acute Code(s): K76.0 - FATTY (CHANGE OF) LIVER, NOT ELSEWHERE CLASSIFIED SNOMED Code(s): 483549832 (3) Positive hepatitis C antibody test Status: Acute Code(s): R76.8 - OTHER SPECIFIED ABNORMAL IMMUNOLOGICAL FINDINGS IN SERUM SNOMED Code(s): 586630607 Plan: 1. Continue symptomatic supportive care 2. Diet per recommendations from general surgery 3. Acute hepatitis panel ordered and reviewed 4. Hepatitis C RNA and genotype ordered 5. Recommend patient follow-up with gastroenterology on outpatient basis, continued surveillance of hepatic steatosis/hepatitis C Thank you for this consultation, we will sign off at this time. Dr. Willis Romero I agree with the dictator's note, documented as a scribe by Sadie Bingham.
--- NOTE | 2022-03-09 16:09 | P.PN ---
Subjective Progress Note Date: 03/09/22 CHIEF COMPLAINT: Acute on chronic cholecystitis HISTORY OF PRESENT ILLNESS: Patient is status post laparoscopic cholecystectomy. Patient febrile this morning with a fever of 102.9. He does report his pain is controlled. He did have some nausea earlier. He did tolerate diet. Denies any bowel activity. Patient is adamant about being discharged. Educated patient that he needs to be afebrile before discharge. Encourage patient to use incentive spirometer. WBC 9.93 hemoglobin 12.4 platelets 2:30 sodium is 135 potassium is 3.8 creatinine 1.0 PHYSICAL EXAM: VITAL SIGNS: Reviewed. GENERAL: Well-developed in no acute distress. HEENT: No sclera icterus. Extraocular movements grossly intact. Moist buccal mucosa. Head is atraumatic, normocephalic. ABDOMEN: Soft. Nondistended. Incision sites clean dry and intact NEUROLOGIC: Alert and oriented. Cranial nerves II through XII grossly intact. ASSESSMENT: 1. Cholecystitis with cholelithiasis status post laparoscopic cholecystectomy 2. Fever possibly due to atelectasis PLAN: -Incentive spirometer ordered -Educated patient's that he needs to be afebrile before being stable for discharge -Antibiotics given by medicine service at discharge -Patient left AGAINST MEDICAL ADVICE Physician Surgical Corsetier note has been reviewed by physician. Signing provider agrees with the documented findings, assessment, and plan of care. Objective - Vital Signs Vital signs: Vital Signs Temp 102.9 F H 03/09/22 05:00 Pulse 95 03/09/22 05:00 Resp 16 03/09/22 05:00 BP 126/80 03/09/22 05:00 Pulse Ox 91 L 03/09/22 05:00 FiO2 Intake & Output 03/08/22 03/09/22 03/09/22 18:59 06:59 18:59 Intake Total 1440 590 Output Total 310 Balance 1130 590 Weight 93.5 kg Intake: IV 850 Oral 590 590 Output: Urine 300 Estimated Blood Loss 10 Other: Voiding Method Toilet # Voids 1 3 - Labs CBC & Chem 7: 03/09/22 07:27 03/09/22 07:27 Labs: Abnormal Lab Results - Last 24 Hours (Table) 03/09/22 03/09/22 Range/Units 07:27 07:27 RBC 4.06 L (4.40-5.60) X 10*6/uL Hgb 12.4 L (13.0-17.0) g/dL Hct 37.1 L (39.6-50.0) % Immature Gran # 0.07 H (0.00-0.04) X 10*3/uL Monocytes # 1.23 H (0.20-1.00) X 10*3/uL Anion Gap 9.30 L (10.00-18.00) mmol/L BUN/Creatinine Ratio 10.67 L (12.00-20.00) Ratio Calcium 8.6 L (8.7-10.3) mg/dL AST 52 H (14-35) U/L Total Protein 5.6 L (6.2-8.2) g/dL Albumin 3.6 L (3.8-4.9) g/dL Microbiology - Last 24 Hours (Table) 03/06/22 10:57 Blood Culture - Preliminary Blood No Growth after 72 hours 03/06/22 10:45 Blood Culture - Preliminary Blood No Growth after 72 hours
--- NOTE | 2022-03-10 15:56 | P.DS ---
Providers Date of admission: 03/06/22 13:15 Expected date of discharge: 03/09/22 Attending physician: Shahram Lopez Consults: 03/06/22 13:28 Consult Physician Routine Consulting Provider: Eric Gee Consult Reason/Comments: Cholecystitis Do you want consulting provider notified?: Yes Consult Physician Routine Consulting Provider: Radha Romero Consult Reason/Comments: abdominal pain Do you want consulting provider notified?: Yes 03/07/22 12:11 Consult Physician Routine Consulting Provider: Emerald Madden Consult Reason/Comments: Pre Op clearance Do you want consulting provider notified?: Yes Primary care physician: Ming Collado Hospital Course: Final diagnosis -right upper quadrant pain. Febrile septic picture. Enlarged gallbladder. Suspect acalculous cholecystitis., Causing sepsis, present on admission -Severe sepsis secondary to acute cholecystitis -Post laparoscopic cholecystectomy, postop day #1 -CAD with stent in 2015 -Chronic congestive heart failure from ischemic cardiomyopathy. 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 Patient is able to walk unassisted -Bipolar disorder -Chronic nicotine dependence, cigarette smoker -GERD -Permanent pacemaker for sick sinus syndrome Discharge disposition Patient has decided to leave AGAINST MEDICAL ADVICE. Risks versus benefits were explained and patient was given AMA paperwork to sign. Patient will be going home with oral Augmentin twice daily for the next 1 week and strongly encouraged follow-up with primary care provider and surgery in the outpatient setting. He should follow-up with his registered dental hygienist as well and this was expressed to the patient. Total time taken is greater than 35 minutes. Hospital course This is a 41-year-old male who was recently admitted with abdominal pain along with right upper quadrant pain underwent CT abdomen which was suggestive of thickened gallbladder with concerns for acute cholecystitis along with sepsis present on admission and underwent laparoscopic cholecystectomy. Patient co ntinued on antibiotics and also having continued fevers post surgery and prior to surgery although patient could not stay any longer as he has a elderly sick mother that he cares for at home and needs to get home to her. Patient instructed to report back to the emergency department if continuing with fevers or having any worsening symptoms or pains. Patient was postop cholecystectomy with improvement in abdominal pain although abdominal soreness noted. Patient tolerating diet and reports the passing gas with no bowel movement as of yet. Patient reported to urinating with no difficulties. Patient was adamant about leaving and this was discussed with general surgery and instructed the patient to go to the pharmacy to get antibiotics and continue taking and close outpatient follow-up with surgery. Currently no reports of chest pain, shortness of breath, or palpitations. Patient is afebrile. No reports of nausea or vomiting and patient is tolerating diet. Patient still with fevers and has not been medically cleared and proceeding to leave AMA. Guarded prognosis. Physical exam: Gen: This is a 41-year-old male awake, alert and oriented 3, well-developed, well-nourished. HEENT: Head is atraumatic, normocephalic. Pupils equal, round. Sclerae is anicteric. NECK: Supple. No JVD. No lymphadenopathy. No thyromegaly. LUNGS: Clear to auscultation. No wheezes or rhonchi. No intercostal retractions. HEART: Regular rate and rhythm. No murmur. ABDOMEN: Soft. Bowel sounds are present. No masses. No tenderness. Some abdominal tenderness on palpation and surgical sites are clean and dry with surgical glue noted EXTREMITIES: No pedal edema. No calf tenderness. NEUROLOGICAL: Patient is awake, alert and oriented x3. Cranial nerves 2 through 12 are grossly intact. Please refer to medication reconciliation sheet for a list of medications. The impression and plan of care has been dictated by Ines Cavazos, Nurse Practitioner as directed. Dr. Darvin MD I have performed a history and examination and MDM of this patient, discussed the same with the dictator, and agree with the dictator's assessment and plan as written ,documented as a scribe. Based on total visit time, I have performed more than 50% of the visit. Patient Condition at Discharge: Fair Plan - Discharge Summary New Discharge Prescriptions: New Amoxic-Pot Clav 875-125Mg [Augmentin 875-125] 1 tab PO Q12HR 7 Days #14 tab No Action Furosemide [Lasix] 20 mg PO DAILY Fluticasone Nasal [place] [Flonase Nasal [place]] 1 spr EA NOSTRIL DAILY PRN PRN Reason: Allergy Symptoms Nitroglycerin Sl Tabs [Nitrostat] 0.4 mg SL Q5M PRN PRN Reason: Chest Pain Montelukast [Singulair] 10 mg PO HS Albuterol Sulfate [Ventolin HFA] 2 puff INHALATION RT-Q6H PRN PRN Reason: Shortness Of Breath Pantoprazole Sodium [Protonix] 40 mg PO DAILY carvediloL [Coreg] 25 mg PO BID Isosorbide Mononitrate [Imdur] 120 mg PO DAILY lamoTRIgine [LaMICtal] 100 mg PO DAILY Baclofen [Lioresal] 10 - 20 mg PO TID PRN PRN Reason: LEFT LEG PAIN Acetaminophen Tab [Tylenol Tab] 500 mg PO Q6H PRN PRN Reason: Fever And/ Or Pain FLUoxetine HCL [PROzac] 20 mg PO DAILY Rosuvastatin Calcium [Crestor] 40 mg PO DAILY Budesonide/Formoterol Fumarate [Symbicort 160-4.5 Mcg Inhaler] 2 puff INHALATION RT-BID Dicyclomine [Bentyl] 20 mg PO BID Primidone [Mysoline] 50 mg PO BID Potassium Chloride ER [K-Dur 10] 10 meq PO DAILY Famotidine [Pepcid] 20 mg PO HS PRN PRN Reason: Gi Upset SILVER sulfADIAZINE Cream [Silvadene 1% Cream] 1 applic TOPICAL DAILY oxyCODONE-APAP 5-325MG [Percocet 5-325 mg] 1 tab PO Q6HR PRN PRN Reason: Pain clonazePAM [KlonoPIN] 0.5 mg PO BID Ondansetron Odt [Zofran Odt] 8 mg PO Q8H PRN PRN Reason: Nausea Hyoscyamine Sulfate [Hyoscyamine Sulfate ER] 0.375 mg PO Q12H Discharge Medication List Furosemide [Lasix] 20 mg PO DAILY 10/27/15 [History] Fluticasone Nasal [place] [Flonase Nasal [place]] 1 spr EA NOSTRIL DAILY PRN 04/11/18 [History] Albuterol Sulfate [Ventolin HFA] 2 puff INHALATION RT-Q6H PRN 02/12/20 [History] Montelukast [Singulair] 10 mg PO HS 02/12/20 [History] Nitroglycerin Sl Tabs [Nitrostat] 0.4 mg SL Q5M PRN 02/12/20 [History] Pantoprazole Sodium [Protonix] 40 mg PO DAILY 02/12/20 [History] Budesonide/Formoterol Fumarate [Symbicort 160-4.5 Mcg Inhaler] 2 puff INHALATION RT-BID 09/16/20 [History] carvediloL [Coreg] 25 mg PO BID 09/16/20 [History] Acetaminophen Tab [Tylenol Tab] 500 mg PO Q6H PRN 07/01/21 [History] Baclofen [Lioresal] 10 - 20 mg PO TID PRN 07/01/21 [History] Dicyclomine [Bentyl] 20 mg PO BID 07/01/21 [History] Isosorbide Mononitrate [Imdur] 120 mg PO DAILY 07/01/21 [History] lamoTRIgine [LaMICtal] 100 mg PO DAILY 07/01/21 [History] FLUoxetine HCL [PROzac] 20 mg PO DAILY 07/03/21 [History] Primidone [Mysoline] 50 mg PO BID 07/06/21 [History] Famotidine [Pepcid] 20 mg PO HS PRN 03/06/22 [History] Hyoscyamine Sulfate [Hyoscyamine Sulfate ER] 0.375 mg PO Q12H 03/06/22 [History] Ondansetron Odt [Zofran Odt] 8 mg PO Q8H PRN 03/06/22 [History] Potassium Chloride ER [K-Dur 10] 10 meq PO DAILY 03/06/22 [History] Rosuvastatin Calcium [Crestor] 40 mg PO DAILY 03/06/22 [History] SILVER sulfADIAZINE Cream [Silvadene 1% Cream] 1 applic TOPICAL DAILY 03/06/22 [History] clonazePAM [KlonoPIN] 0.5 mg PO BID 03/06/22 [History] oxyCODONE-APAP 5-325MG [Percocet 5-325 mg] 1 tab PO Q6HR PRN 03/06/22 [History] Amoxic-Pot Clav 875-125Mg [Augmentin 875-125] 1 tab PO Q12HR 7 Days #14 tab 03/09/22 [Rx] Follow up Appointment(s)/Referral(s): Radha Romero MD [STAFF PHYSICIAN] - 3 Weeks (Outpatient follow-up for Hepatitis C) Ming Collado MD [Primary Care Provider] - 1-2 days Activity/Diet/Wound Care/Special Instructions: Patient left AGAINST MEDICAL ADVICE Patient instructed to monitor closely for fevers and return back to the ER if continuing with fevers Prescription sent for antibiotics to his pharmacy Patient encouraged to follow-up with his registered dental hygienist along with surgery in one week and his primary care provider Discharge Disposition: Left Against Medical Advice
== END 2022-03-09 11:20 | disposition left against medical advice (07) | DRG 854 ==
LOC: EC 10:36 → 4SSUR 13:15 → 5NMEDONC 18:28
PROVIDERS: ADMIT Hospitalist; ATTEND Hospitalist
PROC: 0FT44ZZ Resection of Gallbladder, Percutaneous Endoscopic Approach (ICD-10-PCS; principal; 2022-03-08 15:35)
DX: A41.9 Sepsis, unspecified organism (principal); I50.22 Chronic systolic (congestive) heart failure; K80.12 Calculus of gallbladder with acute and chronic cholecystitis without obstruction; J98.11 Atelectasis; I11.0 Hypertensive heart disease with heart failure; K76.0 Fatty (change of) liver, not elsewhere classified; J44.9 Chronic obstructive pulmonary disease, unspecified; E66.9 Obesity, unspecified; Z68.30 Body mass index [BMI] 30.0-30.9, adult; F31.9 Bipolar disorder, unspecified; I49.5 Sick sinus syndrome; R16.0 Hepatomegaly, not elsewhere classified; R65.20 Severe sepsis without septic shock; F17.210 Nicotine dependence, cigarettes, uncomplicated; E78.5 Hyperlipidemia, unspecified; I25.5 Ischemic cardiomyopathy; N20.0 Calculus of kidney; E87.6 Hypokalemia; I25.10 Atherosclerotic heart disease of native coronary artery without angina pectoris; K21.9 Gastro-esophageal reflux disease without esophagitis; K44.9 Diaphragmatic hernia without obstruction or gangrene; K58.0 Irritable bowel syndrome with diarrhea; R09.02 Hypoxemia; R76.8 Other specified abnormal immunological findings in serum; Z53.29 Procedure and treatment not carried out because of patient's decision for other reasons; Z96.89 Presence of other specified functional implants; Z28.311 Partially vaccinated for COVID-19; Z79.899 Other long term (current) drug therapy; Z79.51 Long term (current) use of inhaled steroids; Z88.5 Allergy status to narcotic agent; Z91.040 Latex allergy status; Z88.8 Allergy status to other drugs, medicaments and biological substances; Z95.0 Presence of cardiac pacemaker; Z95.5 Presence of coronary angioplasty implant and graft
CPT/HCPCS: 36415; 71045; 74176; 76705; 80053; 80074; 82150; 83605; 83690; 85025; 85027; 85610; 87040; 87522; 88304; 93005; 94640; 94760; 96365; 96366; 96367; 96372; 96375; 96376; 99285

== ENCOUNTER 2022-05-18 15:42 | Inpatient (IN) | payer MEDICARE, OTHER ==
[2022-05-18] MEDS ORDERED: HEPARIN SODIUM 1,000 UN/ML (10ML VL) IV ONE (15:52)
[2022-05-18] MEDS ORDERED: MORPHINE SULFATE 4 MG/ML SYRINGE IV STA (15:52)
[2022-05-18] MEDS ORDERED: NITROGLYCERIN SL TABS 0.4 MG TAB SUBLINGUAL STA (15:52)
[2022-05-18] MEDS ORDERED: NITROGLYCERIN OINT 1 INCH/GM PACKET TOPICAL STA (15:56)
[2022-05-18] MEDS ORDERED: HYDROmorphone 1 MG/ML 1 ML SYRINGE IVP STA ×2 (15:56→19:57)
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
[2022-05-18] MEDS ORDERED: HEPARIN SOD,PORK IN 0.45% NACL 25,000 UNIT in 0.45% NACL 1 250ML.BAG IV SCH (16:00)
[2022-05-18 16:05] LABS: Basophils # (A) 0.1 k/uL (0-0.2); Basophils % (A) 1 %; Eosinophils # (A) 0.4 k/uL (0-0.7); Eosinophils % (A) 3 %; HCT 46.1 % (39.0-53.0); HGB 15.7 gm/dL (13.0-17.5); Lymphocytes # (A) 2.6 k/uL (1.0-4.8); Lymphocytes % (A) 21 %; MCV 88.3 fL (80.0-100.0); Mean Platelet Volume 9.5; Monocytes # (A) 0.7 k/uL (0-1.0); Monocytes % (A) 6 %; Neutrophils # (A) 8.5 k/uL (1.3-7.7); Neutrophils % (A) 68 %; Platelet Count 207 k/uL (150-450); RBC 5.22 m/uL (4.30-5.90); RDW 13.4 % (11.5-15.5); WBC 12.4 k/uL (3.8-10.6)
[2022-05-18] MEDS ORDERED: SODIUM CHLORIDE 0.9% 500 ML 500 ML IV ONE ×2 (16:13→17:15)
--- NOTE | 2022-05-18 16:14 | XR ---
EXAMINATION TYPE: XR chest 2V DATE OF EXAM: 05/18/2022 COMPARISON: 03/06/22 HISTORY: Chest pain TECHNIQUE: Frontal and lateral views of the chest are obtained. FINDINGS: There is no focal air space opacity. No evidence for pneumothorax. No pleural effusion. The cardiac silhouette size is within normal limits. The osseous structures are grossly intact. IMPRESSION: 1. No acute cardiopulmonary process.
[2022-05-18 16:16] LABS: Albumin 4.3 g/dL (3.5-5.0); Calcium 8.7 mg/dL (8.4-10.2); Potassium 4.4 mmol/L (3.5-5.1); Total Protein 6.8 g/dL (6.3-8.2)
[2022-05-18 16:24] LABS: Partial Thromboplastin Time 24.7 sec (22.0-30.0); Prothrombin Time 10.4 sec (9.0-12.0)
[2022-05-18] MEDS ORDERED: NITROGLYCERIN SL TABS 0.4 MG TAB SUBLINGUAL PRN (18:27)
[2022-05-18] MEDS ORDERED: FLUTICASONE 50MCG/SPRAY NASAL 16GM EA NOSTRIL PRN (18:29)
[2022-05-18] MEDS ORDERED: oxyCODONE-APAP 5-325MG 1 EACH TAB PO PRN (18:29)
[2022-05-18] MEDS ORDERED: ACETAMINOPHEN TAB 500 MG TAB PO PRN (18:29)
[2022-05-18] MEDS ORDERED: ALBUTEROL NEBULIZED 2.5 MG/3 ML INHALATION PRN (18:29)
[2022-05-18] MEDS ORDERED: FAMOTIDINE 20 MG TAB PO PRN (18:29)
[2022-05-18] MEDS ORDERED: NICOTINE 21MG/24HR PATCH TRANSDERM STA (18:29)
[2022-05-18] MEDS ORDERED: ONDANSETRON ODT 8 MG TAB.RAPDIS PO PRN (18:29)
[2022-05-18] MEDS ORDERED: HYOSCYAMINE SULFATE 0.375 MG TAB.ER.12H PO SCH (18:30)
[2022-05-18] MEDS: SYMBICORT 160-4.5 MCG INHALER INHALATION SCH (19:31)
[2022-05-18] MEDS ORDERED: PRIMIDONE 50 MG TAB PO SCH (21:00)
[2022-05-18] MEDS ORDERED: DICYCLOMINE 20 MG TAB PO SCH (21:00)
[2022-05-18] MEDS ORDERED: MONTELUKAST 10 MG TAB PO SCH (21:00)
[2022-05-18] MEDS: clonazePAM 0.5 MG TAB PO SCH (22:15)
[2022-05-18] MEDS: carvediloL 12.5 MG TAB PO SCH (22:15)
[2022-05-18] MEDS ORDERED: MORPHINE SULFATE 2 MG/ML SYRINGE IVP PRN (22:16)
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
[2022-05-18] MEDS: NICOTINE 21MG/24HR PATCH TRANSDERM SCH (23:45)
[2022-05-18] MEDS: HYDROmorphone 0.5 MG/0.5 ML SYRINGE IVP PRN (23:46)
[2022-05-18 23:54] LABS: Partial Thromboplastin Time 44.8 sec (22.0-30.0); Prothrombin Time 10.5 sec (9.0-12.0)
[2022-05-19] MEDS: NITROGLYCERIN OINT 1 INCH/GM PACKET TOPICAL SCH ×2 (01:47→06:16)
[2022-05-19] MEDS: HYDROmorphone 0.5 MG/0.5 ML SYRINGE IVP PRN (04:08)
[2022-05-19] MEDS: carvediloL 12.5 MG TAB PO SCH ×2 (06:16→18:16)
[2022-05-19] MEDS ORDERED: PANTOPRAZOLE 40 MG TABLET PO SCH (07:30)
[2022-05-19] MEDS: SYMBICORT 160-4.5 MCG INHALER INHALATION SCH ×2 (08:19→20:01)
[2022-05-19 08:31] VITALS: RESP 16
[2022-05-19] MEDS ORDERED: ISOSORBIDE MONONITRATE ER 60 MG TAB.ER.24H PO SCH (09:00)
[2022-05-19] MEDS ORDERED: FUROSEMIDE 20 MG TAB PO PRN (09:00)
[2022-05-19] MEDS ORDERED: ATORVASTATIN 80 MG TAB PO SCH (09:00)
[2022-05-19] MEDS ORDERED: lamoTRIgine 100 MG TAB PO SCH (09:00)
[2022-05-19] MEDS ORDERED: FLUoxetine HCL 20 MG CAP PO SCH (09:00)
[2022-05-19] MEDS ORDERED: ASPIRIN 325 MG TAB PO SCH (09:00)
[2022-05-19] MEDS ORDERED: LIDOCAINE 1% INJ 10MG/ML (5 ML VIAL-PF) ONE (09:00)
[2022-05-19] MEDS ORDERED: POTASSIUM CHLORIDE ER 10 MEQ TAB.ER.PRT PO SCH (09:00)
[2022-05-19] MEDS: clonazePAM 0.5 MG TAB PO SCH (09:14)
[2022-05-19] MEDS: NICOTINE 21MG/24HR PATCH TRANSDERM SCH (09:15)
[2022-05-19 09:24] LABS: Chol/HDL Ratio 7.28 Ratio; LDL Cholesterol,Calculated 136.8 mg/dL (0.0-131.0)
--- NOTE | 2022-05-19 09:56 | XR ---
EXAMINATION TYPE: XR chest 2V DATE OF EXAM: 05/19/2022 COMPARISON: Chest x-ray from yesterday HISTORY: Chest pain. TECHNIQUE: Frontal and lateral views of the chest are obtained. FINDINGS: There is no suspicious new focal air space opacity, pleural effusion, or pneumothorax seen . The cardiac silhouette size is stable and within normal limits. Dual lead pacemaker is redemonstra emelia. The osseous structures are intact. Posterior stimulator leads ascending the right neck are aga in seen. IMPRESSION: No acute cardiopulmonary process. No significant change from one day earlier.
[2022-05-19] MEDS ORDERED: ALPRAZolam 0.5 MG TAB PO PRN (11:13)
[2022-05-19] MEDS ORDERED: ALPRAZolam 0.25 MG TAB PO PRN (11:13)
[2022-05-19] MEDS ORDERED: SODIUM CHLORIDE 0.9% 1,000 ML in EMPTY BAG 1 BAG IV SCH (11:15)
[2022-05-19] MEDS ORDERED: clonazePAM 0.5 MG TAB PO STA (11:22)
[2022-05-19] MEDS ORDERED: fentaNYL (PF) 50 MCG/ML 2 ML AMP ONE (12:08)
[2022-05-19] MEDS ORDERED: IV FLUID CONTINUATION 1,000 ML IV ONE (12:10)
[2022-05-19] MEDS ORDERED: MIDAZOLAM 2 MG/2 ML VIAL IV ONE (12:13)
[2022-05-19] MEDS: fentaNYL (PF) 50 MCG/ML 2 ML AMP IV ONE ×2 (12:13→12:27)
[2022-05-19] MEDS ORDERED: LIDOCAINE 1% INJ 10MG/ML (5 ML VIAL-PF) SQ ONE (12:16)
[2022-05-19] MEDS ORDERED: LIDOCAINE 1% INJ 10MG/ML (30 ML VIAL-PF) SQ ONE (12:16)
--- NOTE | 2022-05-19 12:16 | CONS ---
CONSULTATION CHIEF COMPLAINT: Chest pain. HISTORY OF PRESENT ILLNESS: Jabari is a 41-year-old gentleman with history of coronary artery disease status post prior angioplasty of LAD who presents to [facility] complaining of chest discomfort. He regularly follows with a break off worker out in [place] and was recently evaluated by them in the outpatient setup. Apparently had a stress test that was abnormal and he is to undergo a cardiac catheterization at the end of the month. Last night he developed progressively worsening chest discomfort, hence comes in. There is no real response to nitro. EKG did not reveal any acute ischemic changes and cardiac enzymes have been negative. I reviewed his records from the other break off worker. His LV function is normal, but has ischemia in the anterior wall and lateral wall. The patient has known CAD and had prior angioplasty of LAD and I performed a cardiac catheterization in February 2016 that revealed a patent stent. PAST MEDICAL HISTORY: Significant for coronary artery disease status post angioplasty, COPD, hypertension. MEDICATIONS: 1. Crestor. 2. Losartan. 3. Imdur. 4. Coreg. 5. Lasix. 6. Inhalers. ALLERGIES: To codeine, latex, Vicodin, and Seroquel. FAMILY HISTORY: Negative for premature coronary artery disease. SOCIAL HISTORY: Negative for smoking, EtOH abuse, or drug abuse. REVIEW OF SYSTEMS: HEENT: Unremarkable. CARDIAC: As described above. RESPIRATORY: As described above. GI: Negative. GENITOURINARY: Negative. ALLERGY/IMMUNOLOGY: Negative. SKIN: Negative. MUSCULOSKELETAL: Negative for arthritis. PSYCHOSOCIAL: Negative. DERM: Negative. CONSTITUTIONAL: Negative. ONCOLOGICAL: Negative. BRAND DEVELOPMENT MANAGER: Negative. PHYSICAL EXAMINATION: GENERAL: Comfortable at rest, afebrile. VITAL SIGNS: Heart rate is 80 beats per minute, blood pressure is 103/67, respiratory rate is 16, O2 saturation is 97% on room air. NECK: There is no jugular venous distention. Carotid upstroke is normal. There is no bruit. CHEST: Reveals good air entry bilaterally. HEART: Reveals first and second heart sounds. No gallop, no murmur, no rub. ABDOMEN: Soft, nontender. EXTREMITIES: Did not reveal any edema. Peripheral pulses are felt. EKG does not reveal acute ischemic changes. Cardiac enzymes have been negative. Review of recent stress test from [place] shows ischemia. Review of his previous angiographic data. ASSESSMENT AND PLAN: Unstable angina, I advised the patient to undergo cardiac catheterization that was to be done early next week in [place]. We will decide on further course of action based on the angiographic data. MMMAXWELL / MALISSA: [id number] /
[2022-05-19] MEDS ORDERED: IOPAMIDOL-370 125ML BTL INJ ONE (12:48)
[2022-05-19] MEDS ORDERED: RX INFO: IV CONTRAST WAS GIVEN 1 EACH MISC MISCELLANE PRN (13:03)
[2022-05-19] MEDS ORDERED: SODIUM CHLORIDE 0.9% 1,000 ML IV SCH (13:15)
[2022-05-19 13:34] VITALS: TEMP 98
[2022-05-19 17:01] VITALS: BP 105/58; PULSE 78
--- NOTE | 2022-05-19 22:49 | P.DS ---
Providers Date of admission: 05/18/22 18:32 Expected date of discharge: 05/19/22 Attending physician: Shahram Lopez Consults: 05/18/22 18:27 Consult Physician Urgent Consulting Provider: Abdiel Romero Consult Reason/Comments: Chest pain, angina Do you want consulting provider notified?: Yes Primary care physician: Ming Tobias [facility] Course: Chief Complaint: Chest pain This is a pleasant 41-year-old patient of Dr. Andrey Collado. Chronic stable medical conditions include CAD with a stent in 2014, permanent pacemaker in 2011 for sick sinus syndrome, COPD, CHF, GERD, hypertension, hyperlipidemia, irritable bowel syndrome, bipolar disorder. baseline does have involuntary movements he describes secondary to his psychiatry medications in the past. Smoker Patient started out this afternoon with left-sided chest pain. Describes as being sharp. Sometimes going to his neck and left arm. Present off and on. Some shortness of breath. Slight cough. No fever no chills. Appetite is fair. Patient states he had a stress test and lipid are about 2 weeks ago and he feels the same. Does not know further details. His production control analyst is out of low. May 19: Patient underwent cardiac cath today. Nurse called me to say that no further intervention per cardiology.. Patient cleared by cardiology for discharge. Patient to follow-up with his own production control analyst. Past medical history to include: COPD, CAD with stent 2014, permanent pacemaker 2011 for sick sinus syndrome, CHF, GERD, hypertension, hyperlipidemia, irritable bowel syndrome, bipolar disorder Social history: Lives with his mother. Smokes a pack a day., . no alcohol. Marijuana sometimes. Family history: Father had a heart transplant in his 40s and mother in the 50s required coronary bypass Physical examination: VITAL SIGNS: 98, 71, 16, 100/759, 94% room air GENERAL: sitting up in bed, involuntarily movements EYES: Pupils equal. Conjunctiva normal. HEENT: External appearance of nose and ears normal, oral cavity grossly normal. NECK: JVD not raised; masses not palpable. HEART: First and second heart sounds are normal; no edema. LUNGS: Respiratory rate normal; decreased breath sounds. Mild wheezing ABDOMEN: Soft, no tender guarding rigidity, liver spleen not palpable, no masses palpable. PSYCH: Alert and oriented x3; mood and affect anxious. NEUROLOGICAL: Cranial nerves grossly intact; no facial asymmetry, power and sensation grossly intact. Involuntarily movements INVESTIGATIONS, reviewed in the clinical context: Cardiac catheterization: Formal results not available. LDL 136 White count 12.4 hemoglobin 15.7 platelets 207 but she 4.4 BUN 15 creatinine 1.23 Troponin I less than 0.012 Assessment and plan: -Left anterior chest wall pain. Sharp. Rigidity and neck and arm. Known CAD. Patient states he has failed as stress test 2 weeks ago.: Unstable angina Aspirin. IV heparin. Cardiac catheterization done. No stent. -CAD with stent in 2014 Coreg 25 mg twice a day, Crestor 40 -Chronic congestive heart failure from ischemic cardiomyopathy. 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 Patient is able to walk unassisted -Bipolar disorder Lamictal 100 mg a day -Chronic nicotine dependence, cigarette smoker Nicotine patch -GERD -Permanent pacemaker for sick sinus syndrome Telemetry Disposition: Home Plan - Discharge Summary New Discharge Prescriptions: New Aspirin 81 mg PO DAILY #30 tab Nicotine 21Mg/24Hr Patch [Habitrol] 1 patch TRANSDERM DAILY #14 patch Continue Furosemide [Lasix] 20 mg PO DAILY PRN PRN Reason: Edema Nitroglycerin Sl Tabs [Nitrostat] 0.4 mg SL Q5M PRN PRN Reason: Chest Pain Montelukast [Singulair] 10 mg PO HS Albuterol Sulfate [Ventolin HFA] 2 puff INHALATION RT-Q6H PRN PRN Reason: Shortness Of Breath Pantoprazole Sodium [Protonix] 40 mg PO DAILY carvediloL [Coreg] 25 mg PO BID Isosorbide Mononitrate [Imdur] 120 mg PO DAILY lamoTRIgine [LaMICtal] 100 mg PO DAILY Acetaminophen Tab [Tylenol] 1,000 mg PO Q6H PRN PRN Reason: Fever And/ Or Pain FLUoxetine HCL [PROzac] 20 mg PO DAILY Rosuvastatin Calcium [Crestor] 40 mg PO DAILY Budesonide/Formoterol Fumarate [Symbicort 160-4.5 Mcg Inhaler] 2 puff INHALATION RT-BID Potassium Chloride ER [K-Dur 10] 10 meq PO DAILY SILVER sulfADIAZINE Cream [Silvadene 1% Cream] 1 applic TOPICAL DAILY clonazePAM [KlonoPIN] 0.5 mg PO BID Losartan Potassium [Cozaar] 25 mg PO DAILY Discharge Medication List Furosemide [Lasix] 20 mg PO DAILY PRN 10/27/15 [History] Albuterol Sulfate [Ventolin HFA] 2 puff INHALATION RT-Q6H PRN 02/12/20 [History] Montelukast [Singulair] 10 mg PO HS 02/12/20 [History] Nitroglycerin Sl Tabs [Nitrostat] 0.4 mg SL Q5M PRN 02/12/20 [History] Pantoprazole Sodium [Protonix] 40 mg PO DAILY 02/12/20 [History] Budesonide/Formoterol Fumarate [Symbicort 160-4.5 Mcg Inhaler] 2 puff INHALATION RT-BID 09/16/20 [History] carvediloL [Coreg] 25 mg PO BID 09/16/20 [History] Acetaminophen Tab [Tylenol] 1,000 mg PO Q6H PRN 07/01/21 [History] Isosorbide Mononitrate [Imdur] 120 mg PO DAILY 07/01/21 [History] lamoTRIgine [LaMICtal] 100 mg PO DAILY 07/01/21 [History] FLUoxetine HCL [PROzac] 20 mg PO DAILY 07/03/21 [History] Potassium Chloride ER [K-Dur 10] 10 meq PO DAILY 03/06/22 [History] Rosuvastatin Calcium [Crestor] 40 mg PO DAILY 03/06/22 [History] SILVER sulfADIAZINE Cream [Silvadene 1% Cream] 1 applic TOPICAL DAILY 03/06/22 [History] clonazePAM [KlonoPIN] 0.5 mg PO BID 03/06/22 [History] Losartan Potassium [Cozaar] 25 mg PO DAILY 05/18/22 [History] Aspirin 81 mg PO DAILY #30 tab 05/19/22 [Rx] Nicotine 21Mg/24Hr Patch [Habitrol] 1 patch TRANSDERM DAILY #14 patch 05/19/22 [Rx] Follow up Appointment(s)/Referral(s): own-production control analystdr [Other] - 1 Week Ming Collado MD [Primary Care Provider] - 1-2 days Activity/Diet/Wound Care/Special Instructions: DC 4 okay with cardiology Discharge Disposition: HOME SELF-CARE
--- NOTE | 2022-05-19 23:28 | CC ---
CARDIAC CATHETERIZATION REPORT INDICATION: Chest pain with abnormal stress test. PROCEDURE NOTE: After obtaining informed consent, left heart catheterization and coronary angiogram were performed via the right femoral artery using standard Brigette catheters. I initially attempted vascular access from the right side. I was not able to pass a wire in, hence we attempted vascular access on the left side, but inadvertently, we put the femoral sheath into the femoral vein. Hence, I attempted vascular access again on the right side and was successful in getting femoral arterial access to which I performed the cardiac catheterization. The patient received moderate conscious sedation. Total sedation time was 30 minutes. The patient remained stable throughout. The patient stated that they could not do radial cath in the past on him, I am not quite sure why. Hence, we did femoral cath. FINDINGS: 1. Hemodynamics: Left ventricular end-diastolic pressure is 10 to 12 mm. There is no significant gradient across the aortic valve. 2. Left ventriculogram: Left ventriculogram was not performed. 3. Angiographic data: a.Right coronary artery: Right coronary artery is a large dominant vessel that shows mild nonobstructive disease. Left main coronary artery appears free of stenosis, divides into left anterior descending coronary artery and circumflex coronary artery. Circumflex coronary artery shows mild nonobstructive disease. LAD was previously stented, and there is an irregular area of narrowing proximal to the stent and the mid LAD also shows [id number] nonobstructive disease. CONCLUSION: [id number] nonobstructive disease involving LAD and circumflex coronary artery with mild disease involving right coronary artery. PLAN: I am going to review the angiographic data with Dr. Agustin, the on-call senior lead project manager, and decide on whether he needs an iFR of the LAD lesion or if they should just manage him medically. A femoral angiogram on the right side reveals significant disease involving the right common femoral artery. Hence, we will do manual hemostasis. We will pull the left femoral venous sheath also. MMODL / IJN: [id number] /
[2022-05-20] MEDS ORDERED: HEPARIN SODIUM,PORCINE 10,000 UNIT in SODIUM CHLORIDE 0.9% 1,000 ML IRRIGATION PRN (07:00)
[2022-05-20] MEDS ORDERED: HEPARIN SODIUM,PORCINE 2,500 UNIT in SODIUM CHLORIDE 0.9% 250 ML IRRIGATION PRN (07:00)
== END 2022-05-19 20:30 | disposition home or self-care (01) | DRG 287 ==
LOC: EC 15:42 → OBSVTOIN 18:32 → 6NMEDSUR 18:32 → INTOOBSV 05-19 12:24 → OBSVTOIN 05-19 12:24
PROVIDERS: ADMIT Hospitalist; ATTEND Hospitalist
PROC: B2111ZZ Fluoroscopy of Multiple Coronary Arteries using Low Osmolar Contrast (ICD-10-PCS; principal; 2022-05-19 11:55)
PROC: 4A023N7 Measurement of Cardiac Sampling and Pressure, Left Heart, Percutaneous Approach (ICD-10-PCS; principal; 2022-05-19 11:55)
DX: I25.110 Atherosclerotic heart disease of native coronary artery with unstable angina pectoris (principal); E78.5 Hyperlipidemia, unspecified; F17.210 Nicotine dependence, cigarettes, uncomplicated; F31.9 Bipolar disorder, unspecified; K58.9 Irritable bowel syndrome, unspecified; F41.9 Anxiety disorder, unspecified; I11.0 Hypertensive heart disease with heart failure; I25.5 Ischemic cardiomyopathy; I49.5 Sick sinus syndrome; I50.9 Heart failure, unspecified; K21.9 Gastro-esophageal reflux disease without esophagitis; Z79.51 Long term (current) use of inhaled steroids; Z79.899 Other long term (current) drug therapy; Z82.49 Family history of ischemic heart disease and other diseases of the circulatory system; Z95.0 Presence of cardiac pacemaker; Z95.5 Presence of coronary angioplasty implant and graft; Z88.5 Allergy status to narcotic agent; Z91.040 Latex allergy status
CPT/HCPCS: 36415; 71046; 80053; 80061; 83690; 83735; 83880; 84484; 85025; 85379; 85610; 85730; 93005; 93458; 94640

== ENCOUNTER 2023-06-10 20:08 | Observation (INO) | payer MEDICARE ==
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
[2023-06-10 20:33] LABS: Basophils % (A) 0 %; Eosinophils # (A) 0.2 k/uL (0-0.7); Eosinophils % (A) 2 %; HCT 41.4 % (39.0-53.0); Lymphocytes # (A) 2.5 k/uL (1.0-4.8); Lymphocytes % (A) 30 %; MCH 30.1 pg (25.0-35.0); MCV 88.7 fL (80.0-100.0); Mean Platelet Volume 10.5; Monocytes # (A) 0.5 k/uL (0-1.0); Monocytes % (A) 6 %; Neutrophils # (A) 4.9 k/uL (1.3-7.7); Neutrophils % (A) 60 %; Platelet Count 150 k/uL (150-450); RBC 4.66 m/uL (4.30-5.90); RDW 13.1 % (11.5-15.5); WBC 8.3 k/uL (3.8-10.6)
[2023-06-10 20:43] LABS: INR 0.9 (<1.2); Partial Thromboplastin Time 23.9 sec (22.0-30.0); Prothrombin Time 10.3 sec (10.0-12.5)
--- NOTE | 2023-06-10 20:43 | XR ---
EXAMINATION TYPE: XR chest 2V DATE OF EXAM: 06/10/2023 8:33 PM CLINICAL INDICATION:Male, 42 years old with history of Chest Pain; COMPARISON: Chest radiographs from TECHNIQUE: XR chest 2V Frontal and lateral views of the chest. FINDINGS: Lungs/Pleura: There is no evidence of pleural effusion, focal consolidation, or pneumothorax. Pulmonary vascularity: Unremarkable. Heart/mediastinum: Cardiomediastinal silhouette is unremarkable. Two lead cardiac conduction device o verlying the left hemithorax with lead tips projecting over the right ventricle and right atrium. Musculoskeletal: No acute osseous pathology. Other findings: None IMPRESSION: No acute cardiopulmonary disease/process.
[2023-06-10 20:55] LABS: ALT 13 U/L (4-49); AST 20 U/L (17-59); African American GFR (CKD) >90 (>60 ml/min/1.73 sqM); Albumin 4.4 g/dL (3.5-5.0); Alkaline Phosphatase 73 U/L (38-126); Anion Gap 8 mmol/L; Blood Urea Nitrogen 16 mg/dL (9-20); Calcium 9.3 mg/dL (8.4-10.2); Carbon Dioxide 22 mmol/L (22-30); Chloride 110 mmol/L (98-107); Glucose 82 mg/dL (74-99); Lipase 451 U/L (23-300); Magnesium 1.8 mg/dL (1.6-2.3); Non-African American GFR(CKD) >90 (>60 ml/min/1.73 sqM); Potassium 3.8 mmol/L (3.5-5.1); Sodium 140 mmol/L (137-145); Total Bilirubin 0.5 mg/dL (0.2-1.3); Total Protein 6.6 g/dL (6.3-8.2)
[2023-06-10 21:02] LABS: NT-Pro-B-Type Natriuretic Pept 564 pg/mL
--- NOTE | 2023-06-10 22:52 | CT ---
EXAM: CT Abdomen and Pelvis With Intravenous Contrast CLINICAL HISTORY: CT Reason: pancreatitis TECHNIQUE: Axial computed tomography images of the abdomen and pelvis with intravenous contrast. CTDI is 12.1 mGy and DLP is 1134.7 mGy-cm. This CT exam was performed using one or more of the following dose reduction techniques: automated exposure control, adjustment of the mA and/or kV according to patient size, and/or use of iterative reconstruction technique. COMPARISON: March 06, 2022 FINDINGS: Lung bases: Unremarkable. No mass. No consolidation. ABDOMEN: Liver: Unremarkable. No mass. Gallbladder and bile ducts: Unremarkable. No biliary duct prominence postcholecystectomy with the common bile duct measuring 12 mm in diameter. No choledocholithiasis is seen. Pancreas: The pancreas is unremarkable. No signs of acute pancreatitis. No ductal dilation. Spleen: Unremarkable. No splenomegaly. Adrenals: Unremarkable. No mass. Kidneys and ureters: Delayed images show normal renal contrast excretion bilaterally. No hydronephrosis. Stomach and bowel: Unremarkable. No obstruction. No mucosal thickening. PELVIS: Appendix: The appendix is normal. Bowel loops are nondilated. No acute inflammatory changes are seen involving the bowel. Bladder: Unremarkable. No mass. Reproductive: Unremarkable as visualized. ABDOMEN and PELVIS: Intraperitoneal space: Unremarkable. No free air. No significant fluid collection. Bones/joints: No acute fracture. No dislocation. Soft tissues: Unremarkable. Vasculature: Unremarkable. No abdominal aortic aneurysm. Lymph nodes: Unremarkable. No enlarged lymph nodes. Tubes, lines and devices: Metallic artifact from an electronic device over the right flank. IMPRESSION: 1. No biliary duct prominence postcholecystectomy with the common bile duct measuring 12 mm in diameter. No choledocholithiasis is seen. 2. The pancreas is unremarkable. No signs of acute pancreatitis. 3. The appendix is normal. Bowel loops are nondilated. No acute inflammatory changes are seen involving the bowel. No acute process is seen within the abdomen or pelvis.
[2023-06-11] MEDS: NITROGLYCERIN OINT 1 INCH/GM PACKET TOPICAL SCH (00:14)
[2023-06-11] MEDS: carvediloL 12.5 MG TAB PO SCH (00:14)
[2023-06-11] MEDS: MORPHINE SULFATE 4 MG/ML SYRINGE IVP STA (00:31)
[2023-06-11] MEDS: ASPIRIN 325 MG TAB PO SCH (08:05)
[2023-06-11 08:36] VITALS: TEMP 97.6
[2023-06-11] MEDS ORDERED: ALPRAZolam 0.5 MG TAB PO PRN (08:57)
[2023-06-11] MEDS ORDERED: NITROGLYCERIN SL TABS 0.4 MG TAB SUBLINGUAL PRN (08:57)
[2023-06-11] MEDS ORDERED: ALPRAZolam 0.25 MG TAB PO PRN (08:57)
[2023-06-11] MEDS: ASPIRIN 325 MG TAB PO STA (09:03)
[2023-06-11 09:14] LABS: Chol/HDL Ratio 3.27 Ratio; LDL Cholesterol,Calculated 76.7 mg/dL (0.0-131.0)
[2023-06-11] MEDS: ATORVASTATIN 80 MG TAB PO STA (09:19)
[2023-06-11] MEDS: SODIUM CHLORIDE 0.9% 1,000 ML IV SCH ×2 (09:40→11:23)
[2023-06-11] MEDS: IV FLUID CONTINUATION 1,000 ML IV ONE (10:00)
[2023-06-11] MEDS: MORPHINE SULFATE 4 MG/ML SYRINGE IVP ONE (10:02)
[2023-06-11] MEDS ORDERED: MORPHINE SULFATE 4 MG/ML SYRINGE ONE (10:04)
[2023-06-11] MEDS: MIDAZOLAM 2 MG/2 ML VIAL IVP ONE (10:38)
[2023-06-11] MEDS: LIDOCAINE 1% INJ 10MG/ML (30 ML VIAL-PF) SQ ONE (10:41)
[2023-06-11] MEDS ORDERED: HEPARIN SODIUM 1,000 UN/ML (10ML VL) ONE (10:41)
[2023-06-11] MEDS: VERAPAMIL SYRINGE (5 MG/10 ML) INTRAARTER ONE (10:44)
[2023-06-11] MEDS: HEPARIN SODIUM 1,000 UN/ML (10ML VL) IV ONE (10:47)
[2023-06-11] MEDS: NITROGLYCERIN 1000MCG/10ML SYRINGE INTRACORON ONE (11:02)
[2023-06-11] MEDS: IOPAMIDOL-370 100ML BTL INJ ONE (11:06)
[2023-06-11] MEDS ORDERED: RX INFO: IV CONTRAST WAS GIVEN 1 EACH MISC MISCELLANE PRN (11:17)
--- NOTE | 2023-06-11 11:26 | P.CARDCATH ---
Date of Procedure: 06/11/23 Description of Procedure: Cardiac Catheterization: The patient is a 42-year-old male with a known history of CAD status post stenting of the mid LAD over 10 years ago, history of hypertension, hyperlipidemia and a prior history of smoking who presented with persistent chest discomfort, radiating to the left arm and neck. His cardiac enzymes and EKG showed no acute changes. Recommendations were made regarding cardiac catheterization, the risks and the complications were discussed with the patient who is in full understanding and agreement. Procedure Description: Patient was brought to shipyard laborer in fasting semi-sedated state after receiving Fentanyl and Benadryl achieiving moderate conscious sedated state. Using Xylocaine Anesthesia and modified Seldinger technique, a 6-Swiss sheath was introduced in the right radial artery . Subsequently, selective coronary angiography was performed using a 5-Swiss 3.5 bend Brigette catheter. Multiple views of the coronary artery including hemiaxial views were obtained. The 5 Swiss pigtail catheter was used to cross the aortic valve and LVEDP was calculated. After removing the catheters a 6 Swiss FR 4 guiding catheter was reintroduced and after cannulating the right coronary ostium a Omni Doppler flow wire was positioned in the RCA and IFR was measured at 0.96. Following that, catheter and sheath were removed. Hemostasis was obtained with deployment of vascular band . There was no immediate complication. Patient was returned to room in stable condition. Of note, the patient received a total of 5500 units of intravenous heparin as well as intra-arterial verapamil. Findings: Left main: This is a large size vessel, trifurcating into LAD, left circumflex and ramus intermedius, left main has no obstructive disease LAD: This is a large size vessel, reaching to the apex, tapers down in the distal third. Giving rise to small to moderate diagonal branch. The proximal LAD has intimal disease of 20 to 30%. The stented segment in the mid distal LAD is patent with no significant in-stent restenosis. Left circumflex: This is a large codominant vessel bifurcating distally to PDA and PLV. The left circumflex gives rise to a small obtuse marginal branch proximally. In the midsegment the left circumflex has an eccentric 30 to 40% plaque. The rest of the vessel has no high-grade stenosis RCA: This is a codominant vessel, large in caliber, bifurcating to PDA and PLV. The proximal segment of the RCA has an eccentric 50% plaque, there is another 30 to 40% plaque in the midsegment, the rest of the vessel has no high-grade stenosis. Ramus intermedius: This is a large size vessel that has no evidence of high- grade stenosis with mild intimal disease. Left Ventriculogram: Not performed Hemodynamics: There was no gradient across the aortic valve, LVEDP was 10-15 mmHg Conclusion: 1. Patent stent in the mid LAD 2. Mild disease in the proximal LAD and mid left circumflex 3. Moderate disease in the proximal and mid RCA 4. Nonhemodynamically significant RCA lesion with IFR of 0.96 5. Codominant system Recommendations: I have recommended to him continue medical therapy with aggressive coronary risks modifications. The findings and the recommendations were discussed with the patient and he is in full understanding and agreement. Duration of sedation is 25 minutes.
[2023-06-11] MEDS: MORPHINE SULFATE 4 MG/ML SYRINGE ONE (11:45)
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
--- NOTE | 2023-06-11 12:41 | P.DS ---
Providers Date of admission: 06/10/23 23:32 Attending physician: Yeni Shaw Consults: 06/10/23 23:32 Consult Physician Urgent Consulting Provider: [facility] Consult Reason/Comments: chest pain - known CAD, last cath 2020 Do you want consulting provider notified?: Yes, Notify in am Primary care physician: [facility] Course: Patient is a 42-year-old male came with complaints of chest pain pressure-like sensation radiating to the left arm and neck in the EKG did not show any acute ST-T wave change changes and patient has a history of coronary disease and cardiac catheterization in the past and stents in the past. Patient was eval by cardiology and patient was taken to [facility] found to have 30% stenosis of LAD and 30 to 40% plaque in the mid segment of left circumflex and about 50% stenosis of RCA which is not hemodynamically significant lesion with IFR of 0.96. Cardiology is recommending medical management for these lesions and these lesions will not need any stenting or further intervention. Patient has incidental elevation of lipase although this is nonspecific and not have to say pancreatitis patient symptoms are not consistent with pancreatitis. Patient had a CT of the abdomen which showed incidental finding of 1.2 cm dilated common bile duct. Liver enzymes are within normal limits no bile duct stones no further intervention is needed regarding this. PHYSICAL EXAMINATION: GENERAL: The patient is alert and oriented x3, not in any acute distress. Well developed, well nourished. HEENT: Pupils are round and equally reacting to light. EOMI. No scleral icterus. No conjunctival pallor. Normocephalic, atraumatic. No pharyngeal erythema. No thyromegaly. CARDIOVASCULAR: S1 and S2 present. No murmurs, rubs, or gallops. PULMONARY: Chest is clear to auscultation, no wheezing or crackles. ABDOMEN: Soft, nontender, nondistended, normoactive bowel sounds. No palpable organomegaly. MUSCULOSKELETAL: No joint swelling or deformity. EXTREMITIES: No cyanosis, clubbing, or pedal edema. NEUROLOGICAL: Gross neurological examination did not reveal any focal deficits. SKIN: No rashes. Assessment and plan -Chest pain, unstable angina: Cardiac catheterization findings as mentioned above medical management no further intervention is necessary at this time -Mild nonspecific elevation of lipase no further intervention is necessary Incidental finding of mildly dilated common bile duct no further intervention at this time -Gastroesophageal reflux disease -Hyperlipidemia -Hypertension -Continue nicotine use extensive counseling was provided Patient was cleared by cardiology and will be discharged today Patient Condition at Discharge: Stable Plan - Discharge Summary New Discharge Prescriptions: New Atorvastatin [Lipitor] 40 mg PO HS #30 tab Continue Furosemide [Lasix] 20 mg PO DAILY PRN PRN Reason: Edema Nitroglycerin Sl Tabs [Nitrostat] 0.4 mg SL Q5M PRN PRN Reason: Chest Pain Montelukast [Singulair] 10 mg PO HS Albuterol Sulfate [Ventolin HFA] 2 puff INHALATION RT-Q6H PRN PRN Reason: Shortness Of Breath Pantoprazole Sodium [Protonix] 40 mg PO DAILY carvediloL [Coreg] 25 mg PO BID Rosuvastatin Calcium [Crestor] 40 mg PO DAILY Aspirin 81 mg PO DAILY #30 tab Losartan [Cozaar] 50 mg PO DAILY Isosorbide Mononitrate ER [Imdur] 180 mg PO DAILY Budesonide/Formoterol Fumarate [Symbicort 160-4.5 Mcg Inhaler] 2 puff INHALATION RT-BID Potassium Chloride ER [K-Dur 10] 10 meq PO DAILY Fluticasone Nasal Refugio [Flonase Nasal Refugio] 1 spray EA NOSTRIL DAILY FLUoxetine HCL [PROzac] 40 mg PO DAILY lamoTRIgine [LaMICtal] 150 mg PO DAILY Discharge Medication List Furosemide [Lasix] 20 mg PO DAILY PRN 10/27/15 [History] Albuterol Sulfate [Ventolin HFA] 2 puff INHALATION RT-Q6H PRN 02/12/20 [History] Montelukast [Singulair] 10 mg PO HS 02/12/20 [History] Nitroglycerin Sl Tabs [Nitrostat] 0.4 mg SL Q5M PRN 02/12/20 [History] Pantoprazole Sodium [Protonix] 40 mg PO DAILY 02/12/20 [History] Budesonide/Formoterol Fumarate [Symbicort 160-4.5 Mcg Inhaler] 2 puff INHALATION RT-BID 09/16/20 [History] carvediloL [Coreg] 25 mg PO BID 09/16/20 [History] Potassium Chloride ER [K-Dur 10] 10 meq PO DAILY 03/06/22 [History] Rosuvastatin Calcium [Crestor] 40 mg PO DAILY 03/06/22 [History] Aspirin 81 mg PO DAILY #30 tab 05/19/22 [Rx] FLUoxetine HCL [PROzac] 40 mg PO DAILY 06/10/23 [History] Fluticasone Nasal Refugio [Flonase Nasal Refugio] 1 spray EA NOSTRIL DAILY 06/10/23 [History] Isosorbide Mononitrate ER [Imdur] 180 mg PO DAILY 06/10/23 [History] Losartan [Cozaar] 50 mg PO DAILY 06/10/23 [History] lamoTRIgine [LaMICtal] 150 mg PO DAILY 06/10/23 [History] Atorvastatin [Lipitor] 40 mg PO HS #30 tab 06/11/23 [Rx] Follow up Appointment(s)/Referral(s): Marisela Agustin MD [STAFF PHYSICIAN] - 1 Week Ming Collado MD [Primary Care Provider] - 3 Days Discharge Disposition: HOME SELF-CARE
[2023-06-11 20:54] VITALS: RESP 16
[2023-06-11] MEDS ORDERED: ATORVASTATIN 40 MG TAB PO SCH (21:00)
[2023-06-11 21:23] VITALS: BP 128/70; PULSE 80
[2023-06-12] MEDS ORDERED: HEPARIN SODIUM,PORCINE 10,000 UNIT in SODIUM CHLORIDE 0.9% 1,000 ML IRRIGATION PRN (07:00)
[2023-06-12] MEDS ORDERED: HEPARIN SODIUM,PORCINE (1 ML) 2,500 UNIT in SODIUM CHLORIDE 0.9% 250 ML IRRIGATION PRN (07:00)
[2023-06-12] MEDS ORDERED: ASPIRIN 81 MG PO SCH (09:00)
[2023-06-12] MEDS ORDERED: ISOSORBIDE MONONITRATE ER 60 MG TAB.ER.24H PO SCH (09:00)
[2023-06-12] MEDS ORDERED: LOSARTAN 50 MG TAB PO SCH (09:00)
== END 2023-06-11 14:30 | disposition home or self-care (01) ==
LOC: EC 20:08 → 6NMEDSUR 23:32
PROVIDERS: ADMIT Hospitalist; ATTEND Hospitalist
DX: I25.110 Atherosclerotic heart disease of native coronary artery with unstable angina pectoris (principal); I11.0 Hypertensive heart disease with heart failure; I50.9 Heart failure, unspecified; R74.8 Abnormal levels of other serum enzymes; E78.5 Hyperlipidemia, unspecified; I08.1 Rheumatic disorders of both mitral and tricuspid valves; I25.5 Ischemic cardiomyopathy; I49.5 Sick sinus syndrome; M54.9 Dorsalgia, unspecified; M54.2 Cervicalgia; R25.1 Tremor, unspecified; K21.9 Gastro-esophageal reflux disease without esophagitis; F17.210 Nicotine dependence, cigarettes, uncomplicated; Z79.51 Long term (current) use of inhaled steroids; Z79.899 Other long term (current) drug therapy; Z79.82 Long term (current) use of aspirin; Z91.040 Latex allergy status; Z88.5 Allergy status to narcotic agent; Z88.8 Allergy status to other drugs, medicaments and biological substances; Z95.5 Presence of coronary angioplasty implant and graft; Z95.0 Presence of cardiac pacemaker
CPT/HCPCS: 96374; 99285; 36415; 93005 ×2; 83880; 80061; 80053; 83690; 83735; 84484 ×2; 85025; 85610; 85730; 71046; 74177; G0378; C1887; C1769 ×3; C1894 ×2; J2250; J2270; J2001; J1644; Q9967 ×2; J2305; 93458; 93799